=== PATIENT | female | born 1950 | race African-American/Black ===

== ENCOUNTER 2017-07-18 12:17 | Inpatient (IN) | payer OTHER, MEDICAID ==
[~2017-07-18] VITALS: Ht 167.6 cm; Wt 90.7 kg
[2017-07-18 12:17] VITALS: BP_SYST 154
[~2017-07-18 12:17] MED LIST: ALLO100T PO; ASA81 PO; ASPI-1063 PO; CILO100T21 PO; DIPH25CA83 PO; DOCU-144 PO; FOLI0.8T2 PO; IPRA0.2S6 INH; LEVA15HF5 INH; LEVO150T PO; LIP10 PO; METO-290 PO; NEPH PO; NEU400 PO; NEXIUM PO; ONDA4TAB5 PO; OXYC-130 PO; PERC10 PO; SSNOVOLOG SUBCUT; VITD2000 PO; WARF3TAB PO; [UNRECOGNIZED DRUG - OTHER]; pletal PO
[2017-07-18] MEDS ORDERED: NS 500 ML IV SCH (12:25)
[2017-07-18 13:06] LABS: BASOPHILS % (AUTO) 0.3 % (0.0-2.0); EOSINOPHILS # (AUTO) 0.1 K/uL (0.0-0.4); EOSINOPHILS % (AUTO) 0.9 % (0.0-4.0); HEMATOCRIT 34.2 % (36-48); HEMOGLOBIN 11.2 g/dL (12.0-16.0); LYMPHOCYTES # (AUTO) 1.5 K/uL (1.0-5.5); LYMPHOCYTES % (AUTO) 12.7 % (20.5-51.5); MEAN CORPUSCULAR HEMOGLOBIN 30 pg (27-31); MEAN CORPUSCULAR HGB CONC 33 % (32-36); MEAN CORPUSCULAR VOLUME 92 fL (79.0-98.0); MONOCYTES # (AUTO) 0.7 K/uL (0.0-1.0); MONOCYTES % (AUTO) 5.9 % (1.7-9.3); NEUTROPHILS # (AUTO) 9.3 K/uL (1.8-7.7); NEUTROPHILS % (AUTO) 80.2 % (40.0-70.0); PLATELET COUNT (AUTO) 214 K/uL (130-430); RED BLOOD CELL COUNT(AUTO) 3.73 MIL/uL (4.2-6.2); RED CELL DISTRIBUTION WIDTH 13.4 % (9.0-15.0); WHITE BLOOD COUNT (AUTO) 11.6 K/uL (4.8-10.8)
[2017-07-18 13:47] LABS: CREATININE 1.15 mg/dL (0.55-1.30); POTASSIUM 3.9 mmol/L (3.5-5.1)
[2017-07-18 13:48] LABS: BILIRUBIN,URINE NEGATIVE (NEGATIVE); CLARITY/URINE HAZY (CLEAR); COLOR,URINE YELLOW (YELLOW); GLUCOSE,URINE NEGATIVE (NEGATIVE); KETONES,URINE NEGATIVE (NEGATIVE); LEUKOCYTE ESTERASE ,URINE TRACE (NEGATIVE); NITRITE, URINE NEGATIVE (NEGATIVE); PH,URINE 5.5 (5.0-8.0); PROTEIN URINE NEGATIVE (NEGATIVE); UROBILINOGEN,URINE 0.2 (0.2-1.0)
[2017-07-18 13:51] LABS: ALBUMIN 3.3 g/dL (3.4-4.8); TOTAL BILIRUBIN 0.3 mg/dL (0.0-1.0)
[2017-07-18 13:52] LABS: BLOOD, URINE TRACE (NEGATIVE)
[2017-07-18 14:12] LABS: BACTERIA,URINE FEW /HPF (None Seen)
[2017-07-18] MEDS ORDERED: HYDROmorphone 1 MG INJ. 1 MG/ML AMPUL IVP ONE (14:15)
[2017-07-18 15:00] VITALS: BP_SYST 156
[2017-07-18] MEDS ORDERED: HYDROmorphone 1 MG INJ. 1 MG/ML AMPUL IVP PRN (15:15)
[2017-07-18 16:26] VITALS: BP_SYST 156
[2017-07-18] MEDS ORDERED: IPRATROPIUM BROM 0.5 MG/2.5 ML VIAL.NEB (ATROVENT) INH PRN (17:00)
[2017-07-18] MEDS ORDERED: DIPHENHYDRAMINE HCL 25 MG CAPSULE PO PRN (17:00)
[2017-07-18] MEDS ORDERED: OXYCODONE/ACETAMINOPHEN *10*mg/325 mg TABLET PO PRN (17:00)
[2017-07-18] MEDS ORDERED: ONDANSETRON 4 MG ODT TAB PO PRN (17:00)
[2017-07-18] MEDS ORDERED: OXYCODONE/ACETAMINOPHEN 5-325 TABLET PO PRN (17:00)
[2017-07-18] MEDS ORDERED: ALBUTEROL SULFATE 0.083% 2.5 MG/3 ML VIAL.NEB INH ONE (17:32)
[2017-07-18] MEDS ORDERED: IPRATROPIUM BROM 0.5 MG/2.5 ML VIAL.NEB (ATROVENT) INH ONE (17:32)
[2017-07-18] MEDS ORDERED: WARFARIN SODIUM 3 MG TABLET PO SCH (18:00)
[2017-07-18] MEDS ORDERED: DEXTROSE 50% JECT 50 ML DISP.SYRIN IVP PRN (18:00)
[2017-07-18] MEDS: HYDROmorphone 1 MG INJ. 1 MG/ML AMPUL IVP PRN ×2 (18:49→21:53)
[2017-07-18] MEDS: IPRATROPIUM/ALBUTEROL SULFATE 3 ML AMPUL.NEB INH SCH ×2 (19:46→23:22)
[2017-07-18 20:00] VITALS: BP_SYST 118
[2017-07-18] MEDS: PIPERACILLIN/TAZO 2.25G/DEX-IS 50 ML IV SCH (20:05)
[2017-07-18] MEDS ORDERED: GABAPENTIN 400 MG CAPSULE PO SCH (21:00)
[2017-07-18] MEDS: CILOSTAZOL 50 MG TABLET (PLETAL) PO SCH (21:24)
[2017-07-18] MEDS: DOCUSATE SODIUM 100 MG CAPSULE PO SCH (21:24)
[2017-07-18] MEDS: METOCLOPRAMIDE HCL 10 MG TABLET PO SCH (21:36)
[2017-07-19] MEDS: PIPERACILLIN/TAZO 2.25G/DEX-IS 50 ML IV SCH ×5 (00:18→23:19)
[2017-07-19] MEDS: HYDROmorphone 1 MG INJ. 1 MG/ML AMPUL IVP PRN ×10 (00:26→23:20)
[2017-07-19] MEDS: IPRATROPIUM/ALBUTEROL SULFATE 3 ML AMPUL.NEB INH SCH ×5 (03:12→19:47)
[2017-07-19 05:43] VITALS: BP_SYST 145
[2017-07-19] MEDS: LEVOTHYROXINE SODIUM 0.15 MG TABLET PO SCH (06:04)
[2017-07-19 07:34] LABS: BASOPHILS % (AUTO) 0.3 % (0.0-2.0); EOSINOPHILS # (AUTO) 0.1 K/uL (0.0-0.4); EOSINOPHILS % (AUTO) 1.2 % (0.0-4.0); HEMATOCRIT 31.1 % (36-48); HEMOGLOBIN 10.3 g/dL (12.0-16.0); LYMPHOCYTES # (AUTO) 2.4 K/uL (1.0-5.5); LYMPHOCYTES % (AUTO) 19.7 % (20.5-51.5); MEAN CORPUSCULAR HEMOGLOBIN 31 pg (27-31); MEAN CORPUSCULAR HGB CONC 33 % (32-36); MEAN CORPUSCULAR VOLUME 92 fL (79.0-98.0); MONOCYTES # (AUTO) 0.8 K/uL (0.0-1.0); MONOCYTES % (AUTO) 6.8 % (1.7-9.3); NEUTROPHILS # (AUTO) 8.8 K/uL (1.8-7.7); PLATELET COUNT (AUTO) 216 K/uL (130-430); RED BLOOD CELL COUNT(AUTO) 3.39 MIL/uL (4.2-6.2); RED CELL DISTRIBUTION WIDTH 13.1 % (9.0-15.0); WHITE BLOOD COUNT (AUTO) 12.1 K/uL (4.8-10.8)
[2017-07-19 07:46] LABS: ANION GAP 9 (5-15); CHLORIDE 104 mmol/L (98-107); GLUCOSE 130 mg/dL (70-99); POTASSIUM 3.6 mmol/L (3.5-5.1); SODIUM SERUM 140 mmol/L (136-145); UREA NITROGEN, BLOOD 17 mg/dL (8-21)
[2017-07-19 08:00] VITALS: BP_SYST 142
[2017-07-19 08:02] LABS: ALANINE AMINOTRANSFERASE 13 U/L (12-78); ALBUMIN 3.3 g/dL (3.4-4.8); ASPARTATE AMINOTRANSFERASE 15 U/L (10-37); FREE T4 (FREE THYROXINE) 1.3 ng/dl (0.8-1.5); PHOSPHORUS 2.8 mg/dL (2.7-4.5); THYROID STIMULATING HORMONE 0.98 uIu/mL (0.36-3.74); TOTAL BILIRUBIN 0.6 mg/dL (0.0-1.0)
[2017-07-19 08:05] LABS: GFR AFRICAN AMERICAN 58 mL/min (>90)
[2017-07-19 08:15] LABS: PROTHROMBIN TIME 21.7 SECS (9.5-12.5)
[2017-07-19] MEDS ORDERED: ASPIRIN 81 MG TAB.CHEW PO SCH (09:00)
[2017-07-19] MEDS ORDERED: NEPHROVITE, (FOLIC ACID/VITAMIN B COMP W-C 1 TAB) PO SCH (09:00)
[2017-07-19] MEDS: DOCUSATE SODIUM 100 MG CAPSULE PO SCH ×2 (09:43→20:19)
[2017-07-19] MEDS: ASPIRIN 81 MG TABLET(ECOTRIN) PO SCH (09:43)
[2017-07-19] MEDS: NEPHROVITE, (FOLIC ACID/VITAMIN B COMP W-C 1 TAB) PO SCH (09:43)
[2017-07-19] MEDS: ATORVASTATIN 10 MG TABLET PO SCH (09:43)
[2017-07-19] MEDS: METOCLOPRAMIDE HCL 10 MG TABLET PO SCH ×3 (09:44→16:57)
[2017-07-19] MEDS: GABAPENTIN 300 MG CAPSULE PO SCH ×3 (09:44→20:19)
[2017-07-19] MEDS: ALLOPURINOL 100 MG TABLET (ZYLOPRIM) PO SCH (09:44)
[2017-07-19] MEDS: CHOLECALCIFEROL (VITAMIN D3) 2,000 UNIT TABLET PO SCH (09:45)
[2017-07-19] MEDS: CILOSTAZOL 50 MG TABLET (PLETAL) PO SCH ×2 (09:46→20:19)
[2017-07-19] MEDS ORDERED: COMMUNICATION ORDER XX ONE (10:30)
[2017-07-19] MEDS: ONDANSETRON HCL 4 MG/2 ML VIAL IVP PRN (10:35)
[2017-07-19 11:59] VITALS: BP_SYST 137
[2017-07-19] MEDS ORDERED: LACTULOSE 20 GM/30 ML UDC PO ONE (15:00)
[2017-07-19 15:53] VITALS: BP_SYST 143
[2017-07-19] MEDS ORDERED: MINERAL OIL 30 ML UDC PO ONE (17:00)
[2017-07-19] MEDS: WARFARIN SODIUM 2 MG TABLET PO SCH (17:59)
[2017-07-19 19:30] VITALS: BP_SYST 106
[2017-07-20] VITALS (7 sets, daily range): BP systolic 98–145
[2017-07-20] MEDS: IPRATROPIUM/ALBUTEROL SULFATE 3 ML AMPUL.NEB INH SCH ×5 (00:43→23:05)
[2017-07-20] MEDS: ONDANSETRON HCL 4 MG/2 ML VIAL IVP PRN (01:06)
[2017-07-20] MEDS: HYDROmorphone 1 MG INJ. 1 MG/ML AMPUL IVP PRN ×9 (01:52→22:42)
[2017-07-20] MEDS: METOCLOPRAMIDE HCL 10 MG TABLET PO SCH ×3 (05:58→17:02)
[2017-07-20] MEDS: PIPERACILLIN/TAZO 2.25G/DEX-IS 50 ML IV SCH ×3 (05:59→17:43)
[2017-07-20] MEDS: LEVOTHYROXINE SODIUM 0.15 MG TABLET PO SCH (05:59)
[2017-07-20] MEDS: ASPIRIN 81 MG TABLET(ECOTRIN) PO SCH (08:27)
[2017-07-20] MEDS: ATORVASTATIN 10 MG TABLET PO SCH (08:27)
[2017-07-20] MEDS: DOCUSATE SODIUM 100 MG CAPSULE PO SCH ×2 (08:27→21:18)
[2017-07-20] MEDS: CILOSTAZOL 50 MG TABLET (PLETAL) PO SCH ×2 (08:28→21:19)
[2017-07-20] MEDS: ALLOPURINOL 100 MG TABLET (ZYLOPRIM) PO SCH (08:28)
[2017-07-20] MEDS: CHOLECALCIFEROL (VITAMIN D3) 2,000 UNIT TABLET PO SCH (08:28)
[2017-07-20] MEDS: NEPHROVITE, (FOLIC ACID/VITAMIN B COMP W-C 1 TAB) PO SCH (08:28)
[2017-07-20] MEDS: GABAPENTIN 300 MG CAPSULE PO SCH ×3 (08:28→21:18)
[2017-07-20 08:34] LABS: BASOPHILS % (AUTO) 0.3 % (0.0-2.0); EOSINOPHILS # (AUTO) 0.4 K/uL (0.0-0.4); EOSINOPHILS % (AUTO) 2.9 % (0.0-4.0); HEMATOCRIT 32.7 % (36-48); HEMOGLOBIN 10.7 g/dL (12.0-16.0); LYMPHOCYTES # (AUTO) 2.8 K/uL (1.0-5.5); MEAN CORPUSCULAR HEMOGLOBIN 30 pg (27-31); MEAN CORPUSCULAR HGB CONC 33 % (32-36); MEAN CORPUSCULAR VOLUME 92 fL (79.0-98.0); MONOCYTES # (AUTO) 0.9 K/uL (0.0-1.0); MONOCYTES % (AUTO) 6.9 % (1.7-9.3); NEUTROPHILS # (AUTO) 9.3 K/uL (1.8-7.7); NEUTROPHILS % (AUTO) 68.9 % (40.0-70.0); PLATELET COUNT (AUTO) 230 K/uL (130-430); RED BLOOD CELL COUNT(AUTO) 3.56 MIL/uL (4.2-6.2); RED CELL DISTRIBUTION WIDTH 13.6 % (9.0-15.0); WHITE BLOOD COUNT (AUTO) 13.4 K/uL (4.8-10.8)
[2017-07-20 08:37] LABS: CALCIUM 8.7 mg/dL (8.4-11.0); CREATININE 1.18 mg/dL (0.55-1.30); POTASSIUM 3.6 mmol/L (3.5-5.1)
[2017-07-20 08:40] LABS: INR 1.8 (0.8-1.2); PROTHROMBIN TIME 20.5 SECS (9.5-12.5)
[2017-07-20] MEDS: WARFARIN SODIUM 2 MG TABLET PO SCH (17:42)
[2017-07-20] MEDS: INSULIN REGULAR, HUMAN 100 UNITS/ML, 10 ML VIAL (novoLIN R) SUBCUT PRN (21:24)
[2017-07-21] VITALS (7 sets, daily range): BP systolic 109–156
[2017-07-21] MEDS: PIPERACILLIN/TAZO 2.25G/DEX-IS 50 ML IV SCH ×5 (00:19→23:31)
[2017-07-21] MEDS: HYDROmorphone 1 MG INJ. 1 MG/ML AMPUL IVP PRN ×11 (00:46→23:35)
[2017-07-21] MEDS: IPRATROPIUM/ALBUTEROL SULFATE 3 ML AMPUL.NEB INH SCH ×6 (03:00→23:07)
[2017-07-21] MEDS: METOCLOPRAMIDE HCL 10 MG TABLET PO SCH ×3 (06:49→17:21)
[2017-07-21] MEDS: LEVOTHYROXINE SODIUM 0.15 MG TABLET PO SCH (06:49)
[2017-07-21] MEDS: INSULIN REGULAR, HUMAN 100 UNITS/ML, 10 ML VIAL (novoLIN R) SUBCUT PRN (06:53)
[2017-07-21] MEDS: ALLOPURINOL 100 MG TABLET (ZYLOPRIM) PO SCH (08:46)
[2017-07-21] MEDS: CILOSTAZOL 50 MG TABLET (PLETAL) PO SCH ×2 (08:46→20:13)
[2017-07-21] MEDS: GABAPENTIN 300 MG CAPSULE PO SCH ×3 (08:46→20:13)
[2017-07-21] MEDS: NEPHROVITE, (FOLIC ACID/VITAMIN B COMP W-C 1 TAB) PO SCH (08:47)
[2017-07-21] MEDS: ATORVASTATIN 10 MG TABLET PO SCH (08:47)
[2017-07-21] MEDS: ASPIRIN 81 MG TABLET(ECOTRIN) PO SCH (08:47)
[2017-07-21] MEDS: CHOLECALCIFEROL (VITAMIN D3) 2,000 UNIT TABLET PO SCH (08:47)
[2017-07-21] MEDS: DOCUSATE SODIUM 100 MG CAPSULE PO SCH ×2 (08:47→20:13)
[2017-07-21] MEDS: ONDANSETRON HCL 4 MG/2 ML VIAL IVP PRN ×3 (08:55→23:41)
[2017-07-21 10:16] LABS: BASOPHILS % (AUTO) 0.1 % (0.0-2.0); EOSINOPHILS # (AUTO) 0.4 K/uL (0.0-0.4); EOSINOPHILS % (AUTO) 2.8 % (0.0-4.0); HEMATOCRIT 31.9 % (36-48); HEMOGLOBIN 10.2 g/dL (12.0-16.0); LYMPHOCYTES # (AUTO) 2.1 K/uL (1.0-5.5); MEAN CORPUSCULAR HEMOGLOBIN 30 pg (27-31); MEAN CORPUSCULAR HGB CONC 32 % (32-36); MEAN CORPUSCULAR VOLUME 93 fL (79.0-98.0); MONOCYTES % (AUTO) 6.8 % (1.7-9.3); NEUTROPHILS # (AUTO) 11.8 K/uL (1.8-7.7); NEUTROPHILS % (AUTO) 76.3 % (40.0-70.0); PLATELET COUNT (AUTO) 206 K/uL (130-430); RED BLOOD CELL COUNT(AUTO) 3.44 MIL/uL (4.2-6.2); RED CELL DISTRIBUTION WIDTH 13.9 % (9.0-15.0); WHITE BLOOD COUNT (AUTO) 15.3 K/uL (4.8-10.8)
[2017-07-21 10:27] LABS: TOTAL IRON BIND. CAPACITY 135 ug/dL (250-450)
[2017-07-21 10:34] LABS: CALCIUM 8.3 mg/dL (8.4-11.0); CREATININE 1.22 mg/dL (0.55-1.30); POTASSIUM 3.3 mmol/L (3.5-5.1)
[2017-07-21] MEDS: LACTOBACILLUS RHAMNOSUS GG 1 CAP CAPSULE PO SCH ×2 (12:00→20:13)
[2017-07-21] MEDS: WARFARIN SODIUM 2 MG TABLET PO SCH (18:50)
[2017-07-22] VITALS (7 sets, daily range): BP systolic 109–140
[2017-07-22] MEDS: IPRATROPIUM/ALBUTEROL SULFATE 3 ML AMPUL.NEB INH SCH ×7 (03:00→23:19)
[2017-07-22] MEDS: HYDROmorphone 1 MG INJ. 1 MG/ML AMPUL IVP PRN ×10 (03:32→22:50)
[2017-07-22] MEDS: ONDANSETRON HCL 4 MG/2 ML VIAL IVP PRN ×2 (05:50→21:51)
[2017-07-22] MEDS: PIPERACILLIN/TAZO 2.25G/DEX-IS 50 ML IV SCH ×4 (05:50→22:59)
[2017-07-22] MEDS: METOCLOPRAMIDE HCL 10 MG TABLET PO SCH ×3 (06:52→16:45)
[2017-07-22] MEDS: LEVOTHYROXINE SODIUM 0.15 MG TABLET PO SCH (06:52)
[2017-07-22 07:50] LABS: BASOPHILS % (AUTO) 0.3 % (0.0-2.0); EOSINOPHILS # (AUTO) 0.6 K/uL (0.0-0.4); EOSINOPHILS % (AUTO) 4.7 % (0.0-4.0); HEMATOCRIT 30.9 % (36-48); HEMOGLOBIN 10.2 g/dL (12.0-16.0); LYMPHOCYTES # (AUTO) 3.1 K/uL (1.0-5.5); LYMPHOCYTES % (AUTO) 22.8 % (20.5-51.5); MEAN CORPUSCULAR HEMOGLOBIN 30 pg (27-31); MEAN CORPUSCULAR HGB CONC 33 % (32-36); MEAN CORPUSCULAR VOLUME 92 fL (79.0-98.0); MONOCYTES # (AUTO) 0.9 K/uL (0.0-1.0); MONOCYTES % (AUTO) 6.7 % (1.7-9.3); NEUTROPHILS # (AUTO) 8.8 K/uL (1.8-7.7); NEUTROPHILS % (AUTO) 65.5 % (40.0-70.0); PLATELET COUNT (AUTO) 218 K/uL (130-430); RED BLOOD CELL COUNT(AUTO) 3.35 MIL/uL (4.2-6.2); RED CELL DISTRIBUTION WIDTH 13.7 % (9.0-15.0); WHITE BLOOD COUNT (AUTO) 13.4 K/uL (4.8-10.8)
[2017-07-22 08:37] LABS: FOLATE (FOLIC ACID) >20.0 ng/mL (>3.0)
[2017-07-22] MEDS: CILOSTAZOL 50 MG TABLET (PLETAL) PO SCH ×2 (08:43→20:39)
[2017-07-22] MEDS: GABAPENTIN 300 MG CAPSULE PO SCH ×3 (08:44→20:39)
[2017-07-22] MEDS: DOCUSATE SODIUM 100 MG CAPSULE PO SCH ×2 (08:44→20:39)
[2017-07-22] MEDS: ATORVASTATIN 10 MG TABLET PO SCH (08:44)
[2017-07-22] MEDS: ALLOPURINOL 100 MG TABLET (ZYLOPRIM) PO SCH (08:44)
[2017-07-22] MEDS: NEPHROVITE, (FOLIC ACID/VITAMIN B COMP W-C 1 TAB) PO SCH (08:44)
[2017-07-22] MEDS: ASPIRIN 81 MG TABLET(ECOTRIN) PO SCH (08:44)
[2017-07-22] MEDS: CHOLECALCIFEROL (VITAMIN D3) 2,000 UNIT TABLET PO SCH (08:45)
[2017-07-22] MEDS: LACTOBACILLUS RHAMNOSUS GG 1 CAP CAPSULE PO SCH ×2 (08:45→20:39)
[2017-07-22 09:41] LABS: CALCIUM 8.6 mg/dL (8.4-11.0); CREATININE 1.24 mg/dL (0.55-1.30); POTASSIUM 3.6 mmol/L (3.5-5.1)
[2017-07-22] MEDS: PANTOPRAZOLE SODIUM 40 MG TAB PO SCH (11:05)
[2017-07-22] MEDS ORDERED: LACTULOSE 20 GM/30 ML UDC PO ONE (13:15)
[2017-07-22] MEDS ORDERED: MINERAL OIL 30 ML UDC PO ONE (13:15)
[2017-07-22] MEDS ORDERED: SOD FERRIC GLUC COMPLEX/SUC 125 MG in NS 100 ML IV ONE (13:15)
[2017-07-22] MEDS: WARFARIN SODIUM 2.5 MG TABLET PO SCH (18:34)
[2017-07-22] MEDS: ACETYLCYSTEINE 20% 4 ML VIAL (RT) INH SCH (19:39)
[2017-07-23] VITALS (7 sets, daily range): BP systolic 109–154
[2017-07-23] MEDS: IPRATROPIUM/ALBUTEROL SULFATE 3 ML AMPUL.NEB INH SCH ×5 (03:00→20:05)
[2017-07-23] MEDS: HYDROmorphone 1 MG INJ. 1 MG/ML AMPUL IVP PRN ×7 (03:25→23:32)
[2017-07-23] MEDS: PIPERACILLIN/TAZO 2.25G/DEX-IS 50 ML IV SCH ×4 (05:14→23:31)
[2017-07-23] MEDS: METOCLOPRAMIDE HCL 10 MG TABLET PO SCH ×3 (05:15→17:00)
[2017-07-23] MEDS: LEVOTHYROXINE SODIUM 0.15 MG TABLET PO SCH (06:35)
[2017-07-23] MEDS: ACETYLCYSTEINE 20% 4 ML VIAL (RT) INH SCH (07:00)
[2017-07-23 07:33] LABS: BASOPHILS % (AUTO) 0.3 % (0.0-2.0); EOSINOPHILS # (AUTO) 0.6 K/uL (0.0-0.4); EOSINOPHILS % (AUTO) 4.6 % (0.0-4.0); HEMOGLOBIN 9.5 g/dL (12.0-16.0); LYMPHOCYTES # (AUTO) 1.9 K/uL (1.0-5.5); LYMPHOCYTES % (AUTO) 13.8 % (20.5-51.5); MEAN CORPUSCULAR HEMOGLOBIN 29 pg (27-31); MEAN CORPUSCULAR HGB CONC 32 % (32-36); MEAN CORPUSCULAR VOLUME 93 fL (79.0-98.0); MONOCYTES # (AUTO) 0.9 K/uL (0.0-1.0); MONOCYTES % (AUTO) 6.6 % (1.7-9.3); NEUTROPHILS # (AUTO) 10.1 K/uL (1.8-7.7); NEUTROPHILS % (AUTO) 74.7 % (40.0-70.0); PLATELET COUNT (AUTO) 213 K/uL (130-430); RED BLOOD CELL COUNT(AUTO) 3.23 MIL/uL (4.2-6.2); RED CELL DISTRIBUTION WIDTH 13.9 % (9.0-15.0); WHITE BLOOD COUNT (AUTO) 13.5 K/uL (4.8-10.8)
[2017-07-23 07:42] LABS: INR 1.9 (0.8-1.2); PROTHROMBIN TIME 20.9 SECS (9.5-12.5)
[2017-07-23 07:45] LABS: CALCIUM 8.7 mg/dL (8.4-11.0); CREATININE 1.14 mg/dL (0.55-1.30); POTASSIUM 3.9 mmol/L (3.5-5.1)
[2017-07-23] MEDS: ONDANSETRON HCL 4 MG/2 ML VIAL IVP PRN ×2 (07:55→23:31)
[2017-07-23] MEDS: ALLOPURINOL 100 MG TABLET (ZYLOPRIM) PO SCH (08:37)
[2017-07-23] MEDS: NEPHROVITE, (FOLIC ACID/VITAMIN B COMP W-C 1 TAB) PO SCH ×2 (08:37→09:00)
[2017-07-23] MEDS: PANTOPRAZOLE SODIUM 40 MG TAB PO SCH (08:38)
[2017-07-23] MEDS: CILOSTAZOL 50 MG TABLET (PLETAL) PO SCH ×2 (08:38→21:14)
[2017-07-23] MEDS: GABAPENTIN 300 MG CAPSULE PO SCH ×3 (08:38→21:14)
[2017-07-23] MEDS: LACTOBACILLUS RHAMNOSUS GG 1 CAP CAPSULE PO SCH ×2 (08:38→21:14)
[2017-07-23] MEDS: CHOLECALCIFEROL (VITAMIN D3) 2,000 UNIT TABLET PO SCH (08:38)
[2017-07-23] MEDS: ATORVASTATIN 10 MG TABLET PO SCH (08:38)
[2017-07-23] MEDS: ASPIRIN 81 MG TABLET(ECOTRIN) PO SCH (08:39)
[2017-07-23] MEDS: DOCUSATE SODIUM 100 MG CAPSULE PO SCH ×2 (08:39→21:14)
[2017-07-23] MEDS: NYSTATIN 500,000 UNITS/5 ML UDC PO SCH ×3 (11:37→23:31)
[2017-07-23] MEDS: WARFARIN SODIUM 2.5 MG TABLET PO SCH (18:07)
[2017-07-23] MEDS: guaiFENesin ER 600 MG TAB PO SCH (21:14)
[2017-07-24] VITALS (8 sets, daily range): BP systolic 110–144
[2017-07-24] MEDS: HYDROmorphone 1 MG INJ. 1 MG/ML AMPUL IVP PRN ×10 (01:34→22:18)
[2017-07-24] MEDS: IPRATROPIUM/ALBUTEROL SULFATE 3 ML AMPUL.NEB INH SCH ×7 (03:53→23:38)
[2017-07-24] MEDS: PIPERACILLIN/TAZO 2.25G/DEX-IS 50 ML IV SCH ×3 (06:10→17:40)
[2017-07-24] MEDS: NYSTATIN 500,000 UNITS/5 ML UDC PO SCH ×3 (06:10→18:20)
[2017-07-24] MEDS: LEVOTHYROXINE SODIUM 0.15 MG TABLET PO SCH (06:17)
[2017-07-24] MEDS: METOCLOPRAMIDE HCL 10 MG TABLET PO SCH ×3 (06:17→16:51)
[2017-07-24 07:20] LABS: BASOPHILS % (AUTO) 0.3 % (0.0-2.0); EOSINOPHILS # (AUTO) 0.6 K/uL (0.0-0.4); EOSINOPHILS % (AUTO) 4.4 % (0.0-4.0); HEMATOCRIT 28.9 % (36-48); HEMOGLOBIN 9.7 g/dL (12.0-16.0); LYMPHOCYTES # (AUTO) 3.1 K/uL (1.0-5.5); LYMPHOCYTES % (AUTO) 23.1 % (20.5-51.5); MEAN CORPUSCULAR HEMOGLOBIN 31 pg (27-31); MEAN CORPUSCULAR HGB CONC 34 % (32-36); MEAN CORPUSCULAR VOLUME 92 fL (79.0-98.0); MONOCYTES % (AUTO) 7.2 % (1.7-9.3); NEUTROPHILS # (AUTO) 8.5 K/uL (1.8-7.7); PLATELET COUNT (AUTO) 221 K/uL (130-430); RED BLOOD CELL COUNT(AUTO) 3.14 MIL/uL (4.2-6.2); RED CELL DISTRIBUTION WIDTH 13.8 % (9.0-15.0); WHITE BLOOD COUNT (AUTO) 13.2 K/uL (4.8-10.8)
[2017-07-24 07:50] LABS: INR 1.7 (0.8-1.2); PROTHROMBIN TIME 18.4 SECS (9.5-12.5)
[2017-07-24 07:57] LABS: CALCIUM 8.7 mg/dL (8.4-11.0); CREATININE 1.04 mg/dL (0.55-1.30)
[2017-07-24] MEDS: LACTOBACILLUS RHAMNOSUS GG 1 CAP CAPSULE PO SCH ×2 (09:01→20:58)
[2017-07-24] MEDS: ATORVASTATIN 10 MG TABLET PO SCH (09:01)
[2017-07-24] MEDS: PANTOPRAZOLE SODIUM 40 MG TAB PO SCH (09:01)
[2017-07-24] MEDS: GABAPENTIN 300 MG CAPSULE PO SCH ×3 (09:01→20:58)
[2017-07-24] MEDS: DOCUSATE SODIUM 100 MG CAPSULE PO SCH ×2 (09:01→20:57)
[2017-07-24] MEDS: NEPHROVITE, (FOLIC ACID/VITAMIN B COMP W-C 1 TAB) PO SCH (09:02)
[2017-07-24] MEDS: CILOSTAZOL 50 MG TABLET (PLETAL) PO SCH ×2 (09:02→20:59)
[2017-07-24] MEDS: guaiFENesin ER 600 MG TAB PO SCH ×2 (09:02→20:57)
[2017-07-24] MEDS: ALLOPURINOL 100 MG TABLET (ZYLOPRIM) PO SCH (09:02)
[2017-07-24] MEDS: CHOLECALCIFEROL (VITAMIN D3) 2,000 UNIT TABLET PO SCH (09:02)
[2017-07-24] MEDS: ASPIRIN 81 MG TABLET(ECOTRIN) PO SCH (09:02)
[2017-07-24] MEDS ORDERED: FLUCONAZOLE 200 mg/ NS 100 ML IV ONE (10:30)
[2017-07-24] MEDS: WARFARIN SODIUM 2.5 MG TABLET PO SCH (18:23)
[2017-07-24] MEDS: ONDANSETRON HCL 4 MG/2 ML VIAL IVP PRN (22:19)
[2017-07-25] VITALS (7 sets, daily range): BP systolic 142–159
[2017-07-25] MEDS: HYDROmorphone 1 MG INJ. 1 MG/ML AMPUL IVP PRN ×9 (00:24→21:02)
[2017-07-25] MEDS: PIPERACILLIN/TAZO 2.25G/DEX-IS 50 ML IV SCH ×4 (00:26→12:40)
[2017-07-25] MEDS: NYSTATIN 500,000 UNITS/5 ML UDC PO SCH ×4 (00:26→17:35)
[2017-07-25] MEDS: IPRATROPIUM/ALBUTEROL SULFATE 3 ML AMPUL.NEB INH SCH ×6 (04:20→22:15)
[2017-07-25] MEDS: LEVOTHYROXINE SODIUM 0.15 MG TABLET PO SCH (05:56)
[2017-07-25] MEDS: METOCLOPRAMIDE HCL 10 MG TABLET PO SCH ×3 (05:56→16:51)
[2017-07-25 08:42] LABS: INR 1.5 (0.8-1.2); PROTHROMBIN TIME 16.2 SECS (9.5-12.5)
[2017-07-25] MEDS: DOCUSATE SODIUM 100 MG CAPSULE PO SCH ×2 (09:07→20:52)
[2017-07-25] MEDS: ATORVASTATIN 10 MG TABLET PO SCH (09:08)
[2017-07-25] MEDS: CILOSTAZOL 50 MG TABLET (PLETAL) PO SCH ×2 (09:08→20:52)
[2017-07-25] MEDS: GABAPENTIN 300 MG CAPSULE PO SCH ×3 (09:08→20:52)
[2017-07-25] MEDS: ALLOPURINOL 100 MG TABLET (ZYLOPRIM) PO SCH (09:08)
[2017-07-25] MEDS: CHOLECALCIFEROL (VITAMIN D3) 2,000 UNIT TABLET PO SCH (09:09)
[2017-07-25] MEDS: ASPIRIN 81 MG TABLET(ECOTRIN) PO SCH (09:09)
[2017-07-25] MEDS: LACTOBACILLUS RHAMNOSUS GG 1 CAP CAPSULE PO SCH ×2 (09:09→20:52)
[2017-07-25] MEDS: NEPHROVITE, (FOLIC ACID/VITAMIN B COMP W-C 1 TAB) PO SCH (09:09)
[2017-07-25] MEDS: guaiFENesin ER 600 MG TAB PO SCH ×2 (09:09→20:52)
[2017-07-25] MEDS: PANTOPRAZOLE SODIUM 40 MG TAB PO SCH (09:09)
[2017-07-25] MEDS ORDERED: MINERAL OIL 30 ML UDC PO ONE (14:30)
[2017-07-25] MEDS ORDERED: LACTULOSE 20 GM/30 ML UDC PO ONE (14:30)
[2017-07-25 15:29] LABS: INR 1.5 (0.8-1.2); PROTHROMBIN TIME 16.5 SECS (9.5-12.5)
[2017-07-25] MEDS: WARFARIN SODIUM 2.5 MG TABLET PO SCH (17:35)
[2017-07-25] MEDS: ONDANSETRON HCL 4 MG/2 ML VIAL IVP PRN (18:27)
[2017-07-25] MEDS: AMIKACIN SULFATE 450 MG in D5W 100 ML IV SCH (20:51)
[2017-07-26] MEDS: NYSTATIN 500,000 UNITS/5 ML UDC PO SCH ×5 (00:27→23:10)
[2017-07-26] MEDS: HYDROmorphone 1 MG INJ. 1 MG/ML AMPUL IVP PRN ×10 (00:34→23:10)
[2017-07-26] MEDS: IPRATROPIUM/ALBUTEROL SULFATE 3 ML AMPUL.NEB INH SCH ×6 (03:47→23:03)
[2017-07-26 04:21] VITALS: BP_SYST 157
[2017-07-26 05:46] VITALS: BP_SYST 122
[2017-07-26] MEDS: LEVOTHYROXINE SODIUM 0.15 MG TABLET PO SCH (05:58)
[2017-07-26 07:12] LABS: BASOPHILS # (AUTO) 0.1 K/uL (0.0-0.2); BASOPHILS % (AUTO) 0.5 % (0.0-2.0); EOSINOPHILS # (AUTO) 0.3 K/uL (0.0-0.4); EOSINOPHILS % (AUTO) 2.4 % (0.0-4.0); HEMATOCRIT 31.1 % (36-48); HEMOGLOBIN 10.3 g/dL (12.0-16.0); LYMPHOCYTES # (AUTO) 2.8 K/uL (1.0-5.5); LYMPHOCYTES % (AUTO) 19.7 % (20.5-51.5); MEAN CORPUSCULAR HEMOGLOBIN 31 pg (27-31); MEAN CORPUSCULAR HGB CONC 33 % (32-36); MEAN CORPUSCULAR VOLUME 93 fL (79.0-98.0); MONOCYTES % (AUTO) 7.2 % (1.7-9.3); NEUTROPHILS # (AUTO) 9.8 K/uL (1.8-7.7); NEUTROPHILS % (AUTO) 70.2 % (40.0-70.0); PLATELET COUNT (AUTO) 226 K/uL (130-430); RED BLOOD CELL COUNT(AUTO) 3.34 MIL/uL (4.2-6.2)
[2017-07-26 07:29] LABS: INR 1.5 (0.8-1.2); PROTHROMBIN TIME 16.6 SECS (9.5-12.5)
[2017-07-26 07:48] LABS: CREATININE 1.16 mg/dL (0.55-1.30); POTASSIUM 3.9 mmol/L (3.5-5.1)
[2017-07-26] MEDS: AMIKACIN SULFATE 450 MG in D5W 100 ML IV SCH ×2 (08:42→20:36)
[2017-07-26] MEDS: METOCLOPRAMIDE HCL 10 MG TABLET PO SCH ×3 (08:43→17:53)
[2017-07-26] MEDS: LACTOBACILLUS RHAMNOSUS GG 1 CAP CAPSULE PO SCH ×2 (08:45→20:33)
[2017-07-26] MEDS: DOCUSATE SODIUM 100 MG CAPSULE PO SCH ×2 (08:45→20:33)
[2017-07-26] MEDS: ATORVASTATIN 10 MG TABLET PO SCH (08:45)
[2017-07-26] MEDS: guaiFENesin ER 600 MG TAB PO SCH ×2 (08:45→20:33)
[2017-07-26] MEDS: ASPIRIN 81 MG TABLET(ECOTRIN) PO SCH (08:45)
[2017-07-26] MEDS: GABAPENTIN 300 MG CAPSULE PO SCH ×3 (08:46→20:33)
[2017-07-26] MEDS: PANTOPRAZOLE SODIUM 40 MG TAB PO SCH (08:46)
[2017-07-26] MEDS: NEPHROVITE, (FOLIC ACID/VITAMIN B COMP W-C 1 TAB) PO SCH (08:46)
[2017-07-26] MEDS: CHOLECALCIFEROL (VITAMIN D3) 2,000 UNIT TABLET PO SCH (08:46)
[2017-07-26] MEDS: CILOSTAZOL 50 MG TABLET (PLETAL) PO SCH ×2 (08:46→20:33)
[2017-07-26] MEDS: ALLOPURINOL 100 MG TABLET (ZYLOPRIM) PO SCH (08:47)
[2017-07-26 12:25] VITALS: BP_SYST 151
[2017-07-26 16:37] VITALS: BP_SYST 140
[2017-07-26] MEDS: WARFARIN SODIUM 2.5 MG TABLET PO SCH (17:53)
[2017-07-26] MEDS: ONDANSETRON HCL 4 MG/2 ML VIAL IVP PRN (17:56)
[2017-07-26] MEDS ORDERED: WARFARIN SODIUM 2 MG TABLET PO ONE (18:00)
[2017-07-27 00:33] VITALS: BP_SYST 127
[2017-07-27] MEDS: HYDROmorphone 1 MG INJ. 1 MG/ML AMPUL IVP PRN ×7 (03:25→23:24)
[2017-07-27 04:00] VITALS: BP_SYST 117
[2017-07-27] MEDS: NYSTATIN 500,000 UNITS/5 ML UDC PO SCH ×3 (06:08→17:34)
[2017-07-27] MEDS: LEVOTHYROXINE SODIUM 0.15 MG TABLET PO SCH (06:08)
[2017-07-27] MEDS: METOCLOPRAMIDE HCL 10 MG TABLET PO SCH ×3 (06:09→17:34)
[2017-07-27 06:34] LABS: BASOPHILS # (AUTO) 0.1 K/uL (0.0-0.2); BASOPHILS % (AUTO) 0.5 % (0.0-2.0); EOSINOPHILS # (AUTO) 0.5 K/uL (0.0-0.4); EOSINOPHILS % (AUTO) 3.4 % (0.0-4.0); HEMATOCRIT 31.4 % (36-48); LYMPHOCYTES % (AUTO) 22.7 % (20.5-51.5); MEAN CORPUSCULAR HEMOGLOBIN 29 pg (27-31); MEAN CORPUSCULAR HGB CONC 32 % (32-36); MEAN CORPUSCULAR VOLUME 92 fL (79.0-98.0); MONOCYTES # (AUTO) 0.9 K/uL (0.0-1.0); MONOCYTES % (AUTO) 6.8 % (1.7-9.3); NEUTROPHILS # (AUTO) 8.8 K/uL (1.8-7.7); NEUTROPHILS % (AUTO) 66.6 % (40.0-70.0); PLATELET COUNT (AUTO) 256 K/uL (130-430); RED BLOOD CELL COUNT(AUTO) 3.41 MIL/uL (4.2-6.2); RED CELL DISTRIBUTION WIDTH 14.2 % (9.0-15.0); WHITE BLOOD COUNT (AUTO) 13.3 K/uL (4.8-10.8)
[2017-07-27 06:58] LABS: INR 1.5 (0.8-1.2); PROTHROMBIN TIME 16.6 SECS (9.5-12.5)
[2017-07-27] MEDS: AMIKACIN SULFATE 450 MG in D5W 100 ML IV SCH ×2 (08:31→20:02)
[2017-07-27] MEDS: ALLOPURINOL 100 MG TABLET (ZYLOPRIM) PO SCH (08:37)
[2017-07-27] MEDS: GABAPENTIN 300 MG CAPSULE PO SCH ×3 (08:37→20:34)
[2017-07-27] MEDS: DOCUSATE SODIUM 100 MG CAPSULE PO SCH ×2 (08:37→20:34)
[2017-07-27] MEDS: ASPIRIN 81 MG TABLET(ECOTRIN) PO SCH (08:38)
[2017-07-27] MEDS: LACTOBACILLUS RHAMNOSUS GG 1 CAP CAPSULE PO SCH ×2 (08:38→20:34)
[2017-07-27] MEDS: NEPHROVITE, (FOLIC ACID/VITAMIN B COMP W-C 1 TAB) PO SCH (08:38)
[2017-07-27] MEDS: CHOLECALCIFEROL (VITAMIN D3) 2,000 UNIT TABLET PO SCH (08:38)
[2017-07-27] MEDS: ATORVASTATIN 10 MG TABLET PO SCH (08:38)
[2017-07-27] MEDS: PANTOPRAZOLE SODIUM 40 MG TAB PO SCH (08:39)
[2017-07-27] MEDS: CILOSTAZOL 50 MG TABLET (PLETAL) PO SCH ×2 (08:39→20:34)
[2017-07-27] MEDS: guaiFENesin ER 600 MG TAB PO SCH ×2 (08:39→20:34)
[2017-07-27] MEDS: IPRATROPIUM/ALBUTEROL SULFATE 3 ML AMPUL.NEB INH SCH ×5 (11:27→23:00)
[2017-07-27] MEDS: MINERAL OIL 30 ML UDC PO SCH ×2 (12:00→20:35)
[2017-07-27] MEDS: LACTULOSE 20 GM/30 ML UDC PO SCH ×2 (12:00→20:35)
[2017-07-27 12:13] VITALS: BP_SYST 141
[2017-07-27] MEDS: ONDANSETRON HCL 4 MG/2 ML VIAL IVP PRN (14:50)
[2017-07-27 16:12] VITALS: BP_SYST 122
[2017-07-27] MEDS ORDERED: WARFARIN SODIUM 3 MG TABLET PO SCH (18:00)
[2017-07-28] MEDS: NYSTATIN 500,000 UNITS/5 ML UDC PO SCH ×3 (00:14→11:01)
[2017-07-28] MEDS: HYDROmorphone 1 MG INJ. 1 MG/ML AMPUL IVP PRN ×4 (00:15→12:26)
[2017-07-28 00:21] VITALS: BP_SYST 124
[2017-07-28] MEDS: IPRATROPIUM/ALBUTEROL SULFATE 3 ML AMPUL.NEB INH SCH ×3 (03:00→11:24)
[2017-07-28] MEDS: ONDANSETRON HCL 4 MG/2 ML VIAL IVP PRN ×2 (04:01→11:01)
[2017-07-28 05:39] VITALS: BP_SYST 127
[2017-07-28] MEDS: LEVOTHYROXINE SODIUM 0.15 MG TABLET PO SCH (06:02)
[2017-07-28] MEDS: METOCLOPRAMIDE HCL 10 MG TABLET PO SCH ×2 (06:02→11:02)
[2017-07-28 07:14] LABS: INR 1.6 (0.8-1.2); PROTHROMBIN TIME 17.3 SECS (9.5-12.5)
[2017-07-28 07:16] LABS: BASOPHILS % (AUTO) 0.1 % (0.0-2.0); EOSINOPHILS # (AUTO) 0.5 K/uL (0.0-0.4); EOSINOPHILS % (AUTO) 3.5 % (0.0-4.0); HEMATOCRIT 30.7 % (36-48); HEMOGLOBIN 10.1 g/dL (12.0-16.0); LYMPHOCYTES # (AUTO) 3.1 K/uL (1.0-5.5); LYMPHOCYTES % (AUTO) 22.1 % (20.5-51.5); MEAN CORPUSCULAR HEMOGLOBIN 30 pg (27-31); MEAN CORPUSCULAR HGB CONC 33 % (32-36); MEAN CORPUSCULAR VOLUME 92 fL (79.0-98.0); MONOCYTES % (AUTO) 7.3 % (1.7-9.3); NEUTROPHILS # (AUTO) 9.6 K/uL (1.8-7.7); PLATELET COUNT (AUTO) 258 K/uL (130-430); RED BLOOD CELL COUNT(AUTO) 3.33 MIL/uL (4.2-6.2); RED CELL DISTRIBUTION WIDTH 13.9 % (9.0-15.0); WHITE BLOOD COUNT (AUTO) 14.2 K/uL (4.8-10.8)
[2017-07-28 07:31] LABS: ALBUMIN 2.9 g/dL (3.4-4.8); CALCIUM 9.3 mg/dL (8.4-11.0); CREATININE 1.15 mg/dL (0.55-1.30); POTASSIUM 4.4 mmol/L (3.5-5.1); TOTAL BILIRUBIN 0.3 mg/dL (0.0-1.0)
[2017-07-28 08:00] VITALS: BP_SYST 145
[2017-07-28] MEDS: CILOSTAZOL 50 MG TABLET (PLETAL) PO SCH (08:17)
[2017-07-28] MEDS: GABAPENTIN 300 MG CAPSULE PO SCH (08:17)
[2017-07-28] MEDS: ATORVASTATIN 10 MG TABLET PO SCH (08:18)
[2017-07-28] MEDS: LACTOBACILLUS RHAMNOSUS GG 1 CAP CAPSULE PO SCH (08:18)
[2017-07-28] MEDS: NEPHROVITE, (FOLIC ACID/VITAMIN B COMP W-C 1 TAB) PO SCH (08:18)
[2017-07-28] MEDS: LACTULOSE 20 GM/30 ML UDC PO SCH (08:18)
[2017-07-28] MEDS: PANTOPRAZOLE SODIUM 40 MG TAB PO SCH (08:18)
[2017-07-28] MEDS: DOCUSATE SODIUM 100 MG CAPSULE PO SCH (08:18)
[2017-07-28] MEDS: ASPIRIN 81 MG TABLET(ECOTRIN) PO SCH (08:18)
[2017-07-28] MEDS: ALLOPURINOL 100 MG TABLET (ZYLOPRIM) PO SCH (08:18)
[2017-07-28] MEDS: CHOLECALCIFEROL (VITAMIN D3) 2,000 UNIT TABLET PO SCH (08:18)
[2017-07-28] MEDS: guaiFENesin ER 600 MG TAB PO SCH (08:18)
[2017-07-28] MEDS: AMIKACIN SULFATE 450 MG in D5W 100 ML IV SCH (08:19)
[2017-07-28] MEDS: MINERAL OIL 30 ML UDC PO SCH (08:19)
[2017-07-28] MEDS ORDERED: PIPERACILLIN/TAZO 4.5GM/DEX-IS 100 ML IV ONE (11:15)
[2017-07-28] MEDS ORDERED: PIPE4.5F2 IV (11:55)
[2017-07-28] MEDS ORDERED: MINE473O2 PO (11:57)
[2017-07-28] MEDS ORDERED: LACT10SO66 PO (11:57)
[2017-07-28 12:01] VITALS: BP_SYST 163
[2017-07-28 12:06] VITALS: BP_SYST 148
[2017-07-28 12:46] VITALS: BP_SYST 148
== END 2017-07-28 13:40 | disposition home health service (06) | DRG 870 ==
LOC: SED 12:17 → STU 13:58
PROVIDERS: ADMIT Internal Medicine; ATTEND Internal Medicine
PROC: 5A1955Z Respiratory Ventilation, Greater than 96 Consecutive Hours (ICD-10-PCS; principal; 2017-07-18)
DX: A41.9 Sepsis, unspecified organism (principal); J96.20 Acute and chronic respiratory failure, unspecified whether with hypoxia or hypercapnia; J15.6 Pneumonia due to other Gram-negative bacteria; Z99.11 Dependence on respirator [ventilator] status; J44.0 Chronic obstructive pulmonary disease with (acute) lower respiratory infection; D68.59 Other primary thrombophilia; E11.22 Type 2 diabetes mellitus with diabetic chronic kidney disease; J44.1 Chronic obstructive pulmonary disease with (acute) exacerbation; Z93.0 Tracheostomy status; J20.9 Acute bronchitis, unspecified; N18.9 Chronic kidney disease, unspecified; E03.9 Hypothyroidism, unspecified; M19.90 Unspecified osteoarthritis, unspecified site; Z16.24 Resistance to multiple antibiotics; E11.51 Type 2 diabetes mellitus with diabetic peripheral angiopathy without gangrene; E78.5 Hyperlipidemia, unspecified; F32.9 Major depressive disorder, single episode, unspecified; F41.9 Anxiety disorder, unspecified; G89.4 Chronic pain syndrome; I12.9 Hypertensive chronic kidney disease with stage 1 through stage 4 chronic kidney disease, or unspecified chronic kidney disease; I25.10 Atherosclerotic heart disease of native coronary artery without angina pectoris; K21.9 Gastro-esophageal reflux disease without esophagitis; J98.6 Disorders of diaphragm; M10.9 Gout, unspecified; K59.00 Constipation, unspecified; D64.9 Anemia, unspecified; B96.5 Pseudomonas (aeruginosa) (mallei) (pseudomallei) as the cause of diseases classified elsewhere; Z79.899 Other long term (current) drug therapy; Z86.711 Personal history of pulmonary embolism; Z95.0 Presence of cardiac pacemaker; Z88.6 Allergy status to analgesic agent; Z88.1 Allergy status to other antibiotic agents; Z88.3 Allergy status to other anti-infective agents; Z88.8 Allergy status to other drugs, medicaments and biological substances; Z91.018 Allergy to other foods; Z86.718 Personal history of other venous thrombosis and embolism; Z87.442 Personal history of urinary calculi; Z87.891 Personal history of nicotine dependence; Z79.82 Long term (current) use of aspirin; Z74.01 Bed confinement status; Z88.5 Allergy status to narcotic agent; Z91.012 Allergy to eggs; Z91.040 Latex allergy status; Z88.2 Allergy status to sulfonamides; Z91.041 Radiographic dye allergy status; Z86.73 Personal history of transient ischemic attack (TIA), and cerebral infarction without residual deficits; Z98.891 History of uterine scar from previous surgery
CPT/HCPCS: 36415; 71010; 71250-TC; 80048; 80053; 80061; 80150; 81000-TC; 82607; 82746; 82962; 83036; 83540-TC; 83550-TC; 83605; 83735-TC; 83880; 84100-TC; 84439; 84443-TC; 84484; 85025; 85610-TC; 87040-TC; 87070-TC; 87186-TC; 87205-TC; 93005; 94002; 94003; 94640; 94760; 96374; 97110-GP; 97530-GP; 99285; J0278; J1170; J1450; J1815; J2405; J2543; J2916; J7040; J7050; J7060; J8597

== ENCOUNTER 2018-05-27 20:58 | Inpatient (IN) | payer OTHER, MEDICAID ==
[~2018-05-27] VITALS: Ht 167.6 cm; Wt 92.1 kg
[~2018-05-27 20:58] MED LIST changes: -ASA81 PO; -ASPI-1063 PO; +ASPI-1153 PO; +LACT10SO66 PO; +MINO30 PO; +PIPE4.5F2 IV; -WARF3TAB PO
[2018-05-27 21:00] VITALS: BP_SYST 147
[2018-05-27] MEDS ORDERED: NACL 0.9% 1,000 ML IV ONE (21:13)
[2018-05-27] MEDS ORDERED: ONDANSETRON HCL 4 MG/2 ML VIAL IVP ONE (21:15)
[2018-05-27] MEDS ORDERED: NS 1000 ML IV.SOLN IV ONE (21:15)
[2018-05-27 22:08] LABS: BASOPHILS # (AUTO) 0.1 K/uL (0.0-0.2); BASOPHILS % (AUTO) 0.5 % (0.0-2.0); EOSINOPHILS # (AUTO) 0.2 K/uL (0.0-0.4); EOSINOPHILS % (AUTO) 1.1 % (0.0-4.0); HEMATOCRIT 27.1 % (36-48); HEMOGLOBIN 8.9 g/dL (12.0-16.0); LYMPHOCYTES # (AUTO) 1.3 K/uL (1.0-5.5); LYMPHOCYTES % (AUTO) 8.8 % (20.5-51.5); MEAN CORPUSCULAR HEMOGLOBIN 29 pg (27-31); MEAN CORPUSCULAR HGB CONC 33 % (32-36); MEAN CORPUSCULAR VOLUME 87 fL (79.0-98.0); MONOCYTES # (AUTO) 1.3 K/uL (0.0-1.0); MONOCYTES % (AUTO) 8.7 % (1.7-9.3); NEUTROPHILS # (AUTO) 11.5 K/uL (1.8-7.7); NEUTROPHILS % (AUTO) 80.9 % (40.0-70.0); PLATELET COUNT (AUTO) 388 K/uL (130-430); RED BLOOD CELL COUNT(AUTO) 3.12 MIL/uL (4.2-6.2); RED CELL DISTRIBUTION WIDTH 15.8 % (9.0-15.0); WHITE BLOOD COUNT (AUTO) 14.4 K/uL (4.8-10.8)
[2018-05-27 22:32] LABS: CALCIUM 8.6 mg/dL (8.4-11.0); CREATININE 1.67 mg/dL (0.55-1.30); POTASSIUM 4.2 mmol/L (3.5-5.1); TOTAL BILIRUBIN 0.3 mg/dL (0.0-1.0)
[2018-05-27] MEDS ORDERED: ALBUTEROL SULFATE 0.083% 2.5 MG/3 ML VIAL.NEB INH ONE (22:41)
[2018-05-27] MEDS ORDERED: MAGNESIUM SULFATE 1 GM in NS 50 ML IV ONE (22:45)
[2018-05-27] MEDS ORDERED: ALBUTEROL SULFATE 0.083% 2.5 MG/3 ML VIAL.NEB IH ONE (22:45)
[2018-05-27] MEDS ORDERED: IPRATROPIUM BROM 0.5 MG/2.5 ML VIAL.NEB (ATROVENT) IH ONE (22:45)
[2018-05-27] MEDS ORDERED: methylPREDNISolone SOD SUCC/PF 62.5 MG/ML VIAL IVP ONE (22:45)
[2018-05-27] MEDS ORDERED: DIPHENHYDRAMINE INJ 50 MG/ML VIAL IVP ONE (22:45)
[2018-05-27 22:55] LABS: INR 1.3 (0.8-1.2); PROTHROMBIN TIME 13.7 SECS (9.5-12.5)
[2018-05-27] MEDS ORDERED: MAGNESIUM SULFATE 1 GM/2 ML VIAL ONE (23:13)
[2018-05-28 00:14] LABS: BILIRUBIN,URINE NEGATIVE (NEGATIVE); BLOOD, URINE 2+ (NEGATIVE); CLARITY/URINE CLOUDY (CLEAR); COLOR,URINE YELLOW (YELLOW); GLUCOSE,URINE NEGATIVE (NEGATIVE); KETONES,URINE NEGATIVE (NEGATIVE); LEUKOCYTE ESTERASE ,URINE 3+ (NEGATIVE); NITRITE, URINE NEGATIVE (NEGATIVE); PH,URINE 5.5 (5.0-8.0); PROTEIN URINE 1+ (NEGATIVE); UROBILINOGEN,URINE 0.2 (0.2-1.0)
[2018-05-28 00:49] LABS: BACTERIA,URINE MANY /HPF (None Seen); MUCUS,URINE 1+ /LPF (None Seen); RBC,URINE 20-50 /HPF (0-3); WBC,URINE 80-100 /HPF (0-3)
[2018-05-28] MEDS ORDERED: ACETAMINOPHEN 650 MG/20.3 ML UDC PO PRN (01:00)
[2018-05-28] MEDS ORDERED: IPRATROPIUM/ALBUTEROL SULFATE 3 ML AMPUL.NEB INH ONE (01:00)
[2018-05-28 01:29] VITALS: BP_SYST 139
[2018-05-28 01:43] VITALS: BP_SYST 160
[2018-05-28] MEDS ORDERED: MORPHINE 4 MG/ML INJ. SYRINGE IVP PRN (03:00)
[2018-05-28] MEDS: IPRATROPIUM/ALBUTEROL SULFATE 3 ML AMPUL.NEB INH SCH ×3 (03:00→11:25)
[2018-05-28] MEDS ORDERED: OXYCODONE/ACETAMINOPHEN 5-325 TABLET PO PRN ×2 (05:45→18:00)
[2018-05-28] MEDS ORDERED: OXYCODONE/ACETAMINOPHEN *10*mg/325 mg TABLET PO PRN ×2 (05:45→18:00)
[2018-05-28] MEDS ORDERED: DEXTROSE 50%-WATER 50 ML DISP.SYRIN IVP PRN ×2 (08:15)
[2018-05-28] MEDS ORDERED: GLUCOSE 15 GM GEL (in 37.5 GM TUBE) PO PRN ×2 (08:15)
[2018-05-28 08:40] VITALS: BP_SYST 134
[2018-05-28] MEDS: HYDROmorphone 1 MG INJ. 1 MG/ML AMPUL IM PRN ×3 (10:55→20:38)
[2018-05-28] MEDS: INSULIN REGULAR, HUMAN 100 UNITS/ML, 10 ML VIAL (novoLIN R) SUBCUT PRN ×3 (12:19→21:53)
[2018-05-28 12:40] VITALS: BP_SYST 133
[2018-05-28] MEDS: ONDANSETRON HCL 4 MG/2 ML VIAL IVP PRN ×2 (13:25→20:55)
[2018-05-28] MEDS: PIPERACILLIN/TAZO 2.25G/DEX-IS 50 ML IV SCH ×2 (13:34→17:51)
[2018-05-28 17:13] VITALS: BP_SYST 138
[2018-05-28] MEDS ORDERED: DIPHENHYDRAMINE HCL 25 MG CAPSULE PO PRN (18:00)
[2018-05-28] MEDS ORDERED: IPRATROPIUM BROM 0.5 MG/2.5 ML VIAL.NEB (ATROVENT) INH PRN (18:00)
[2018-05-28] MEDS ORDERED: LEVALBUTEROL Tartrate 15 GM HFA. 45 mCg/Actuation INH PRN (18:15)
[2018-05-28] MEDS ORDERED: WARFARIN SODIUM 3 MG TABLET PO ONE (18:30)
[2018-05-28 20:30] VITALS: BP_SYST 145
[2018-05-28] MEDS: methylPREDNISolone SOD SUCC 40 MG/ML VIAL IVP SCH (20:37)
[2018-05-28] MEDS: CILOSTAZOL 50 MG TABLET (PLETAL) PO SCH (20:38)
[2018-05-28] MEDS: LACTULOSE 20 GM/30 ML UDC PO SCH (20:38)
[2018-05-28] MEDS: DOCUSATE SODIUM 100 MG CAPSULE PO SCH (20:38)
[2018-05-28] MEDS: METOCLOPRAMIDE HCL 10 MG TABLET PO SCH (20:38)
[2018-05-28] MEDS: MINERAL OIL 30 ML UDC PO SCH (20:38)
[2018-05-28] MEDS: IPRATROPIUM/ALBUTEROL SULFATE 3 ML AMPUL.NEB INH PRN (20:48)
[2018-05-28] MEDS ORDERED: GABAPENTIN 400 MG CAPSULE PO SCH (21:00)
[2018-05-29] VITALS: BP_SYST 144
[2018-05-29] MEDS: ONDANSETRON HCL 4 MG/2 ML VIAL IVP PRN ×2 (00:26→04:22)
[2018-05-29] MEDS: HYDROmorphone 1 MG INJ. 1 MG/ML AMPUL IM PRN ×4 (00:27→15:55)
[2018-05-29] MEDS: PIPERACILLIN/TAZO 2.25G/DEX-IS 50 ML IV SCH ×4 (00:30→17:21)
[2018-05-29] MEDS: LEVOTHYROXINE SODIUM 0.15 MG TABLET PO SCH (06:24)
[2018-05-29] MEDS: PANTOPRAZOLE SODIUM 40 MG TAB PO SCH (06:24)
[2018-05-29] MEDS: INSULIN REGULAR, HUMAN 100 UNITS/ML, 10 ML VIAL (novoLIN R) SUBCUT PRN ×3 (06:33→17:24)
[2018-05-29 08:00] VITALS: BP_SYST 131
[2018-05-29] MEDS: IPRATROPIUM/ALBUTEROL SULFATE 3 ML AMPUL.NEB INH PRN ×4 (08:06→17:40)
[2018-05-29] MEDS: CILOSTAZOL 50 MG TABLET (PLETAL) PO SCH ×2 (09:12→21:29)
[2018-05-29] MEDS: ASPIRIN 81 MG TABLET(ECOTRIN) PO SCH (09:12)
[2018-05-29] MEDS: CHOLECALCIFEROL (VITAMIN D3) 2,000 UNIT TABLET PO SCH (09:12)
[2018-05-29] MEDS: NEPHROVITE, (FOLIC ACID/VITAMIN B COMP W-C 1 TAB) PO SCH (09:12)
[2018-05-29] MEDS: LACTULOSE 20 GM/30 ML UDC PO SCH ×2 (09:12→21:30)
[2018-05-29] MEDS: ALLOPURINOL 100 MG TABLET (ZYLOPRIM) PO SCH (09:12)
[2018-05-29] MEDS: METOCLOPRAMIDE HCL 10 MG TABLET PO SCH ×3 (09:12→21:29)
[2018-05-29] MEDS: ATORVASTATIN 10 MG TABLET PO SCH (09:12)
[2018-05-29] MEDS: MINERAL OIL 30 ML UDC PO SCH ×2 (09:12→21:31)
[2018-05-29] MEDS: DOCUSATE SODIUM 100 MG CAPSULE PO SCH ×2 (09:13→21:29)
[2018-05-29] MEDS: methylPREDNISolone SOD SUCC 40 MG/ML VIAL IVP SCH ×2 (09:14→21:30)
[2018-05-29] MEDS ORDERED: VANCOMYCIN HCL 1,750 MG in NS 500 ML IV ONE (10:00)
[2018-05-29] MEDS ORDERED: GABAPENTIN 300 MG CAPSULE PO ONE (10:15)
[2018-05-29 10:28] LABS: BASOPHILS % (AUTO) 0.1 % (0.0-2.0); HEMOGLOBIN 8.4 g/dL (12.0-16.0); LYMPHOCYTES # (AUTO) 1.4 K/uL (1.0-5.5); MEAN CORPUSCULAR HEMOGLOBIN 29 pg (27-31); MEAN CORPUSCULAR HGB CONC 34 % (32-36); MEAN CORPUSCULAR VOLUME 87 fL (79.0-98.0); MONOCYTES # (AUTO) 1.5 K/uL (0.0-1.0); MONOCYTES % (AUTO) 7.6 % (1.7-9.3); NEUTROPHILS # (AUTO) 17.4 K/uL (1.8-7.7); NEUTROPHILS % (AUTO) 85.3 % (40.0-70.0); PLATELET COUNT (AUTO) 438 K/uL (130-430); RED BLOOD CELL COUNT(AUTO) 2.88 MIL/uL (4.2-6.2)
[2018-05-29 10:35] LABS: WHITE BLOOD COUNT (AUTO) 20.3 K/uL (4.8-10.8)
[2018-05-29 10:39] LABS: CALCIUM 9.1 mg/dL (8.4-11.0); CREATININE 1.5 mg/dL (0.55-1.30); POTASSIUM 4.1 mmol/L (3.5-5.1)
[2018-05-29 10:42] LABS: INR 1.6 (0.8-1.2); PROTHROMBIN TIME 16.1 SECS (9.5-12.5)
[2018-05-29 12:00] VITALS: BP_SYST 159
[2018-05-29] MEDS ORDERED: FUROSEMIDE 40 MG/4 ML VIAL IVP ONE (14:15)
[2018-05-29] MEDS: GABAPENTIN 300 MG CAPSULE PO SCH ×2 (14:40→21:29)
[2018-05-29 16:00] VITALS: BP_SYST 166
[2018-05-29] MEDS: DIPHENHYDRAMINE INJ 50 MG/ML VIAL IVP SCH (16:11)
[2018-05-29] MEDS ORDERED: WARFARIN SODIUM 3 MG TABLET PO SCH (18:00)
[2018-05-29] MEDS: HYDROmorphone 1 MG INJ. 1 MG/ML AMPUL IVP PRN (22:34)
[2018-05-30 00:05] VITALS: BP_SYST 129
[2018-05-30] MEDS: DIPHENHYDRAMINE INJ 50 MG/ML VIAL IVP SCH ×3 (00:05→18:21)
[2018-05-30] MEDS: PIPERACILLIN/TAZO 2.25G/DEX-IS 50 ML IV SCH ×5 (00:05→23:21)
[2018-05-30] MEDS: HYDROmorphone 1 MG INJ. 1 MG/ML AMPUL IVP PRN ×5 (01:20→23:35)
[2018-05-30] MEDS: LEVOTHYROXINE SODIUM 0.15 MG TABLET PO SCH (06:06)
[2018-05-30] MEDS: PANTOPRAZOLE SODIUM 40 MG TAB PO SCH (06:06)
[2018-05-30] MEDS: INSULIN REGULAR, HUMAN 100 UNITS/ML, 10 ML VIAL (novoLIN R) SUBCUT PRN ×2 (06:08→18:40)
[2018-05-30 07:55] LABS: HEMATOCRIT 23.7 % (36-48); HEMOGLOBIN 7.7 g/dL (12.0-16.0); LYMPHOCYTES # (AUTO) 1.1 K/uL (1.0-5.5); MONOCYTES # (AUTO) 0.8 K/uL (0.0-1.0); RED CELL DISTRIBUTION WIDTH 15.9 % (9.0-15.0)
[2018-05-30 08:00] VITALS: BP_SYST 132
[2018-05-30 08:03] LABS: PROTHROMBIN TIME 20.5 SECS (9.5-12.5)
[2018-05-30] MEDS: IPRATROPIUM/ALBUTEROL SULFATE 3 ML AMPUL.NEB INH PRN ×3 (08:05→20:19)
[2018-05-30 08:10] LABS: CALCIUM 8.8 mg/dL (8.4-11.0); CREATININE 1.73 mg/dL (0.55-1.30); POTASSIUM 4.5 mmol/L (3.5-5.1)
[2018-05-30 08:38] LABS: BASOPHILS % (AUTO) 0.2 % (0.0-2.0); EOSINOPHILS # (AUTO) 0.1 K/uL (0.0-0.4); EOSINOPHILS % (AUTO) 0.5 % (0.0-4.0); LYMPHOCYTES % (AUTO) 6.5 % (20.5-51.5); MEAN CORPUSCULAR HEMOGLOBIN 28 pg (27-31); MEAN CORPUSCULAR HGB CONC 33 % (32-36); MEAN CORPUSCULAR VOLUME 87 fL (79.0-98.0); MONOCYTES % (AUTO) 4.8 % (1.7-9.3); NEUTROPHILS # (AUTO) 14.9 K/uL (1.8-7.7); PLATELET COUNT (AUTO) 418 K/uL (130-430); RED BLOOD CELL COUNT(AUTO) 2.73 MIL/uL (4.2-6.2); WHITE BLOOD COUNT (AUTO) 16.9 K/uL (4.8-10.8)
[2018-05-30] MEDS: ATORVASTATIN 10 MG TABLET PO SCH (08:40)
[2018-05-30] MEDS: ALLOPURINOL 100 MG TABLET (ZYLOPRIM) PO SCH (08:40)
[2018-05-30] MEDS: CILOSTAZOL 50 MG TABLET (PLETAL) PO SCH ×2 (08:41→23:21)
[2018-05-30] MEDS: LACTULOSE 20 GM/30 ML UDC PO SCH ×2 (08:42→23:21)
[2018-05-30] MEDS: MINERAL OIL 30 ML UDC PO SCH ×2 (08:42→21:00)
[2018-05-30] MEDS: DOCUSATE SODIUM 100 MG CAPSULE PO SCH ×2 (08:42→23:22)
[2018-05-30] MEDS: NEPHROVITE, (FOLIC ACID/VITAMIN B COMP W-C 1 TAB) PO SCH (08:42)
[2018-05-30] MEDS: METOCLOPRAMIDE HCL 10 MG TABLET PO SCH ×3 (08:42→23:22)
[2018-05-30] MEDS: ASPIRIN 81 MG TABLET(ECOTRIN) PO SCH (08:42)
[2018-05-30] MEDS: GABAPENTIN 300 MG CAPSULE PO SCH (08:42)
[2018-05-30] MEDS: CHOLECALCIFEROL (VITAMIN D3) 2,000 UNIT TABLET PO SCH (08:42)
[2018-05-30] MEDS: methylPREDNISolone SOD SUCC 40 MG/ML VIAL IVP SCH ×2 (08:43→23:22)
[2018-05-30] MEDS: VANCOMYCIN HCL 1.25 GM/NS 250 ML IV SCH ×2 (10:24→10:25)
[2018-05-30 12:00] VITALS: BP_SYST 130
[2018-05-30] MEDS ORDERED: NEPHROVITE, (FOLIC ACID/VITAMIN B COMP W-C 1 TAB) PO ONE (14:30)
[2018-05-30 15:24] LABS: TOTAL IRON BIND. CAPACITY 122 ug/dL (250-450)
[2018-05-30 16:00] VITALS: BP_SYST 105
[2018-05-30 16:41] VITALS: BP_SYST 132
[2018-05-30] MEDS: GABAPENTIN 400 MG CAPSULE PO SCH ×2 (17:57→21:00)
[2018-05-30] MEDS: WARFARIN SODIUM 2.5 MG TABLET PO SCH (17:59)
[2018-05-30 20:06] VITALS: BP_SYST 147
[2018-05-31 00:02] VITALS: BP_SYST 133
[2018-05-31] MEDS: DIPHENHYDRAMINE INJ 50 MG/ML VIAL IVP SCH ×3 (01:27→16:48)
[2018-05-31] MEDS: HYDROmorphone 1 MG INJ. 1 MG/ML AMPUL IVP PRN ×5 (05:02→21:02)
[2018-05-31] MEDS: PIPERACILLIN/TAZO 2.25G/DEX-IS 50 ML IV SCH ×3 (05:02→17:45)
[2018-05-31] MEDS: PANTOPRAZOLE SODIUM 40 MG TAB PO SCH (06:49)
[2018-05-31] MEDS: LEVOTHYROXINE SODIUM 0.15 MG TABLET PO SCH (06:49)
[2018-05-31] MEDS: INSULIN REGULAR, HUMAN 100 UNITS/ML, 10 ML VIAL (novoLIN R) SUBCUT PRN ×4 (07:03→20:51)
[2018-05-31 07:31] LABS: BASOPHILS % (AUTO) 0.3 % (0.0-2.0); HEMATOCRIT 27.4 % (36-48); HEMOGLOBIN 8.9 g/dL (12.0-16.0); LYMPHOCYTES # (AUTO) 1.5 K/uL (1.0-5.5); LYMPHOCYTES % (AUTO) 12.6 % (20.5-51.5); MEAN CORPUSCULAR HEMOGLOBIN 29 pg (27-31); MEAN CORPUSCULAR HGB CONC 33 % (32-36); MEAN CORPUSCULAR VOLUME 89 fL (79.0-98.0); MONOCYTES # (AUTO) 0.6 K/uL (0.0-1.0); MONOCYTES % (AUTO) 5.1 % (1.7-9.3); NEUTROPHILS # (AUTO) 9.9 K/uL (1.8-7.7); PLATELET COUNT (AUTO) 399 K/uL (130-430); RED BLOOD CELL COUNT(AUTO) 3.07 MIL/uL (4.2-6.2)
[2018-05-31 07:41] LABS: CALCIUM 8.7 mg/dL (8.4-11.0); CREATININE 1.49 mg/dL (0.55-1.30); POTASSIUM 4.5 mmol/L (3.5-5.1)
[2018-05-31 08:00] VITALS: BP_SYST 133; BP_SYST 142
[2018-05-31] MEDS: IPRATROPIUM/ALBUTEROL SULFATE 3 ML AMPUL.NEB INH PRN ×3 (08:07→20:41)
[2018-05-31 08:21] LABS: INR 2.1 (0.8-1.2); PROTHROMBIN TIME 21.4 SECS (9.5-12.5)
[2018-05-31] MEDS: NEPHROVITE, (FOLIC ACID/VITAMIN B COMP W-C 1 TAB) PO SCH ×2 (09:00→09:19)
[2018-05-31] MEDS: ALLOPURINOL 100 MG TABLET (ZYLOPRIM) PO SCH (09:17)
[2018-05-31] MEDS: ASPIRIN 81 MG TABLET(ECOTRIN) PO SCH (09:17)
[2018-05-31] MEDS: ATORVASTATIN 10 MG TABLET PO SCH (09:17)
[2018-05-31] MEDS: methylPREDNISolone SOD SUCC 40 MG/ML VIAL IVP SCH ×2 (09:17→20:30)
[2018-05-31] MEDS: GABAPENTIN 400 MG CAPSULE PO SCH ×3 (09:17→20:31)
[2018-05-31] MEDS: CHOLECALCIFEROL (VITAMIN D3) 2,000 UNIT TABLET PO SCH (09:17)
[2018-05-31] MEDS: MINERAL OIL 30 ML UDC PO SCH ×3 (09:17→20:43)
[2018-05-31] MEDS: METOCLOPRAMIDE HCL 10 MG TABLET PO SCH ×3 (09:18→20:31)
[2018-05-31] MEDS: LACTULOSE 20 GM/30 ML UDC PO SCH ×2 (09:18→20:30)
[2018-05-31] MEDS: DOCUSATE SODIUM 100 MG CAPSULE PO SCH ×2 (09:18→20:30)
[2018-05-31] MEDS: CILOSTAZOL 50 MG TABLET (PLETAL) PO SCH ×2 (09:18→20:31)
[2018-05-31 12:00] VITALS: BP_SYST 121
[2018-05-31 16:10] VITALS: BP_SYST 146
[2018-05-31] MEDS: WARFARIN SODIUM 2.5 MG TABLET PO SCH (17:07)
[2018-05-31 20:27] VITALS: BP_SYST 134
[2018-06-01] VITALS: BP_SYST 143
[2018-06-01] MEDS: PIPERACILLIN/TAZO 2.25G/DEX-IS 50 ML IV SCH ×4 (00:04→17:36)
[2018-06-01] MEDS: DIPHENHYDRAMINE INJ 50 MG/ML VIAL IVP SCH ×3 (01:35→17:34)
[2018-06-01] MEDS: HYDROmorphone 1 MG INJ. 1 MG/ML AMPUL IVP PRN ×5 (04:38→21:26)
[2018-06-01] MEDS: LEVOTHYROXINE SODIUM 0.15 MG TABLET PO SCH (06:07)
[2018-06-01] MEDS: PANTOPRAZOLE SODIUM 40 MG TAB PO SCH (06:07)
[2018-06-01] MEDS: INSULIN REGULAR, HUMAN 100 UNITS/ML, 10 ML VIAL (novoLIN R) SUBCUT PRN ×4 (06:09→21:34)
[2018-06-01 06:58] LABS: BASOPHILS % (AUTO) 0.4 % (0.0-2.0); EOSINOPHILS % (AUTO) 0.1 % (0.0-4.0); HEMATOCRIT 27.4 % (36-48); HEMOGLOBIN 9.1 g/dL (12.0-16.0); LYMPHOCYTES # (AUTO) 2.3 K/uL (1.0-5.5); LYMPHOCYTES % (AUTO) 18.5 % (20.5-51.5); MEAN CORPUSCULAR HEMOGLOBIN 29 pg (27-31); MEAN CORPUSCULAR HGB CONC 33 % (32-36); MEAN CORPUSCULAR VOLUME 87 fL (79.0-98.0); MONOCYTES # (AUTO) 0.8 K/uL (0.0-1.0); MONOCYTES % (AUTO) 6.8 % (1.7-9.3); NEUTROPHILS # (AUTO) 9.1 K/uL (1.8-7.7); NEUTROPHILS % (AUTO) 74.2 % (40.0-70.0); PLATELET COUNT (AUTO) 405 K/uL (130-430); RED BLOOD CELL COUNT(AUTO) 3.14 MIL/uL (4.2-6.2); RED CELL DISTRIBUTION WIDTH 15.1 % (9.0-15.0); WHITE BLOOD COUNT (AUTO) 12.2 K/uL (4.8-10.8)
[2018-06-01 07:24] LABS: CALCIUM 9.2 mg/dL (8.4-11.0); CREATININE 1.37 mg/dL (0.55-1.30); POTASSIUM 4.4 mmol/L (3.5-5.1)
[2018-06-01 07:28] LABS: INR 2.1 (0.8-1.2); PROTHROMBIN TIME 21.6 SECS (9.5-12.5)
[2018-06-01 08:30] VITALS: BP_SYST 136
[2018-06-01] MEDS: NEPHROVITE, (FOLIC ACID/VITAMIN B COMP W-C 1 TAB) PO SCH ×2 (09:00→09:10)
[2018-06-01] MEDS: DOCUSATE SODIUM 100 MG CAPSULE PO SCH ×2 (09:00→21:26)
[2018-06-01] MEDS: ATORVASTATIN 10 MG TABLET PO SCH (09:08)
[2018-06-01] MEDS: methylPREDNISolone SOD SUCC 40 MG/ML VIAL IVP SCH (09:08)
[2018-06-01] MEDS: CHOLECALCIFEROL (VITAMIN D3) 2,000 UNIT TABLET PO SCH (09:09)
[2018-06-01] MEDS: GABAPENTIN 400 MG CAPSULE PO SCH ×3 (09:09→21:27)
[2018-06-01] MEDS: CILOSTAZOL 50 MG TABLET (PLETAL) PO SCH ×2 (09:09→21:26)
[2018-06-01] MEDS: ASPIRIN 81 MG TABLET(ECOTRIN) PO SCH (09:09)
[2018-06-01] MEDS: METOCLOPRAMIDE HCL 10 MG TABLET PO SCH ×3 (09:10→21:26)
[2018-06-01] MEDS: ALLOPURINOL 100 MG TABLET (ZYLOPRIM) PO SCH (09:10)
[2018-06-01] MEDS: LACTULOSE 20 GM/30 ML UDC PO SCH ×2 (09:11→21:26)
[2018-06-01] MEDS: MINERAL OIL 30 ML UDC PO SCH ×2 (09:12→21:00)
[2018-06-01] MEDS: ONDANSETRON HCL 4 MG/2 ML VIAL IVP PRN (11:00)
[2018-06-01 12:20] VITALS: BP_SYST 142
[2018-06-01] MEDS: AMIKACIN SULFATE 450 MG in D5W 100 ML IV SCH (13:27)
[2018-06-01] MEDS ORDERED: ONDANSETRON HCL 4 MG/2 ML VIAL IVP PRN (14:30)
[2018-06-01] MEDS ORDERED: LACTOBACILLUS RHAMNOSUS GG 1 CAP CAPSULE PO ONE (14:45)
[2018-06-01 16:20] VITALS: BP_SYST 132
[2018-06-01] MEDS: WARFARIN SODIUM 2.5 MG TABLET PO SCH (17:32)
[2018-06-01 20:20] VITALS: BP_SYST 133
[2018-06-01] MEDS: LACTOBACILLUS RHAMNOSUS GG 1 CAP CAPSULE PO SCH (21:26)
[2018-06-02] MEDS: PIPERACILLIN/TAZO 2.25G/DEX-IS 50 ML IV SCH ×5 (00:03→23:15)
[2018-06-02] MEDS: DIPHENHYDRAMINE INJ 50 MG/ML VIAL IVP SCH ×3 (00:04→16:02)
[2018-06-02 00:55] VITALS: BP_SYST 128
[2018-06-02] MEDS: AMIKACIN SULFATE 450 MG in D5W 100 ML IV SCH ×2 (01:47→13:02)
[2018-06-02] MEDS: HYDROmorphone 1 MG INJ. 1 MG/ML AMPUL IVP PRN ×6 (01:47→23:14)
[2018-06-02] MEDS: ONDANSETRON HCL 4 MG/2 ML VIAL IVP PRN (04:30)
[2018-06-02] MEDS: PANTOPRAZOLE SODIUM 40 MG TAB PO SCH (06:31)
[2018-06-02] MEDS: LEVOTHYROXINE SODIUM 0.15 MG TABLET PO SCH (06:31)
[2018-06-02] MEDS: INSULIN REGULAR, HUMAN 100 UNITS/ML, 10 ML VIAL (novoLIN R) SUBCUT PRN ×4 (06:38→21:33)
[2018-06-02 06:56] LABS: BASOPHILS # (AUTO) 0.1 K/uL (0.0-0.2); BASOPHILS % (AUTO) 0.5 % (0.0-2.0); EOSINOPHILS # (AUTO) 0.2 K/uL (0.0-0.4); EOSINOPHILS % (AUTO) 1.4 % (0.0-4.0); HEMATOCRIT 28.7 % (36-48); HEMOGLOBIN 9.5 g/dL (12.0-16.0); LYMPHOCYTES % (AUTO) 27.4 % (20.5-51.5); MEAN CORPUSCULAR HEMOGLOBIN 29 pg (27-31); MEAN CORPUSCULAR HGB CONC 33 % (32-36); MEAN CORPUSCULAR VOLUME 88 fL (79.0-98.0); MONOCYTES # (AUTO) 1.2 K/uL (0.0-1.0); MONOCYTES % (AUTO) 8.3 % (1.7-9.3); NEUTROPHILS % (AUTO) 62.4 % (40.0-70.0); PLATELET COUNT (AUTO) 396 K/uL (130-430); RED BLOOD CELL COUNT(AUTO) 3.26 MIL/uL (4.2-6.2); RED CELL DISTRIBUTION WIDTH 15.7 % (9.0-15.0); WHITE BLOOD COUNT (AUTO) 14.4 K/uL (4.8-10.8)
[2018-06-02 07:08] LABS: INR 2.2 (0.8-1.2); PROTHROMBIN TIME 22.5 SECS (9.5-12.5)
[2018-06-02 07:12] LABS: CREATININE 1.4 mg/dL (0.55-1.30); POTASSIUM 3.9 mmol/L (3.5-5.1)
[2018-06-02 07:45] VITALS: BP_SYST 122
[2018-06-02 08:15] VITALS: BP_SYST 122
[2018-06-02] MEDS: ALLOPURINOL 100 MG TABLET (ZYLOPRIM) PO SCH (08:25)
[2018-06-02] MEDS: LACTOBACILLUS RHAMNOSUS GG 1 CAP CAPSULE PO SCH ×2 (08:25→21:27)
[2018-06-02] MEDS: ATORVASTATIN 10 MG TABLET PO SCH (08:26)
[2018-06-02] MEDS: ASPIRIN 81 MG TABLET(ECOTRIN) PO SCH (08:26)
[2018-06-02] MEDS: NEPHROVITE, (FOLIC ACID/VITAMIN B COMP W-C 1 TAB) PO SCH (08:26)
[2018-06-02] MEDS: METOCLOPRAMIDE HCL 10 MG TABLET PO SCH ×3 (08:26→21:28)
[2018-06-02] MEDS: CHOLECALCIFEROL (VITAMIN D3) 2,000 UNIT TABLET PO SCH (08:26)
[2018-06-02] MEDS: PREDNISONE 20 MG TABLET PO SCH (08:27)
[2018-06-02] MEDS: GABAPENTIN 400 MG CAPSULE PO SCH ×3 (08:27→21:27)
[2018-06-02] MEDS: CILOSTAZOL 50 MG TABLET (PLETAL) PO SCH ×2 (08:27→21:27)
[2018-06-02] MEDS: DOCUSATE SODIUM 100 MG CAPSULE PO SCH ×2 (09:00→21:00)
[2018-06-02] MEDS: LACTULOSE 20 GM/30 ML UDC PO SCH ×2 (09:00→21:00)
[2018-06-02] MEDS: MINERAL OIL 30 ML UDC PO SCH ×2 (09:00→21:00)
[2018-06-02 11:22] VITALS: BP_SYST 130
[2018-06-02 15:07] VITALS: BP_SYST 112
[2018-06-02] MEDS: WARFARIN SODIUM 2.5 MG TABLET PO SCH (17:55)
[2018-06-02] MEDS: IPRATROPIUM/ALBUTEROL SULFATE 3 ML AMPUL.NEB INH PRN (19:49)
[2018-06-02 20:00] VITALS: BP_SYST 127
[2018-06-02] MEDS: DIPHENHYDRAMINE INJ 50 MG/ML VIAL IVP PRN (23:14)
[2018-06-03] VITALS: BP_SYST 121
[2018-06-03] MEDS: DIPHENHYDRAMINE INJ 50 MG/ML VIAL IVP SCH ×2 (01:00→07:51)
[2018-06-03] MEDS: AMIKACIN SULFATE 450 MG in D5W 100 ML IV SCH ×2 (01:11→13:30)
[2018-06-03] MEDS: DIPHENHYDRAMINE INJ 50 MG/ML VIAL IVP PRN (03:27)
[2018-06-03] MEDS: HYDROmorphone 1 MG INJ. 1 MG/ML AMPUL IVP PRN ×3 (03:28→11:58)
[2018-06-03] MEDS: ONDANSETRON HCL 4 MG/2 ML VIAL IVP PRN (06:00)
[2018-06-03] MEDS: LEVOTHYROXINE SODIUM 0.15 MG TABLET PO SCH (06:04)
[2018-06-03] MEDS: PANTOPRAZOLE SODIUM 40 MG TAB PO SCH (06:05)
[2018-06-03] MEDS: INSULIN REGULAR, HUMAN 100 UNITS/ML, 10 ML VIAL (novoLIN R) SUBCUT PRN ×2 (06:07→11:53)
[2018-06-03] MEDS: PIPERACILLIN/TAZO 2.25G/DEX-IS 50 ML IV SCH ×2 (06:10→11:50)
[2018-06-03 06:52] LABS: BASOPHILS # (AUTO) 0.1 K/uL (0.0-0.2); BASOPHILS % (AUTO) 0.6 % (0.0-2.0); EOSINOPHILS # (AUTO) 0.1 K/uL (0.0-0.4); EOSINOPHILS % (AUTO) 0.7 % (0.0-4.0); HEMATOCRIT 29.4 % (36-48); HEMOGLOBIN 9.6 g/dL (12.0-16.0); LYMPHOCYTES # (AUTO) 3.1 K/uL (1.0-5.5); LYMPHOCYTES % (AUTO) 18.8 % (20.5-51.5); MEAN CORPUSCULAR HEMOGLOBIN 29 pg (27-31); MEAN CORPUSCULAR HGB CONC 33 % (32-36); MEAN CORPUSCULAR VOLUME 89 fL (79.0-98.0); MONOCYTES # (AUTO) 1.2 K/uL (0.0-1.0); MONOCYTES % (AUTO) 7.2 % (1.7-9.3); NEUTROPHILS # (AUTO) 12.2 K/uL (1.8-7.7); NEUTROPHILS % (AUTO) 72.7 % (40.0-70.0); PLATELET COUNT (AUTO) 369 K/uL (130-430); RED BLOOD CELL COUNT(AUTO) 3.31 MIL/uL (4.2-6.2); RED CELL DISTRIBUTION WIDTH 15.4 % (9.0-15.0); WHITE BLOOD COUNT (AUTO) 16.7 K/uL (4.8-10.8)
[2018-06-03 06:58] LABS: CALCIUM 8.6 mg/dL (8.4-11.0); CREATININE 1.26 mg/dL (0.55-1.30)
[2018-06-03 07:14] LABS: PROTHROMBIN TIME 20.3 SECS (9.5-12.5)
[2018-06-03 08:00] VITALS: BP_SYST 128
[2018-06-03] MEDS: LACTULOSE 20 GM/30 ML UDC PO SCH (09:00)
[2018-06-03] MEDS: MINERAL OIL 30 ML UDC PO SCH (09:00)
[2018-06-03] MEDS: GABAPENTIN 400 MG CAPSULE PO SCH (09:34)
[2018-06-03] MEDS: CHOLECALCIFEROL (VITAMIN D3) 2,000 UNIT TABLET PO SCH (09:34)
[2018-06-03] MEDS: ALLOPURINOL 100 MG TABLET (ZYLOPRIM) PO SCH (09:34)
[2018-06-03] MEDS: PREDNISONE 20 MG TABLET PO SCH (09:34)
[2018-06-03] MEDS: DOCUSATE SODIUM 100 MG CAPSULE PO SCH (09:34)
[2018-06-03] MEDS: CILOSTAZOL 50 MG TABLET (PLETAL) PO SCH (09:35)
[2018-06-03] MEDS: ATORVASTATIN 10 MG TABLET PO SCH (09:35)
[2018-06-03] MEDS: METOCLOPRAMIDE HCL 10 MG TABLET PO SCH (09:36)
[2018-06-03] MEDS: ASPIRIN 81 MG TABLET(ECOTRIN) PO SCH (09:36)
[2018-06-03] MEDS: LACTOBACILLUS RHAMNOSUS GG 1 CAP CAPSULE PO SCH (09:36)
[2018-06-03] MEDS: NEPHROVITE, (FOLIC ACID/VITAMIN B COMP W-C 1 TAB) PO SCH (09:36)
[2018-06-03] MEDS: IPRATROPIUM/ALBUTEROL SULFATE 3 ML AMPUL.NEB INH PRN ×2 (09:43→12:20)
[2018-06-03 09:54] VITALS: BP_SYST 128
[2018-06-03 13:18] VITALS: BP_SYST 128
[2018-06-03 14:20] VITALS: BP_SYST 132
== END 2018-06-03 14:25 | DRG 870 ==
LOC: SED 20:58 → STU 21:20
PROVIDERS: ADMIT Internal Medicine; ATTEND Internal Medicine
PROC: 5A1955Z Respiratory Ventilation, Greater than 96 Consecutive Hours (ICD-10-PCS; principal; 2018-05-28)
PROC: 30233N1 Transfusion of Nonautologous Red Blood Cells into Peripheral Vein, Percutaneous Approach (ICD-10-PCS; 2018-05-30)
DX: A41.2 Sepsis due to unspecified staphylococcus (principal); J96.20 Acute and chronic respiratory failure, unspecified whether with hypoxia or hypercapnia; J95.851 Ventilator associated pneumonia; N39.0 Urinary tract infection, site not specified; G82.20 Paraplegia, unspecified; J44.1 Chronic obstructive pulmonary disease with (acute) exacerbation; D68.59 Other primary thrombophilia; Z99.11 Dependence on respirator [ventilator] status; E66.01 Morbid (severe) obesity due to excess calories; M79.7 Fibromyalgia; N18.9 Chronic kidney disease, unspecified; Z16.24 Resistance to multiple antibiotics; K59.00 Constipation, unspecified; J84.10 Pulmonary fibrosis, unspecified; J98.6 Disorders of diaphragm; I25.10 Atherosclerotic heart disease of native coronary artery without angina pectoris; F32.9 Major depressive disorder, single episode, unspecified; G40.909 Epilepsy, unspecified, not intractable, without status epilepticus; E11.22 Type 2 diabetes mellitus with diabetic chronic kidney disease; N31.9 Neuromuscular dysfunction of bladder, unspecified; N20.0 Calculus of kidney; B96.5 Pseudomonas (aeruginosa) (mallei) (pseudomallei) as the cause of diseases classified elsewhere; B96.20 Unspecified Escherichia coli [E. coli] as the cause of diseases classified elsewhere; B96.89 Other specified bacterial agents as the cause of diseases classified elsewhere; G89.29 Other chronic pain; R07.89 Other chest pain; F41.9 Anxiety disorder, unspecified; I51.7 Cardiomegaly; D64.9 Anemia, unspecified; E11.51 Type 2 diabetes mellitus with diabetic peripheral angiopathy without gangrene; Y84.8 Other medical procedures as the cause of abnormal reaction of the patient, or of later complication, without mention of misadventure at the time of the procedure; Y92.89 Other specified places as the place of occurrence of the external cause; Z86.718 Personal history of other venous thrombosis and embolism; Z93.0 Tracheostomy status; Z87.440 Personal history of urinary (tract) infections; Z87.891 Personal history of nicotine dependence; Z87.442 Personal history of urinary calculi; Z86.73 Personal history of transient ischemic attack (TIA), and cerebral infarction without residual deficits; Z86.19 Personal history of other infectious and parasitic diseases; Z95.0 Presence of cardiac pacemaker; I25.2 Old myocardial infarction; Z88.1 Allergy status to other antibiotic agents; Z88.8 Allergy status to other drugs, medicaments and biological substances; Z88.6 Allergy status to analgesic agent; Z88.5 Allergy status to narcotic agent; Z91.018 Allergy to other foods; Z88.2 Allergy status to sulfonamides; Z91.048 Other nonmedicinal substance allergy status; Z79.899 Other long term (current) drug therapy; Z79.82 Long term (current) use of aspirin; Z87.01 Personal history of pneumonia (recurrent); Z86.711 Personal history of pulmonary embolism; Z68.32 Body mass index [BMI] 32.0-32.9, adult
CPT/HCPCS: 36415; 36600; 71045; 80048; 80053; 80150; 81000-TC; 82150-TC; 82550-TC; 82607; 82803-TC; 82962; 83540-TC; 83550-TC; 83605; 83690-TC; 84484; 85025; 85610-TC; 85730-TC; 86886; 86900; 86901; 86920; 87040-TC; 87070-TC; 87081; 87086; 87186-TC; 87205-TC; 93005; 94002; 94003; 94640; 94760; 96361; 96365; 96375; 97110-GP; 97530-GP; 99285; J0278; J1030; J1170; J1200; J1815; J1940; J1956; J2405; J2543; J2930; J3370; J3475; J7030; J7040; J7050; J7060; J7512; J7613; J7620; J8597; P9021; Q0163

== ENCOUNTER 2018-07-09 15:31 | Inpatient (IN) | payer OTHER, MEDICAID ==
[~2018-07-09] VITALS: Ht 167.6 cm; Wt 89.8 kg
[~2018-07-09 15:31] MED LIST changes: +LIDOCAINE 1% 10 MG/ML, 20 ML MDV INJ ONE; +MIDAZOLAM HCL 5 MG/5 ML VIAL IVP ONE; +NS 1000 ML IV.SOLN IV ONE; +PROPOFOL 200MG/ 20ML VIAL (DIPRIVAN) IV ONE
[2018-07-09 16:00] VITALS: BP_SYST 173
[2018-07-09] MEDS ORDERED: ALBUTEROL SULFATE 0.083% 2.5 MG/3 ML VIAL.NEB INH ONE ×2 (16:00→18:20)
[2018-07-09] MEDS ORDERED: PREDNISONE 20 MG TABLET PO ONE (16:30)
[2018-07-09 16:38] LABS: BASOPHILS # (AUTO) 0.1 K/uL (0.0-0.2); BASOPHILS % (AUTO) 0.5 % (0.0-2.0); EOSINOPHILS % (AUTO) 0.1 % (0.0-4.0); HEMATOCRIT 37.3 % (36-48); HEMOGLOBIN 12.4 g/dL (12.0-16.0); LYMPHOCYTES # (AUTO) 1.8 K/uL (1.0-5.5); LYMPHOCYTES % (AUTO) 11.9 % (20.5-51.5); MEAN CORPUSCULAR HEMOGLOBIN 30 pg (27-31); MEAN CORPUSCULAR HGB CONC 33 % (32-36); MEAN CORPUSCULAR VOLUME 90 fL (79.0-98.0); MONOCYTES # (AUTO) 0.3 K/uL (0.0-1.0); MONOCYTES % (AUTO) 1.8 % (1.7-9.3); NEUTROPHILS # (AUTO) 13.1 K/uL (1.8-7.7); NEUTROPHILS % (AUTO) 85.7 % (40.0-70.0); PLATELET COUNT (AUTO) 274 K/uL (130-430); RED BLOOD CELL COUNT(AUTO) 4.13 MIL/uL (4.2-6.2); RED CELL DISTRIBUTION WIDTH 16.9 % (9.0-15.0); WHITE BLOOD COUNT (AUTO) 15.3 K/uL (4.8-10.8)
[2018-07-09 16:50] LABS: CALCIUM 9.3 mg/dL (8.4-11.0); CREATININE 1.14 mg/dL (0.55-1.30); POTASSIUM 5.4 mmol/L (3.5-5.1)
[2018-07-09 16:55] LABS: ALBUMIN 3.6 g/dL (3.4-4.8); TOTAL BILIRUBIN 0.2 mg/dL (0.0-1.0)
[2018-07-09 16:59] LABS: BILIRUBIN,URINE NEGATIVE (NEGATIVE); CLARITY/URINE CLEAR (CLEAR); COLOR,URINE YELLOW (YELLOW); GLUCOSE,URINE NEGATIVE (NEGATIVE); KETONES,URINE NEGATIVE (NEGATIVE); LEUKOCYTE ESTERASE ,URINE 2+ (NEGATIVE); NITRITE, URINE NEGATIVE (NEGATIVE); PH,URINE 6.5 (5.0-8.0); PROTEIN URINE NEGATIVE (NEGATIVE); UROBILINOGEN,URINE 0.2 (0.2-1.0)
[2018-07-09 17:01] LABS: BLOOD, URINE TRACE (NEGATIVE)
[2018-07-09 17:13] LABS: BACTERIA,URINE FEW /HPF (None Seen); RBC,URINE 0-3 /HPF (0-3); WBC,URINE 80-100 /HPF (0-3)
[2018-07-09] MEDS ORDERED: hydrALAZINE HCL 20 MG/ML VIAL IVP ONE (17:15)
[2018-07-09] MEDS ORDERED: SODIUM POLYSTYRENE SULFONATE 15 GM/60 ML UDBTL PO ONE ×2 (17:15→20:00)
[2018-07-09] MEDS ORDERED: NACL 0.9% 1,000 ML IV ONE (17:15)
[2018-07-09] MEDS ORDERED: INSULIN REGULAR, HUMAN 10 UNITS/0.1 ML INJ IVP ONE (17:15)
[2018-07-09] MEDS ORDERED: DEXTROSE 50% JECT 50 ML DISP.SYRIN IVP ONE (17:15)
[2018-07-09] MEDS ORDERED: MAGN400T10 PO (17:24)
[2018-07-09] MEDS ORDERED: ONDANSETRON HCL 4 MG/2 ML VIAL IVP ONE (17:45)
[2018-07-09] MEDS ORDERED: DIPHENHYDRAMINE INJ 50 MG/ML VIAL ONE (17:52)
[2018-07-09] MEDS ORDERED: methylPREDNISolone SOD SUCC/PF 62.5 MG/ML VIAL IVP ONE (18:00)
[2018-07-09] MEDS ORDERED: DIPHENHYDRAMINE INJ 50 MG/ML VIAL IVP ONE (18:00)
[2018-07-09 19:10] VITALS: BP_SYST 147
[2018-07-09 19:27] VITALS: BP_SYST 153
[2018-07-09] MEDS ORDERED: OXYCODONE/ACETAMINOPHEN 5-325 TABLET PO PRN (20:00)
[2018-07-09] MEDS ORDERED: LEVALBUTEROL Tartrate 15 GM HFA. 45 mCg/Actuation INH PRN (20:00)
[2018-07-09] MEDS: LevALBUTEROL HCL 1.25 MG/0.5 ML *CONC.* VIAL.NEB (XOPENEX CONC.) INH SCH (20:00)
[2018-07-09] MEDS ORDERED: ONDANSETRON 4 MG ODT TAB PO PRN (20:00)
[2018-07-09] MEDS ORDERED: OXYCODONE/ACETAMINOPHEN *10*mg/325 mg TABLET PO PRN (20:00)
[2018-07-09] MEDS ORDERED: DIPHENHYDRAMINE HCL 25 MG CAPSULE PO SCH ×2 (20:00→20:23)
[2018-07-09] MEDS ORDERED: ONDANSETRON HCL 4 MG/2 ML VIAL IVP PRN (20:15)
[2018-07-09] MEDS ORDERED: HYDROmorphone 1 MG INJ. 1 MG/ML AMPUL IM PRN (20:15)
[2018-07-09 20:35] LABS: INR 2.2 (0.8-1.2); PROTHROMBIN TIME 22.4 SECS (9.5-12.5)
[2018-07-09] MEDS ORDERED: DIPHENHYDRAMINE INJ 50 MG/ML VIAL IVP PRN (20:45)
[2018-07-09] MEDS ORDERED: cloNIDine HCL 0.1 MG TABLET PO PRN (20:45)
[2018-07-09] MEDS: MINERAL OIL 30 ML UDC PO SCH (21:00)
[2018-07-09] MEDS ORDERED: LACTULOSE 20 GM/30 ML UDC PO SCH (21:00)
[2018-07-09] MEDS: DOCUSATE SODIUM 100 MG CAPSULE PO SCH (21:00)
[2018-07-09] MEDS: GABAPENTIN 300 MG CAPSULE PO SCH (22:27)
[2018-07-09] MEDS: CILOSTAZOL 50 MG TABLET (PLETAL) PO SCH (22:27)
[2018-07-09] MEDS: METOCLOPRAMIDE HCL 10 MG TABLET PO SCH (22:28)
[2018-07-09] MEDS ORDERED: D5W 1,000 ML IV PRN (22:59)
[2018-07-09] MEDS ORDERED: GLUCOSE 15 GM GEL (in 37.5 GM TUBE) PO PRN ×2 (23:00)
[2018-07-09] MEDS ORDERED: DEXTROSE 50% JECT 50 ML DISP.SYRIN IVP PRN ×2 (23:00)
[2018-07-09] MEDS: INSULIN REGULAR, HUMAN 100 UNITS/ML, 10 ML VIAL (novoLIN R) SUBCUT PRN (23:31)
[2018-07-09] MEDS: HYDROmorphone 1 MG INJ. 1 MG/ML AMPUL IVP PRN (23:32)
[2018-07-09] MEDS: PIPERACILLIN/TAZO 2.25G/DEX-IS 50 ML IV SCH (23:34)
[2018-07-09 23:55] VITALS: BP_SYST 152
[2018-07-10] MEDS ORDERED: PIPERACILLIN/TAZO 3.375/DEX-IS 50 ML IV SCH
[2018-07-10] MEDS: LevALBUTEROL HCL 1.25 MG/0.5 ML *CONC.* VIAL.NEB (XOPENEX CONC.) INH SCH ×4 (00:53→19:56)
[2018-07-10] MEDS: HYDROmorphone 1 MG INJ. 1 MG/ML AMPUL IVP PRN ×5 (03:56→20:29)
[2018-07-10] MEDS: PIPERACILLIN/TAZO 2.25G/DEX-IS 50 ML IV SCH ×4 (05:43→23:11)
[2018-07-10] MEDS: INSULIN REGULAR, HUMAN 100 UNITS/ML, 10 ML VIAL (novoLIN R) SUBCUT PRN ×2 (05:53→11:59)
[2018-07-10] MEDS: LEVOTHYROXINE SODIUM 0.15 MG TABLET PO SCH (05:54)
[2018-07-10 07:53] LABS: BASOPHILS % (AUTO) 0.2 % (0.0-2.0); HEMOGLOBIN 11.4 g/dL (12.0-16.0); LYMPHOCYTES # (AUTO) 1.8 K/uL (1.0-5.5); MEAN CORPUSCULAR HEMOGLOBIN 30 pg (27-31); MEAN CORPUSCULAR HGB CONC 34 % (32-36); MEAN CORPUSCULAR VOLUME 90 fL (79.0-98.0); MONOCYTES # (AUTO) 0.3 K/uL (0.0-1.0); MONOCYTES % (AUTO) 2.4 % (1.7-9.3); NEUTROPHILS # (AUTO) 11.5 K/uL (1.8-7.7); NEUTROPHILS % (AUTO) 84.4 % (40.0-70.0); PLATELET COUNT (AUTO) 293 K/uL (130-430); RED BLOOD CELL COUNT(AUTO) 3.76 MIL/uL (4.2-6.2); RED CELL DISTRIBUTION WIDTH 17.5 % (9.0-15.0); WHITE BLOOD COUNT (AUTO) 13.6 K/uL (4.8-10.8)
[2018-07-10 08:00] VITALS: BP_SYST 140
[2018-07-10 08:09] LABS: INR 1.9 (0.8-1.2); PROTHROMBIN TIME 19.6 SECS (9.5-12.5)
[2018-07-10 08:18] LABS: CALCIUM 8.8 mg/dL (8.4-11.0); CREATININE 1.29 mg/dL (0.55-1.30); POTASSIUM 3.7 mmol/L (3.5-5.1)
[2018-07-10] MEDS ORDERED: NEPHROVITE, (FOLIC ACID/VITAMIN B COMP W-C 1 TAB) PO SCH (09:00)
[2018-07-10] MEDS: DOCUSATE SODIUM 100 MG CAPSULE PO SCH ×2 (09:00→20:49)
[2018-07-10] MEDS: NEPHROVITE, (FOLIC ACID/VITAMIN B COMP W-C 1 TAB) PO SCH (09:05)
[2018-07-10] MEDS: GABAPENTIN 300 MG CAPSULE PO SCH ×3 (09:05→20:29)
[2018-07-10] MEDS: CILOSTAZOL 50 MG TABLET (PLETAL) PO SCH ×2 (09:06→20:29)
[2018-07-10] MEDS: CHOLECALCIFEROL (VITAMIN D3) 2,000 UNIT TABLET PO SCH (09:06)
[2018-07-10] MEDS: METOCLOPRAMIDE HCL 10 MG TABLET PO SCH ×3 (09:06→20:29)
[2018-07-10] MEDS: ASPIRIN 81 MG TABLET(ECOTRIN) PO SCH (09:06)
[2018-07-10] MEDS: ALLOPURINOL 100 MG TABLET (ZYLOPRIM) PO SCH (09:06)
[2018-07-10] MEDS: ATORVASTATIN 10 MG TABLET PO SCH (09:07)
[2018-07-10] MEDS: MAGNESIUM OXIDE 400 MG TABLET PO SCH (09:07)
[2018-07-10] MEDS: ONDANSETRON HCL 4 MG/2 ML VIAL IVP PRN (12:22)
[2018-07-10 12:23] VITALS: BP_SYST 142
[2018-07-10 16:14] VITALS: BP_SYST 103
[2018-07-10] MEDS ORDERED: DEXTROSE 50% JECT 50 ML DISP.SYRIN IVP PRN (16:32)
[2018-07-10] MEDS ORDERED: WARFARIN SODIUM 2 MG TABLET PO SCH (18:00)
[2018-07-10 20:00] VITALS: BP_SYST 135
[2018-07-10] MEDS: INSULIN ASPART 100 UNITS/ML, 10 ML VIAL (NovoLOG) SUBCUT PRN (20:46)
[2018-07-10] MEDS: MINERAL OIL 30 ML UDC PO SCH (20:49)
[2018-07-10 23:44] VITALS: BP_SYST 106
[2018-07-11] MEDS: HYDROmorphone 1 MG INJ. 1 MG/ML AMPUL IVP PRN ×6 (00:29→22:32)
[2018-07-11] MEDS: LevALBUTEROL HCL 1.25 MG/0.5 ML *CONC.* VIAL.NEB (XOPENEX CONC.) INH SCH ×3 (01:06→07:26)
[2018-07-11] MEDS: ONDANSETRON HCL 4 MG/2 ML VIAL IVP PRN ×4 (03:18→18:25)
[2018-07-11] MEDS: LEVOTHYROXINE SODIUM 0.15 MG TABLET PO SCH (06:01)
[2018-07-11] MEDS: PIPERACILLIN/TAZO 2.25G/DEX-IS 50 ML IV SCH ×2 (06:01→11:31)
[2018-07-11] MEDS: INSULIN ASPART 100 UNITS/ML, 10 ML VIAL (NovoLOG) SUBCUT PRN ×4 (06:06→21:38)
[2018-07-11 06:52] LABS: BASOPHILS % (AUTO) 0.2 % (0.0-2.0); EOSINOPHILS % (AUTO) 0.1 % (0.0-4.0); HEMATOCRIT 32.1 % (36-48); HEMOGLOBIN 10.6 g/dL (12.0-16.0); LYMPHOCYTES # (AUTO) 3.3 K/uL (1.0-5.5); LYMPHOCYTES % (AUTO) 21.4 % (20.5-51.5); MEAN CORPUSCULAR HEMOGLOBIN 30 pg (27-31); MEAN CORPUSCULAR HGB CONC 33 % (32-36); MEAN CORPUSCULAR VOLUME 91 fL (79.0-98.0); MONOCYTES # (AUTO) 1.1 K/uL (0.0-1.0); MONOCYTES % (AUTO) 7.2 % (1.7-9.3); NEUTROPHILS % (AUTO) 71.1 % (40.0-70.0); PLATELET COUNT (AUTO) 264 K/uL (130-430); RED BLOOD CELL COUNT(AUTO) 3.52 MIL/uL (4.2-6.2); RED CELL DISTRIBUTION WIDTH 17.5 % (9.0-15.0); WHITE BLOOD COUNT (AUTO) 15.4 K/uL (4.8-10.8)
[2018-07-11 07:26] LABS: CALCIUM 8.8 mg/dL (8.4-11.0); CREATININE 1.43 mg/dL (0.55-1.30); POTASSIUM 3.3 mmol/L (3.5-5.1); THYROID STIMULATING HORMONE 0.59 uIu/mL (0.34-4.82)
[2018-07-11 08:16] VITALS: BP_SYST 100
[2018-07-11] MEDS: DOCUSATE SODIUM 100 MG CAPSULE PO SCH (09:00)
[2018-07-11] MEDS: IPRATROPIUM BROM 0.5 MG/2.5 ML VIAL.NEB (ATROVENT) INH PRN ×2 (09:10→15:47)
[2018-07-11] MEDS: CILOSTAZOL 50 MG TABLET (PLETAL) PO SCH ×2 (09:47→21:34)
[2018-07-11] MEDS: MAGNESIUM OXIDE 400 MG TABLET PO SCH (09:48)
[2018-07-11] MEDS: GABAPENTIN 300 MG CAPSULE PO SCH ×3 (09:48→21:34)
[2018-07-11] MEDS: ATORVASTATIN 10 MG TABLET PO SCH (09:48)
[2018-07-11] MEDS: ALLOPURINOL 100 MG TABLET (ZYLOPRIM) PO SCH (09:48)
[2018-07-11] MEDS: NEPHROVITE, (FOLIC ACID/VITAMIN B COMP W-C 1 TAB) PO SCH (09:48)
[2018-07-11] MEDS: ASPIRIN 81 MG TABLET(ECOTRIN) PO SCH (09:48)
[2018-07-11] MEDS: METOCLOPRAMIDE HCL 10 MG TABLET PO SCH ×3 (09:48→21:35)
[2018-07-11] MEDS: CHOLECALCIFEROL (VITAMIN D3) 2,000 UNIT TABLET PO SCH (09:48)
[2018-07-11 12:15] VITALS: BP_SYST 134
[2018-07-11] MEDS ORDERED: POTASSIUM CHLORIDE 20 MEQ TAB.PRT.SR PO ONE (12:15)
[2018-07-11] MEDS: ALBUTEROL SULFATE 0.083% 2.5 MG/3 ML VIAL.NEB INH SCH ×2 (13:27→20:21)
[2018-07-11] MEDS: IPRATROPIUM BROM 0.5 MG/2.5 ML VIAL.NEB (ATROVENT) INH SCH ×2 (13:27→20:21)
[2018-07-11] MEDS ORDERED: DOCUSATE SODIUM 250 MG CAPSULE PO ONE (13:30)
[2018-07-11 16:00] VITALS: BP_SYST 148
[2018-07-11 17:17] VITALS: BP_SYST 139
[2018-07-11] MEDS ORDERED: fentaNYL CITRATE/PF 100 MCG/2 ML AMP IVP PRN ×2 (17:30)
[2018-07-11] MEDS ORDERED: KETOROLAC TROMETHAMINE 30 MG VIAL IVP PRN (17:30)
[2018-07-11 19:50] VITALS: BP_SYST 115
[2018-07-11] MEDS: MINERAL OIL 30 ML UDC PO SCH ×2 (21:00→21:34)
[2018-07-11] MEDS: DOCUSATE SODIUM 250 MG CAPSULE PO SCH ×2 (21:00→21:34)
[2018-07-11] MEDS: COLISTIMETHATE SODIUM 75 MG in NS 50 ML IV SCH (21:34)
[2018-07-12] VITALS (7 sets, daily range): BP systolic 102–142
[2018-07-12] MEDS: ONDANSETRON HCL 4 MG/2 ML VIAL IVP PRN ×3 (00:39→19:44)
[2018-07-12] MEDS: DIPHENHYDRAMINE INJ 50 MG/ML VIAL IVP PRN ×4 (00:39→23:47)
[2018-07-12] MEDS: ALBUTEROL SULFATE 0.083% 2.5 MG/3 ML VIAL.NEB INH SCH ×4 (01:50→19:49)
[2018-07-12] MEDS: IPRATROPIUM BROM 0.5 MG/2.5 ML VIAL.NEB (ATROVENT) INH SCH ×4 (01:50→19:49)
[2018-07-12] MEDS: HYDROmorphone 1 MG INJ. 1 MG/ML AMPUL IVP PRN ×5 (03:21→23:47)
[2018-07-12] MEDS: IPRATROPIUM BROM 0.5 MG/2.5 ML VIAL.NEB (ATROVENT) INH PRN (04:56)
[2018-07-12] MEDS: LEVOTHYROXINE SODIUM 0.15 MG TABLET PO SCH (06:11)
[2018-07-12] MEDS: INSULIN ASPART 100 UNITS/ML, 10 ML VIAL (NovoLOG) SUBCUT PRN ×2 (06:45→22:08)
[2018-07-12 07:02] LABS: BASOPHILS # (AUTO) 0.1 K/uL (0.0-0.2); BASOPHILS % (AUTO) 1.1 % (0.0-2.0); EOSINOPHILS % (AUTO) 0.3 % (0.0-4.0); HEMATOCRIT 30.4 % (36-48); HEMOGLOBIN 10.2 g/dL (12.0-16.0); LYMPHOCYTES # (AUTO) 2.9 K/uL (1.0-5.5); LYMPHOCYTES % (AUTO) 22.7 % (20.5-51.5); MEAN CORPUSCULAR HEMOGLOBIN 30 pg (27-31); MEAN CORPUSCULAR HGB CONC 34 % (32-36); MONOCYTES # (AUTO) 1.1 K/uL (0.0-1.0); MONOCYTES % (AUTO) 8.8 % (1.7-9.3); NEUTROPHILS # (AUTO) 8.8 K/uL (1.8-7.7); NEUTROPHILS % (AUTO) 67.1 % (40.0-70.0); PLATELET COUNT (AUTO) 225 K/uL (130-430); RED BLOOD CELL COUNT(AUTO) 3.45 MIL/uL (4.2-6.2); RED CELL DISTRIBUTION WIDTH 16.9 % (9.0-15.0); WHITE BLOOD COUNT (AUTO) 12.9 K/uL (4.8-10.8)
[2018-07-12 07:08] LABS: INR 1.8 (0.8-1.2)
[2018-07-12 07:14] LABS: CREATININE 1.3 mg/dL (0.55-1.30); POTASSIUM 4.5 mmol/L (3.5-5.1)
[2018-07-12 07:19] LABS: MEAN CORPUSCULAR VOLUME 88 fL (79.0-98.0)
[2018-07-12] MEDS: COLISTIMETHATE SODIUM 75 MG in NS 50 ML IV SCH ×2 (09:23→22:04)
[2018-07-12] MEDS: MAGNESIUM OXIDE 400 MG TABLET PO SCH (09:28)
[2018-07-12] MEDS: CHOLECALCIFEROL (VITAMIN D3) 2,000 UNIT TABLET PO SCH (09:28)
[2018-07-12] MEDS: DOCUSATE SODIUM 250 MG CAPSULE PO SCH ×2 (09:28→21:00)
[2018-07-12] MEDS: GABAPENTIN 300 MG CAPSULE PO SCH ×3 (09:28→22:04)
[2018-07-12] MEDS: METOCLOPRAMIDE HCL 10 MG TABLET PO SCH ×3 (09:28→22:04)
[2018-07-12] MEDS: ALLOPURINOL 100 MG TABLET (ZYLOPRIM) PO SCH (09:28)
[2018-07-12] MEDS: ATORVASTATIN 10 MG TABLET PO SCH (09:28)
[2018-07-12] MEDS: NEPHROVITE, (FOLIC ACID/VITAMIN B COMP W-C 1 TAB) PO SCH (09:29)
[2018-07-12] MEDS: ASPIRIN 81 MG TABLET(ECOTRIN) PO SCH (09:29)
[2018-07-12] MEDS: CILOSTAZOL 50 MG TABLET (PLETAL) PO SCH ×2 (09:29→22:04)
[2018-07-12] MEDS: MINERAL OIL 30 ML UDC PO SCH (21:00)
[2018-07-13] MEDS: IPRATROPIUM BROM 0.5 MG/2.5 ML VIAL.NEB (ATROVENT) INH SCH ×4 (01:00→19:07)
[2018-07-13] MEDS: ALBUTEROL SULFATE 0.083% 2.5 MG/3 ML VIAL.NEB INH SCH ×4 (01:00→19:07)
[2018-07-13] MEDS: LEVOTHYROXINE SODIUM 0.15 MG TABLET PO SCH (07:07)
[2018-07-13 08:00] VITALS: BP_SYST 109
[2018-07-13] MEDS: CILOSTAZOL 50 MG TABLET (PLETAL) PO SCH ×2 (09:25→20:24)
[2018-07-13] MEDS: METOCLOPRAMIDE HCL 10 MG TABLET PO SCH ×3 (09:25→20:24)
[2018-07-13] MEDS: ATORVASTATIN 10 MG TABLET PO SCH (09:25)
[2018-07-13] MEDS: NEPHROVITE, (FOLIC ACID/VITAMIN B COMP W-C 1 TAB) PO SCH (09:25)
[2018-07-13] MEDS: ASPIRIN 81 MG TABLET(ECOTRIN) PO SCH (09:25)
[2018-07-13] MEDS: DOCUSATE SODIUM 250 MG CAPSULE PO SCH (09:25)
[2018-07-13] MEDS: COLISTIMETHATE SODIUM 75 MG in NS 50 ML IV SCH ×2 (09:25→20:23)
[2018-07-13] MEDS: GABAPENTIN 300 MG CAPSULE PO SCH ×3 (09:25→20:24)
[2018-07-13] MEDS: CHOLECALCIFEROL (VITAMIN D3) 2,000 UNIT TABLET PO SCH (09:25)
[2018-07-13] MEDS: MAGNESIUM OXIDE 400 MG TABLET PO SCH (09:25)
[2018-07-13] MEDS: ALLOPURINOL 100 MG TABLET (ZYLOPRIM) PO SCH (09:25)
[2018-07-13] MEDS: DIPHENHYDRAMINE INJ 50 MG/ML VIAL IVP PRN ×4 (09:45→20:24)
[2018-07-13] MEDS: HYDROmorphone 1 MG INJ. 1 MG/ML AMPUL IVP PRN ×4 (09:45→20:26)
[2018-07-13] MEDS: ONDANSETRON HCL 4 MG/2 ML VIAL IVP PRN ×3 (09:46→16:09)
[2018-07-13 12:19] VITALS: BP_SYST 114
[2018-07-13] MEDS ORDERED: ONDANSETRON HCL 4 MG/2 ML VIAL IVP PRN (15:15)
[2018-07-13] MEDS ORDERED: fentaNYL CITRATE/PF 100 MCG/2 ML AMP IVP PRN ×2 (15:15)
[2018-07-13 20:00] VITALS: BP_SYST 122
[2018-07-13 20:10] LABS: INR 1.5 (0.8-1.2); PROTHROMBIN TIME 15.8 SECS (9.5-12.5)
[2018-07-13] MEDS: INSULIN ASPART 100 UNITS/ML, 10 ML VIAL (NovoLOG) SUBCUT PRN (20:48)
[2018-07-14 00:12] VITALS: BP_SYST 101
[2018-07-14] MEDS: HYDROmorphone 1 MG INJ. 1 MG/ML AMPUL IVP PRN ×6 (00:36→21:09)
[2018-07-14] MEDS: DIPHENHYDRAMINE INJ 50 MG/ML VIAL IVP PRN ×5 (00:36→21:06)
[2018-07-14] MEDS: LEVOTHYROXINE SODIUM 0.15 MG TABLET PO SCH (06:41)
[2018-07-14] MEDS: INSULIN ASPART 100 UNITS/ML, 10 ML VIAL (NovoLOG) SUBCUT PRN ×4 (06:44→21:03)
[2018-07-14 07:16] LABS: EOSINOPHILS # (AUTO) 0.2 K/uL (0.0-0.4); MONOCYTES # (AUTO) 1.2 K/uL (0.0-1.0); NEUTROPHILS # (AUTO) 5.7 K/uL (1.8-7.7); PLATELET COUNT (AUTO) 201 K/uL (130-430)
[2018-07-14 07:21] LABS: INR 1.4 (0.8-1.2); PROTHROMBIN TIME 14.3 SECS (9.5-12.5)
[2018-07-14 07:22] LABS: CALCIUM 8.3 mg/dL (8.4-11.0); CREATININE 1.19 mg/dL (0.55-1.30); POTASSIUM 4.5 mmol/L (3.5-5.1)
[2018-07-14] MEDS: IPRATROPIUM BROM 0.5 MG/2.5 ML VIAL.NEB (ATROVENT) INH SCH ×3 (07:30→19:35)
[2018-07-14] MEDS: ALBUTEROL SULFATE 0.083% 2.5 MG/3 ML VIAL.NEB INH SCH ×3 (07:30→19:35)
[2018-07-14 07:32] LABS: BASOPHILS % (AUTO) 0.4 % (0.0-2.0); EOSINOPHILS % (AUTO) 1.6 % (0.0-4.0); HEMATOCRIT 28.4 % (36-48); LYMPHOCYTES # (AUTO) 2.7 K/uL (1.0-5.5); LYMPHOCYTES % (AUTO) 28.1 % (20.5-51.5); MEAN CORPUSCULAR HEMOGLOBIN 29 pg (27-31); MEAN CORPUSCULAR HGB CONC 32 % (32-36); MEAN CORPUSCULAR VOLUME 91 fL (79.0-98.0); MONOCYTES % (AUTO) 11.8 % (1.7-9.3); NEUTROPHILS % (AUTO) 58.1 % (40.0-70.0); RED BLOOD CELL COUNT(AUTO) 3.12 MIL/uL (4.2-6.2); RED CELL DISTRIBUTION WIDTH 16.5 % (9.0-15.0); WHITE BLOOD COUNT (AUTO) 9.8 K/uL (4.8-10.8)
[2018-07-14 08:44] VITALS: BP_SYST 116
[2018-07-14] MEDS: COLISTIMETHATE SODIUM 75 MG in NS 50 ML IV SCH ×2 (08:54→20:57)
[2018-07-14] MEDS: GABAPENTIN 300 MG CAPSULE PO SCH ×3 (09:01→20:57)
[2018-07-14] MEDS: ASPIRIN 81 MG TABLET(ECOTRIN) PO SCH (09:01)
[2018-07-14] MEDS: CHOLECALCIFEROL (VITAMIN D3) 2,000 UNIT TABLET PO SCH (09:01)
[2018-07-14] MEDS: ALLOPURINOL 100 MG TABLET (ZYLOPRIM) PO SCH (09:01)
[2018-07-14] MEDS: NEPHROVITE, (FOLIC ACID/VITAMIN B COMP W-C 1 TAB) PO SCH (09:01)
[2018-07-14] MEDS: CILOSTAZOL 50 MG TABLET (PLETAL) PO SCH ×2 (09:02→20:58)
[2018-07-14] MEDS: ATORVASTATIN 10 MG TABLET PO SCH (09:02)
[2018-07-14] MEDS: METOCLOPRAMIDE HCL 10 MG TABLET PO SCH ×3 (09:02→20:58)
[2018-07-14 12:00] VITALS: BP_SYST 129
[2018-07-14 15:05] VITALS: BP_SYST 126
[2018-07-14 17:21] LABS: TOTAL IRON BIND. CAPACITY 142 ug/dL (250-450)
[2018-07-14] MEDS: WARFARIN SODIUM 2 MG TABLET PO SCH (17:30)
[2018-07-14 19:50] VITALS: BP_SYST 131
[2018-07-15] MEDS: ALBUTEROL SULFATE 0.083% 2.5 MG/3 ML VIAL.NEB INH SCH ×6 (01:00→23:57)
[2018-07-15] MEDS: IPRATROPIUM BROM 0.5 MG/2.5 ML VIAL.NEB (ATROVENT) INH SCH ×6 (01:00→23:57)
[2018-07-15 01:08] VITALS: BP_SYST 112
[2018-07-15] MEDS: DIPHENHYDRAMINE INJ 50 MG/ML VIAL IVP PRN ×2 (02:26→06:21)
[2018-07-15] MEDS: HYDROmorphone 1 MG INJ. 1 MG/ML AMPUL IVP PRN ×4 (02:31→21:33)
[2018-07-15] MEDS: LEVOTHYROXINE SODIUM 0.15 MG TABLET PO SCH (06:18)
[2018-07-15] MEDS: INSULIN ASPART 100 UNITS/ML, 10 ML VIAL (NovoLOG) SUBCUT PRN ×3 (06:26→20:48)
[2018-07-15 06:57] LABS: CALCIUM 8.9 mg/dL (8.4-11.0); CREATININE 1.21 mg/dL (0.55-1.30); POTASSIUM 4.2 mmol/L (3.5-5.1)
[2018-07-15 07:18] LABS: BASOPHILS % (AUTO) 0.3 % (0.0-2.0); EOSINOPHILS # (AUTO) 0.2 K/uL (0.0-0.4); EOSINOPHILS % (AUTO) 2.2 % (0.0-4.0); HEMATOCRIT 28.9 % (36-48); HEMOGLOBIN 9.6 g/dL (12.0-16.0); LYMPHOCYTES % (AUTO) 28.2 % (20.5-51.5); MEAN CORPUSCULAR HEMOGLOBIN 30 pg (27-31); MEAN CORPUSCULAR HGB CONC 33 % (32-36); MEAN CORPUSCULAR VOLUME 91 fL (79.0-98.0); MONOCYTES # (AUTO) 1.2 K/uL (0.0-1.0); MONOCYTES % (AUTO) 11.1 % (1.7-9.3); NEUTROPHILS # (AUTO) 6.4 K/uL (1.8-7.7); NEUTROPHILS % (AUTO) 58.2 % (40.0-70.0); PLATELET COUNT (AUTO) 239 K/uL (130-430); RED BLOOD CELL COUNT(AUTO) 3.18 MIL/uL (4.2-6.2); RED CELL DISTRIBUTION WIDTH 16.5 % (9.0-15.0); WHITE BLOOD COUNT (AUTO) 10.8 K/uL (4.8-10.8)
[2018-07-15 08:00] VITALS: BP_SYST 124
[2018-07-15] MEDS: ATORVASTATIN 10 MG TABLET PO SCH (09:20)
[2018-07-15] MEDS: CHOLECALCIFEROL (VITAMIN D3) 2,000 UNIT TABLET PO SCH (09:21)
[2018-07-15] MEDS: METOCLOPRAMIDE HCL 10 MG TABLET PO SCH ×3 (09:21→20:43)
[2018-07-15] MEDS: CILOSTAZOL 50 MG TABLET (PLETAL) PO SCH ×2 (09:21→20:43)
[2018-07-15] MEDS: ALLOPURINOL 100 MG TABLET (ZYLOPRIM) PO SCH (09:21)
[2018-07-15] MEDS: NEPHROVITE, (FOLIC ACID/VITAMIN B COMP W-C 1 TAB) PO SCH (09:21)
[2018-07-15] MEDS: ASPIRIN 81 MG TABLET(ECOTRIN) PO SCH (09:21)
[2018-07-15] MEDS: GABAPENTIN 300 MG CAPSULE PO SCH ×3 (09:21→20:43)
[2018-07-15] MEDS: COLISTIMETHATE SODIUM 75 MG in NS 50 ML IV SCH ×2 (09:24→20:43)
[2018-07-15 12:00] VITALS: BP_SYST 135
[2018-07-15 16:48] VITALS: BP_SYST 134
[2018-07-15] MEDS: WARFARIN SODIUM 2 MG TABLET PO SCH (17:10)
[2018-07-15 20:00] VITALS: BP_SYST 103
[2018-07-15] MEDS: ONDANSETRON HCL 4 MG/2 ML VIAL IVP PRN (21:34)
[2018-07-15 22:49] VITALS: BP_SYST 134
[2018-07-16] MEDS: DIPHENHYDRAMINE INJ 50 MG/ML VIAL IVP PRN ×4 (00:06→23:56)
[2018-07-16] MEDS: ALBUTEROL SULFATE 0.083% 2.5 MG/3 ML VIAL.NEB INH SCH ×6 (03:00→23:22)
[2018-07-16] MEDS: IPRATROPIUM BROM 0.5 MG/2.5 ML VIAL.NEB (ATROVENT) INH SCH ×6 (03:00→23:22)
[2018-07-16] MEDS: HYDROmorphone 1 MG INJ. 1 MG/ML AMPUL IVP PRN ×4 (04:38→19:52)
[2018-07-16] MEDS: ONDANSETRON HCL 4 MG/2 ML VIAL IVP PRN (04:38)
[2018-07-16] MEDS: LEVOTHYROXINE SODIUM 0.15 MG TABLET PO SCH (06:04)
[2018-07-16] MEDS: INSULIN ASPART 100 UNITS/ML, 10 ML VIAL (NovoLOG) SUBCUT PRN ×4 (06:07→20:35)
[2018-07-16 07:04] LABS: CREATININE 1.1 mg/dL (0.55-1.30); POTASSIUM 4.9 mmol/L (3.5-5.1)
[2018-07-16 07:08] LABS: INR 1.2 (0.8-1.2); PROTHROMBIN TIME 12.2 SECS (9.5-12.5)
[2018-07-16 07:45] LABS: BASOPHILS % (AUTO) 0.4 % (0.0-2.0); EOSINOPHILS # (AUTO) 0.2 K/uL (0.0-0.4); EOSINOPHILS % (AUTO) 1.7 % (0.0-4.0); HEMATOCRIT 29.1 % (36-48); HEMOGLOBIN 9.7 g/dL (12.0-16.0); MEAN CORPUSCULAR HEMOGLOBIN 30 pg (27-31); MEAN CORPUSCULAR HGB CONC 33 % (32-36); MEAN CORPUSCULAR VOLUME 91 fL (79.0-98.0); MONOCYTES % (AUTO) 10.8 % (1.7-9.3); NEUTROPHILS # (AUTO) 5.4 K/uL (1.8-7.7); NEUTROPHILS % (AUTO) 56.1 % (40.0-70.0); PLATELET COUNT (AUTO) 220 K/uL (130-430); RED BLOOD CELL COUNT(AUTO) 3.22 MIL/uL (4.2-6.2); RED CELL DISTRIBUTION WIDTH 16.3 % (9.0-15.0); WHITE BLOOD COUNT (AUTO) 9.6 K/uL (4.8-10.8)
[2018-07-16 08:00] VITALS: BP_SYST 145
[2018-07-16] MEDS: COLISTIMETHATE SODIUM 75 MG in NS 50 ML IV SCH ×2 (08:54→20:37)
[2018-07-16] MEDS: CHOLECALCIFEROL (VITAMIN D3) 2,000 UNIT TABLET PO SCH (08:55)
[2018-07-16] MEDS: CILOSTAZOL 50 MG TABLET (PLETAL) PO SCH ×2 (08:55→20:38)
[2018-07-16] MEDS: ALLOPURINOL 100 MG TABLET (ZYLOPRIM) PO SCH (08:55)
[2018-07-16] MEDS: ATORVASTATIN 10 MG TABLET PO SCH (08:55)
[2018-07-16] MEDS: METOCLOPRAMIDE HCL 10 MG TABLET PO SCH ×3 (08:55→20:38)
[2018-07-16] MEDS: NEPHROVITE, (FOLIC ACID/VITAMIN B COMP W-C 1 TAB) PO SCH (08:55)
[2018-07-16] MEDS: GABAPENTIN 300 MG CAPSULE PO SCH ×3 (08:55→20:38)
[2018-07-16] MEDS: ASPIRIN 81 MG TABLET(ECOTRIN) PO SCH (08:55)
[2018-07-16 12:40] VITALS: BP_SYST 124
[2018-07-16 16:35] VITALS: BP_SYST 122
[2018-07-16] MEDS: WARFARIN SODIUM 2 MG TABLET PO SCH (17:24)
[2018-07-16] MEDS: ENOXAPARIN SODIUM 30 MG/0.3 ML SYRINGE SUBCUT SCH (20:37)
[2018-07-16] MEDS: DOCUSATE SODIUM 250 MG CAPSULE PO SCH (20:38)
[2018-07-17 00:45] VITALS: BP_SYST 126
[2018-07-17] MEDS: ALBUTEROL SULFATE 0.083% 2.5 MG/3 ML VIAL.NEB INH SCH ×5 (03:25→19:32)
[2018-07-17] MEDS: IPRATROPIUM BROM 0.5 MG/2.5 ML VIAL.NEB (ATROVENT) INH SCH ×5 (03:25→19:32)
[2018-07-17] MEDS: HYDROmorphone 1 MG INJ. 1 MG/ML AMPUL IVP PRN ×5 (06:04→22:09)
[2018-07-17] MEDS: LEVOTHYROXINE SODIUM 0.15 MG TABLET PO SCH (06:04)
[2018-07-17] MEDS: DIPHENHYDRAMINE INJ 50 MG/ML VIAL IVP PRN ×4 (06:04→22:10)
[2018-07-17] MEDS: INSULIN ASPART 100 UNITS/ML, 10 ML VIAL (NovoLOG) SUBCUT PRN ×4 (06:11→22:15)
[2018-07-17 07:04] LABS: BASOPHILS % (AUTO) 0.3 % (0.0-2.0); EOSINOPHILS # (AUTO) 0.2 K/uL (0.0-0.4); EOSINOPHILS % (AUTO) 1.6 % (0.0-4.0); HEMATOCRIT 29.4 % (36-48); HEMOGLOBIN 9.6 g/dL (12.0-16.0); LYMPHOCYTES # (AUTO) 3.1 K/uL (1.0-5.5); LYMPHOCYTES % (AUTO) 29.5 % (20.5-51.5); MEAN CORPUSCULAR HEMOGLOBIN 29 pg (27-31); MEAN CORPUSCULAR HGB CONC 33 % (32-36); MONOCYTES # (AUTO) 1.2 K/uL (0.0-1.0); MONOCYTES % (AUTO) 11.5 % (1.7-9.3); NEUTROPHILS # (AUTO) 5.9 K/uL (1.8-7.7); NEUTROPHILS % (AUTO) 57.1 % (40.0-70.0); PLATELET COUNT (AUTO) 215 K/uL (130-430); RED CELL DISTRIBUTION WIDTH 16.4 % (9.0-15.0); WHITE BLOOD COUNT (AUTO) 10.4 K/uL (4.8-10.8)
[2018-07-17 07:15] LABS: MEAN CORPUSCULAR VOLUME 89 fL (79.0-98.0)
[2018-07-17 07:21] LABS: CALCIUM 9.2 mg/dL (8.4-11.0); CREATININE 1.52 mg/dL (0.55-1.30); POTASSIUM 4.1 mmol/L (3.5-5.1)
[2018-07-17 08:00] VITALS: BP_SYST 95
[2018-07-17 09:21] LABS: INR 1.2 (0.8-1.2)
[2018-07-17] MEDS: COLISTIMETHATE SODIUM 75 MG in NS 50 ML IV SCH ×2 (10:08→22:10)
[2018-07-17] MEDS: ATORVASTATIN 10 MG TABLET PO SCH (10:09)
[2018-07-17] MEDS: NEPHROVITE, (FOLIC ACID/VITAMIN B COMP W-C 1 TAB) PO SCH (10:09)
[2018-07-17] MEDS: CHOLECALCIFEROL (VITAMIN D3) 2,000 UNIT TABLET PO SCH (10:09)
[2018-07-17] MEDS: GABAPENTIN 300 MG CAPSULE PO SCH ×3 (10:09→22:10)
[2018-07-17] MEDS: CILOSTAZOL 50 MG TABLET (PLETAL) PO SCH ×2 (10:09→22:11)
[2018-07-17] MEDS: DOCUSATE SODIUM 250 MG CAPSULE PO SCH ×2 (10:09→22:11)
[2018-07-17] MEDS: ALLOPURINOL 100 MG TABLET (ZYLOPRIM) PO SCH (10:09)
[2018-07-17] MEDS: ASPIRIN 81 MG TABLET(ECOTRIN) PO SCH (10:09)
[2018-07-17] MEDS: METOCLOPRAMIDE HCL 10 MG TABLET PO SCH ×3 (10:10→22:11)
[2018-07-17 12:42] VITALS: BP_SYST 115
[2018-07-17] MEDS: ONDANSETRON HCL 4 MG/2 ML VIAL IVP PRN (14:28)
[2018-07-17 16:43] VITALS: BP_SYST 105
[2018-07-17] MEDS: WARFARIN SODIUM 3 MG TABLET PO SCH (18:26)
[2018-07-17] MEDS: ENOXAPARIN SODIUM 30 MG/0.3 ML SYRINGE SUBCUT SCH (22:15)
[2018-07-17] MEDS ORDERED: MINERAL OIL 133 ML ENEMA RC SCH (22:30)
[2018-07-17] MEDS ORDERED: MINERAL OIL 30 ML UDC PO SCH (22:30)
[2018-07-17] MEDS ORDERED: LACTULOSE 20 GM/30 ML UDC PO SCH (22:30)
[2018-07-18] VITALS (8 sets, daily range): BP systolic 98–138
[2018-07-18] MEDS: ALBUTEROL SULFATE 0.083% 2.5 MG/3 ML VIAL.NEB INH SCH ×5 (00:15→19:00)
[2018-07-18] MEDS: IPRATROPIUM BROM 0.5 MG/2.5 ML VIAL.NEB (ATROVENT) INH SCH ×4 (00:15→19:00)
[2018-07-18] MEDS: DIPHENHYDRAMINE INJ 50 MG/ML VIAL IVP PRN ×3 (05:19→22:52)
[2018-07-18] MEDS: HYDROmorphone 1 MG INJ. 1 MG/ML AMPUL IVP PRN ×3 (05:19→22:53)
[2018-07-18] MEDS: LEVOTHYROXINE SODIUM 0.15 MG TABLET PO SCH (06:33)
[2018-07-18] MEDS: INSULIN ASPART 100 UNITS/ML, 10 ML VIAL (NovoLOG) SUBCUT PRN ×2 (06:36→11:44)
[2018-07-18 06:46] LABS: INR 1.2 (0.8-1.2); PROTHROMBIN TIME 12.1 SECS (9.5-12.5)
[2018-07-18 06:55] LABS: CALCIUM 9.4 mg/dL (8.4-11.0); CREATININE 1.48 mg/dL (0.55-1.30); POTASSIUM 4.2 mmol/L (3.5-5.1)
[2018-07-18 07:44] LABS: BASOPHILS % (AUTO) 0.3 % (0.0-2.0); EOSINOPHILS # (AUTO) 0.2 K/uL (0.0-0.4); EOSINOPHILS % (AUTO) 1.8 % (0.0-4.0); HEMATOCRIT 30.3 % (36-48); LYMPHOCYTES # (AUTO) 2.1 K/uL (1.0-5.5); MEAN CORPUSCULAR HEMOGLOBIN 29 pg (27-31); MEAN CORPUSCULAR HGB CONC 33 % (32-36); MEAN CORPUSCULAR VOLUME 89 fL (79.0-98.0); MONOCYTES # (AUTO) 1.1 K/uL (0.0-1.0); MONOCYTES % (AUTO) 11.8 % (1.7-9.3); NEUTROPHILS # (AUTO) 5.9 K/uL (1.8-7.7); NEUTROPHILS % (AUTO) 63.1 % (40.0-70.0); PLATELET COUNT (AUTO) 238 K/uL (130-430); RED CELL DISTRIBUTION WIDTH 15.9 % (9.0-15.0); WHITE BLOOD COUNT (AUTO) 9.3 K/uL (4.8-10.8)
[2018-07-18] MEDS: MINERAL OIL 30 ML UDC PO SCH (09:39)
[2018-07-18] MEDS: CHOLECALCIFEROL (VITAMIN D3) 2,000 UNIT TABLET PO SCH (09:40)
[2018-07-18] MEDS: ASPIRIN 81 MG TABLET(ECOTRIN) PO SCH (09:40)
[2018-07-18] MEDS: DOCUSATE SODIUM 250 MG CAPSULE PO SCH ×2 (09:40→21:00)
[2018-07-18] MEDS: METOCLOPRAMIDE HCL 10 MG TABLET PO SCH ×3 (09:40→21:00)
[2018-07-18] MEDS: NEPHROVITE, (FOLIC ACID/VITAMIN B COMP W-C 1 TAB) PO SCH (09:40)
[2018-07-18] MEDS: ATORVASTATIN 10 MG TABLET PO SCH (09:40)
[2018-07-18] MEDS: ALLOPURINOL 100 MG TABLET (ZYLOPRIM) PO SCH (09:40)
[2018-07-18] MEDS: CILOSTAZOL 50 MG TABLET (PLETAL) PO SCH ×2 (09:41→21:00)
[2018-07-18] MEDS: GABAPENTIN 300 MG CAPSULE PO SCH ×3 (09:41→21:00)
[2018-07-18] MEDS: COLISTIMETHATE SODIUM 75 MG in NS 50 ML IV SCH ×2 (09:47→21:00)
[2018-07-18] MEDS: ONDANSETRON HCL 4 MG/2 ML VIAL IVP PRN (13:04)
[2018-07-18] MEDS: WARFARIN SODIUM 3 MG TABLET PO SCH (18:00)
[2018-07-18] MEDS: ENOXAPARIN SODIUM 30 MG/0.3 ML SYRINGE SUBCUT SCH (21:00)
[2018-07-18] MEDS ORDERED: HYDROmorphone 1 MG INJ. 1 MG/ML AMPUL ONE (22:50)
[2018-07-18] MEDS ORDERED: DIPHENHYDRAMINE INJ 50 MG/ML VIAL ONE (22:56)
[2018-07-19] VITALS: BP_SYST 112
[2018-07-19] MEDS: IPRATROPIUM BROM 0.5 MG/2.5 ML VIAL.NEB (ATROVENT) INH SCH ×3 (00:28→10:13)
[2018-07-19] MEDS: ALBUTEROL SULFATE 0.083% 2.5 MG/3 ML VIAL.NEB INH SCH ×3 (00:28→10:13)
[2018-07-19] MEDS ORDERED: HYDROmorphone 1 MG INJ. 1 MG/ML AMPUL ONE (03:25)
[2018-07-19] MEDS: DIPHENHYDRAMINE INJ 50 MG/ML VIAL IVP PRN (03:26)
[2018-07-19] MEDS ORDERED: DIPHENHYDRAMINE INJ 50 MG/ML VIAL ONE (03:26)
[2018-07-19] MEDS: HYDROmorphone 1 MG INJ. 1 MG/ML AMPUL IVP PRN (03:27)
[2018-07-19] MEDS: LEVOTHYROXINE SODIUM 0.15 MG TABLET PO SCH (07:00)
[2018-07-19 07:49] VITALS: BP_SYST 113
[2018-07-19] MEDS: COLISTIMETHATE SODIUM 75 MG in NS 50 ML IV SCH (09:11)
[2018-07-19] MEDS: METOCLOPRAMIDE HCL 10 MG TABLET PO SCH (09:11)
[2018-07-19] MEDS: ALLOPURINOL 100 MG TABLET (ZYLOPRIM) PO SCH (09:12)
[2018-07-19] MEDS: DOCUSATE SODIUM 250 MG CAPSULE PO SCH (09:12)
[2018-07-19] MEDS: ASPIRIN 81 MG TABLET(ECOTRIN) PO SCH (09:12)
[2018-07-19] MEDS: CILOSTAZOL 50 MG TABLET (PLETAL) PO SCH (09:12)
[2018-07-19] MEDS: CHOLECALCIFEROL (VITAMIN D3) 2,000 UNIT TABLET PO SCH (09:12)
[2018-07-19] MEDS: NEPHROVITE, (FOLIC ACID/VITAMIN B COMP W-C 1 TAB) PO SCH (09:13)
[2018-07-19] MEDS: MINERAL OIL 30 ML UDC PO SCH (09:13)
[2018-07-19] MEDS: GABAPENTIN 300 MG CAPSULE PO SCH (09:13)
[2018-07-19] MEDS: ATORVASTATIN 10 MG TABLET PO SCH (09:13)
== END 2018-07-19 11:32 | disposition home health service (06) | DRG 870 ==
LOC: SED 15:31 → STU 17:21 → UNDODISIN 07-18 16:55
PROVIDERS: ADMIT Internal Medicine; ATTEND Internal Medicine
PROC: 5A1955Z Respiratory Ventilation, Greater than 96 Consecutive Hours (ICD-10-PCS; principal; 2018-07-09)
PROC: 05HY33Z Insertion of Infusion Device into Upper Vein, Percutaneous Approach (ICD-10-PCS; 2018-07-10)
PROC: 05JYXZZ Inspection of Upper Vein, External Approach (ICD-10-PCS; 2018-07-13)
PROC: 05PYX3Z Removal of Infusion Device from Upper Vein, External Approach (ICD-10-PCS; 2018-07-13)
PROC: 05HY33Z Insertion of Infusion Device into Upper Vein, Percutaneous Approach (ICD-10-PCS; 2018-07-16)
DX: A41.9 Sepsis, unspecified organism (principal); N18.6 End stage renal disease; J96.20 Acute and chronic respiratory failure, unspecified whether with hypoxia or hypercapnia; J15.1 Pneumonia due to Pseudomonas; N17.0 Acute kidney failure with tubular necrosis; T82.514A Breakdown (mechanical) of infusion catheter, initial encounter; T85.638A Leakage of other specified internal prosthetic devices, implants and grafts, initial encounter; N39.0 Urinary tract infection, site not specified; I13.11 Hypertensive heart and chronic kidney disease without heart failure, with stage 5 chronic kidney disease, or end stage renal disease; Z99.11 Dependence on respirator [ventilator] status; D68.59 Other primary thrombophilia; G82.20 Paraplegia, unspecified; J44.0 Chronic obstructive pulmonary disease with (acute) lower respiratory infection; I82.A11 Acute embolism and thrombosis of right axillary vein; E11.22 Type 2 diabetes mellitus with diabetic chronic kidney disease; E03.9 Hypothyroidism, unspecified; E11.21 Type 2 diabetes mellitus with diabetic nephropathy; E11.51 Type 2 diabetes mellitus with diabetic peripheral angiopathy without gangrene; Z16.30 Resistance to unspecified antimicrobial drugs; E87.5 Hyperkalemia; R74.0 Nonspecific elevation of levels of transaminase and lactic acid dehydrogenase [LDH]; E86.0 Dehydration; N31.9 Neuromuscular dysfunction of bladder, unspecified; E87.6 Hypokalemia; R33.9 Retention of urine, unspecified; Y95 Nosocomial condition; G89.29 Other chronic pain; F32.9 Major depressive disorder, single episode, unspecified; N20.0 Calculus of kidney; J84.10 Pulmonary fibrosis, unspecified; K59.00 Constipation, unspecified; F41.9 Anxiety disorder, unspecified; I25.10 Atherosclerotic heart disease of native coronary artery without angina pectoris; K21.9 Gastro-esophageal reflux disease without esophagitis; G40.909 Epilepsy, unspecified, not intractable, without status epilepticus; M79.7 Fibromyalgia; J98.6 Disorders of diaphragm; E66.01 Morbid (severe) obesity due to excess calories; T78.40XA Allergy, unspecified, initial encounter; X58.XXXA Exposure to other specified factors, initial encounter; D63.8 Anemia in other chronic diseases classified elsewhere; Y84.8 Other medical procedures as the cause of abnormal reaction of the patient, or of later complication, without mention of misadventure at the time of the procedure; Y92.89 Other specified places as the place of occurrence of the external cause; Z68.32 Body mass index [BMI] 32.0-32.9, adult; Z87.01 Personal history of pneumonia (recurrent); Z99.2 Dependence on renal dialysis; Z87.442 Personal history of urinary calculi; Z86.718 Personal history of other venous thrombosis and embolism; Z87.440 Personal history of urinary (tract) infections; Z93.0 Tracheostomy status; Z86.711 Personal history of pulmonary embolism; Z86.19 Personal history of other infectious and parasitic diseases; Z90.710 Acquired absence of both cervix and uterus; Z79.890 Hormone replacement therapy; Z95.0 Presence of cardiac pacemaker; Z88.6 Allergy status to analgesic agent; Z88.1 Allergy status to other antibiotic agents; Z91.011 Allergy to milk products; Z88.5 Allergy status to narcotic agent; Z91.018 Allergy to other foods; Z88.2 Allergy status to sulfonamides; Z88.8 Allergy status to other drugs, medicaments and biological substances; Z91.048 Other nonmedicinal substance allergy status; Z79.899 Other long term (current) drug therapy; Z79.82 Long term (current) use of aspirin; I25.2 Old myocardial infarction
CPT/HCPCS: 36415; 71045; 76000; 76770; 80048; 80053; 81000-TC; 82962; 83036; 83540-TC; 83550-TC; 83605; 83880; 84443-TC; 84484; 85025; 85379; 85610-TC; 85730-TC; 86886; 86900; 86901; 87040-TC; 87070-TC; 87081; 87086; 87186-TC; 87205-TC; 93005; 93971; 94002; 94003; 94640; 94760; 96365; 96375; 99285; C1751; C1769; J0360; J0770; J1170; J1200; J1650; J1815; J1956; J2001; J2250; J2405; J2543; J2704; J2930; J7030; J7512; J7612; J7613; J8597

== ENCOUNTER 2018-07-23 12:56 | Inpatient (IN) | payer OTHER, MEDICAID ==
[~2018-07-23] VITALS: Ht 167.6 cm; Wt 90.7 kg
[~2018-07-23 12:56] MED LIST changes: -LIDOCAINE 1% 10 MG/ML, 20 ML MDV INJ ONE; +MAGN400T10 PO; -MIDAZOLAM HCL 5 MG/5 ML VIAL IVP ONE; -NS 1000 ML IV.SOLN IV ONE; -PROPOFOL 200MG/ 20ML VIAL (DIPRIVAN) IV ONE
--- NOTE | 2018-07-23 13:00 | NUR ---
Admit Note: Patient came in wheelchair, direct admit. Patient denies pain and discomfort. Patient on Trach and Vent. Rivero catheter patent and intact. Patient has a PICC line. Per patient "It's leaking". Breathing is even and unlabored with no distress noted. Patient oriented to room and call light. Safety precautions in place; bed in lowest position, wheels locked, side rails x3, bed alarm activated and call light within reach. No distress noted at this time. Will continue to monitor.
[2018-07-23 13:15] VITALS: BP_SYST 142
--- NOTE | 2018-07-23 13:15 | NUR ---
Vent set up: Patient hooked up to hospital Vent by Nessa CASTELAN. Patient tolerating well. No distress noted.
[2018-07-23 13:27] VITALS: BP_SYST 142
--- NOTE | 2018-07-23 13:33 | NUR ---
Paging Dr. Hanna: Paging Dr. Hanna for admit orders. Awaiting callback.
--- NOTE | 2018-07-23 13:36 | NUR ---
Spoke to Dr. Hanna: Spoke to Dr. Hanna, admit orders received. Orders to be entered by RN.
[2018-07-23] MEDS ORDERED: LEVALBUTEROL Tartrate 15 GM HFA. 45 mCg/Actuation INH PRN (14:15)
[2018-07-23] MEDS ORDERED: DIPHENHYDRAMINE HCL 25 MG CAPSULE PO PRN (14:15)
[2018-07-23] MEDS ORDERED: ONDANSETRON 4 MG ODT TAB PO PRN (14:15)
[2018-07-23 14:16] VITALS: BP_SYST 142
--- NOTE | 2018-07-23 14:26 | NUR ---
CONSULTATION CALLED REASON FOR CONSULTATION:RESPIRATORY FAILURE WAS CONSULT CALLED?Y PERSON WHO WAS NOTIFIED:CYNTHIA CONSULTING PHYSICIAN:KIRAN SMITH STRAIGHT LINE PRESS SETTER SPECIALTY:PULMONARY STRAIGHT LINE PRESS SETTER PHONE NUMBER:[phone] ORDERING PHYSICIAN:FREDY CRAWFORD
--- NOTE | 2018-07-23 14:29 | NUR ---
CONSULTATION CALLED REASON FOR CONSULTATION:PNEUMONIA WAS CONSULT CALLED?Y PERSON WHO WAS NOTIFIED:LONNIE CONSULTING PHYSICIAN:TRAVIS JOSE SUBSTATION OPERATOR HELPER GENERATION SPECIALTY:INFECTIOUS DISEASE SUBSTATION OPERATOR HELPER GENERATION PHONE NUMBER:[phone] ORDERING PHYSICIAN[facility]
[2018-07-23 14:43] LABS: BILIRUBIN,URINE NEGATIVE (NEGATIVE); BLOOD, URINE 2+ (NEGATIVE); CLARITY/URINE HAZY (CLEAR); COLOR,URINE YELLOW (YELLOW); GLUCOSE,URINE NEGATIVE (NEGATIVE); KETONES,URINE NEGATIVE (NEGATIVE); LEUKOCYTE ESTERASE ,URINE 3+ (NEGATIVE); NITRITE, URINE NEGATIVE (NEGATIVE); PROTEIN URINE 1+ (NEGATIVE); UROBILINOGEN,URINE 0.2 (0.2-1.0)
[2018-07-23 15:08] LABS: BASOPHILS # (AUTO) 0.1 K/uL (0.0-0.2); BASOPHILS % (AUTO) 0.8 % (0.0-2.0); EOSINOPHILS # (AUTO) 0.5 K/uL (0.0-0.4); EOSINOPHILS % (AUTO) 4.7 % (0.0-4.0); HEMATOCRIT 33.8 % (36-48); HEMOGLOBIN 11.1 g/dL (12.0-16.0); LYMPHOCYTES # (AUTO) 2.6 K/uL (1.0-5.5); LYMPHOCYTES % (AUTO) 23.7 % (20.5-51.5); MEAN CORPUSCULAR HEMOGLOBIN 30 pg (27-31); MEAN CORPUSCULAR HGB CONC 33 % (32-36); MEAN CORPUSCULAR VOLUME 91 fL (79.0-98.0); MONOCYTES # (AUTO) 0.6 K/uL (0.0-1.0); MONOCYTES % (AUTO) 5.8 % (1.7-9.3); NEUTROPHILS # (AUTO) 7.1 K/uL (1.8-7.7); PLATELET COUNT (AUTO) 230 K/uL (130-430); RED BLOOD CELL COUNT(AUTO) 3.73 MIL/uL (4.2-6.2); RED CELL DISTRIBUTION WIDTH 15.5 % (9.0-15.0); WHITE BLOOD COUNT (AUTO) 10.9 K/uL (4.8-10.8)
[2018-07-23 15:15] LABS: CALCIUM 8.9 mg/dL (8.4-11.0); CREATININE 1.48 mg/dL (0.55-1.30); POTASSIUM 3.8 mmol/L (3.5-5.1)
[2018-07-23 15:16] LABS: INR 1.3 (0.8-1.2); PROTHROMBIN TIME 13.7 SECS (9.5-12.5)
[2018-07-23 15:20] LABS: ALBUMIN 2.9 g/dL (3.4-4.8); TOTAL BILIRUBIN 0.3 mg/dL (0.0-1.0)
[2018-07-23 15:24] LABS: BACTERIA,URINE FEW /HPF (None Seen); WBC,URINE 50-80 /HPF (0-3)
[2018-07-23 15:25] LABS: YEAST,URINE Few /HPF (None Seen)
[2018-07-23] MEDS: METOCLOPRAMIDE HCL 10 MG TABLET PO SCH ×2 (15:50→20:33)
[2018-07-23] MEDS: GABAPENTIN 300 MG CAPSULE PO SCH ×2 (15:50→20:33)
[2018-07-23] MEDS: IPRATROPIUM BROM 0.5 MG/2.5 ML VIAL.NEB (ATROVENT) INH PRN (15:52)
[2018-07-23 16:25] VITALS: BP_SYST 157
[2018-07-23] MEDS ORDERED: DEXTROSE 50% JECT 50 ML DISP.SYRIN IVP PRN (17:00)
--- NOTE | 2018-07-23 18:06 | NUR ---
Paging Dr. King: Paging Dr. King for IV antibiotics orders. Awaiting callback.
--- NOTE | 2018-07-23 18:22 | NUR ---
Paging Dr. Hanna: Paging Dr. Hanna to inform him that Midline couldn't be inserted. Awaiting callback.
--- NOTE | 2018-07-23 18:27 | NUR ---
Spoke to Dr. Hanna: Spoke to Dr. Hanna, orders received, orders to be entered by RN.
[2018-07-23] MEDS: WARFARIN SODIUM 2.5 MG TABLET PO SCH (18:34)
--- NOTE | 2018-07-23 19:30 | NUR ---
Paging Dr. Mercado x2: Paging Dr. Pond x2 to receive IV antibiotics orders. Awaiting callback. Endorse to Maria Guadalupe CHENG RN.
--- NOTE | 2018-07-23 19:30 | NUR ---
CHANGE OF SHIFT; nurse Keren and Silvano still trying to insert IV, finally got gauge [address] upper inner arm and IV lock. Dr. King ordered po antibiotic and will follow up tomorrow per day shift nurse Delphine. on contact isolation for MDRO sputum and ESBL of urine, pizarro cath to OSD and noted some bld. tinged in the urine. pt. with trach /Angelicaley #6 via vent. bed alarm on, fall precautions, call light within reach.pt. alert and oriented.
--- NOTE | 2018-07-23 19:32 | NUR ---
Closing Note: Patient laying in bed resting. Patient denies pain and discomfort. Patient on Trach and Vent, intact and vent settings checked at bedside. Rivero catheter patent and intact with visible urine output. Breathing is even and unlabored with no distress noted. Safety precautions in place; bed in lowest position, wheels locked, side rails x3, bed alarm activated and call light within reach. All needs met. Plan of care endorse to [facility] nurse Lerma. Marlin RN's trying to start IV line for the patient.
--- NOTE | 2018-07-23 19:42 | NUR ---
Spoke to Dr. Pond: Spoke to Dr. Pond, orders received. Orders to be entered by RN.
[2018-07-23] MEDS ORDERED: LEVOFLOXACIN 250 MG TABLET PO ONE (19:45)
--- NOTE | 2018-07-23 20:30 | NUR ---
NOTES: pt. called and wants something to eat, had 2 juices and jello, able to swallow pills ok and liquid. HOB elevated, on high overton's position. vent settings @ 30% FIO2 TV 600 AC rate of 12. O2 sat 100%. no complaints of shortness of breath. side rails up. pt. able to talk with trach. rt. foot with heel protector and for foot drop. noted to be paraplegic but can feel when touch. some skin erythema on rt. leg noted. pt. wearing some kind of diaper/pull up from home. 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
[2018-07-23] MEDS: LACTULOSE 20 GM/30 ML UDC PO SCH (20:32)
[2018-07-23] MEDS: CILOSTAZOL 50 MG TABLET (PLETAL) PO SCH (20:32)
[2018-07-23] MEDS: MINERAL OIL 30 ML UDC PO SCH (20:32)
[2018-07-23] MEDS: DOCUSATE SODIUM 100 MG CAPSULE PO SCH (20:33)
[2018-07-23] MEDS: OXYCODONE/ACETAMINOPHEN *10*mg/325 mg TABLET PO PRN (20:55)
--- NOTE | 2018-07-23 21:00 | NUR ---
NOTES: medicated for c/o both arm pain with Percocet., kept warm with blanket. pt. needs attended.
--- NOTE | 2018-07-23 22:13 | NUR ---
NOTES: pt. calm and resting at this time.
[2018-07-23 23:10] VITALS: BP_SYST 141
--- NOTE | 2018-07-24 00:32 | NUR ---
NOTES: pt. sleeping when checked, in no acute distress, same settings on the vent. call light within reach.
--- NOTE | 2018-07-24 02:06 | NUR ---
NOTES: checked pt., sleeping soundly, lights on. cardiac pattern unchanged.
--- NOTE | 2018-07-24 04:57 | NUR ---
NOTES: pt. awakened, looking for her cell phone, asked to charge in the nurses station. pt. needs attended. IV site intact. no complaints noted.
[2018-07-24] MEDS: LEVOTHYROXINE SODIUM 0.15 MG TABLET PO SCH (06:25)
--- NOTE | 2018-07-24 06:45 | NUR ---
CLOSING NOTES; PT. PULL UP IN BED AND REPOSITIONED. NO BM. CHECKED BS 147, NO SLIDING SCALE COVERAGE AND DUE PO MED TAKEN. FOR FURTHER CARE AND OBSERVATION. OBSERVED CONTACT ISOLATION. FALL PRECAUTIONS. CALL LIGHT WITHIN REACH. TRACH TO VENT WITH SAME SETTINGS.
--- NOTE | 2018-07-24 07:35 | NUR ---
endorsed pt. to incoming shift with nurse Chan.
--- NOTE | 2018-07-24 07:45 | NUR ---
OPENING NOTE: MORNING REPORT WAS TAKEN FROM PLOW MECHANIC NURSE. PATIENT IS ALERT AND ORIENTED X4. PATIENT FINISHING UP EATING BREAKFAST IN BED. PATIENT NOT COMPLAINING OF SHORTNESS OF BREATH. PATIENT ON TRACH. SETTINGS ARE AC 12, FIO2 30, TV 600 PEEP 0. IV PATENT AND SALINE LOCKED. PATIENT NOT COMPLAINING OF NAUSEA OR VOMITING. PATIENT NOT COMPLAINING OF PAIN. PATIENT NOT COMPLAINING OF CONSTIPATION. PATIENT HAS SAMUEL HANGING TO GRAVITY. PATIENT HAS RIGHT FOOT ON HEEL FLOATER. PATIENT ABLE TO FEEL SENSATION AND MOVE TOES. PAY REFILL <3 AND PEDAL PULSES PRESENT. BED ALARM IS ON AND SIDE RAILS ARE UP. CALL LIGHT IS IN REACH AND BED IN LOWEST POSITION. WILL CONTINUE TO MONITOR.
[2018-07-24 08:00] VITALS: BP_SYST 137
[2018-07-24] MEDS: LACTULOSE 20 GM/30 ML UDC PO SCH ×2 (09:00→20:35)
--- NOTE | 2018-07-24 09:25 | NUR ---
Nutrition Update Fabricio Scale 13 noted. Pt admitted for PICC line replacement. Diet: [facility] BMI: 32.3 kg/m2 RD to follow per nutrition care standards.
[2018-07-24] MEDS: ATORVASTATIN 10 MG TABLET PO SCH (10:27)
[2018-07-24] MEDS: ALLOPURINOL 100 MG TABLET (ZYLOPRIM) PO SCH (10:27)
[2018-07-24] MEDS: NEPHROVITE, (FOLIC ACID/VITAMIN B COMP W-C 1 TAB) PO SCH (10:27)
[2018-07-24] MEDS: METOCLOPRAMIDE HCL 10 MG TABLET PO SCH ×3 (10:27→20:36)
[2018-07-24] MEDS: MAGNESIUM OXIDE 400 MG TABLET PO SCH (10:27)
[2018-07-24] MEDS: ASPIRIN 81 MG TABLET(ECOTRIN) PO SCH (10:27)
[2018-07-24] MEDS: DOCUSATE SODIUM 100 MG CAPSULE PO SCH ×2 (10:27→20:36)
[2018-07-24] MEDS: PANTOPRAZOLE SODIUM 40 MG TAB PO SCH (10:27)
[2018-07-24] MEDS: CHOLECALCIFEROL (VITAMIN D3) 2,000 UNIT TABLET PO SCH (10:27)
[2018-07-24] MEDS: GABAPENTIN 300 MG CAPSULE PO SCH ×3 (10:28→20:36)
[2018-07-24] MEDS: CILOSTAZOL 50 MG TABLET (PLETAL) PO SCH ×2 (10:28→20:36)
--- NOTE | 2018-07-24 10:36 | NUR ---
NOTE: GAVE PATIENT MORNING MEDICATIONS. PATIENT SWALLOWED WITH OUT DIFFICULTY. PATIENT REFUSED LACTULOSE BECAUSE SHE TOOK IT LAST NIGHT AND DIDNT WANT IT AGAIN. WILL CONTINUE TO MONITOR.
--- NOTE | 2018-07-24 10:39 | NUR ---
DISCHARGE PLANNING Rec'd order for transfer to higher level of care for central line placement. Spoke with radiology at [facility] and requested a time for the md to md call. CM called and spoke with Dr. Hanna to give department specialist's contact info. Dr. Hanna wants to wait pending Dr. Gilliam's input on whether the central line is necessary. CM called and relayed this info to Dr. Gilliam. Dr. Gilliam states that the patient is tolerating the oral ABX and doesn't see it necessary to do the central line. CM informed Dr. Scott.
[2018-07-24] MEDS: INSULIN REGULAR, HUMAN 100 UNITS/ML, 10 ML VIAL (novoLIN R) SUBCUT PRN ×2 (11:49→21:26)
--- NOTE | 2018-07-24 11:53 | NUR ---
NOTE: TOOK PATIENT'S BLOOD SUGAR AND WAS 197. PATIENT GIVEN INSULIN TO COVER. PATIENT WAS GIVEN HER CELL PHONE BACK FROM NURSING STATION. PATIENT HAS NO FURTHER REQUEST AT MOMENT. WILL CONTINUE TO MONITOR.
[2018-07-24 12:21] VITALS: BP_SYST 143
--- NOTE | 2018-07-24 14:33 | NUR ---
NOTE: PATIENT WAS ASLEEP IN BED. WAS GOING TO GIVE PATIENT SCHEDULED MEDICATIONS BUT PATIENT REFUSED TO TAKE THEM. PATIENT HAS NO FURTHER REQUEST AT MOMENT. WILL CONTINUE TO MONITOR.
--- NOTE | 2018-07-24 15:33 | NUR ---
NOTE: WENT TO CHECK ON PATIENT. PATIENT WAS WORRIED ABOUT GOING HOME ON PO ANTIBIOTICS. PATIENT THINKS SHE WILL GET SEPTIC. WANTS IV ANTIBIOTICS. DR. LUNA WAS PAGED BY MANAGER MERCHANDISE. WILL LET DRPoppy KNOW PATIENT HAS IV. WILL CONTINUE TO MONITOR.
[2018-07-24] MEDS ORDERED: FLUCONAZOLE 100 MG TABLET (DIFLUCAN) PO ONE (16:00)
[2018-07-24 17:03] VITALS: BP_SYST 135
--- NOTE | 2018-07-24 17:05 | NUR ---
NOTE: TOOK PATIENT'S BLOOD SUGAR AND WAS 141. NO INSULIN WAS NEEDED TO COVER. UPDATED PATIENT AND DAUGHTER ON PLAN OF CARE. PATIENT GETTING FRUSTRATED SHE ISNT ON IV ANTIBIOTICS. TOLD PATIENT SAID SHE HAS NO ACTIVE INFECTION. WILL CONTINUE TO MONITOR.
--- NOTE | 2018-07-24 17:36 | NUR ---
DISCHARGE PLANNING CM spoke with patient, patient is concerned about going home with PO abx, daughter is also concerned about this, also concerned that there is no fluid running through peripheral IV to make sure the line is going to last at home - Relayed concerns to DANDRE Red and Dr. King. Dr. King states he will reassess patient on 07/25/18 and d/c is pending this assessment. Relayed this information to patient and Daughter Danyell ph: [phone]. Danyell asks that CM set up transportation through access for a 7pm picking belt operator on 07/25/18. CM asked daughter if the transportation appt is able to be cancelled without penalty if pt is not d/c tomorrow. Daughter states yes. CM informed daughter that there is no clinical case manager here tomorrow and that she coul call and ask RN to cancel transportation should d/c not be ordered for tomorrow. Addendum: 07/24/18 at 1754 by Precious Thakur RN Access transportation CM called access ph: [phone] ([place]) and spoke with Alessandra to set up transportation from Hospital to patients home for 07/25/18 at 7pm. Patients access id # is: [id number]. Field Marketing Manager will be here anytime between 1900 and 1920. Field Marketing Manager will only wait 5 minutes, so RN will need to have patient ready. There will be an automated phone call that goes to the [facility] when the flatbed driver arrives. Again the flatbed driver will only wait 5 mins before leaving, so patient must be in chair and ready when the flatbed driver gets here. Confirmation number for picking belt operator is: [phone]. CM informed daughter.
[2018-07-24] MEDS: WARFARIN SODIUM 2.5 MG TABLET PO SCH (18:31)
--- NOTE | 2018-07-24 18:32 | NUR ---
CLOSING NOTE: PATIENT LAYING IN BED ON PHONE. GAVE PATIENT SCHEDULED MEDICATION. PATIENT SWALLOWED WITH OUT DIFFICULTIES. PATIENT ON VENT. SETTINGS HAVE NOT CHANGED THROUGH OUT SHIFT. PATIENT'S IV IS SALINE LOCKED. PATIENT HAS HEEL FLOATER ON. SAMUEL IS HANGING TO GRAVITY. BED ALARM IS ON AND CALL LIGHT IS IN REACH. WILL CONTINUE TO MONITOR AND GIVE REPORT TO NIGHT NURSE.
--- NOTE | 2018-07-24 19:45 | NUR ---
ROUNDS PATIENT RESTING COMFORTABLY IN BED, NOT IN DISTRESS, VITALS STABLE. DENIES ANY PAIN AND DISCOMFORT AT THIS TIME. ASSESSMENT DONE AND DOCUMENTED. SEE FLOWSHEET. SAFETY AND FALL PRECAUTION MEASURES IN PLACED. BED IN LOW AND LOCKED POSITION. BED ALARM ON. CALL LIGHT PLACED WITHIN REACH.
[2018-07-24] MEDS: MINERAL OIL 30 ML UDC PO SCH (20:35)
--- NOTE | 2018-07-24 21:13 | NUR ---
MEDICATION DUE MEDICATIONS GIVEN SCHEDULED, TOLERATED WELL. WILL CONTINUE TO MONITOR.
--- NOTE | 2018-07-25 00:10 | NUR ---
PATIENT RESTING: Patient resting quietly. No acute distress noted. Vital signs within normal range.
[2018-07-25 01:54] VITALS: BP_SYST 122
--- NOTE | 2018-07-25 02:17 | NUR ---
ROUNDS PATIENT ASLEEP, NOT IN DISTRESS, NO SOB NOTED. WILL CONTINUE TO MONITOR.
--- NOTE | 2018-07-25 04:11 | NUR ---
PATIENT RESTING: Patient resting quietly. No acute distress noted. Vital signs within normal range.
[2018-07-25] MEDS: IPRATROPIUM BROM 0.5 MG/2.5 ML VIAL.NEB (ATROVENT) INH PRN ×2 (04:56→08:57)
[2018-07-25] MEDS: LEVOTHYROXINE SODIUM 0.15 MG TABLET PO SCH (06:23)
--- NOTE | 2018-07-25 07:34 | NUR ---
opening note pt awake alert. right upper arm 24 g saline lock noted. . requesting pain medication at this time. denies any shortness of breath. call light visibly within reach, with bed in the lowest position. safety maintained.
--- NOTE | 2018-07-25 07:34 | NUR ---
CLOSING NOTES PATIENT AWAKE, VITALS STABLE, ACCU CHECK DONE WITH BLOOD SUGAR OF 133. NO INSULIN COVERAGE. ALL NEEDS ATTENDED TO. CALL LIGHT PLACED WITHIN REACH.
[2018-07-25 08:00] VITALS: BP_SYST 121
[2018-07-25 08:19] LABS: INR 1.5 (0.8-1.2)
[2018-07-25] MEDS: PANTOPRAZOLE SODIUM 40 MG TAB PO SCH (08:28)
[2018-07-25] MEDS: METOCLOPRAMIDE HCL 10 MG TABLET PO SCH ×2 (08:28→14:23)
[2018-07-25] MEDS: NEPHROVITE, (FOLIC ACID/VITAMIN B COMP W-C 1 TAB) PO SCH (08:29)
[2018-07-25] MEDS: CILOSTAZOL 50 MG TABLET (PLETAL) PO SCH (08:29)
[2018-07-25] MEDS: CHOLECALCIFEROL (VITAMIN D3) 2,000 UNIT TABLET PO SCH (08:29)
[2018-07-25] MEDS: ASPIRIN 81 MG TABLET(ECOTRIN) PO SCH (08:29)
[2018-07-25] MEDS: OXYCODONE/ACETAMINOPHEN *10*mg/325 mg TABLET PO PRN (08:29)
[2018-07-25] MEDS: ALLOPURINOL 100 MG TABLET (ZYLOPRIM) PO SCH (08:30)
[2018-07-25] MEDS: ATORVASTATIN 10 MG TABLET PO SCH (08:30)
[2018-07-25] MEDS: DOCUSATE SODIUM 100 MG CAPSULE PO SCH (08:30)
[2018-07-25] MEDS: GABAPENTIN 300 MG CAPSULE PO SCH ×2 (08:30→14:23)
[2018-07-25] MEDS: MAGNESIUM OXIDE 400 MG TABLET PO SCH (08:30)
[2018-07-25] MEDS: LACTULOSE 20 GM/30 ML UDC PO SCH (08:31)
--- NOTE | 2018-07-25 08:36 | NUR ---
am meds morning meds given.pt c/o back pain 06/12 given percocet as ordered. pt tolerated well. no distress noted. safety maintained
[2018-07-25] MEDS ORDERED: cefTRIAXone 1 GM in D5W 50 ML IV SCH (09:00)
[2018-07-25] MEDS ORDERED: FLUCONAZOLE 100 MG TABLET (DIFLUCAN) PO SCH (09:00)
[2018-07-25 10:05] LABS: BASOPHILS % (AUTO) 0.4 % (0.0-2.0); EOSINOPHILS # (AUTO) 0.4 K/uL (0.0-0.4); EOSINOPHILS % (AUTO) 4.1 % (0.0-4.0); HEMATOCRIT 31.8 % (36-48); LYMPHOCYTES # (AUTO) 2.6 K/uL (1.0-5.5); LYMPHOCYTES % (AUTO) 25.7 % (20.5-51.5); MEAN CORPUSCULAR HEMOGLOBIN 29 pg (27-31); MEAN CORPUSCULAR HGB CONC 31 % (32-36); MEAN CORPUSCULAR VOLUME 91 fL (79.0-98.0); MONOCYTES # (AUTO) 0.5 K/uL (0.0-1.0); MONOCYTES % (AUTO) 5.4 % (1.7-9.3); NEUTROPHILS # (AUTO) 6.6 K/uL (1.8-7.7); NEUTROPHILS % (AUTO) 64.4 % (40.0-70.0); PLATELET COUNT (AUTO) 285 K/uL (130-430); RED CELL DISTRIBUTION WIDTH 16.1 % (9.0-15.0); WHITE BLOOD COUNT (AUTO) 10.1 K/uL (4.8-10.8)
--- NOTE | 2018-07-25 11:04 | NUR ---
med pass ivpb brown lazar. pt tolerated well. no distress noted.
[2018-07-25 11:40] VITALS: BP_SYST 134
[2018-07-25 12:00] VITALS: BP_SYST 140
[2018-07-25 12:35] VITALS: BP_SYST 140
--- NOTE | 2018-07-25 14:29 | NUR ---
med pass po reglan and gabapentin given. safety maintained. no distress noted.
[2018-07-25] MEDS: IPRATROPIUM/ALBUTEROL SULFATE 3 ML AMPUL.NEB INH SCH ×2 (15:22→18:21)
--- NOTE | 2018-07-25 16:00 | NUR ---
PATIENT RESTING: Patient resting quietly. No acute distress noted. Vital signs within normal range.
[2018-07-25 16:02] VITALS: BP_SYST 134
[2018-07-25] MEDS: WARFARIN SODIUM 2.5 MG TABLET PO SCH (17:10)
[2018-07-25] MEDS ORDERED: LEVO250T2 PO (17:18)
[2018-07-25] MEDS ORDERED: L.RH1CAP PO (17:19)
--- NOTE | 2018-07-25 18:56 | NUR ---
D/C Patient Patient given medication reconciliation form and D/C instructions. Exit Care provided. Patient verbalized understanding. MD discussed with patient the results and treatment provided. Patient in stable condition, ID band removed. IV catheter removed, intact and dressing applied, no active bleeding. Rx of lactobacillus and levaquin given. Patient educated on pain management. All belongings sent with patient.
--- NOTE | 2018-07-28 10:19 | NUR ---
Discharge Planning FRICKERTRON CHECKER noted discharge order for continued home health. FRICKERTRON CHECKER phoned Crys at [facility] home health, p [phone] f [phone]. They resumed services yesterday, 07/27/18. FRICKERTRON CHECKER faxed order, H&P and med list to [facility].
== END 2018-07-25 18:45 | disposition home health service (06) | DRG 314 ==
LOC: SMU 12:56 → STU 14:25
PROVIDERS: ADMIT Internal Medicine; ATTEND Internal Medicine
PROC: 5A1945Z Respiratory Ventilation, 24-96 Consecutive Hours (ICD-10-PCS; principal; 2018-07-23)
DX: T82.514A Breakdown (mechanical) of infusion catheter, initial encounter (principal); J18.9 Pneumonia, unspecified organism; N17.0 Acute kidney failure with tubular necrosis; G82.20 Paraplegia, unspecified; J96.10 Chronic respiratory failure, unspecified whether with hypoxia or hypercapnia; Z99.11 Dependence on respirator [ventilator] status; B37.49 Other urogenital candidiasis; J44.0 Chronic obstructive pulmonary disease with (acute) lower respiratory infection; T82.534A Leakage of infusion catheter, initial encounter; E11.51 Type 2 diabetes mellitus with diabetic peripheral angiopathy without gangrene; E11.22 Type 2 diabetes mellitus with diabetic chronic kidney disease; N18.9 Chronic kidney disease, unspecified; D63.8 Anemia in other chronic diseases classified elsewhere; E87.6 Hypokalemia; K59.00 Constipation, unspecified; E66.01 Morbid (severe) obesity due to excess calories; N31.9 Neuromuscular dysfunction of bladder, unspecified; Z16.24 Resistance to multiple antibiotics; F32.9 Major depressive disorder, single episode, unspecified; F41.9 Anxiety disorder, unspecified; Y83.8 Other surgical procedures as the cause of abnormal reaction of the patient, or of later complication, without mention of misadventure at the time of the procedure; Y92.89 Other specified places as the place of occurrence of the external cause; Z86.718 Personal history of other venous thrombosis and embolism; Z86.711 Personal history of pulmonary embolism; Z68.32 Body mass index [BMI] 32.0-32.9, adult; Z93.0 Tracheostomy status; Z86.19 Personal history of other infectious and parasitic diseases; Z87.442 Personal history of urinary calculi; Z95.0 Presence of cardiac pacemaker; Z79.82 Long term (current) use of aspirin; Z79.4 Long term (current) use of insulin; Z79.899 Other long term (current) drug therapy; Z88.1 Allergy status to other antibiotic agents; Z88.5 Allergy status to narcotic agent; Z88.2 Allergy status to sulfonamides; Z88.8 Allergy status to other drugs, medicaments and biological substances
CPT/HCPCS: 36415; 80053; 81000-TC; 82962; 85025; 85610-TC; 87081; 94002; 94003; 94640; 94760; C1751; J0696; J1815; J7060; J7620; J8597

== ENCOUNTER 2018-09-28 13:35 | Inpatient (IN) | payer OTHER, MEDICAID ==
[~2018-09-28] VITALS: Ht 167.6 cm; Wt 88.0 kg
[~2018-09-28 13:35] MED LIST changes: +L.RH1CAP PO; +LEVO250T2 PO
[2018-09-28 13:47] VITALS: BP_SYST 147
[2018-09-28] MEDS ORDERED: MORPHINE 4 MG/ML INJ. SYRINGE IVP ONE (14:45)
[2018-09-28 14:59] LABS: HEMOGLOBIN 9.8 g/dL (12.0-16.0)
[2018-09-28] MEDS ORDERED: VANCOMYCIN HCL 750 MG in NS 250 ML IV ONE (15:00)
[2018-09-28 15:10] LABS: BASOPHILS % (AUTO) 0.1 % (0.0-2.0); EOSINOPHILS # (AUTO) 0.2 K/uL (0.0-0.4); EOSINOPHILS % (AUTO) 1.8 % (0.0-4.0); HEMATOCRIT 30.7 % (36-48); LYMPHOCYTES # (AUTO) 2.3 K/uL (1.0-5.5); LYMPHOCYTES % (AUTO) 17.4 % (20.5-51.5); MEAN CORPUSCULAR HEMOGLOBIN 29 pg (27-31); MEAN CORPUSCULAR HGB CONC 32 % (32-36); MEAN CORPUSCULAR VOLUME 90 fL (79.0-98.0); MONOCYTES # (AUTO) 1.1 K/uL (0.0-1.0); MONOCYTES % (AUTO) 8.2 % (1.7-9.3); NEUTROPHILS # (AUTO) 9.4 K/uL (1.8-7.7); NEUTROPHILS % (AUTO) 72.5 % (40.0-70.0); PLATELET COUNT (AUTO) 297 K/uL (130-430); RED BLOOD CELL COUNT(AUTO) 3.43 MIL/uL (4.2-6.2); RED CELL DISTRIBUTION WIDTH 14.5 % (9.0-15.0)
[2018-09-28 15:11] LABS: CALCIUM 9.2 mg/dL (8.4-11.0); CREATININE 1.27 mg/dL (0.55-1.30); POTASSIUM 3.7 mmol/L (3.5-5.1)
[2018-09-28 15:19] LABS: INR 1.3 (0.8-1.2); PROTHROMBIN TIME 12.6 SECS (9.5-12.5)
[2018-09-28 15:26] LABS: TOTAL BILIRUBIN 0.3 mg/dL (0.0-1.0)
[2018-09-28] MEDS ORDERED: VANCOMYCIN HCL 1000 MG/VIAL IV ONE (15:34)
[2018-09-28] MEDS ORDERED: DIPHENHYDRAMINE INJ 50 MG/ML VIAL ONE (15:35)
[2018-09-28] MEDS ORDERED: IPRATROPIUM/ALBUTEROL SULFATE 3 ML AMPUL.NEB (DUONEB) INH ONE (15:45)
[2018-09-28 17:46] VITALS: BP_SYST 163
[2018-09-28] MEDS ORDERED: OXYCODONE/ACETAMINOPHEN *10*mg/325 mg TABLET PO PRN (18:00)
[2018-09-28] MEDS ORDERED: DIPHENHYDRAMINE HCL 25 MG CAPSULE PO SCH (18:00)
[2018-09-28] MEDS ORDERED: LEVALBUTEROL Tartrate 15 GM HFA. 45 mCg/Actuation INH PRN (18:00)
[2018-09-28] MEDS ORDERED: ONDANSETRON 4 MG ODT TAB PO PRN (18:00)
[2018-09-28] MEDS ORDERED: OXYCODONE/ACETAMINOPHEN 5-325 TABLET PO PRN ×2 (18:00→18:30)
[2018-09-28] MEDS ORDERED: DEXTROSE 50% JECT 50 ML DISP.SYRIN IVP PRN (18:15)
[2018-09-28] MEDS ORDERED: ONDANSETRON HCL 4 MG/2 ML VIAL IVP PRN (18:15)
[2018-09-28] MEDS ORDERED: oxyCODONE HCL 10 MG TAB.ER.12H PO ONE (18:29)
[2018-09-28] MEDS ORDERED: LevALBUTEROL HCL 1.25 MG/0.5 ML *CONC.* VIAL.NEB (XOPENEX CONC.) INH PRN (18:30)
[2018-09-28] MEDS ORDERED: TEMAZEPAM 15 MG CAPSULE PO PRN (18:45)
[2018-09-28] MEDS ORDERED: HYDROmorphone 1 MG INJ. 1 MG/ML AMPUL IM PRN (18:45)
[2018-09-28] MEDS: IPRATROPIUM BROM 0.5 MG/2.5 ML VIAL.NEB (ATROVENT) INH PRN (19:42)
[2018-09-28 20:00] VITALS: BP_SYST 113
[2018-09-28] MEDS: LACTOBACILLUS RHAMNOSUS GG 1 CAP CAPSULE PO SCH (20:34)
[2018-09-28] MEDS: GABAPENTIN 300 MG CAPSULE PO SCH (20:34)
[2018-09-28] MEDS: CILOSTAZOL 50 MG TABLET (PLETAL) PO SCH (20:34)
[2018-09-28] MEDS: LACTULOSE 20 GM/30 ML UDC PO SCH (20:36)
[2018-09-28] MEDS: DOCUSATE SODIUM 100 MG CAPSULE PO SCH (20:36)
[2018-09-28] MEDS ORDERED: GABAPENTIN 400 MG CAPSULE PO SCH (21:00)
[2018-09-28] MEDS: IPRATROPIUM/ALBUTEROL SULFATE 3 ML AMPUL.NEB (DUONEB) INH PRN (22:48)
[2018-09-28] MEDS: HYDROmorphone 1 MG INJ. 1 MG/ML AMPUL IVP PRN (23:05)
[2018-09-29] VITALS: BP_SYST 122
[2018-09-29] MEDS: HYDROmorphone 1 MG INJ. 1 MG/ML AMPUL IVP PRN ×6 (03:08→21:57)
[2018-09-29] MEDS: METOCLOPRAMIDE HCL 10 MG TABLET PO SCH ×3 (06:16→16:52)
[2018-09-29] MEDS: LEVOTHYROXINE SODIUM 0.15 MG TABLET PO SCH (06:16)
[2018-09-29 07:19] LABS: ANION GAP 9 (5-15); CALCIUM 8.7 mg/dL (8.4-11.0); CHLORIDE 104 mmol/L (98-107); CREATININE 1.23 mg/dL (0.55-1.30); GLUCOSE 113 mg/dL (70-99); POTASSIUM 3.6 mmol/L (3.5-5.1); SODIUM SERUM 137 mmol/L (136-145); UREA NITROGEN, BLOOD 15 mg/dL (8-21)
[2018-09-29 07:27] LABS: BASOPHILS % (AUTO) 0.2 % (0.0-2.0); EOSINOPHILS # (AUTO) 0.3 K/uL (0.0-0.4); EOSINOPHILS % (AUTO) 2.1 % (0.0-4.0); HEMOGLOBIN 8.8 g/dL (12.0-16.0); LYMPHOCYTES # (AUTO) 2.1 K/uL (1.0-5.5); LYMPHOCYTES % (AUTO) 14.8 % (20.5-51.5); MEAN CORPUSCULAR HEMOGLOBIN 28 pg (27-31); MEAN CORPUSCULAR HGB CONC 31 % (32-36); MEAN CORPUSCULAR VOLUME 90 fL (79.0-98.0); MONOCYTES # (AUTO) 1.4 K/uL (0.0-1.0); MONOCYTES % (AUTO) 9.5 % (1.7-9.3); NEUTROPHILS # (AUTO) 10.5 K/uL (1.8-7.7); NEUTROPHILS % (AUTO) 73.4 % (40.0-70.0); PLATELET COUNT (AUTO) 271 K/uL (130-430); RED BLOOD CELL COUNT(AUTO) 3.11 MIL/uL (4.2-6.2); RED CELL DISTRIBUTION WIDTH 14.8 % (9.0-15.0); WHITE BLOOD COUNT (AUTO) 14.3 K/uL (4.8-10.8)
[2018-09-29 07:31] LABS: ALANINE AMINOTRANSFERASE 13 U/L (12-78); ALBUMIN 2.6 g/dL (3.4-4.8); ASPARTATE AMINOTRANSFERASE 13 U/L (10-37); TOTAL BILIRUBIN 0.3 mg/dL (0.0-1.0)
[2018-09-29 07:39] LABS: GFR AFRICAN AMERICAN 56 mL/min (>90)
[2018-09-29 08:00] VITALS: BP_SYST 128
[2018-09-29] MEDS: ONDANSETRON HCL 4 MG/2 ML VIAL IVP PRN (08:55)
[2018-09-29] MEDS ORDERED: NEPHROVITE, (FOLIC ACID/VITAMIN B COMP W-C 1 TAB) PO SCH (09:00)
[2018-09-29] MEDS: ASPIRIN 81 MG TABLET(ECOTRIN) PO SCH (09:00)
[2018-09-29] MEDS ORDERED: LEVOFLOXACIN 250 MG TABLET PO SCH (10:00)
[2018-09-29] MEDS: MINERAL OIL 30 ML UDC PO SCH (10:17)
[2018-09-29] MEDS: ATORVASTATIN 10 MG TABLET PO SCH (10:17)
[2018-09-29] MEDS: NEPHROVITE, (FOLIC ACID/VITAMIN B COMP W-C 1 TAB) PO SCH (10:18)
[2018-09-29] MEDS: GABAPENTIN 300 MG CAPSULE PO SCH ×3 (10:18→20:36)
[2018-09-29] MEDS: DOCUSATE SODIUM 100 MG CAPSULE PO SCH ×2 (10:20→20:36)
[2018-09-29] MEDS: CHOLECALCIFEROL (VITAMIN D3) 2,000 UNIT TABLET PO SCH (10:20)
[2018-09-29] MEDS: CILOSTAZOL 50 MG TABLET (PLETAL) PO SCH ×2 (10:20→20:36)
[2018-09-29] MEDS: ALLOPURINOL 100 MG TABLET (ZYLOPRIM) PO SCH (10:20)
[2018-09-29] MEDS: LACTOBACILLUS RHAMNOSUS GG 1 CAP CAPSULE PO SCH ×2 (10:21→20:36)
[2018-09-29] MEDS: LACTULOSE 20 GM/30 ML UDC PO SCH ×2 (10:21→20:36)
[2018-09-29] MEDS: MAGNESIUM OXIDE 400 MG TABLET PO SCH (10:21)
[2018-09-29 11:32] VITALS: BP_SYST 140
[2018-09-29 12:40] VITALS: BP_SYST 140
[2018-09-29] MEDS: IPRATROPIUM BROM 0.5 MG/2.5 ML VIAL.NEB (ATROVENT) INH PRN (13:57)
[2018-09-29] MEDS: IPRATROPIUM/ALBUTEROL SULFATE 3 ML AMPUL.NEB (DUONEB) INH PRN ×2 (13:58→19:25)
[2018-09-29 16:35] VITALS: BP_SYST 141
[2018-09-29] MEDS ORDERED: DEXAMETHASONE SOD PHOSPHATE 4 MG/ML VIAL IVP ONE (18:00)
[2018-09-29] MEDS: PIPERACILLIN/TAZO 2.25G/DEX-IS 50 ML IV SCH ×2 (18:22→23:04)
[2018-09-29 19:11] LABS: BILIRUBIN,URINE NEGATIVE (NEGATIVE); BLOOD, URINE 3+ (NEGATIVE); CLARITY/URINE CLOUDY (CLEAR); COLOR,URINE YELLOW (YELLOW); GLUCOSE,URINE NEGATIVE (NEGATIVE); KETONES,URINE NEGATIVE (NEGATIVE); LEUKOCYTE ESTERASE ,URINE 3+ (NEGATIVE); NITRITE, URINE NEGATIVE (NEGATIVE); PROTEIN URINE 1+ (NEGATIVE); UROBILINOGEN,URINE 0.2 (0.2-1.0)
[2018-09-29 19:15] LABS: BACTERIA,URINE MODERATE /HPF (None Seen); RBC,URINE 20-50 /HPF (0-3); WBC,URINE >100 /HPF (0-3)
[2018-09-29 20:00] VITALS: BP_SYST 138
[2018-09-29] MEDS: INSULIN REGULAR, HUMAN 100 UNITS/ML, 10 ML VIAL (novoLIN R) SUBCUT PRN (20:34)
[2018-09-29] MEDS: ENOXAPARIN SODIUM 40 MG/0.4 ML SYRINGE SUBCUT SCH (20:34)
[2018-09-30 01:06] VITALS: BP_SYST 138
[2018-09-30] MEDS: HYDROmorphone 1 MG INJ. 1 MG/ML AMPUL IVP PRN ×6 (02:24→22:03)
[2018-09-30] MEDS: IPRATROPIUM/ALBUTEROL SULFATE 3 ML AMPUL.NEB (DUONEB) INH PRN ×4 (04:03→20:01)
[2018-09-30] MEDS: PIPERACILLIN/TAZO 2.25G/DEX-IS 50 ML IV SCH ×3 (05:02→17:24)
[2018-09-30] MEDS: METOCLOPRAMIDE HCL 10 MG TABLET PO SCH ×3 (06:00→17:22)
[2018-09-30] MEDS: LEVOTHYROXINE SODIUM 0.15 MG TABLET PO SCH (06:00)
[2018-09-30] MEDS: INSULIN REGULAR, HUMAN 100 UNITS/ML, 10 ML VIAL (novoLIN R) SUBCUT PRN ×4 (06:07→20:40)
[2018-09-30 07:12] LABS: BASOPHILS % (AUTO) 0.1 % (0.0-2.0); EOSINOPHILS % (AUTO) 0.3 % (0.0-4.0); HEMATOCRIT 27.4 % (36-48); HEMOGLOBIN 8.8 g/dL (12.0-16.0); LYMPHOCYTES # (AUTO) 1.6 K/uL (1.0-5.5); LYMPHOCYTES % (AUTO) 11.5 % (20.5-51.5); MEAN CORPUSCULAR HEMOGLOBIN 29 pg (27-31); MEAN CORPUSCULAR HGB CONC 32 % (32-36); MEAN CORPUSCULAR VOLUME 89 fL (79.0-98.0); MONOCYTES # (AUTO) 0.6 K/uL (0.0-1.0); MONOCYTES % (AUTO) 4.2 % (1.7-9.3); NEUTROPHILS # (AUTO) 11.3 K/uL (1.8-7.7); NEUTROPHILS % (AUTO) 83.9 % (40.0-70.0); PLATELET COUNT (AUTO) 266 K/uL (130-430); RED BLOOD CELL COUNT(AUTO) 3.07 MIL/uL (4.2-6.2); RED CELL DISTRIBUTION WIDTH 14.5 % (9.0-15.0); WHITE BLOOD COUNT (AUTO) 13.5 K/uL (4.8-10.8)
[2018-09-30 08:00] LABS: CREATININE 1.19 mg/dL (0.55-1.30); POTASSIUM 4.1 mmol/L (3.5-5.1)
[2018-09-30] MEDS: MINERAL OIL 30 ML UDC PO SCH (09:00)
[2018-09-30] MEDS: ASPIRIN 81 MG TABLET(ECOTRIN) PO SCH (09:00)
[2018-09-30] MEDS: DOCUSATE SODIUM 100 MG CAPSULE PO SCH ×2 (09:00→20:28)
[2018-09-30] MEDS: LACTULOSE 20 GM/30 ML UDC PO SCH ×2 (09:00→20:28)
[2018-09-30] MEDS: ALLOPURINOL 100 MG TABLET (ZYLOPRIM) PO SCH (09:09)
[2018-09-30] MEDS: DEXAMETHASONE SOD PHOSPHATE 4 MG/ML VIAL IVP SCH ×2 (09:09→20:25)
[2018-09-30] MEDS: LACTOBACILLUS RHAMNOSUS GG 1 CAP CAPSULE PO SCH ×2 (09:10→20:25)
[2018-09-30] MEDS: GABAPENTIN 300 MG CAPSULE PO SCH ×3 (09:10→20:28)
[2018-09-30] MEDS: CILOSTAZOL 50 MG TABLET (PLETAL) PO SCH ×2 (09:10→20:25)
[2018-09-30] MEDS: NEPHROVITE, (FOLIC ACID/VITAMIN B COMP W-C 1 TAB) PO SCH (09:10)
[2018-09-30] MEDS: MAGNESIUM OXIDE 400 MG TABLET PO SCH (09:10)
[2018-09-30] MEDS: ATORVASTATIN 10 MG TABLET PO SCH (09:10)
[2018-09-30] MEDS: CHOLECALCIFEROL (VITAMIN D3) 2,000 UNIT TABLET PO SCH (09:10)
[2018-09-30 09:18] VITALS: BP_SYST 125
[2018-09-30 12:00] VITALS: BP_SYST 148
[2018-09-30 16:00] VITALS: BP_SYST 142
[2018-09-30 19:55] VITALS: BP_SYST 142
[2018-09-30 20:00] VITALS: BP_SYST 147
[2018-09-30] MEDS: ENOXAPARIN SODIUM 40 MG/0.4 ML SYRINGE SUBCUT SCH (20:26)
[2018-10-01] VITALS (8 sets, daily range): BP systolic 141–151
[2018-10-01] MEDS: PIPERACILLIN/TAZO 2.25G/DEX-IS 50 ML IV SCH ×5 (00:21→23:56)
[2018-10-01] MEDS: HYDROmorphone 1 MG INJ. 1 MG/ML AMPUL IVP PRN ×6 (02:01→23:57)
[2018-10-01] MEDS: LEVOTHYROXINE SODIUM 0.15 MG TABLET PO SCH (06:04)
[2018-10-01] MEDS: INSULIN REGULAR, HUMAN 100 UNITS/ML, 10 ML VIAL (novoLIN R) SUBCUT PRN ×3 (06:29→21:00)
[2018-10-01] MEDS: LACTULOSE 20 GM/30 ML UDC PO SCH ×2 (08:18→21:00)
[2018-10-01] MEDS: MINERAL OIL 30 ML UDC PO SCH (08:18)
[2018-10-01] MEDS: DOCUSATE SODIUM 100 MG CAPSULE PO SCH ×2 (08:18→20:52)
[2018-10-01] MEDS: ASPIRIN 81 MG TABLET(ECOTRIN) PO SCH (09:00)
[2018-10-01] MEDS: METOCLOPRAMIDE HCL 10 MG TABLET PO SCH ×3 (09:27→17:00)
[2018-10-01] MEDS: LACTOBACILLUS RHAMNOSUS GG 1 CAP CAPSULE PO SCH ×2 (09:29→20:52)
[2018-10-01] MEDS: ATORVASTATIN 10 MG TABLET PO SCH (09:31)
[2018-10-01] MEDS: CILOSTAZOL 50 MG TABLET (PLETAL) PO SCH ×2 (09:32→20:52)
[2018-10-01] MEDS: MAGNESIUM OXIDE 400 MG TABLET PO SCH (09:33)
[2018-10-01] MEDS: GABAPENTIN 300 MG CAPSULE PO SCH ×3 (09:33→20:52)
[2018-10-01] MEDS: NEPHROVITE, (FOLIC ACID/VITAMIN B COMP W-C 1 TAB) PO SCH (09:34)
[2018-10-01] MEDS: ALLOPURINOL 100 MG TABLET (ZYLOPRIM) PO SCH (09:34)
[2018-10-01] MEDS: CHOLECALCIFEROL (VITAMIN D3) 2,000 UNIT TABLET PO SCH (09:34)
[2018-10-01] MEDS: IPRATROPIUM/ALBUTEROL SULFATE 3 ML AMPUL.NEB (DUONEB) INH PRN ×2 (09:56→13:34)
[2018-10-01] MEDS: DEXAMETHASONE SOD PHOSPHATE 4 MG/ML VIAL IVP SCH ×2 (10:23→20:53)
[2018-10-01] MEDS: ONDANSETRON HCL 4 MG/2 ML VIAL IVP PRN ×2 (10:30→16:13)
[2018-10-01 13:16] LABS: CALCIUM 9.6 mg/dL (8.4-11.0); CREATININE 1.25 mg/dL (0.55-1.30); POTASSIUM 3.6 mmol/L (3.5-5.1)
[2018-10-01 13:19] LABS: BASOPHILS % (AUTO) 0.2 % (0.0-2.0); HEMATOCRIT 29.5 % (36-48); HEMOGLOBIN 9.5 g/dL (12.0-16.0); LYMPHOCYTES # (AUTO) 1.6 K/uL (1.0-5.5); LYMPHOCYTES % (AUTO) 9.1 % (20.5-51.5); MEAN CORPUSCULAR HEMOGLOBIN 29 pg (27-31); MEAN CORPUSCULAR HGB CONC 32 % (32-36); MEAN CORPUSCULAR VOLUME 91 fL (79.0-98.0); MONOCYTES % (AUTO) 5.5 % (1.7-9.3); NEUTROPHILS # (AUTO) 15.3 K/uL (1.8-7.7); NEUTROPHILS % (AUTO) 85.2 % (40.0-70.0); PLATELET COUNT (AUTO) 305 K/uL (130-430); RED BLOOD CELL COUNT(AUTO) 3.26 MIL/uL (4.2-6.2); RED CELL DISTRIBUTION WIDTH 14.5 % (9.0-15.0); WHITE BLOOD COUNT (AUTO) 17.9 K/uL (4.8-10.8)
[2018-10-01 13:29] LABS: TOTAL IRON BIND. CAPACITY 154 ug/dL (250-450)
[2018-10-01] MEDS: ENOXAPARIN SODIUM 40 MG/0.4 ML SYRINGE SUBCUT SCH (20:55)
[2018-10-02 00:33] VITALS: BP_SYST 134
[2018-10-02] MEDS: HYDROmorphone 1 MG INJ. 1 MG/ML AMPUL IVP PRN ×5 (04:02→20:44)
[2018-10-02] MEDS: ONDANSETRON HCL 4 MG/2 ML VIAL IVP PRN (04:18)
[2018-10-02] MEDS: IPRATROPIUM/ALBUTEROL SULFATE 3 ML AMPUL.NEB (DUONEB) INH PRN ×2 (05:16→11:11)
[2018-10-02] MEDS: PIPERACILLIN/TAZO 2.25G/DEX-IS 50 ML IV SCH (06:09)
[2018-10-02] MEDS: LEVOTHYROXINE SODIUM 0.15 MG TABLET PO SCH (06:09)
[2018-10-02] MEDS: INSULIN REGULAR, HUMAN 100 UNITS/ML, 10 ML VIAL (novoLIN R) SUBCUT PRN ×2 (06:28→12:40)
[2018-10-02] MEDS: METOCLOPRAMIDE HCL 10 MG TABLET PO SCH ×3 (07:00→16:27)
[2018-10-02] MEDS: MINERAL OIL 30 ML UDC PO SCH (08:14)
[2018-10-02] MEDS: LACTULOSE 20 GM/30 ML UDC PO SCH ×2 (08:14→21:00)
[2018-10-02] MEDS: ATORVASTATIN 10 MG TABLET PO SCH (08:28)
[2018-10-02] MEDS: NEPHROVITE, (FOLIC ACID/VITAMIN B COMP W-C 1 TAB) PO SCH (08:28)
[2018-10-02] MEDS: MAGNESIUM OXIDE 400 MG TABLET PO SCH (08:28)
[2018-10-02] MEDS: LACTOBACILLUS RHAMNOSUS GG 1 CAP CAPSULE PO SCH ×2 (08:28→20:42)
[2018-10-02] MEDS: ALLOPURINOL 100 MG TABLET (ZYLOPRIM) PO SCH (08:29)
[2018-10-02] MEDS: DOCUSATE SODIUM 100 MG CAPSULE PO SCH ×2 (08:29→20:42)
[2018-10-02] MEDS: CHOLECALCIFEROL (VITAMIN D3) 2,000 UNIT TABLET PO SCH (08:29)
[2018-10-02] MEDS: GABAPENTIN 300 MG CAPSULE PO SCH ×3 (08:29→20:42)
[2018-10-02] MEDS: CILOSTAZOL 50 MG TABLET (PLETAL) PO SCH ×2 (08:29→20:42)
[2018-10-02] MEDS: ASPIRIN 81 MG TABLET(ECOTRIN) PO SCH (08:30)
[2018-10-02] MEDS: DEXAMETHASONE SOD PHOSPHATE 4 MG/ML VIAL IVP SCH ×2 (08:30→20:43)
[2018-10-02 08:57] LABS: CALCIUM 9.4 mg/dL (8.4-11.0); CREATININE 1.3 mg/dL (0.55-1.30); POTASSIUM 4.4 mmol/L (3.5-5.1)
[2018-10-02 09:36] LABS: BASOPHILS % (AUTO) 0.1 % (0.0-2.0); EOSINOPHILS % (AUTO) 0.1 % (0.0-4.0); LYMPHOCYTES # (AUTO) 2.3 K/uL (1.0-5.5); LYMPHOCYTES % (AUTO) 13.8 % (20.5-51.5); MEAN CORPUSCULAR HEMOGLOBIN 29 pg (27-31); MEAN CORPUSCULAR HGB CONC 32 % (32-36); MEAN CORPUSCULAR VOLUME 91 fL (79.0-98.0); MONOCYTES % (AUTO) 5.9 % (1.7-9.3); NEUTROPHILS # (AUTO) 13.6 K/uL (1.8-7.7); NEUTROPHILS % (AUTO) 80.1 % (40.0-70.0); PLATELET COUNT (AUTO) 283 K/uL (130-430); RED BLOOD CELL COUNT(AUTO) 3.43 MIL/uL (4.2-6.2); RED CELL DISTRIBUTION WIDTH 15.1 % (9.0-15.0); WHITE BLOOD COUNT (AUTO) 16.9 K/uL (4.8-10.8)
[2018-10-02] MEDS: AMIKACIN SULFATE 1,100 MG in NS 250 ML IV SCH (12:27)
[2018-10-02 12:46] VITALS: BP_SYST 134
[2018-10-02] MEDS: INSULIN ASPART 100 UNITS/ML, 10 ML VIAL (NovoLOG) SUBCUT PRN ×2 (16:36→20:52)
[2018-10-02 16:54] VITALS: BP_SYST 131
[2018-10-02 20:00] VITALS: BP_SYST 135
[2018-10-02] MEDS: ENOXAPARIN SODIUM 40 MG/0.4 ML SYRINGE SUBCUT SCH (20:53)
[2018-10-03] MEDS: METOCLOPRAMIDE HCL 10 MG TABLET PO SCH ×3 (00:45→17:08)
[2018-10-03] MEDS: HYDROmorphone 1 MG INJ. 1 MG/ML AMPUL IVP PRN ×6 (00:46→21:14)
[2018-10-03 02:29] VITALS: BP_SYST 126
[2018-10-03] MEDS: LEVOTHYROXINE SODIUM 0.15 MG TABLET PO SCH (06:23)
[2018-10-03 07:05] LABS: BASOPHILS % (AUTO) 0.2 % (0.0-2.0); EOSINOPHILS % (AUTO) 0.1 % (0.0-4.0); HEMATOCRIT 30.5 % (36-48); LYMPHOCYTES # (AUTO) 3.4 K/uL (1.0-5.5); LYMPHOCYTES % (AUTO) 17.4 % (20.5-51.5); MEAN CORPUSCULAR HEMOGLOBIN 29 pg (27-31); MEAN CORPUSCULAR HGB CONC 33 % (32-36); MEAN CORPUSCULAR VOLUME 90 fL (79.0-98.0); NEUTROPHILS # (AUTO) 15.4 K/uL (1.8-7.7); PLATELET COUNT (AUTO) 335 K/uL (130-430); RED BLOOD CELL COUNT(AUTO) 3.41 MIL/uL (4.2-6.2); RED CELL DISTRIBUTION WIDTH 15.1 % (9.0-15.0); WHITE BLOOD COUNT (AUTO) 19.8 K/uL (4.8-10.8)
[2018-10-03 07:24] LABS: CALCIUM 9.5 mg/dL (8.4-11.0); CREATININE 1.37 mg/dL (0.55-1.30); POTASSIUM 4.6 mmol/L (3.5-5.1)
[2018-10-03 07:55] VITALS: BP_SYST 155
[2018-10-03] MEDS: CHOLECALCIFEROL (VITAMIN D3) 2,000 UNIT TABLET PO SCH (08:38)
[2018-10-03] MEDS: MAGNESIUM OXIDE 400 MG TABLET PO SCH (08:38)
[2018-10-03] MEDS: DOCUSATE SODIUM 100 MG CAPSULE PO SCH ×2 (08:38→21:00)
[2018-10-03] MEDS: ALLOPURINOL 100 MG TABLET (ZYLOPRIM) PO SCH (08:39)
[2018-10-03] MEDS: CILOSTAZOL 50 MG TABLET (PLETAL) PO SCH ×2 (08:39→21:15)
[2018-10-03] MEDS: ATORVASTATIN 10 MG TABLET PO SCH (08:40)
[2018-10-03] MEDS: MINERAL OIL 30 ML UDC PO SCH (08:41)
[2018-10-03] MEDS: DEXAMETHASONE SOD PHOSPHATE 4 MG/ML VIAL IVP SCH (08:41)
[2018-10-03] MEDS: LACTULOSE 20 GM/30 ML UDC PO SCH ×2 (08:41→20:55)
[2018-10-03] MEDS: NEPHROVITE, (FOLIC ACID/VITAMIN B COMP W-C 1 TAB) PO SCH (08:42)
[2018-10-03] MEDS: LACTOBACILLUS RHAMNOSUS GG 1 CAP CAPSULE PO SCH ×2 (08:42→20:50)
[2018-10-03] MEDS: GABAPENTIN 300 MG CAPSULE PO SCH ×3 (08:42→20:50)
[2018-10-03] MEDS: ASPIRIN 81 MG TABLET(ECOTRIN) PO SCH (08:43)
[2018-10-03 10:50] LABS: NEUTROPHILS % (AUTO) 77.3 % (40.0-70.0)
[2018-10-03 11:06] LABS: HEPATITIS B CORE AB, TOTAL Negative (Negative); HEPATITIS B SURFACE AG Negative (Negative); HEPATITIS C VIRUS AB 0.2 s/co ratio (0.0-0.9)
[2018-10-03] MEDS: AMIKACIN SULFATE 1,100 MG in NS 250 ML IV SCH (11:36)
[2018-10-03] MEDS: INSULIN ASPART 100 UNITS/ML, 10 ML VIAL (NovoLOG) SUBCUT PRN ×2 (11:39→21:27)
[2018-10-03] MEDS: IPRATROPIUM/ALBUTEROL SULFATE 3 ML AMPUL.NEB (DUONEB) INH PRN ×2 (11:51→21:15)
[2018-10-03 12:02] VITALS: BP_SYST 115
[2018-10-03 16:02] VITALS: BP_SYST 113
[2018-10-03] MEDS ORDERED: MINERAL OIL 30 ML UDC PO ONE (17:00)
[2018-10-03] MEDS ORDERED: ASPIRIN 81 MG TABLET(ECOTRIN) PO ONE (17:30)
[2018-10-03 19:05] VITALS: BP_SYST 112
[2018-10-03] MEDS: CLARITHROMYCIN 500 MG TABLET PO SCH (20:50)
[2018-10-03] MEDS: ENOXAPARIN SODIUM 40 MG/0.4 ML SYRINGE SUBCUT SCH (20:58)
[2018-10-04] MEDS: HYDROmorphone 1 MG INJ. 1 MG/ML AMPUL IVP PRN ×6 (01:07→23:11)
[2018-10-04] MEDS: METOCLOPRAMIDE HCL 10 MG TABLET PO SCH ×4 (01:08→23:06)
[2018-10-04 03:33] VITALS: BP_SYST 115
[2018-10-04] MEDS: IPRATROPIUM/ALBUTEROL SULFATE 3 ML AMPUL.NEB (DUONEB) INH PRN ×3 (05:34→22:28)
[2018-10-04] MEDS: LEVOTHYROXINE SODIUM 0.15 MG TABLET PO SCH (06:15)
[2018-10-04 07:00] VITALS: BP_SYST 115
[2018-10-04 07:25] LABS: CALCIUM 9.2 mg/dL (8.4-11.0); CREATININE 1.32 mg/dL (0.55-1.30)
[2018-10-04 08:03] LABS: BASOPHILS % (AUTO) 0.1 % (0.0-2.0); EOSINOPHILS # (AUTO) 0.2 K/uL (0.0-0.4); HEMATOCRIT 30.3 % (36-48); HEMOGLOBIN 9.7 g/dL (12.0-16.0); LYMPHOCYTES # (AUTO) 4.3 K/uL (1.0-5.5); LYMPHOCYTES % (AUTO) 27.4 % (20.5-51.5); MEAN CORPUSCULAR HEMOGLOBIN 29 pg (27-31); MEAN CORPUSCULAR HGB CONC 32 % (32-36); MEAN CORPUSCULAR VOLUME 90 fL (79.0-98.0); MONOCYTES # (AUTO) 1.8 K/uL (0.0-1.0); MONOCYTES % (AUTO) 11.1 % (1.7-9.3); NEUTROPHILS # (AUTO) 9.5 K/uL (1.8-7.7); NEUTROPHILS % (AUTO) 60.4 % (40.0-70.0); PLATELET COUNT (AUTO) 284 K/uL (130-430); RED BLOOD CELL COUNT(AUTO) 3.35 MIL/uL (4.2-6.2); RED CELL DISTRIBUTION WIDTH 15.6 % (9.0-15.0); WHITE BLOOD COUNT (AUTO) 15.8 K/uL (4.8-10.8)
[2018-10-04 08:11] VITALS: BP_SYST 115
[2018-10-04] MEDS: LACTULOSE 20 GM/30 ML UDC PO SCH ×2 (09:00→20:44)
[2018-10-04] MEDS: MINERAL OIL 30 ML UDC PO SCH (09:00)
[2018-10-04] MEDS: NEPHROVITE, (FOLIC ACID/VITAMIN B COMP W-C 1 TAB) PO SCH (09:25)
[2018-10-04] MEDS: ALLOPURINOL 100 MG TABLET (ZYLOPRIM) PO SCH (09:25)
[2018-10-04] MEDS: CLARITHROMYCIN 500 MG TABLET PO SCH ×2 (09:25→20:28)
[2018-10-04] MEDS: GABAPENTIN 300 MG CAPSULE PO SCH ×3 (09:26→20:28)
[2018-10-04] MEDS: MAGNESIUM OXIDE 400 MG TABLET PO SCH (09:26)
[2018-10-04] MEDS: ATORVASTATIN 10 MG TABLET PO SCH (09:26)
[2018-10-04] MEDS: CHOLECALCIFEROL (VITAMIN D3) 2,000 UNIT TABLET PO SCH (09:26)
[2018-10-04] MEDS: CILOSTAZOL 50 MG TABLET (PLETAL) PO SCH ×2 (09:26→20:28)
[2018-10-04] MEDS: DOCUSATE SODIUM 100 MG CAPSULE PO SCH ×2 (09:26→20:40)
[2018-10-04] MEDS: ASPIRIN 81 MG TABLET(ECOTRIN) PO SCH (09:26)
[2018-10-04] MEDS: LACTOBACILLUS RHAMNOSUS GG 1 CAP CAPSULE PO SCH ×2 (09:26→20:28)
[2018-10-04 10:29] VITALS: BP_SYST 105
[2018-10-04] MEDS: AMIKACIN SULFATE 1,100 MG in NS 250 ML IV SCH (11:30)
[2018-10-04] MEDS: INSULIN ASPART 100 UNITS/ML, 10 ML VIAL (NovoLOG) SUBCUT PRN ×3 (11:42→20:46)
[2018-10-04 17:02] VITALS: BP_SYST 100
[2018-10-04] MEDS: ONDANSETRON HCL 4 MG/2 ML VIAL IVP PRN (18:09)
[2018-10-04 20:00] VITALS: BP_SYST 108
[2018-10-04] MEDS: ENOXAPARIN SODIUM 40 MG/0.4 ML SYRINGE SUBCUT SCH (20:31)
[2018-10-05 00:06] VITALS: BP_SYST 102
[2018-10-05] MEDS: HYDROmorphone 1 MG INJ. 1 MG/ML AMPUL IVP PRN ×6 (03:16→23:07)
[2018-10-05] MEDS: IPRATROPIUM/ALBUTEROL SULFATE 3 ML AMPUL.NEB (DUONEB) INH PRN ×2 (05:56→09:32)
[2018-10-05] MEDS: LEVOTHYROXINE SODIUM 0.15 MG TABLET PO SCH (06:03)
[2018-10-05] MEDS: BENZOCAINE/MENTHOL 1 EACH LOZENGE MM PRN (06:03)
[2018-10-05 07:08] LABS: BASOPHILS # (AUTO) 0.1 K/uL (0.0-0.2); BASOPHILS % (AUTO) 0.5 % (0.0-2.0); EOSINOPHILS # (AUTO) 0.4 K/uL (0.0-0.4); EOSINOPHILS % (AUTO) 2.2 % (0.0-4.0); HEMATOCRIT 31.3 % (36-48); LYMPHOCYTES # (AUTO) 3.5 K/uL (1.0-5.5); LYMPHOCYTES % (AUTO) 21.2 % (20.5-51.5); MEAN CORPUSCULAR HEMOGLOBIN 29 pg (27-31); MEAN CORPUSCULAR HGB CONC 32 % (32-36); MEAN CORPUSCULAR VOLUME 89 fL (79.0-98.0); MONOCYTES # (AUTO) 1.6 K/uL (0.0-1.0); MONOCYTES % (AUTO) 9.5 % (1.7-9.3); NEUTROPHILS # (AUTO) 11.1 K/uL (1.8-7.7); PLATELET COUNT (AUTO) 251 K/uL (130-430); RED BLOOD CELL COUNT(AUTO) 3.51 MIL/uL (4.2-6.2); RED CELL DISTRIBUTION WIDTH 15.6 % (9.0-15.0); WHITE BLOOD COUNT (AUTO) 16.7 K/uL (4.8-10.8)
[2018-10-05 07:40] LABS: CREATININE 1.47 mg/dL (0.55-1.30); POTASSIUM 4.3 mmol/L (3.5-5.1)
[2018-10-05 08:41] VITALS: BP_SYST 102
[2018-10-05] MEDS: ATORVASTATIN 10 MG TABLET PO SCH (08:42)
[2018-10-05] MEDS: LACTOBACILLUS RHAMNOSUS GG 1 CAP CAPSULE PO SCH ×2 (08:42→20:17)
[2018-10-05] MEDS: CILOSTAZOL 50 MG TABLET (PLETAL) PO SCH ×2 (08:43→20:17)
[2018-10-05] MEDS: METOCLOPRAMIDE HCL 10 MG TABLET PO SCH ×2 (08:43→17:05)
[2018-10-05] MEDS: ALLOPURINOL 100 MG TABLET (ZYLOPRIM) PO SCH (08:43)
[2018-10-05] MEDS: ASPIRIN 81 MG TABLET(ECOTRIN) PO SCH (08:43)
[2018-10-05] MEDS: MAGNESIUM OXIDE 400 MG TABLET PO SCH (08:43)
[2018-10-05] MEDS: CHOLECALCIFEROL (VITAMIN D3) 2,000 UNIT TABLET PO SCH (08:43)
[2018-10-05] MEDS: NEPHROVITE, (FOLIC ACID/VITAMIN B COMP W-C 1 TAB) PO SCH (08:43)
[2018-10-05] MEDS: CLARITHROMYCIN 500 MG TABLET PO SCH ×2 (08:43→20:17)
[2018-10-05] MEDS: GABAPENTIN 300 MG CAPSULE PO SCH ×3 (08:43→20:17)
[2018-10-05] MEDS: MINERAL OIL 30 ML UDC PO SCH (08:44)
[2018-10-05] MEDS: LACTULOSE 20 GM/30 ML UDC PO SCH ×2 (08:44→20:22)
[2018-10-05] MEDS: DOCUSATE SODIUM 100 MG CAPSULE PO SCH ×2 (08:44→20:22)
[2018-10-05] MEDS: AMIKACIN SULFATE 1,100 MG in NS 250 ML IV SCH (11:05)
[2018-10-05] MEDS: ONDANSETRON HCL 4 MG/2 ML VIAL IVP PRN ×2 (11:05→20:14)
[2018-10-05 11:37] LABS: NEUTROPHILS % (AUTO) 66.6 % (40.0-70.0)
[2018-10-05 12:50] VITALS: BP_SYST 102
[2018-10-05] MEDS: IPRATROPIUM/ALBUTEROL SULFATE 3 ML AMPUL.NEB (DUONEB) INH SCH ×3 (15:51→23:01)
[2018-10-05 16:02] VITALS: BP_SYST 121
[2018-10-05] MEDS: INSULIN ASPART 100 UNITS/ML, 10 ML VIAL (NovoLOG) SUBCUT PRN ×2 (17:07→20:27)
[2018-10-05] MEDS: IPRATROPIUM BROM 0.5 MG/2.5 ML VIAL.NEB (ATROVENT) INH PRN (20:08)
[2018-10-05 20:15] VITALS: BP_SYST 118
[2018-10-05] MEDS: guaiFENesin ER 600 MG TAB PO SCH (20:17)
[2018-10-05] MEDS: ENOXAPARIN SODIUM 40 MG/0.4 ML SYRINGE SUBCUT SCH (20:23)
[2018-10-05] MEDS: PREDNISONE 10 MG TABLET PO SCH (21:41)
[2018-10-05] MEDS ORDERED: PREDNISONE 10 MG TABLET ONE (21:46)
[2018-10-06 00:40] VITALS: BP_SYST 124
[2018-10-06] MEDS: IPRATROPIUM/ALBUTEROL SULFATE 3 ML AMPUL.NEB (DUONEB) INH SCH ×7 (03:00→23:13)
[2018-10-06] MEDS: HYDROmorphone 1 MG INJ. 1 MG/ML AMPUL IVP PRN ×6 (04:13→21:25)
[2018-10-06] MEDS: LEVOTHYROXINE SODIUM 0.15 MG TABLET PO SCH (06:12)
[2018-10-06] MEDS: INSULIN ASPART 100 UNITS/ML, 10 ML VIAL (NovoLOG) SUBCUT PRN ×3 (06:14→22:06)
[2018-10-06 07:28] LABS: EOSINOPHILS % (AUTO) 0.2 % (0.0-4.0); HEMATOCRIT 27.9 % (36-48); HEMOGLOBIN 8.7 g/dL (12.0-16.0); LYMPHOCYTES # (AUTO) 1.8 K/uL (1.0-5.5); LYMPHOCYTES % (AUTO) 8.9 % (20.5-51.5); MEAN CORPUSCULAR HEMOGLOBIN 28 pg (27-31); MEAN CORPUSCULAR HGB CONC 31 % (32-36); MEAN CORPUSCULAR VOLUME 90 fL (79.0-98.0); MONOCYTES # (AUTO) 1.5 K/uL (0.0-1.0); MONOCYTES % (AUTO) 7.2 % (1.7-9.3); NEUTROPHILS # (AUTO) 17.4 K/uL (1.8-7.7); NEUTROPHILS % (AUTO) 83.7 % (40.0-70.0); PLATELET COUNT (AUTO) 285 K/uL (130-430); RED BLOOD CELL COUNT(AUTO) 3.11 MIL/uL (4.2-6.2); RED CELL DISTRIBUTION WIDTH 15.7 % (9.0-15.0); WHITE BLOOD COUNT (AUTO) 20.7 K/uL (4.8-10.8)
[2018-10-06 07:56] LABS: CALCIUM 8.6 mg/dL (8.4-11.0); CREATININE 1.31 mg/dL (0.55-1.30); POTASSIUM 4.8 mmol/L (3.5-5.1)
[2018-10-06] MEDS ORDERED: METOCLOPRAMIDE HCL 10 MG TABLET PO SCH (08:00)
[2018-10-06 08:05] VITALS: BP_SYST 125
[2018-10-06] MEDS: CILOSTAZOL 50 MG TABLET (PLETAL) PO SCH ×2 (08:10→21:27)
[2018-10-06] MEDS: CHOLECALCIFEROL (VITAMIN D3) 2,000 UNIT TABLET PO SCH (08:10)
[2018-10-06] MEDS: CLARITHROMYCIN 500 MG TABLET PO SCH (08:10)
[2018-10-06] MEDS: LACTOBACILLUS RHAMNOSUS GG 1 CAP CAPSULE PO SCH ×2 (08:10→21:27)
[2018-10-06] MEDS: ALLOPURINOL 100 MG TABLET (ZYLOPRIM) PO SCH (08:10)
[2018-10-06] MEDS: PREDNISONE 10 MG TABLET PO SCH (08:10)
[2018-10-06] MEDS: METOCLOPRAMIDE HCL 10 MG TABLET PO SCH ×3 (08:10→17:05)
[2018-10-06] MEDS: LACTULOSE 20 GM/30 ML UDC PO SCH ×2 (08:11→21:00)
[2018-10-06] MEDS: GABAPENTIN 300 MG CAPSULE PO SCH ×2 (08:11→15:27)
[2018-10-06] MEDS: MAGNESIUM OXIDE 400 MG TABLET PO SCH (08:11)
[2018-10-06] MEDS: ASPIRIN 81 MG TABLET(ECOTRIN) PO SCH (08:11)
[2018-10-06] MEDS: guaiFENesin ER 600 MG TAB PO SCH ×2 (08:11→21:27)
[2018-10-06] MEDS: MINERAL OIL 30 ML UDC PO SCH (08:11)
[2018-10-06] MEDS: ATORVASTATIN 10 MG TABLET PO SCH (08:11)
[2018-10-06] MEDS: NEPHROVITE, (FOLIC ACID/VITAMIN B COMP W-C 1 TAB) PO SCH (08:11)
[2018-10-06] MEDS: DOCUSATE SODIUM 100 MG CAPSULE PO SCH ×2 (08:12→21:00)
[2018-10-06 12:51] VITALS: BP_SYST 128
[2018-10-06] MEDS: ONDANSETRON HCL 4 MG/2 ML VIAL IVP PRN (12:52)
[2018-10-06] MEDS ORDERED: FLUCONAZOLE 200 mg/ NS 100 ML IV ONE (16:30)
[2018-10-06 16:45] VITALS: BP_SYST 132
[2018-10-06 19:52] LABS: INR 1.5 (0.8-1.2); PROTHROMBIN TIME 14.3 SECS (9.5-12.5)
[2018-10-06 20:00] VITALS: BP_SYST 123
[2018-10-06] MEDS: GABAPENTIN 100 MG CAPSULE PO SCH (21:27)
[2018-10-06] MEDS: ENOXAPARIN SODIUM 40 MG/0.4 ML SYRINGE SUBCUT SCH (22:00)
[2018-10-07] VITALS (7 sets, daily range): BP systolic 129–146
[2018-10-07] MEDS: HYDROmorphone 1 MG INJ. 1 MG/ML AMPUL IVP PRN ×8 (00:10→23:10)
[2018-10-07] MEDS: ONDANSETRON HCL 4 MG/2 ML VIAL IVP PRN ×2 (00:10→09:53)
[2018-10-07] MEDS: IPRATROPIUM/ALBUTEROL SULFATE 3 ML AMPUL.NEB (DUONEB) INH SCH ×6 (04:02→23:56)
[2018-10-07] MEDS: LEVOTHYROXINE SODIUM 0.15 MG TABLET PO SCH (06:08)
[2018-10-07] MEDS: INSULIN ASPART 100 UNITS/ML, 10 ML VIAL (NovoLOG) SUBCUT PRN ×3 (06:19→21:42)
[2018-10-07 07:50] LABS: EOSINOPHILS # (AUTO) 0.2 K/uL (0.0-0.4); EOSINOPHILS % (AUTO) 1.2 % (0.0-4.0); HEMOGLOBIN 7.9 g/dL (12.0-16.0); LYMPHOCYTES # (AUTO) 3.1 K/uL (1.0-5.5); LYMPHOCYTES % (AUTO) 17.6 % (20.5-51.5); MEAN CORPUSCULAR HEMOGLOBIN 29 pg (27-31); MEAN CORPUSCULAR HGB CONC 32 % (32-36); MEAN CORPUSCULAR VOLUME 91 fL (79.0-98.0); MONOCYTES # (AUTO) 1.7 K/uL (0.0-1.0); MONOCYTES % (AUTO) 9.9 % (1.7-9.3); NEUTROPHILS # (AUTO) 12.5 K/uL (1.8-7.7); NEUTROPHILS % (AUTO) 71.3 % (40.0-70.0); PLATELET COUNT (AUTO) 242 K/uL (130-430); RED BLOOD CELL COUNT(AUTO) 2.76 MIL/uL (4.2-6.2); RED CELL DISTRIBUTION WIDTH 15.9 % (9.0-15.0)
[2018-10-07 07:58] LABS: WHITE BLOOD COUNT (AUTO) 17.5 K/uL (4.8-10.8)
[2018-10-07 08:01] LABS: CALCIUM 8.5 mg/dL (8.4-11.0); CREATININE 1.23 mg/dL (0.55-1.30); POTASSIUM 4.3 mmol/L (3.5-5.1)
[2018-10-07] MEDS: LACTULOSE 20 GM/30 ML UDC PO SCH ×2 (09:00→21:00)
[2018-10-07] MEDS: DOCUSATE SODIUM 100 MG CAPSULE PO SCH ×2 (09:00→21:52)
[2018-10-07] MEDS ORDERED: EPOETIN ALFA 4,000 UNITS/ML VIAL SUBCUT ONE (10:00)
[2018-10-07] MEDS: METOCLOPRAMIDE HCL 10 MG TABLET PO SCH ×4 (10:27→18:06)
[2018-10-07] MEDS: LACTOBACILLUS RHAMNOSUS GG 1 CAP CAPSULE PO SCH ×2 (10:27→21:52)
[2018-10-07] MEDS: ATORVASTATIN 10 MG TABLET PO SCH (10:27)
[2018-10-07] MEDS: guaiFENesin ER 600 MG TAB PO SCH ×2 (10:27→21:52)
[2018-10-07] MEDS: MAGNESIUM OXIDE 400 MG TABLET PO SCH (10:27)
[2018-10-07] MEDS: CILOSTAZOL 50 MG TABLET (PLETAL) PO SCH ×2 (10:28→21:52)
[2018-10-07] MEDS: ALLOPURINOL 100 MG TABLET (ZYLOPRIM) PO SCH (10:29)
[2018-10-07] MEDS: ASPIRIN 81 MG TABLET(ECOTRIN) PO SCH (10:29)
[2018-10-07] MEDS: GABAPENTIN 100 MG CAPSULE PO SCH ×3 (10:29→21:52)
[2018-10-07] MEDS: NEPHROVITE, (FOLIC ACID/VITAMIN B COMP W-C 1 TAB) PO SCH (10:29)
[2018-10-07] MEDS: PREDNISONE 10 MG TABLET PO SCH (10:29)
[2018-10-07] MEDS: CHOLECALCIFEROL (VITAMIN D3) 2,000 UNIT TABLET PO SCH (10:29)
[2018-10-07] MEDS: MINERAL OIL 30 ML UDC PO SCH (10:37)
[2018-10-07] MEDS: AMIKACIN SULFATE 1,000 MG in D5W 100 ML IV SCH (12:01)
[2018-10-07] MEDS: IPRATROPIUM BROM 0.5 MG/2.5 ML VIAL.NEB (ATROVENT) INH PRN (17:52)
[2018-10-07] MEDS: ENOXAPARIN SODIUM 40 MG/0.4 ML SYRINGE SUBCUT SCH (21:53)
[2018-10-07] MEDS: DIPHENHYDRAMINE HCL 25 MG CAPSULE PO PRN (21:53)
[2018-10-08] VITALS: BP_SYST 144
[2018-10-08] MEDS: HYDROmorphone 1 MG INJ. 1 MG/ML AMPUL IVP PRN ×6 (03:37→21:36)
[2018-10-08] MEDS: IPRATROPIUM/ALBUTEROL SULFATE 3 ML AMPUL.NEB (DUONEB) INH SCH ×6 (03:58→23:52)
[2018-10-08] MEDS: INSULIN ASPART 100 UNITS/ML, 10 ML VIAL (NovoLOG) SUBCUT PRN ×4 (05:51→21:43)
[2018-10-08 07:50] VITALS: BP_SYST 141
[2018-10-08 08:01] VITALS: BP_SYST 140
[2018-10-08] MEDS: METOCLOPRAMIDE HCL 10 MG TABLET PO SCH ×3 (08:10→17:28)
[2018-10-08] MEDS: CILOSTAZOL 50 MG TABLET (PLETAL) PO SCH ×2 (08:11→21:35)
[2018-10-08] MEDS: PREDNISONE 10 MG TABLET PO SCH (08:11)
[2018-10-08] MEDS: MAGNESIUM OXIDE 400 MG TABLET PO SCH (08:12)
[2018-10-08] MEDS: ATORVASTATIN 10 MG TABLET PO SCH (08:12)
[2018-10-08] MEDS: CHOLECALCIFEROL (VITAMIN D3) 2,000 UNIT TABLET PO SCH (08:12)
[2018-10-08] MEDS: GABAPENTIN 100 MG CAPSULE PO SCH ×3 (08:12→21:35)
[2018-10-08] MEDS: ASPIRIN 81 MG TABLET(ECOTRIN) PO SCH (08:12)
[2018-10-08] MEDS: guaiFENesin ER 600 MG TAB PO SCH ×2 (08:12→21:35)
[2018-10-08] MEDS: LACTOBACILLUS RHAMNOSUS GG 1 CAP CAPSULE PO SCH ×2 (08:12→21:35)
[2018-10-08] MEDS: NEPHROVITE, (FOLIC ACID/VITAMIN B COMP W-C 1 TAB) PO SCH (08:12)
[2018-10-08] MEDS: ALLOPURINOL 100 MG TABLET (ZYLOPRIM) PO SCH (08:12)
[2018-10-08] MEDS: LACTULOSE 20 GM/30 ML UDC PO SCH ×2 (08:22→21:00)
[2018-10-08] MEDS: MINERAL OIL 30 ML UDC PO SCH (09:00)
[2018-10-08] MEDS: DOCUSATE SODIUM 100 MG CAPSULE PO SCH ×2 (09:00→21:00)
[2018-10-08] MEDS: ONDANSETRON HCL 4 MG/2 ML VIAL IVP PRN (11:05)
[2018-10-08 12:17] VITALS: BP_SYST 132
[2018-10-08 17:41] VITALS: BP_SYST 121
[2018-10-08 20:00] VITALS: BP_SYST 143
[2018-10-08] MEDS: ENOXAPARIN SODIUM 40 MG/0.4 ML SYRINGE SUBCUT SCH (21:37)
[2018-10-09 00:26] VITALS: BP_SYST 113
[2018-10-09] MEDS: ONDANSETRON HCL 4 MG/2 ML VIAL IVP PRN ×2 (00:41→14:17)
[2018-10-09] MEDS: HYDROmorphone 1 MG INJ. 1 MG/ML AMPUL IVP PRN ×8 (00:43→23:38)
[2018-10-09] MEDS: IPRATROPIUM/ALBUTEROL SULFATE 3 ML AMPUL.NEB (DUONEB) INH SCH ×6 (04:16→23:24)
[2018-10-09] MEDS: LEVOTHYROXINE SODIUM 0.15 MG TABLET PO SCH (06:28)
[2018-10-09] MEDS: INSULIN ASPART 100 UNITS/ML, 10 ML VIAL (NovoLOG) SUBCUT PRN ×3 (06:38→20:27)
[2018-10-09] MEDS ORDERED: INSULIN NPH 100 UNITS/ML 10 ML VIAL SUBCUT SCH (07:00)
[2018-10-09 08:00] VITALS: BP_SYST 113
[2018-10-09] MEDS: NEPHROVITE, (FOLIC ACID/VITAMIN B COMP W-C 1 TAB) PO SCH (08:14)
[2018-10-09] MEDS: METOCLOPRAMIDE HCL 10 MG TABLET PO SCH ×3 (08:15→17:29)
[2018-10-09] MEDS: MAGNESIUM OXIDE 400 MG TABLET PO SCH (08:15)
[2018-10-09] MEDS: CHOLECALCIFEROL (VITAMIN D3) 2,000 UNIT TABLET PO SCH (08:15)
[2018-10-09] MEDS: guaiFENesin ER 600 MG TAB PO SCH ×2 (08:15→20:17)
[2018-10-09] MEDS: PREDNISONE 5 MG TABLET PO SCH (08:15)
[2018-10-09] MEDS: ALLOPURINOL 100 MG TABLET (ZYLOPRIM) PO SCH (08:15)
[2018-10-09] MEDS: ASPIRIN 81 MG TABLET(ECOTRIN) PO SCH (08:15)
[2018-10-09] MEDS: ATORVASTATIN 10 MG TABLET PO SCH (08:15)
[2018-10-09] MEDS: GABAPENTIN 100 MG CAPSULE PO SCH ×3 (08:15→20:17)
[2018-10-09] MEDS: LACTOBACILLUS RHAMNOSUS GG 1 CAP CAPSULE PO SCH ×2 (08:15→20:17)
[2018-10-09] MEDS: CILOSTAZOL 50 MG TABLET (PLETAL) PO SCH ×2 (08:15→20:17)
[2018-10-09] MEDS: LACTULOSE 20 GM/30 ML UDC PO SCH ×2 (08:20→20:17)
[2018-10-09] MEDS: DOCUSATE SODIUM 100 MG CAPSULE PO SCH ×2 (08:20→20:44)
[2018-10-09] MEDS: MINERAL OIL 30 ML UDC PO SCH (08:21)
[2018-10-09 09:31] LABS: HEMATOCRIT 27.7 % (36-48); HEMOGLOBIN 8.5 g/dL (12.0-16.0); MEAN CORPUSCULAR HEMOGLOBIN 28 pg (27-31); MEAN CORPUSCULAR HGB CONC 31 % (32-36); MEAN CORPUSCULAR VOLUME 90 fL (79.0-98.0); PLATELET COUNT (AUTO) 300 K/uL (130-430); RED BLOOD CELL COUNT(AUTO) 3.08 MIL/uL (4.2-6.2); RED CELL DISTRIBUTION WIDTH 16.2 % (9.0-15.0); WHITE BLOOD COUNT (AUTO) 14.6 K/uL (4.8-10.8)
[2018-10-09 09:33] LABS: CALCIUM 8.9 mg/dL (8.4-11.0); CREATININE 1.37 mg/dL (0.55-1.30); POTASSIUM 3.9 mmol/L (3.5-5.1)
[2018-10-09 09:56] LABS: BASOPHILS % (AUTO) 0.3 % (0.0-2.0); EOSINOPHILS # (AUTO) 0.3 K/uL (0.0-0.4); LYMPHOCYTES # (AUTO) 3.6 K/uL (1.0-5.5); MONOCYTES # (AUTO) 1.7 K/uL (0.0-1.0); MONOCYTES % (AUTO) 11.8 % (1.7-9.3); NEUTROPHILS % (AUTO) 60.9 % (40.0-70.0)
[2018-10-09] MEDS ORDERED: EPOETIN ALFA 4,000 UNITS/ML VIAL SUBCUT ONE (10:00)
[2018-10-09] MEDS: AMIKACIN SULFATE 1,000 MG in D5W 100 ML IV SCH (11:49)
[2018-10-09] MEDS: DIPHENHYDRAMINE HCL 25 MG CAPSULE PO PRN (14:29)
[2018-10-09 16:37] VITALS: BP_SYST 124
[2018-10-09 20:00] VITALS: BP_SYST 129
[2018-10-09] MEDS: ENOXAPARIN SODIUM 40 MG/0.4 ML SYRINGE SUBCUT SCH (20:27)
[2018-10-09 23:05] VITALS: BP_SYST 138
[2018-10-10] MEDS: HYDROmorphone 1 MG INJ. 1 MG/ML AMPUL IVP PRN ×7 (02:42→22:38)
[2018-10-10] MEDS: IPRATROPIUM/ALBUTEROL SULFATE 3 ML AMPUL.NEB (DUONEB) INH SCH ×4 (03:34→23:36)
[2018-10-10 03:48] VITALS: BP_SYST 138
[2018-10-10] MEDS: LEVOTHYROXINE SODIUM 0.15 MG TABLET PO SCH (06:28)
[2018-10-10] MEDS: INSULIN NPH 100 UNITS/ML 10 ML VIAL SUBCUT SCH (06:33)
[2018-10-10 07:51] VITALS: BP_SYST 113
[2018-10-10] MEDS: CHOLECALCIFEROL (VITAMIN D3) 2,000 UNIT TABLET PO SCH (08:18)
[2018-10-10] MEDS: ATORVASTATIN 10 MG TABLET PO SCH (08:18)
[2018-10-10] MEDS: MAGNESIUM OXIDE 400 MG TABLET PO SCH (08:18)
[2018-10-10] MEDS: NEPHROVITE, (FOLIC ACID/VITAMIN B COMP W-C 1 TAB) PO SCH (08:18)
[2018-10-10] MEDS: PREDNISONE 5 MG TABLET PO SCH (08:18)
[2018-10-10] MEDS: GABAPENTIN 100 MG CAPSULE PO SCH ×3 (08:18→22:11)
[2018-10-10] MEDS: ALLOPURINOL 100 MG TABLET (ZYLOPRIM) PO SCH (08:18)
[2018-10-10] MEDS: CILOSTAZOL 50 MG TABLET (PLETAL) PO SCH ×2 (08:18→22:11)
[2018-10-10] MEDS: guaiFENesin ER 600 MG TAB PO SCH ×2 (08:19→22:11)
[2018-10-10] MEDS: LACTULOSE 20 GM/30 ML UDC PO SCH ×2 (08:19→21:00)
[2018-10-10] MEDS: MINERAL OIL 30 ML UDC PO SCH (08:19)
[2018-10-10] MEDS: LACTOBACILLUS RHAMNOSUS GG 1 CAP CAPSULE PO SCH ×2 (08:19→22:11)
[2018-10-10] MEDS: DOCUSATE SODIUM 100 MG CAPSULE PO SCH ×2 (08:19→21:00)
[2018-10-10] MEDS: METOCLOPRAMIDE HCL 10 MG TABLET PO SCH ×3 (08:19→17:11)
[2018-10-10] MEDS: ASPIRIN 81 MG TABLET(ECOTRIN) PO SCH (08:19)
[2018-10-10] MEDS ORDERED: EPOETIN ALFA 4,000 UNITS/ML VIAL SUBCUT ONE (11:30)
[2018-10-10 12:30] VITALS: BP_SYST 120
[2018-10-10] MEDS: ONDANSETRON HCL 4 MG/2 ML VIAL IVP PRN ×2 (14:32→22:34)
[2018-10-10 16:13] VITALS: BP_SYST 116
[2018-10-10] MEDS: INSULIN ASPART 100 UNITS/ML, 10 ML VIAL (NovoLOG) SUBCUT PRN ×2 (17:12→22:43)
[2018-10-10 20:00] VITALS: BP_SYST 111
[2018-10-10] MEDS: ENOXAPARIN SODIUM 40 MG/0.4 ML SYRINGE SUBCUT SCH (22:42)
[2018-10-10] MEDS ORDERED: HYDROmorphone 1 MG INJ. 1 MG/ML AMPUL IVP SCH (23:30)
[2018-10-11 00:17] VITALS: BP_SYST 127
[2018-10-11] MEDS: IPRATROPIUM/ALBUTEROL SULFATE 3 ML AMPUL.NEB (DUONEB) INH SCH ×5 (03:57→23:06)
[2018-10-11] MEDS: HYDROmorphone 1 MG INJ. 1 MG/ML AMPUL IVP PRN ×7 (04:14→23:39)
[2018-10-11 07:23] LABS: BASOPHILS # (AUTO) 0.1 K/uL (0.0-0.2); BASOPHILS % (AUTO) 0.4 % (0.0-2.0); EOSINOPHILS # (AUTO) 0.5 K/uL (0.0-0.4); EOSINOPHILS % (AUTO) 2.9 % (0.0-4.0); HEMATOCRIT 26.1 % (36-48); HEMOGLOBIN 8.5 g/dL (12.0-16.0); LYMPHOCYTES # (AUTO) 3.3 K/uL (1.0-5.5); LYMPHOCYTES % (AUTO) 21.3 % (20.5-51.5); MEAN CORPUSCULAR HEMOGLOBIN 29 pg (27-31); MEAN CORPUSCULAR HGB CONC 33 % (32-36); MEAN CORPUSCULAR VOLUME 89 fL (79.0-98.0); MONOCYTES # (AUTO) 1.5 K/uL (0.0-1.0); MONOCYTES % (AUTO) 9.4 % (1.7-9.3); NEUTROPHILS # (AUTO) 10.3 K/uL (1.8-7.7); PLATELET COUNT (AUTO) 272 K/uL (130-430); RED BLOOD CELL COUNT(AUTO) 2.94 MIL/uL (4.2-6.2); RED CELL DISTRIBUTION WIDTH 16.1 % (9.0-15.0); WHITE BLOOD COUNT (AUTO) 15.7 K/uL (4.8-10.8)
[2018-10-11 07:46] LABS: CALCIUM 8.9 mg/dL (8.4-11.0); CREATININE 1.32 mg/dL (0.55-1.30); POTASSIUM 4.1 mmol/L (3.5-5.1)
[2018-10-11] MEDS: LEVOTHYROXINE SODIUM 0.15 MG TABLET PO SCH (07:48)
[2018-10-11 08:00] VITALS: BP_SYST 115
[2018-10-11] MEDS: INSULIN NPH 100 UNITS/ML 10 ML VIAL SUBCUT SCH (08:02)
[2018-10-11] MEDS: guaiFENesin ER 600 MG TAB PO SCH ×2 (08:33→20:40)
[2018-10-11] MEDS: MAGNESIUM OXIDE 400 MG TABLET PO SCH (08:33)
[2018-10-11] MEDS: CHOLECALCIFEROL (VITAMIN D3) 2,000 UNIT TABLET PO SCH (08:33)
[2018-10-11] MEDS: ASPIRIN 81 MG TABLET(ECOTRIN) PO SCH (08:33)
[2018-10-11] MEDS: PREDNISONE 5 MG TABLET PO SCH (08:33)
[2018-10-11] MEDS: ATORVASTATIN 10 MG TABLET PO SCH (08:33)
[2018-10-11] MEDS: LACTOBACILLUS RHAMNOSUS GG 1 CAP CAPSULE PO SCH ×2 (08:33→20:39)
[2018-10-11] MEDS: ALLOPURINOL 100 MG TABLET (ZYLOPRIM) PO SCH (08:34)
[2018-10-11] MEDS: CILOSTAZOL 50 MG TABLET (PLETAL) PO SCH ×2 (08:34→20:39)
[2018-10-11] MEDS: METOCLOPRAMIDE HCL 10 MG TABLET PO SCH ×3 (08:34→16:30)
[2018-10-11] MEDS: GABAPENTIN 100 MG CAPSULE PO SCH ×3 (08:34→20:39)
[2018-10-11] MEDS: NEPHROVITE, (FOLIC ACID/VITAMIN B COMP W-C 1 TAB) PO SCH (08:34)
[2018-10-11] MEDS: DOCUSATE SODIUM 100 MG CAPSULE PO SCH ×2 (08:35→20:40)
[2018-10-11] MEDS: MINERAL OIL 30 ML UDC PO SCH (08:36)
[2018-10-11] MEDS: LACTULOSE 20 GM/30 ML UDC PO SCH ×2 (08:36→20:40)
[2018-10-11] MEDS: AMIKACIN SULFATE 1,000 MG in D5W 100 ML IV SCH (10:56)
[2018-10-11] MEDS ORDERED: EPOETIN ALFA 4,000 UNITS/ML VIAL SUBCUT ONE (12:00)
[2018-10-11 12:07] VITALS: BP_SYST 119
[2018-10-11] MEDS: ONDANSETRON HCL 4 MG/2 ML VIAL IVP PRN ×2 (12:40→23:43)
[2018-10-11 14:04] LABS: BILIRUBIN,URINE NEGATIVE (NEGATIVE); CLARITY/URINE CLEAR (CLEAR); COLOR,URINE YELLOW (YELLOW); GLUCOSE,URINE NEGATIVE (NEGATIVE); KETONES,URINE NEGATIVE (NEGATIVE); LEUKOCYTE ESTERASE ,URINE 3+ (NEGATIVE); NITRITE, URINE NEGATIVE (NEGATIVE); PROTEIN URINE NEGATIVE (NEGATIVE); UROBILINOGEN,URINE 0.2 (0.2-1.0)
[2018-10-11 14:47] LABS: BLOOD, URINE TRACE (NEGATIVE)
[2018-10-11 14:51] LABS: BACTERIA,URINE FEW /HPF (None Seen)
[2018-10-11] MEDS: INSULIN ASPART 100 UNITS/ML, 10 ML VIAL (NovoLOG) SUBCUT PRN ×2 (16:31→20:49)
[2018-10-11 17:09] VITALS: BP_SYST 117
[2018-10-11 19:45] VITALS: BP_SYST 143
[2018-10-11] MEDS: ENOXAPARIN SODIUM 40 MG/0.4 ML SYRINGE SUBCUT SCH (20:48)
[2018-10-12 00:52] VITALS: BP_SYST 120
[2018-10-12] MEDS: HYDROmorphone 1 MG INJ. 1 MG/ML AMPUL IVP PRN ×7 (02:36→21:46)
[2018-10-12] MEDS: IPRATROPIUM/ALBUTEROL SULFATE 3 ML AMPUL.NEB (DUONEB) INH SCH ×6 (03:25→23:20)
[2018-10-12] MEDS: BENZOCAINE/MENTHOL 1 EACH LOZENGE MM PRN (03:44)
[2018-10-12] MEDS: LEVOTHYROXINE SODIUM 0.15 MG TABLET PO SCH (06:21)
[2018-10-12] MEDS: INSULIN NPH 100 UNITS/ML 10 ML VIAL SUBCUT SCH (06:27)
[2018-10-12 07:21] LABS: BASOPHILS # (AUTO) 0.1 K/uL (0.0-0.2); BASOPHILS % (AUTO) 0.3 % (0.0-2.0); EOSINOPHILS # (AUTO) 0.5 K/uL (0.0-0.4); HEMATOCRIT 24.7 % (36-48); HEMOGLOBIN 8.1 g/dL (12.0-16.0); LYMPHOCYTES # (AUTO) 3.2 K/uL (1.0-5.5); MEAN CORPUSCULAR HEMOGLOBIN 29 pg (27-31); MEAN CORPUSCULAR HGB CONC 33 % (32-36); MEAN CORPUSCULAR VOLUME 89 fL (79.0-98.0); MONOCYTES # (AUTO) 1.5 K/uL (0.0-1.0); MONOCYTES % (AUTO) 8.7 % (1.7-9.3); NEUTROPHILS # (AUTO) 11.7 K/uL (1.8-7.7); PLATELET COUNT (AUTO) 301 K/uL (130-430); RED BLOOD CELL COUNT(AUTO) 2.79 MIL/uL (4.2-6.2); RED CELL DISTRIBUTION WIDTH 16.2 % (9.0-15.0)
[2018-10-12 07:38] LABS: CALCIUM 8.7 mg/dL (8.4-11.0); CREATININE 1.32 mg/dL (0.55-1.30); POTASSIUM 3.8 mmol/L (3.5-5.1)
[2018-10-12] MEDS: METOCLOPRAMIDE HCL 10 MG TABLET PO SCH ×3 (08:46→17:31)
[2018-10-12] MEDS: ASPIRIN 81 MG TABLET(ECOTRIN) PO SCH (08:46)
[2018-10-12] MEDS: GABAPENTIN 100 MG CAPSULE PO SCH ×3 (08:46→21:37)
[2018-10-12] MEDS: NEPHROVITE, (FOLIC ACID/VITAMIN B COMP W-C 1 TAB) PO SCH (08:47)
[2018-10-12] MEDS: CHOLECALCIFEROL (VITAMIN D3) 2,000 UNIT TABLET PO SCH (08:47)
[2018-10-12] MEDS: PREDNISONE 5 MG TABLET PO SCH (08:47)
[2018-10-12] MEDS: LACTOBACILLUS RHAMNOSUS GG 1 CAP CAPSULE PO SCH ×2 (08:47→21:37)
[2018-10-12] MEDS: ATORVASTATIN 10 MG TABLET PO SCH (08:47)
[2018-10-12] MEDS: MAGNESIUM OXIDE 400 MG TABLET PO SCH (08:48)
[2018-10-12] MEDS: guaiFENesin ER 600 MG TAB PO SCH ×2 (08:48→21:38)
[2018-10-12] MEDS: ALLOPURINOL 100 MG TABLET (ZYLOPRIM) PO SCH (08:48)
[2018-10-12] MEDS: CILOSTAZOL 50 MG TABLET (PLETAL) PO SCH ×2 (08:48→21:38)
[2018-10-12] MEDS: ONDANSETRON HCL 4 MG/2 ML VIAL IVP PRN (08:59)
[2018-10-12] MEDS: DOCUSATE SODIUM 100 MG CAPSULE PO SCH ×2 (09:00→21:00)
[2018-10-12] MEDS: LACTULOSE 20 GM/30 ML UDC PO SCH ×2 (09:00→21:00)
[2018-10-12] MEDS: MINERAL OIL 30 ML UDC PO SCH ×2 (09:00→11:51)
[2018-10-12 09:05] VITALS: BP_SYST 114
[2018-10-12 11:13] VITALS: BP_SYST 114
[2018-10-12 16:51] VITALS: BP_SYST 110
[2018-10-12] MEDS ORDERED: MINERAL OIL 133 ML ENEMA RC ONE (17:30)
[2018-10-12] MEDS ORDERED: LACTULOSE 20 GM/30 ML UDC PO ONE (17:30)
[2018-10-12] MEDS ORDERED: BISACODYL 5 MG TABLET.DR (DULCOLAX) PO ONE (17:30)
[2018-10-12] MEDS: INSULIN ASPART 100 UNITS/ML, 10 ML VIAL (NovoLOG) SUBCUT PRN ×2 (17:31→21:43)
[2018-10-12 19:45] VITALS: BP_SYST 120
[2018-10-12] MEDS: ENOXAPARIN SODIUM 40 MG/0.4 ML SYRINGE SUBCUT SCH (21:43)
[2018-10-13 00:37] VITALS: BP_SYST 114
[2018-10-13] MEDS: HYDROmorphone 1 MG INJ. 1 MG/ML AMPUL IVP PRN ×8 (00:45→23:12)
[2018-10-13] MEDS: IPRATROPIUM/ALBUTEROL SULFATE 3 ML AMPUL.NEB (DUONEB) INH SCH ×6 (03:00→23:35)
[2018-10-13] MEDS: INSULIN ASPART 100 UNITS/ML, 10 ML VIAL (NovoLOG) SUBCUT PRN ×2 (06:50→17:23)
[2018-10-13] MEDS: INSULIN NPH 100 UNITS/ML 10 ML VIAL SUBCUT SCH (06:51)
[2018-10-13] MEDS: LEVOTHYROXINE SODIUM 0.15 MG TABLET PO SCH (06:52)
[2018-10-13 07:34] LABS: BASOPHILS % (AUTO) 0.1 % (0.0-2.0); EOSINOPHILS # (AUTO) 0.5 K/uL (0.0-0.4); EOSINOPHILS % (AUTO) 3.1 % (0.0-4.0); HEMATOCRIT 25.7 % (36-48); HEMOGLOBIN 8.2 g/dL (12.0-16.0); LYMPHOCYTES # (AUTO) 3.3 K/uL (1.0-5.5); LYMPHOCYTES % (AUTO) 20.4 % (20.5-51.5); MEAN CORPUSCULAR HEMOGLOBIN 29 pg (27-31); MEAN CORPUSCULAR HGB CONC 32 % (32-36); MEAN CORPUSCULAR VOLUME 90 fL (79.0-98.0); MONOCYTES # (AUTO) 1.4 K/uL (0.0-1.0); MONOCYTES % (AUTO) 8.5 % (1.7-9.3); NEUTROPHILS % (AUTO) 67.9 % (40.0-70.0); PLATELET COUNT (AUTO) 329 K/uL (130-430); RED BLOOD CELL COUNT(AUTO) 2.85 MIL/uL (4.2-6.2); RED CELL DISTRIBUTION WIDTH 15.9 % (9.0-15.0); WHITE BLOOD COUNT (AUTO) 16.2 K/uL (4.8-10.8)
[2018-10-13 07:54] LABS: CALCIUM 8.6 mg/dL (8.4-11.0); CREATININE 1.21 mg/dL (0.55-1.30); POTASSIUM 3.7 mmol/L (3.5-5.1)
[2018-10-13 08:54] VITALS: BP_SYST 111
[2018-10-13] MEDS: ASPIRIN 81 MG TABLET(ECOTRIN) PO SCH (08:57)
[2018-10-13] MEDS: MAGNESIUM OXIDE 400 MG TABLET PO SCH (08:57)
[2018-10-13] MEDS: GABAPENTIN 100 MG CAPSULE PO SCH ×3 (08:57→21:16)
[2018-10-13] MEDS: NEPHROVITE, (FOLIC ACID/VITAMIN B COMP W-C 1 TAB) PO SCH (08:57)
[2018-10-13] MEDS: LACTOBACILLUS RHAMNOSUS GG 1 CAP CAPSULE PO SCH ×2 (08:57→21:16)
[2018-10-13] MEDS: DOCUSATE SODIUM 100 MG CAPSULE PO SCH ×2 (08:57→21:16)
[2018-10-13] MEDS: guaiFENesin ER 600 MG TAB PO SCH ×2 (08:57→21:16)
[2018-10-13] MEDS: CHOLECALCIFEROL (VITAMIN D3) 2,000 UNIT TABLET PO SCH (08:58)
[2018-10-13] MEDS: METOCLOPRAMIDE HCL 10 MG TABLET PO SCH ×3 (08:58→17:24)
[2018-10-13] MEDS: CILOSTAZOL 50 MG TABLET (PLETAL) PO SCH ×2 (08:58→21:16)
[2018-10-13] MEDS: ALLOPURINOL 100 MG TABLET (ZYLOPRIM) PO SCH (08:58)
[2018-10-13] MEDS: ATORVASTATIN 10 MG TABLET PO SCH (08:58)
[2018-10-13] MEDS: MINERAL OIL 30 ML UDC PO SCH (09:00)
[2018-10-13] MEDS: LACTULOSE 20 GM/30 ML UDC PO SCH ×2 (09:00→21:15)
[2018-10-13] MEDS: ONDANSETRON HCL 4 MG/2 ML VIAL IVP PRN (09:44)
[2018-10-13] MEDS ORDERED: EPOETIN ALFA 4,000 UNITS/ML VIAL SUBCUT ONE (10:30)
[2018-10-13] MEDS ORDERED: AMIKACIN SULFATE 1,000 MG in D5W 100 ML IV SCH (12:00)
[2018-10-13 12:51] VITALS: BP_SYST 102
[2018-10-13 16:50] VITALS: BP_SYST 123
[2018-10-13] MEDS: WARFARIN SODIUM 2 MG TABLET PO SCH (18:12)
[2018-10-13 19:01] LABS: INR 1.2 (0.8-1.2); PROTHROMBIN TIME 12.7 SECS (9.5-12.5)
[2018-10-13 19:47] VITALS: BP_SYST 112
[2018-10-13] MEDS: ENOXAPARIN SODIUM 40 MG/0.4 ML SYRINGE SUBCUT SCH (21:22)
[2018-10-14] MEDS: HYDROmorphone 1 MG INJ. 1 MG/ML AMPUL IVP PRN ×7 (02:16→20:57)
[2018-10-14] MEDS: IPRATROPIUM/ALBUTEROL SULFATE 3 ML AMPUL.NEB (DUONEB) INH SCH ×6 (03:00→23:00)
[2018-10-14] MEDS: LEVOTHYROXINE SODIUM 0.15 MG TABLET PO SCH (06:26)
[2018-10-14] MEDS: INSULIN NPH 100 UNITS/ML 10 ML VIAL SUBCUT SCH (06:30)
[2018-10-14 06:32] LABS: INR 1.2 (0.8-1.2); PROTHROMBIN TIME 12.5 SECS (9.5-12.5)
[2018-10-14 06:41] LABS: BASOPHILS % (AUTO) 0.3 % (0.0-2.0); EOSINOPHILS # (AUTO) 0.5 K/uL (0.0-0.4); EOSINOPHILS % (AUTO) 3.6 % (0.0-4.0); HEMATOCRIT 25.7 % (36-48); HEMOGLOBIN 8.2 g/dL (12.0-16.0); LYMPHOCYTES # (AUTO) 2.9 K/uL (1.0-5.5); LYMPHOCYTES % (AUTO) 20.3 % (20.5-51.5); MEAN CORPUSCULAR HEMOGLOBIN 29 pg (27-31); MEAN CORPUSCULAR HGB CONC 32 % (32-36); MEAN CORPUSCULAR VOLUME 91 fL (79.0-98.0); MONOCYTES # (AUTO) 1.2 K/uL (0.0-1.0); NEUTROPHILS # (AUTO) 9.8 K/uL (1.8-7.7); NEUTROPHILS % (AUTO) 67.8 % (40.0-70.0); PLATELET COUNT (AUTO) 338 K/uL (130-430); RED BLOOD CELL COUNT(AUTO) 2.84 MIL/uL (4.2-6.2); WHITE BLOOD COUNT (AUTO) 14.4 K/uL (4.8-10.8)
[2018-10-14 07:53] LABS: CALCIUM 8.7 mg/dL (8.4-11.0); CREATININE 1.33 mg/dL (0.55-1.30)
[2018-10-14 08:20] VITALS: BP_SYST 127
[2018-10-14] MEDS: ATORVASTATIN 10 MG TABLET PO SCH (08:27)
[2018-10-14] MEDS: ALLOPURINOL 100 MG TABLET (ZYLOPRIM) PO SCH (08:27)
[2018-10-14] MEDS: guaiFENesin ER 600 MG TAB PO SCH ×2 (08:28→20:58)
[2018-10-14] MEDS: DOCUSATE SODIUM 100 MG CAPSULE PO SCH ×2 (08:28→21:00)
[2018-10-14] MEDS: NEPHROVITE, (FOLIC ACID/VITAMIN B COMP W-C 1 TAB) PO SCH (08:28)
[2018-10-14] MEDS: LACTOBACILLUS RHAMNOSUS GG 1 CAP CAPSULE PO SCH ×2 (08:28→20:58)
[2018-10-14] MEDS: GABAPENTIN 100 MG CAPSULE PO SCH ×3 (08:28→20:58)
[2018-10-14] MEDS: ASPIRIN 81 MG TABLET(ECOTRIN) PO SCH (08:28)
[2018-10-14] MEDS: CHOLECALCIFEROL (VITAMIN D3) 2,000 UNIT TABLET PO SCH (08:28)
[2018-10-14] MEDS: METOCLOPRAMIDE HCL 10 MG TABLET PO SCH ×3 (08:29→17:32)
[2018-10-14] MEDS: MAGNESIUM OXIDE 400 MG TABLET PO SCH (08:29)
[2018-10-14] MEDS: LACTULOSE 20 GM/30 ML UDC PO SCH ×2 (08:33→21:00)
[2018-10-14] MEDS: CILOSTAZOL 50 MG TABLET (PLETAL) PO SCH ×2 (08:34→20:58)
[2018-10-14] MEDS: MINERAL OIL 30 ML UDC PO SCH (08:34)
[2018-10-14] MEDS: IPRATROPIUM BROM 0.5 MG/2.5 ML VIAL.NEB (ATROVENT) INH PRN (09:11)
[2018-10-14] MEDS ORDERED: NA PHOS,M-B/NA PHOS,DI-BA 118 ML (FLEET ENEMA) RC ONE (10:30)
[2018-10-14] MEDS: INSULIN ASPART 100 UNITS/ML, 10 ML VIAL (NovoLOG) SUBCUT PRN ×3 (11:32→21:05)
[2018-10-14] MEDS ORDERED: SOD FERRIC GLUC COMPLEX/SUC 125 MG in NS 100 ML IV SCH (12:00)
[2018-10-14] MEDS ORDERED: EPOETIN ALFA 4,000 UNITS/ML VIAL SUBCUT ONE (12:00)
[2018-10-14 12:22] VITALS: BP_SYST 139
[2018-10-14] MEDS: ONDANSETRON HCL 4 MG/2 ML VIAL IVP PRN (14:57)
[2018-10-14 16:22] VITALS: BP_SYST 121
[2018-10-14] MEDS: WARFARIN SODIUM 2 MG TABLET PO SCH (17:38)
[2018-10-14 20:00] VITALS: BP_SYST 116
[2018-10-15] MEDS: HYDROmorphone 1 MG INJ. 1 MG/ML AMPUL IVP PRN ×4 (00:14→11:24)
[2018-10-15] MEDS: IPRATROPIUM/ALBUTEROL SULFATE 3 ML AMPUL.NEB (DUONEB) INH SCH ×2 (02:46→08:39)
[2018-10-15 04:34] VITALS: BP_SYST 128
[2018-10-15] MEDS: LEVOTHYROXINE SODIUM 0.15 MG TABLET PO SCH (06:19)
[2018-10-15] MEDS: INSULIN NPH 100 UNITS/ML 10 ML VIAL SUBCUT SCH (06:23)
[2018-10-15 07:30] LABS: INR 1.3 (0.8-1.2)
[2018-10-15] MEDS ORDERED: WARFARIN SODIUM 3 MG TABLET PO SCH (07:42)
[2018-10-15 07:56] VITALS: BP_SYST 107
[2018-10-15] MEDS: LACTULOSE 20 GM/30 ML UDC PO SCH (09:00)
[2018-10-15] MEDS: MINERAL OIL 30 ML UDC PO SCH (09:00)
[2018-10-15] MEDS: CHOLECALCIFEROL (VITAMIN D3) 2,000 UNIT TABLET PO SCH (09:23)
[2018-10-15] MEDS: CILOSTAZOL 50 MG TABLET (PLETAL) PO SCH (09:23)
[2018-10-15] MEDS: DOCUSATE SODIUM 100 MG CAPSULE PO SCH (09:24)
[2018-10-15] MEDS: NEPHROVITE, (FOLIC ACID/VITAMIN B COMP W-C 1 TAB) PO SCH (09:24)
[2018-10-15] MEDS: ALLOPURINOL 100 MG TABLET (ZYLOPRIM) PO SCH (09:24)
[2018-10-15] MEDS: ATORVASTATIN 10 MG TABLET PO SCH (09:24)
[2018-10-15] MEDS: MAGNESIUM OXIDE 400 MG TABLET PO SCH (09:24)
[2018-10-15] MEDS: guaiFENesin ER 600 MG TAB PO SCH (09:24)
[2018-10-15] MEDS: GABAPENTIN 100 MG CAPSULE PO SCH (09:24)
[2018-10-15] MEDS: LACTOBACILLUS RHAMNOSUS GG 1 CAP CAPSULE PO SCH (09:24)
[2018-10-15] MEDS: ASPIRIN 81 MG TABLET(ECOTRIN) PO SCH (09:24)
[2018-10-15] MEDS: METOCLOPRAMIDE HCL 10 MG TABLET PO SCH ×2 (09:25→12:00)
[2018-10-15 10:58] VITALS: BP_SYST 147
[2018-10-15 12:00] VITALS: BP_SYST 102
== END 2018-10-15 12:30 | disposition home health service (06) | DRG 870 ==
LOC: SED 13:35 → STU 16:01
PROVIDERS: ADMIT Internal Medicine; ATTEND Internal Medicine
PROC: 5A1955Z Respiratory Ventilation, Greater than 96 Consecutive Hours (ICD-10-PCS; principal; 2018-09-28)
PROC: 5A1955Z Respiratory Ventilation, Greater than 96 Consecutive Hours (ICD-10-PCS; 2018-10-03)
DX: A41.9 Sepsis, unspecified organism (principal); J18.9 Pneumonia, unspecified organism; N17.0 Acute kidney failure with tubular necrosis; G82.20 Paraplegia, unspecified; J44.0 Chronic obstructive pulmonary disease with (acute) lower respiratory infection; J44.1 Chronic obstructive pulmonary disease with (acute) exacerbation; N39.0 Urinary tract infection, site not specified; J96.10 Chronic respiratory failure, unspecified whether with hypoxia or hypercapnia; Z99.11 Dependence on respirator [ventilator] status; D68.59 Other primary thrombophilia; E44.0 Moderate protein-calorie malnutrition; E11.22 Type 2 diabetes mellitus with diabetic chronic kidney disease; N20.9 Urinary calculus, unspecified; E11.51 Type 2 diabetes mellitus with diabetic peripheral angiopathy without gangrene; E11.65 Type 2 diabetes mellitus with hyperglycemia; E66.01 Morbid (severe) obesity due to excess calories; E78.5 Hyperlipidemia, unspecified; E03.9 Hypothyroidism, unspecified; G89.4 Chronic pain syndrome; I12.9 Hypertensive chronic kidney disease with stage 1 through stage 4 chronic kidney disease, or unspecified chronic kidney disease; I27.20 Pulmonary hypertension, unspecified; J84.10 Pulmonary fibrosis, unspecified; J98.6 Disorders of diaphragm; K59.09 Other constipation; N18.9 Chronic kidney disease, unspecified; Z16.24 Resistance to multiple antibiotics; F31.9 Bipolar disorder, unspecified; E11.21 Type 2 diabetes mellitus with diabetic nephropathy; R07.89 Other chest pain; R53.82 Chronic fatigue, unspecified; T38.0X5A Adverse effect of glucocorticoids and synthetic analogues, initial encounter; D72.829 Elevated white blood cell count, unspecified; E11.40 Type 2 diabetes mellitus with diabetic neuropathy, unspecified; D63.8 Anemia in other chronic diseases classified elsewhere; N20.0 Calculus of kidney; N31.9 Neuromuscular dysfunction of bladder, unspecified; Z79.01 Long term (current) use of anticoagulants; Z79.4 Long term (current) use of insulin; Z86.19 Personal history of other infectious and parasitic diseases; Z86.711 Personal history of pulmonary embolism; Z86.718 Personal history of other venous thrombosis and embolism; Z87.440 Personal history of urinary (tract) infections; Z87.442 Personal history of urinary calculi; Z93.0 Tracheostomy status; Z95.0 Presence of cardiac pacemaker; Z88.2 Allergy status to sulfonamides; Z88.8 Allergy status to other drugs, medicaments and biological substances; Z88.1 Allergy status to other antibiotic agents; Z91.041 Radiographic dye allergy status; Z88.5 Allergy status to narcotic agent; Z91.018 Allergy to other foods; Z79.899 Other long term (current) drug therapy; Z79.82 Long term (current) use of aspirin; Z86.73 Personal history of transient ischemic attack (TIA), and cerebral infarction without residual deficits; I25.2 Old myocardial infarction; Z68.31 Body mass index [BMI] 31.0-31.9, adult; Z74.01 Bed confinement status; Y92.89 Other specified places as the place of occurrence of the external cause
CPT/HCPCS: 36415; 36600; 71045; 80048; 80053; 80150; 81000-TC; 82803-TC; 82962; 83540-TC; 83550-TC; 83605; 83880; 84484; 85007; 85025; 85027; 85610-TC; 85730-TC; 86704; 86706; 86803; 87040-TC; 87070-TC; 87081; 87086; 87186-TC; 87205-TC; 87340; 87536; 93005; 93306; 93971; 94002; 94003; 94640; 94760; 96365; 96366; 96367; 96375; 99285; C1751; G0378; J0278; J0885; J1100; J1170; J1200; J1450; J1650; J1815; J1956; J2270; J2405; J2543; J2916; J3370; J7050; J7060; J7512; J7612; J7620; J8597; Q0163

== ENCOUNTER 2019-02-01 19:20 | Inpatient (IN) | payer OTHER, MEDICAID ==
[~2019-02-01] VITALS: Ht 167.6 cm; Wt 92.6 kg
[~2019-02-01 19:20] MED LIST changes: -LEVO250T2 PO; -NEXIUM PO; -PIPE4.5F2 IV; -[UNRECOGNIZED DRUG - OTHER]; -pletal PO
[2019-02-01 19:23] VITALS: BP_SYST 156
[2019-02-01] MEDS ORDERED: IPRA3AMP9 INH (19:43)
[2019-02-01] MEDS ORDERED: FERR325T22 PO (19:43)
[2019-02-01] MEDS ORDERED: NACL 0.9% 1,000 ML IV ONE (20:48)
[2019-02-01] MEDS ORDERED: ONDANSETRON HCL 4 MG/2 ML VIAL IVP ONE (21:00)
[2019-02-01] MEDS ORDERED: fentaNYL CITRATE/PF 100 MCG/2 ML AMP IVP ONE (21:00)
[2019-02-01] MEDS ORDERED: DIPHENHYDRAMINE INJ 50 MG/ML VIAL IVP ONE (21:00)
[2019-02-01 21:52] LABS: RED BLOOD CELL COUNT(AUTO) 3.63 MIL/uL (4.2-6.2); WHITE BLOOD COUNT (AUTO) 20.4 K/uL (4.8-10.8)
[2019-02-01 21:53] LABS: HEMATOCRIT 31.2 % (36-48); MEAN CORPUSCULAR HEMOGLOBIN 28 pg (27-31); MEAN CORPUSCULAR HGB CONC 32 % (32-36); MEAN CORPUSCULAR VOLUME 86 fL (79.0-98.0); NEUTROPHILS % (AUTO) 81.5 % (40.0-70.0); PLATELET COUNT (AUTO) 310 K/uL (130-430); RED CELL DISTRIBUTION WIDTH 17.6 % (9.0-15.0)
[2019-02-01 22:06] LABS: CALCIUM 9.5 mg/dL (8.4-11.0); CREATININE 1.18 mg/dL (0.55-1.30); POTASSIUM 4.2 mmol/L (3.5-5.1)
[2019-02-01 22:09] LABS: BASOPHILS % (AUTO) 0.6 % (0.0-2.0); EOSINOPHILS % (AUTO) 0.2 % (0.0-4.0); LYMPHOCYTES % (AUTO) 13.2 % (20.5-51.5); MONOCYTES % (AUTO) 4.5 % (1.7-9.3)
[2019-02-01 22:10] LABS: ALBUMIN 3.5 g/dL (3.4-4.8); BASOPHILS # (AUTO) 0.1 K/uL (0.0-0.2); LYMPHOCYTES # (AUTO) 2.7 K/uL (1.0-5.5); MONOCYTES # (AUTO) 0.9 K/uL (0.0-1.0); NEUTROPHILS # (AUTO) 16.6 K/uL (1.8-7.7); TOTAL BILIRUBIN 0.5 mg/dL (0.0-1.0)
[2019-02-02] MEDS ORDERED: ONDANSETRON HCL 4 MG/2 ML VIAL IVP ONE (00:15)
[2019-02-02] MEDS ORDERED: fentaNYL CITRATE/PF 100 MCG/2 ML AMP IVP ONE (00:15)
[2019-02-02 00:36] LABS: BILIRUBIN,URINE NEGATIVE (NEGATIVE); BLOOD, URINE 1+ (NEGATIVE); CLARITY/URINE SL HAZY (CLEAR); COLOR,URINE YELLOW (YELLOW); GLUCOSE,URINE NEGATIVE (NEGATIVE); KETONES,URINE NEGATIVE (NEGATIVE); LEUKOCYTE ESTERASE ,URINE 3+ (NEGATIVE); NITRITE, URINE POSITIVE (NEGATIVE); PH,URINE 6.5 (5.0-8.0); PROTEIN URINE TRACE (NEGATIVE); UROBILINOGEN,URINE 0.2 (0.2-1.0)
[2019-02-02 01:14] LABS: BACTERIA,URINE MODERATE /HPF (None Seen); WBC,URINE 20-50 /HPF (0-3)
[2019-02-02 02:30] VITALS: BP_SYST 160
[2019-02-02 02:39] VITALS: BP_SYST 160
[2019-02-02 02:44] VITALS: BP_SYST 148
[2019-02-02] MEDS: IPRATROPIUM/ALBUTEROL SULFATE 3 ML AMPUL.NEB (DUONEB) INH SCH ×6 (03:00→23:24)
[2019-02-02 07:49] VITALS: BP_SYST 130
[2019-02-02] MEDS: ONDANSETRON HCL 4 MG/2 ML VIAL IVP PRN ×2 (08:40→12:54)
[2019-02-02] MEDS: HYDROmorphone 1 MG INJ. 1 MG/ML AMPUL IVP PRN ×4 (08:43→23:27)
[2019-02-02 11:52] VITALS: BP_SYST 136
[2019-02-02] MEDS: PIPERACILLIN/TAZO 2.25G/DEX-IS 50 ML IV SCH ×3 (13:04→23:25)
[2019-02-02] MEDS ORDERED: ONDANSETRON 4 MG ODT TAB PO PRN (15:15)
[2019-02-02] MEDS ORDERED: MINERAL OIL 30 ML UDC PO PRN (15:15)
[2019-02-02 16:07] VITALS: BP_SYST 140
[2019-02-02 16:54] LABS: CALCIUM 8.9 mg/dL (8.4-11.0); CREATININE 1.26 mg/dL (0.55-1.30); POTASSIUM 3.6 mmol/L (3.5-5.1)
[2019-02-02 17:19] LABS: HEMATOCRIT 29.5 % (36-48); HEMOGLOBIN 9.6 g/dL (12.0-16.0); RED BLOOD CELL COUNT(AUTO) 3.43 MIL/uL (4.2-6.2); WHITE BLOOD COUNT (AUTO) 15.4 K/uL (4.8-10.8)
[2019-02-02 17:20] LABS: BASOPHILS % (AUTO) 0.7 % (0.0-2.0); EOSINOPHILS % (AUTO) 1.5 % (0.0-4.0); LYMPHOCYTES % (AUTO) 24.2 % (20.5-51.5); MEAN CORPUSCULAR HEMOGLOBIN 28 pg (27-31); MEAN CORPUSCULAR HGB CONC 32 % (32-36); MEAN CORPUSCULAR VOLUME 86 fL (79.0-98.0); MONOCYTES % (AUTO) 9.2 % (1.7-9.3); NEUTROPHILS % (AUTO) 64.4 % (40.0-70.0); PLATELET COUNT (AUTO) 261 K/uL (130-430); RED CELL DISTRIBUTION WIDTH 17.7 % (9.0-15.0)
[2019-02-02 17:21] LABS: BASOPHILS # (AUTO) 0.1 K/uL (0.0-0.2); EOSINOPHILS # (AUTO) 0.2 K/uL (0.0-0.4); LYMPHOCYTES # (AUTO) 3.7 K/uL (1.0-5.5); MONOCYTES # (AUTO) 1.4 K/uL (0.0-1.0); NEUTROPHILS # (AUTO) 9.9 K/uL (1.8-7.7)
[2019-02-02] MEDS: METOCLOPRAMIDE HCL 10 MG/2 ML VIAL IVP SCH ×2 (17:52→23:25)
[2019-02-02] MEDS ORDERED: IPRATROPIUM/ALBUTEROL SULFATE 3 ML AMPUL.NEB (DUONEB) INH SCH (19:00)
[2019-02-02] MEDS: LACTOBACILLUS RHAMNOSUS GG 1 CAP CAPSULE PO SCH (21:21)
[2019-02-02] MEDS: GABAPENTIN 300 MG CAPSULE PO SCH (21:21)
[2019-02-02] MEDS: LACTULOSE 20 GM/30 ML UDC PO SCH (21:21)
[2019-02-02] MEDS: FERROUS GLUCONATE 300 MG TABLET PO SCH (21:21)
[2019-02-02] MEDS: ATORVASTATIN 10 MG TABLET PO SCH (21:23)
[2019-02-02] MEDS: OXYCODONE/ACETAMINOPHEN *10*mg/325 mg TABLET PO SCH (21:23)
[2019-02-02] MEDS: CILOSTAZOL 50 MG TABLET (PLETAL) PO SCH (21:23)
[2019-02-03 00:39] VITALS: BP_SYST 137
[2019-02-03] MEDS: IPRATROPIUM/ALBUTEROL SULFATE 3 ML AMPUL.NEB (DUONEB) INH SCH ×6 (04:04→23:51)
[2019-02-03] MEDS: HYDROmorphone 1 MG INJ. 1 MG/ML AMPUL IVP PRN ×5 (05:47→21:00)
[2019-02-03] MEDS: METOCLOPRAMIDE HCL 10 MG/2 ML VIAL IVP SCH ×3 (05:47→18:06)
[2019-02-03] MEDS: PIPERACILLIN/TAZO 2.25G/DEX-IS 50 ML IV SCH ×3 (05:50→18:10)
[2019-02-03] MEDS: LEVOTHYROXINE SODIUM 0.15 MG TABLET PO SCH (06:47)
[2019-02-03] MEDS ORDERED: METOCLOPRAMIDE HCL 10 MG TABLET PO SCH (07:00)
[2019-02-03 07:50] LABS: CALCIUM 9.1 mg/dL (8.4-11.0); CREATININE 1.42 mg/dL (0.55-1.30); POTASSIUM 3.6 mmol/L (3.5-5.1)
[2019-02-03 07:57] LABS: INR 1.5 (0.8-1.2)
[2019-02-03] MEDS: LACTULOSE 20 GM/30 ML UDC PO SCH ×2 (08:02→20:59)
[2019-02-03 08:03] LABS: ALBUMIN 3.1 g/dL (3.4-4.8); TOTAL BILIRUBIN 0.5 mg/dL (0.0-1.0)
[2019-02-03] MEDS: OXYCODONE/ACETAMINOPHEN *10*mg/325 mg TABLET PO SCH ×2 (08:04→15:49)
[2019-02-03 08:05] LABS: PROTHROMBIN TIME 15.5 SECS (9.5-12.5)
[2019-02-03 08:12] VITALS: BP_SYST 135
[2019-02-03 08:13] LABS: HEMATOCRIT 29.2 % (36-48); HEMOGLOBIN 9.4 g/dL (12.0-16.0); LYMPHOCYTES % (AUTO) 24.2 % (20.5-51.5); MEAN CORPUSCULAR HEMOGLOBIN 28 pg (27-31); MEAN CORPUSCULAR HGB CONC 32 % (32-36); MEAN CORPUSCULAR VOLUME 86 fL (79.0-98.0); MONOCYTES % (AUTO) 8.6 % (1.7-9.3); PLATELET COUNT (AUTO) 286 K/uL (130-430); RED BLOOD CELL COUNT(AUTO) 3.39 MIL/uL (4.2-6.2); RED CELL DISTRIBUTION WIDTH 17.5 % (9.0-15.0); WHITE BLOOD COUNT (AUTO) 15.7 K/uL (4.8-10.8)
[2019-02-03 08:14] LABS: BASOPHILS # (AUTO) 0.1 K/uL (0.0-0.2); BASOPHILS % (AUTO) 0.5 % (0.0-2.0); EOSINOPHILS # (AUTO) 0.4 K/uL (0.0-0.4); EOSINOPHILS % (AUTO) 2.7 % (0.0-4.0); LYMPHOCYTES # (AUTO) 3.8 K/uL (1.0-5.5); MONOCYTES # (AUTO) 1.3 K/uL (0.0-1.0); NEUTROPHILS # (AUTO) 10.1 K/uL (1.8-7.7)
[2019-02-03] MEDS ORDERED: BISACODYL 10 MG/SUPPOSITORY RC ONE ×2 (09:15→11:45)
[2019-02-03] MEDS ORDERED: MAGNESIUM CITRATE 300 ML ORAL SOLUTION PO ONE (09:15)
[2019-02-03] MEDS: CHOLECALCIFEROL (VITAMIN D3) 2,000 UNIT TABLET PO SCH (09:47)
[2019-02-03] MEDS: NEPHROVITE, (FOLIC ACID/VITAMIN B COMP W-C 1 TAB) PO SCH (09:47)
[2019-02-03] MEDS: FERROUS GLUCONATE 300 MG TABLET PO SCH ×2 (09:47→21:00)
[2019-02-03] MEDS: LACTOBACILLUS RHAMNOSUS GG 1 CAP CAPSULE PO SCH ×2 (09:49→20:59)
[2019-02-03] MEDS: GABAPENTIN 300 MG CAPSULE PO SCH ×3 (09:49→21:00)
[2019-02-03] MEDS: MAGNESIUM OXIDE 400 MG TABLET PO SCH (09:49)
[2019-02-03] MEDS: ASPIRIN 81 MG TABLET(ECOTRIN) PO SCH (09:49)
[2019-02-03] MEDS: CILOSTAZOL 50 MG TABLET (PLETAL) PO SCH ×2 (09:49→21:00)
[2019-02-03] MEDS: ALLOPURINOL 100 MG TABLET (ZYLOPRIM) PO SCH (09:50)
[2019-02-03 11:30] VITALS: BP_SYST 161
[2019-02-03] MEDS: ONDANSETRON HCL 4 MG/2 ML VIAL IVP PRN (15:54)
[2019-02-03 16:02] VITALS: BP_SYST 137
[2019-02-03] MEDS ORDERED: WARFARIN SODIUM 2.5 MG TABLET PO SCH (18:00)
[2019-02-03] MEDS: WARFARIN SODIUM 3 MG TABLET PO SCH (18:14)
[2019-02-03 19:05] VITALS: BP_SYST 129
[2019-02-03] MEDS: ATORVASTATIN 10 MG TABLET PO SCH (21:00)
[2019-02-04] MEDS: PIPERACILLIN/TAZO 2.25G/DEX-IS 50 ML IV SCH ×4 (00:20→17:12)
[2019-02-04] MEDS: METOCLOPRAMIDE HCL 10 MG/2 ML VIAL IVP SCH ×4 (00:20→17:12)
[2019-02-04] MEDS: OXYCODONE/ACETAMINOPHEN *10*mg/325 mg TABLET PO SCH ×5 (00:20→21:58)
[2019-02-04 01:14] VITALS: BP_SYST 143
[2019-02-04] MEDS: HYDROmorphone 1 MG INJ. 1 MG/ML AMPUL IVP PRN ×4 (04:07→19:54)
[2019-02-04] MEDS: IPRATROPIUM/ALBUTEROL SULFATE 3 ML AMPUL.NEB (DUONEB) INH SCH ×6 (04:18→23:43)
[2019-02-04] MEDS: LEVOTHYROXINE SODIUM 0.15 MG TABLET PO SCH (06:46)
[2019-02-04 08:00] VITALS: BP_SYST 122
[2019-02-04 08:24] LABS: CALCIUM 8.9 mg/dL (8.4-11.0); CREATININE 1.33 mg/dL (0.55-1.30); POTASSIUM 3.1 mmol/L (3.5-5.1); TOTAL BILIRUBIN 0.7 mg/dL (0.0-1.0)
[2019-02-04] MEDS: CHOLECALCIFEROL (VITAMIN D3) 2,000 UNIT TABLET PO SCH (08:26)
[2019-02-04] MEDS: GABAPENTIN 300 MG CAPSULE PO SCH ×3 (08:26→21:58)
[2019-02-04] MEDS: NEPHROVITE, (FOLIC ACID/VITAMIN B COMP W-C 1 TAB) PO SCH (08:26)
[2019-02-04] MEDS: LACTOBACILLUS RHAMNOSUS GG 1 CAP CAPSULE PO SCH ×2 (08:27→21:56)
[2019-02-04] MEDS: ALLOPURINOL 100 MG TABLET (ZYLOPRIM) PO SCH (08:27)
[2019-02-04] MEDS: MAGNESIUM OXIDE 400 MG TABLET PO SCH (08:27)
[2019-02-04] MEDS: CILOSTAZOL 50 MG TABLET (PLETAL) PO SCH ×2 (08:27→21:58)
[2019-02-04] MEDS: LACTULOSE 20 GM/30 ML UDC PO SCH ×2 (08:27→21:00)
[2019-02-04] MEDS: ASPIRIN 81 MG TABLET(ECOTRIN) PO SCH (08:27)
[2019-02-04] MEDS: ONDANSETRON HCL 4 MG/2 ML VIAL IVP PRN ×3 (08:34→19:55)
[2019-02-04] MEDS: FERROUS GLUCONATE 300 MG TABLET PO SCH ×2 (08:34→21:56)
[2019-02-04 08:38] LABS: INR 1.7 (0.8-1.2)
[2019-02-04 08:46] LABS: RED BLOOD CELL COUNT(AUTO) 3.42 MIL/uL (4.2-6.2); WHITE BLOOD COUNT (AUTO) 13.4 K/uL (4.8-10.8)
[2019-02-04 08:46] LABS: PROTHROMBIN TIME 16.7 SECS (9.5-12.5)
[2019-02-04 08:47] LABS: BASOPHILS % (AUTO) 0.4 % (0.0-2.0); EOSINOPHILS # (AUTO) 0.6 K/uL (0.0-0.4); EOSINOPHILS % (AUTO) 4.4 % (0.0-4.0); HEMATOCRIT 29.9 % (36-48); HEMOGLOBIN 9.4 g/dL (12.0-16.0); LYMPHOCYTES # (AUTO) 2.9 K/uL (1.0-5.5); LYMPHOCYTES % (AUTO) 21.9 % (20.5-51.5); MEAN CORPUSCULAR HEMOGLOBIN 27 pg (27-31); MEAN CORPUSCULAR HGB CONC 31 % (32-36); MEAN CORPUSCULAR VOLUME 87 fL (79.0-98.0); MONOCYTES # (AUTO) 1.1 K/uL (0.0-1.0); MONOCYTES % (AUTO) 8.5 % (1.7-9.3); NEUTROPHILS # (AUTO) 8.7 K/uL (1.8-7.7); NEUTROPHILS % (AUTO) 64.8 % (40.0-70.0); PLATELET COUNT (AUTO) 242 K/uL (130-430); RED CELL DISTRIBUTION WIDTH 17.7 % (9.0-15.0)
[2019-02-04 08:48] LABS: BASOPHILS # (AUTO) 0.1 K/uL (0.0-0.2)
[2019-02-04 12:07] VITALS: BP_SYST 130
[2019-02-04] MEDS ORDERED: POTASSIUM CHLORIDE 20 MEQ/PKT PACKET PO ONE (12:45)
[2019-02-04 16:02] VITALS: BP_SYST 114
[2019-02-04] MEDS: WARFARIN SODIUM 3 MG TABLET PO SCH (17:13)
[2019-02-04] MEDS: DIPHENHYDRAMINE HCL 25 MG CAPSULE PO PRN (19:55)
[2019-02-04 20:00] VITALS: BP_SYST 114
[2019-02-04] MEDS ORDERED: DEXTROSE 50% JECT 50 ML DISP.SYRIN IVP PRN (20:15)
[2019-02-04] MEDS: ATORVASTATIN 10 MG TABLET PO SCH (21:58)
[2019-02-04] MEDS: INSULIN REGULAR, HUMAN 100 UNITS/ML, 10 ML VIAL (novoLIN R) SUBCUT PRN (22:17)
[2019-02-05] MEDS: ONDANSETRON HCL 4 MG/2 ML VIAL IVP PRN ×4 (00:06→20:23)
[2019-02-05] MEDS: PIPERACILLIN/TAZO 2.25G/DEX-IS 50 ML IV SCH ×4 (00:06→17:37)
[2019-02-05] MEDS: METOCLOPRAMIDE HCL 10 MG/2 ML VIAL IVP SCH ×4 (00:06→17:37)
[2019-02-05] MEDS: DIPHENHYDRAMINE HCL 25 MG CAPSULE PO PRN ×2 (00:07→20:22)
[2019-02-05] MEDS: HYDROmorphone 1 MG INJ. 1 MG/ML AMPUL IVP PRN ×4 (00:07→20:24)
[2019-02-05 00:46] VITALS: BP_SYST 110
[2019-02-05] MEDS: IPRATROPIUM/ALBUTEROL SULFATE 3 ML AMPUL.NEB (DUONEB) INH SCH ×6 (03:00→23:51)
[2019-02-05] MEDS: LEVOTHYROXINE SODIUM 0.15 MG TABLET PO SCH (06:40)
[2019-02-05 08:00] VITALS: BP_SYST 103
[2019-02-05] MEDS: NEPHROVITE, (FOLIC ACID/VITAMIN B COMP W-C 1 TAB) PO SCH ×2 (09:00→09:01)
[2019-02-05] MEDS: ASPIRIN 81 MG TABLET(ECOTRIN) PO SCH (09:01)
[2019-02-05] MEDS: MAGNESIUM OXIDE 400 MG TABLET PO SCH (09:01)
[2019-02-05] MEDS: LACTOBACILLUS RHAMNOSUS GG 1 CAP CAPSULE PO SCH ×2 (09:01→22:07)
[2019-02-05] MEDS: GABAPENTIN 300 MG CAPSULE PO SCH ×3 (09:01→22:07)
[2019-02-05] MEDS: FERROUS GLUCONATE 300 MG TABLET PO SCH ×2 (09:01→22:08)
[2019-02-05] MEDS: LACTULOSE 20 GM/30 ML UDC PO SCH ×2 (09:01→21:00)
[2019-02-05] MEDS: CILOSTAZOL 50 MG TABLET (PLETAL) PO SCH ×2 (09:02→22:07)
[2019-02-05] MEDS: CHOLECALCIFEROL (VITAMIN D3) 2,000 UNIT TABLET PO SCH (09:02)
[2019-02-05] MEDS: ALLOPURINOL 100 MG TABLET (ZYLOPRIM) PO SCH (09:02)
[2019-02-05] MEDS: OXYCODONE/ACETAMINOPHEN *10*mg/325 mg TABLET PO SCH ×3 (09:03→22:09)
[2019-02-05] MEDS ORDERED: POTASSIUM CHLORIDE 20 MEQ/PKT PACKET PO ONE (09:15)
[2019-02-05 10:02] VITALS: BP_SYST 110
[2019-02-05] MEDS ORDERED: POTASSIUM CHLORIDE 20 MEQ TAB.PRT.SR PO ONE (10:15)
[2019-02-05 11:05] LABS: HEMATOCRIT 29.6 % (36-48); HEMOGLOBIN 9.4 g/dL (12.0-16.0); MEAN CORPUSCULAR HEMOGLOBIN 28 pg (27-31); MEAN CORPUSCULAR HGB CONC 32 % (32-36); MEAN CORPUSCULAR VOLUME 86 fL (79.0-98.0); RED BLOOD CELL COUNT(AUTO) 3.43 MIL/uL (4.2-6.2); RED CELL DISTRIBUTION WIDTH 17.7 % (9.0-15.0); WHITE BLOOD COUNT (AUTO) 14.2 K/uL (4.8-10.8)
[2019-02-05 11:06] LABS: BASOPHILS # (AUTO) 0.1 K/uL (0.0-0.2); BASOPHILS % (AUTO) 0.5 % (0.0-2.0); EOSINOPHILS # (AUTO) 0.8 K/uL (0.0-0.4); EOSINOPHILS % (AUTO) 5.6 % (0.0-4.0); LYMPHOCYTES # (AUTO) 3.3 K/uL (1.0-5.5); LYMPHOCYTES % (AUTO) 23.3 % (20.5-51.5); MONOCYTES # (AUTO) 1.1 K/uL (0.0-1.0); MONOCYTES % (AUTO) 7.8 % (1.7-9.3); NEUTROPHILS # (AUTO) 8.9 K/uL (1.8-7.7); NEUTROPHILS % (AUTO) 62.8 % (40.0-70.0); PLATELET COUNT (AUTO) 286 K/uL (130-430)
[2019-02-05 11:19] LABS: CALCIUM 8.8 mg/dL (8.4-11.0); CREATININE 1.46 mg/dL (0.55-1.30); POTASSIUM 3.4 mmol/L (3.5-5.1)
[2019-02-05 11:26] LABS: TOTAL IRON BIND. CAPACITY 148 ug/dL (250-450)
[2019-02-05 11:32] LABS: INR 1.6 (0.8-1.2); PROTHROMBIN TIME 15.8 SECS (9.5-12.5)
[2019-02-05] MEDS: INSULIN REGULAR, HUMAN 100 UNITS/ML, 10 ML VIAL (novoLIN R) SUBCUT PRN (11:54)
[2019-02-05 12:57] VITALS: BP_SYST 131
[2019-02-05] MEDS: WARFARIN SODIUM 2.5 MG TABLET PO SCH (17:39)
[2019-02-05 17:41] VITALS: BP_SYST 131
[2019-02-05 20:00] VITALS: BP_SYST 122
[2019-02-05] MEDS: ATORVASTATIN 10 MG TABLET PO SCH (22:07)
[2019-02-05] MEDS: COLISTIMETHATE SODIUM 150 MG VIAL INH SCH (22:52)
[2019-02-06] MEDS: PIPERACILLIN/TAZO 2.25G/DEX-IS 50 ML IV SCH ×4 (00:49→17:09)
[2019-02-06] MEDS: METOCLOPRAMIDE HCL 10 MG/2 ML VIAL IVP SCH ×4 (00:49→17:09)
[2019-02-06 02:09] VITALS: BP_SYST 117
[2019-02-06] MEDS: ONDANSETRON HCL 4 MG/2 ML VIAL IVP PRN ×3 (03:07→12:05)
[2019-02-06] MEDS: HYDROmorphone 1 MG INJ. 1 MG/ML AMPUL IVP PRN ×5 (03:07→21:58)
[2019-02-06] MEDS: IPRATROPIUM/ALBUTEROL SULFATE 3 ML AMPUL.NEB (DUONEB) INH SCH ×6 (04:04→22:27)
[2019-02-06] MEDS: LEVOTHYROXINE SODIUM 0.15 MG TABLET PO SCH (07:03)
[2019-02-06] MEDS: DIPHENHYDRAMINE HCL 25 MG CAPSULE PO PRN (08:07)
[2019-02-06] MEDS: LACTOBACILLUS RHAMNOSUS GG 1 CAP CAPSULE PO SCH ×2 (09:00→21:53)
[2019-02-06] MEDS: ASPIRIN 81 MG TABLET(ECOTRIN) PO SCH (09:00)
[2019-02-06] MEDS: CHOLECALCIFEROL (VITAMIN D3) 2,000 UNIT TABLET PO SCH (09:00)
[2019-02-06] MEDS: ALLOPURINOL 100 MG TABLET (ZYLOPRIM) PO SCH (09:00)
[2019-02-06] MEDS: GABAPENTIN 300 MG CAPSULE PO SCH ×3 (09:00→21:53)
[2019-02-06] MEDS: NEPHROVITE, (FOLIC ACID/VITAMIN B COMP W-C 1 TAB) PO SCH ×2 (09:00)
[2019-02-06] MEDS: FERROUS GLUCONATE 300 MG TABLET PO SCH ×2 (09:00→21:00)
[2019-02-06] MEDS: CILOSTAZOL 50 MG TABLET (PLETAL) PO SCH ×2 (09:00→21:55)
[2019-02-06] MEDS: COLISTIMETHATE SODIUM 150 MG VIAL INH SCH ×2 (09:00→21:00)
[2019-02-06] MEDS: MAGNESIUM OXIDE 400 MG TABLET PO SCH (09:00)
[2019-02-06] MEDS: OXYCODONE/ACETAMINOPHEN *10*mg/325 mg TABLET PO SCH ×3 (09:00→21:55)
[2019-02-06] MEDS: LACTULOSE 20 GM/30 ML UDC PO SCH ×2 (09:00→21:55)
[2019-02-06 10:46] LABS: INR 1.8 (0.8-1.2)
[2019-02-06 12:17] VITALS: BP_SYST 112
[2019-02-06 16:48] VITALS: BP_SYST 126
[2019-02-06] MEDS: WARFARIN SODIUM 2.5 MG TABLET PO SCH (17:07)
[2019-02-06] MEDS: INSULIN REGULAR, HUMAN 100 UNITS/ML, 10 ML VIAL (novoLIN R) SUBCUT PRN (17:16)
[2019-02-06 21:00] VITALS: BP_SYST 100
[2019-02-06] MEDS: ATORVASTATIN 10 MG TABLET PO SCH (21:55)
[2019-02-07] MEDS: METOCLOPRAMIDE HCL 10 MG/2 ML VIAL IVP SCH ×4 (00:48→17:57)
[2019-02-07] MEDS: PIPERACILLIN/TAZO 2.25G/DEX-IS 50 ML IV SCH ×4 (00:49→17:56)
[2019-02-07 01:04] VITALS: BP_SYST 90
[2019-02-07] MEDS: ONDANSETRON HCL 4 MG/2 ML VIAL IVP PRN ×2 (03:46→21:12)
[2019-02-07] MEDS: HYDROmorphone 1 MG INJ. 1 MG/ML AMPUL IVP PRN ×4 (03:52→21:26)
[2019-02-07] MEDS: IPRATROPIUM/ALBUTEROL SULFATE 3 ML AMPUL.NEB (DUONEB) INH SCH ×6 (04:02→23:22)
[2019-02-07] MEDS: LEVOTHYROXINE SODIUM 0.15 MG TABLET PO SCH (06:37)
[2019-02-07 07:11] LABS: CALCIUM 8.8 mg/dL (8.4-11.0); CREATININE 1.85 mg/dL (0.55-1.30); POTASSIUM 3.7 mmol/L (3.5-5.1)
[2019-02-07 07:13] LABS: PROTHROMBIN TIME 20.1 SECS (9.5-12.5)
[2019-02-07] MEDS: COLISTIMETHATE SODIUM 150 MG VIAL INH SCH ×2 (07:18→20:22)
[2019-02-07 07:56] LABS: HEMATOCRIT 29.5 % (36-48); HEMOGLOBIN 9.3 g/dL (12.0-16.0); MEAN CORPUSCULAR HEMOGLOBIN 28 pg (27-31); MEAN CORPUSCULAR HGB CONC 32 % (32-36); MEAN CORPUSCULAR VOLUME 89 fL (79.0-98.0); RED BLOOD CELL COUNT(AUTO) 3.32 MIL/uL (4.2-6.2); RED CELL DISTRIBUTION WIDTH 17.5 % (9.0-15.0); WHITE BLOOD COUNT (AUTO) 19.9 K/uL (4.8-10.8)
[2019-02-07 07:57] LABS: BASOPHILS # (AUTO) 0.1 K/uL (0.0-0.2); BASOPHILS % (AUTO) 0.3 % (0.0-2.0); EOSINOPHILS # (AUTO) 0.5 K/uL (0.0-0.4); EOSINOPHILS % (AUTO) 2.3 % (0.0-4.0); LYMPHOCYTES # (AUTO) 3.5 K/uL (1.0-5.5); LYMPHOCYTES % (AUTO) 17.3 % (20.5-51.5); MONOCYTES # (AUTO) 1.5 K/uL (0.0-1.0); MONOCYTES % (AUTO) 7.7 % (1.7-9.3); NEUTROPHILS # (AUTO) 14.4 K/uL (1.8-7.7); PLATELET COUNT (AUTO) 251 K/uL (130-430)
[2019-02-07 08:00] VITALS: BP_SYST 102
[2019-02-07] MEDS: NEPHROVITE, (FOLIC ACID/VITAMIN B COMP W-C 1 TAB) PO SCH ×2 (08:19→08:22)
[2019-02-07] MEDS: ASPIRIN 81 MG TABLET(ECOTRIN) PO SCH (08:19)
[2019-02-07] MEDS: ALLOPURINOL 100 MG TABLET (ZYLOPRIM) PO SCH (08:19)
[2019-02-07] MEDS: CILOSTAZOL 50 MG TABLET (PLETAL) PO SCH ×2 (08:20→21:13)
[2019-02-07] MEDS: GABAPENTIN 300 MG CAPSULE PO SCH ×3 (08:20→21:13)
[2019-02-07] MEDS: CHOLECALCIFEROL (VITAMIN D3) 2,000 UNIT TABLET PO SCH (08:20)
[2019-02-07] MEDS: MAGNESIUM OXIDE 400 MG TABLET PO SCH (08:21)
[2019-02-07] MEDS: LACTOBACILLUS RHAMNOSUS GG 1 CAP CAPSULE PO SCH ×2 (08:21→21:12)
[2019-02-07] MEDS: FERROUS GLUCONATE 300 MG TABLET PO SCH ×2 (08:21→21:12)
[2019-02-07] MEDS: OXYCODONE/ACETAMINOPHEN *10*mg/325 mg TABLET PO SCH ×4 (08:24→21:16)
[2019-02-07] MEDS: LACTULOSE 20 GM/30 ML UDC PO SCH (08:35)
[2019-02-07 10:37] LABS: NEUTROPHILS % (AUTO) 72.4 % (40.0-70.0)
[2019-02-07 11:35] VITALS: BP_SYST 122
[2019-02-07] MEDS: INSULIN REGULAR, HUMAN 100 UNITS/ML, 10 ML VIAL (novoLIN R) SUBCUT PRN ×3 (12:44→21:45)
[2019-02-07 15:15] VITALS: BP_SYST 105
[2019-02-07] MEDS: 0.45% NACL 1,000 ML IV SCH (16:09)
[2019-02-07] MEDS: WARFARIN SODIUM 2 MG TABLET PO SCH (18:01)
[2019-02-07 21:00] VITALS: BP_SYST 108
[2019-02-07] MEDS: DIPHENHYDRAMINE HCL 25 MG CAPSULE PO PRN (21:12)
[2019-02-07] MEDS: ATORVASTATIN 10 MG TABLET PO SCH (21:14)
[2019-02-08] MEDS: PIPERACILLIN/TAZO 2.25G/DEX-IS 50 ML IV SCH ×4 (00:39→23:26)
[2019-02-08] MEDS: METOCLOPRAMIDE HCL 10 MG/2 ML VIAL IVP SCH ×5 (00:39→23:25)
[2019-02-08 00:44] VITALS: BP_SYST 90
[2019-02-08] MEDS: 0.45% NACL 1,000 ML IV SCH ×3 (03:04→20:58)
[2019-02-08] MEDS: HYDROmorphone 1 MG INJ. 1 MG/ML AMPUL IVP PRN ×5 (03:05→23:27)
[2019-02-08] MEDS: ONDANSETRON HCL 4 MG/2 ML VIAL IVP PRN ×2 (03:06→09:00)
[2019-02-08] MEDS: IPRATROPIUM/ALBUTEROL SULFATE 3 ML AMPUL.NEB (DUONEB) INH SCH ×6 (04:02→23:01)
[2019-02-08] MEDS: LEVOTHYROXINE SODIUM 0.15 MG TABLET PO SCH (06:18)
[2019-02-08 07:24] LABS: CALCIUM 8.5 mg/dL (8.4-11.0); POTASSIUM 3.8 mmol/L (3.5-5.1)
[2019-02-08 07:25] LABS: CREATININE 1.42 mg/dL (0.55-1.30)
[2019-02-08 08:13] LABS: INR 2.1 (0.8-1.2); PROTHROMBIN TIME 20.6 SECS (9.5-12.5)
[2019-02-08 08:30] VITALS: BP_SYST 117
[2019-02-08] MEDS: LACTOBACILLUS RHAMNOSUS GG 1 CAP CAPSULE PO SCH ×2 (08:31→20:51)
[2019-02-08] MEDS: GABAPENTIN 300 MG CAPSULE PO SCH ×3 (08:32→20:51)
[2019-02-08] MEDS: MAGNESIUM OXIDE 400 MG TABLET PO SCH (08:32)
[2019-02-08] MEDS: CHOLECALCIFEROL (VITAMIN D3) 2,000 UNIT TABLET PO SCH (08:32)
[2019-02-08] MEDS: CILOSTAZOL 50 MG TABLET (PLETAL) PO SCH ×2 (08:32→20:52)
[2019-02-08] MEDS: FERROUS GLUCONATE 300 MG TABLET PO SCH ×2 (08:32→20:57)
[2019-02-08] MEDS: ASPIRIN 81 MG TABLET(ECOTRIN) PO SCH (08:32)
[2019-02-08] MEDS: NEPHROVITE, (FOLIC ACID/VITAMIN B COMP W-C 1 TAB) PO SCH (08:32)
[2019-02-08] MEDS: ALLOPURINOL 100 MG TABLET (ZYLOPRIM) PO SCH (08:32)
[2019-02-08] MEDS: OXYCODONE/ACETAMINOPHEN *10*mg/325 mg TABLET PO SCH ×3 (08:32→20:54)
[2019-02-08] MEDS: COLISTIMETHATE SODIUM 150 MG VIAL INH SCH ×2 (09:00→20:05)
[2019-02-08 09:09] LABS: WHITE BLOOD COUNT (AUTO) 15.1 K/uL (4.8-10.8)
[2019-02-08 09:10] LABS: HEMOGLOBIN 8.2 g/dL (12.0-16.0); RED BLOOD CELL COUNT(AUTO) 2.94 MIL/uL (4.2-6.2)
[2019-02-08 09:11] LABS: HEMATOCRIT 25.7 % (36-48); MEAN CORPUSCULAR HEMOGLOBIN 28 pg (27-31); MEAN CORPUSCULAR HGB CONC 32 % (32-36); MEAN CORPUSCULAR VOLUME 88 fL (79.0-98.0); NEUTROPHILS % (AUTO) 70.7 % (40.0-70.0); PLATELET COUNT (AUTO) 230 K/uL (130-430)
[2019-02-08 09:12] LABS: BASOPHILS % (AUTO) 0.3 % (0.0-2.0); EOSINOPHILS # (AUTO) 0.5 K/uL (0.0-0.4); EOSINOPHILS % (AUTO) 3.4 % (0.0-4.0); LYMPHOCYTES # (AUTO) 2.7 K/uL (1.0-5.5); LYMPHOCYTES % (AUTO) 17.7 % (20.5-51.5); MONOCYTES # (AUTO) 1.2 K/uL (0.0-1.0); MONOCYTES % (AUTO) 7.9 % (1.7-9.3); NEUTROPHILS # (AUTO) 10.7 K/uL (1.8-7.7)
[2019-02-08] MEDS: INSULIN REGULAR, HUMAN 100 UNITS/ML, 10 ML VIAL (novoLIN R) SUBCUT PRN ×3 (11:18→21:21)
[2019-02-08] MEDS ORDERED: PIPERACILLIN/TAZO 2.25G/DEX-IS 50 ML IV ONE (12:00)
[2019-02-08 12:37] VITALS: BP_SYST 104
[2019-02-08 16:52] VITALS: BP_SYST 112
[2019-02-08] MEDS: WARFARIN SODIUM 2 MG TABLET PO SCH (17:36)
[2019-02-08 20:00] VITALS: BP_SYST 114
[2019-02-08] MEDS: DIPHENHYDRAMINE HCL 25 MG CAPSULE PO PRN (20:51)
[2019-02-08] MEDS: ATORVASTATIN 10 MG TABLET PO SCH (20:51)
[2019-02-09] MEDS: IPRATROPIUM/ALBUTEROL SULFATE 3 ML AMPUL.NEB (DUONEB) INH SCH ×5 (03:00→23:04)
[2019-02-09 03:19] VITALS: BP_SYST 118
[2019-02-09] MEDS: HYDROmorphone 1 MG INJ. 1 MG/ML AMPUL IVP PRN ×4 (06:04→23:57)
[2019-02-09] MEDS: METOCLOPRAMIDE HCL 10 MG/2 ML VIAL IVP SCH ×4 (06:06→23:56)
[2019-02-09] MEDS: LEVOTHYROXINE SODIUM 0.15 MG TABLET PO SCH (06:07)
[2019-02-09] MEDS: PIPERACILLIN/TAZO 2.25G/DEX-IS 50 ML IV SCH ×4 (06:07→23:56)
[2019-02-09 06:51] LABS: BASOPHILS % (AUTO) 0.4 % (0.0-2.0); CALCIUM 8.6 mg/dL (8.4-11.0); CREATININE 1.22 mg/dL (0.55-1.30); EOSINOPHILS # (AUTO) 0.6 K/uL (0.0-0.4); EOSINOPHILS % (AUTO) 4.9 % (0.0-4.0); LYMPHOCYTES # (AUTO) 2.7 K/uL (1.0-5.5); LYMPHOCYTES % (AUTO) 21.8 % (20.5-51.5); MEAN CORPUSCULAR HEMOGLOBIN 28 pg (27-31); MEAN CORPUSCULAR HGB CONC 32 % (32-36); MEAN CORPUSCULAR VOLUME 88 fL (79.0-98.0); MONOCYTES # (AUTO) 1.2 K/uL (0.0-1.0); MONOCYTES % (AUTO) 9.4 % (1.7-9.3); NEUTROPHILS % (AUTO) 63.5 % (40.0-70.0); PLATELET COUNT (AUTO) 247 K/uL (130-430); RED BLOOD CELL COUNT(AUTO) 2.85 MIL/uL (4.2-6.2); RED CELL DISTRIBUTION WIDTH 17.4 % (9.0-15.0); WHITE BLOOD COUNT (AUTO) 12.5 K/uL (4.8-10.8)
[2019-02-09 07:01] LABS: INR 2.1 (0.8-1.2); PROTHROMBIN TIME 20.4 SECS (9.5-12.5)
[2019-02-09 07:59] VITALS: BP_SYST 149
[2019-02-09] MEDS: COLISTIMETHATE SODIUM 150 MG VIAL INH SCH (09:00)
[2019-02-09] MEDS ORDERED: 0.45% NACL 1,000 ML IV SCH (09:30)
[2019-02-09] MEDS: LACTOBACILLUS RHAMNOSUS GG 1 CAP CAPSULE PO SCH ×2 (09:30→21:15)
[2019-02-09] MEDS: OXYCODONE/ACETAMINOPHEN *10*mg/325 mg TABLET PO SCH ×3 (09:33→21:16)
[2019-02-09] MEDS: GABAPENTIN 300 MG CAPSULE PO SCH ×3 (09:34→21:15)
[2019-02-09] MEDS: FERROUS GLUCONATE 300 MG TABLET PO SCH ×2 (09:34→21:18)
[2019-02-09] MEDS: NEPHROVITE, (FOLIC ACID/VITAMIN B COMP W-C 1 TAB) PO SCH (09:35)
[2019-02-09] MEDS: CHOLECALCIFEROL (VITAMIN D3) 2,000 UNIT TABLET PO SCH (09:35)
[2019-02-09] MEDS: MAGNESIUM OXIDE 400 MG TABLET PO SCH (09:37)
[2019-02-09] MEDS: ASPIRIN 81 MG TABLET(ECOTRIN) PO SCH (09:37)
[2019-02-09] MEDS: CILOSTAZOL 50 MG TABLET (PLETAL) PO SCH ×2 (09:38→21:16)
[2019-02-09] MEDS: ALLOPURINOL 100 MG TABLET (ZYLOPRIM) PO SCH (09:38)
[2019-02-09 11:25] VITALS: BP_SYST 125
[2019-02-09] MEDS: SOD FERRIC GLUC COMPLEX/SUC 125 MG in NS 100 ML IV SCH (14:02)
[2019-02-09 16:09] VITALS: BP_SYST 130
[2019-02-09] MEDS: INSULIN REGULAR, HUMAN 100 UNITS/ML, 10 ML VIAL (novoLIN R) SUBCUT PRN (17:07)
[2019-02-09 19:42] VITALS: BP_SYST 131
[2019-02-09] MEDS: DIPHENHYDRAMINE HCL 25 MG CAPSULE PO PRN (21:15)
[2019-02-09] MEDS: ATORVASTATIN 10 MG TABLET PO SCH (21:18)
[2019-02-10 00:44] VITALS: BP_SYST 129
[2019-02-10] MEDS: IPRATROPIUM/ALBUTEROL SULFATE 3 ML AMPUL.NEB (DUONEB) INH SCH ×6 (03:00→23:44)
[2019-02-10] MEDS: ONDANSETRON HCL 4 MG/2 ML VIAL IVP PRN ×2 (04:23→18:22)
[2019-02-10] MEDS: HYDROmorphone 1 MG INJ. 1 MG/ML AMPUL IVP PRN ×6 (04:23→23:23)
[2019-02-10] MEDS: METOCLOPRAMIDE HCL 10 MG/2 ML VIAL IVP SCH ×4 (06:44→23:22)
[2019-02-10] MEDS: PIPERACILLIN/TAZO 2.25G/DEX-IS 50 ML IV SCH ×4 (06:44→23:23)
[2019-02-10] MEDS: LEVOTHYROXINE SODIUM 0.15 MG TABLET PO SCH (06:44)
[2019-02-10 07:11] LABS: BASOPHILS % (AUTO) 0.4 % (0.0-2.0); EOSINOPHILS # (AUTO) 0.6 K/uL (0.0-0.4); EOSINOPHILS % (AUTO) 5.7 % (0.0-4.0); HEMATOCRIT 24.8 % (36-48); LYMPHOCYTES # (AUTO) 2.4 K/uL (1.0-5.5); LYMPHOCYTES % (AUTO) 24.1 % (20.5-51.5); MEAN CORPUSCULAR HEMOGLOBIN 28 pg (27-31); MEAN CORPUSCULAR HGB CONC 32 % (32-36); MEAN CORPUSCULAR VOLUME 87 fL (79.0-98.0); MONOCYTES # (AUTO) 0.9 K/uL (0.0-1.0); MONOCYTES % (AUTO) 8.9 % (1.7-9.3); NEUTROPHILS # (AUTO) 6.1 K/uL (1.8-7.7); NEUTROPHILS % (AUTO) 60.9 % (40.0-70.0); PLATELET COUNT (AUTO) 271 K/uL (130-430); RED BLOOD CELL COUNT(AUTO) 2.84 MIL/uL (4.2-6.2); RED CELL DISTRIBUTION WIDTH 17.1 % (9.0-15.0)
[2019-02-10 07:17] LABS: CALCIUM 8.7 mg/dL (8.4-11.0); CREATININE 1.17 mg/dL (0.55-1.30); POTASSIUM 4.1 mmol/L (3.5-5.1)
[2019-02-10 07:26] LABS: INR 1.9 (0.8-1.2); PROTHROMBIN TIME 19.3 SECS (9.5-12.5)
[2019-02-10 08:00] VITALS: BP_SYST 126
[2019-02-10] MEDS: CILOSTAZOL 50 MG TABLET (PLETAL) PO SCH ×2 (08:03→20:13)
[2019-02-10] MEDS: GABAPENTIN 300 MG CAPSULE PO SCH ×3 (08:03→20:13)
[2019-02-10] MEDS: CHOLECALCIFEROL (VITAMIN D3) 2,000 UNIT TABLET PO SCH (08:03)
[2019-02-10] MEDS: NEPHROVITE, (FOLIC ACID/VITAMIN B COMP W-C 1 TAB) PO SCH (08:03)
[2019-02-10] MEDS: ALLOPURINOL 100 MG TABLET (ZYLOPRIM) PO SCH (08:03)
[2019-02-10] MEDS: FERROUS GLUCONATE 300 MG TABLET PO SCH ×2 (08:03→20:14)
[2019-02-10] MEDS: MAGNESIUM OXIDE 400 MG TABLET PO SCH (08:03)
[2019-02-10] MEDS: LACTOBACILLUS RHAMNOSUS GG 1 CAP CAPSULE PO SCH ×2 (08:03→20:14)
[2019-02-10] MEDS: ASPIRIN 81 MG TABLET(ECOTRIN) PO SCH (08:03)
[2019-02-10] MEDS: OXYCODONE/ACETAMINOPHEN *10*mg/325 mg TABLET PO SCH ×3 (08:06→20:14)
[2019-02-10 11:25] VITALS: BP_SYST 115
[2019-02-10] MEDS: SOD FERRIC GLUC COMPLEX/SUC 125 MG in NS 100 ML IV SCH (12:41)
[2019-02-10 15:50] VITALS: BP_SYST 111
[2019-02-10] MEDS: INSULIN REGULAR, HUMAN 100 UNITS/ML, 10 ML VIAL (novoLIN R) SUBCUT PRN ×2 (17:11→20:33)
[2019-02-10 20:00] VITALS: BP_SYST 118
[2019-02-10] MEDS: ATORVASTATIN 10 MG TABLET PO SCH (20:14)
[2019-02-10] MEDS: DIPHENHYDRAMINE INJ 50 MG/ML VIAL IVP PRN (22:20)
[2019-02-11 01:02] VITALS: BP_SYST 104
[2019-02-11] MEDS: HYDROmorphone 1 MG INJ. 1 MG/ML AMPUL IVP PRN ×4 (02:07→20:48)
[2019-02-11] MEDS: ONDANSETRON HCL 4 MG/2 ML VIAL IVP PRN ×2 (02:07→15:27)
[2019-02-11] MEDS: METOCLOPRAMIDE HCL 10 MG/2 ML VIAL IVP SCH ×4 (05:30→23:09)
[2019-02-11] MEDS: PIPERACILLIN/TAZO 2.25G/DEX-IS 50 ML IV SCH ×4 (05:30→23:09)
[2019-02-11] MEDS: LEVOTHYROXINE SODIUM 0.15 MG TABLET PO SCH (05:53)
[2019-02-11] MEDS: INSULIN REGULAR, HUMAN 100 UNITS/ML, 10 ML VIAL (novoLIN R) SUBCUT PRN (06:03)
[2019-02-11 06:58] LABS: PROTHROMBIN TIME 19.8 SECS (9.5-12.5)
[2019-02-11 07:03] LABS: CALCIUM 8.7 mg/dL (8.4-11.0); CREATININE 1.15 mg/dL (0.55-1.30); POTASSIUM 3.7 mmol/L (3.5-5.1)
[2019-02-11 07:06] LABS: BASOPHILS # (AUTO) 0.1 K/uL (0.0-0.2); BASOPHILS % (AUTO) 0.6 % (0.0-2.0); EOSINOPHILS # (AUTO) 0.5 K/uL (0.0-0.4); EOSINOPHILS % (AUTO) 4.8 % (0.0-4.0); HEMATOCRIT 23.6 % (36-48); HEMOGLOBIN 7.8 g/dL (12.0-16.0); LYMPHOCYTES # (AUTO) 2.7 K/uL (1.0-5.5); LYMPHOCYTES % (AUTO) 24.2 % (20.5-51.5); MEAN CORPUSCULAR HEMOGLOBIN 29 pg (27-31); MEAN CORPUSCULAR HGB CONC 33 % (32-36); MEAN CORPUSCULAR VOLUME 87 fL (79.0-98.0); MONOCYTES # (AUTO) 1.1 K/uL (0.0-1.0); MONOCYTES % (AUTO) 10.2 % (1.7-9.3); NEUTROPHILS # (AUTO) 6.6 K/uL (1.8-7.7); NEUTROPHILS % (AUTO) 60.2 % (40.0-70.0); PLATELET COUNT (AUTO) 262 K/uL (130-430); RED BLOOD CELL COUNT(AUTO) 2.71 MIL/uL (4.2-6.2); RED CELL DISTRIBUTION WIDTH 16.8 % (9.0-15.0)
[2019-02-11 07:30] VITALS: BP_SYST 119
[2019-02-11] MEDS: IPRATROPIUM/ALBUTEROL SULFATE 3 ML AMPUL.NEB (DUONEB) INH SCH ×5 (07:45→23:51)
[2019-02-11] MEDS: CILOSTAZOL 50 MG TABLET (PLETAL) PO SCH ×2 (09:00→19:05)
[2019-02-11] MEDS: MAGNESIUM OXIDE 400 MG TABLET PO SCH (09:25)
[2019-02-11] MEDS: ASPIRIN 81 MG TABLET(ECOTRIN) PO SCH (09:25)
[2019-02-11] MEDS: CHOLECALCIFEROL (VITAMIN D3) 2,000 UNIT TABLET PO SCH (09:25)
[2019-02-11] MEDS: ALLOPURINOL 100 MG TABLET (ZYLOPRIM) PO SCH (09:25)
[2019-02-11] MEDS: LACTOBACILLUS RHAMNOSUS GG 1 CAP CAPSULE PO SCH ×2 (09:25→20:46)
[2019-02-11] MEDS: NEPHROVITE, (FOLIC ACID/VITAMIN B COMP W-C 1 TAB) PO SCH (09:25)
[2019-02-11] MEDS: OXYCODONE/ACETAMINOPHEN *10*mg/325 mg TABLET PO SCH ×3 (09:53→20:47)
[2019-02-11] MEDS: FERROUS GLUCONATE 300 MG TABLET PO SCH ×2 (09:53→20:47)
[2019-02-11] MEDS: GABAPENTIN 300 MG CAPSULE PO SCH ×3 (09:54→20:46)
[2019-02-11] MEDS: DIPHENHYDRAMINE INJ 50 MG/ML VIAL IVP PRN ×3 (09:57→22:37)
[2019-02-11 11:22] VITALS: BP_SYST 156
[2019-02-11] MEDS ORDERED: PHYTONADIONE 5 MG TABLET PO ONE (11:45)
[2019-02-11 12:01] VITALS: BP_SYST 155
[2019-02-11] MEDS: SOD FERRIC GLUC COMPLEX/SUC 125 MG in NS 100 ML IV SCH (12:40)
[2019-02-11] MEDS ORDERED: HYDROmorphone 1 MG INJ. 1 MG/ML AMPUL ONE (18:15)
[2019-02-11 18:19] VITALS: BP_SYST 138
[2019-02-11 20:00] VITALS: BP_SYST 131
[2019-02-11] MEDS: ATORVASTATIN 10 MG TABLET PO SCH (20:46)
[2019-02-11] MEDS: LACTULOSE 20 GM/30 ML UDC PO SCH (21:49)
[2019-02-12] VITALS (7 sets, daily range): BP systolic 134–168
[2019-02-12] MEDS: IPRATROPIUM/ALBUTEROL SULFATE 3 ML AMPUL.NEB (DUONEB) INH SCH ×6 (03:00→23:49)
[2019-02-12] MEDS: METOCLOPRAMIDE HCL 10 MG/2 ML VIAL IVP SCH ×3 (03:25→17:07)
[2019-02-12] MEDS: DIPHENHYDRAMINE INJ 50 MG/ML VIAL IVP PRN ×5 (03:25→22:42)
[2019-02-12] MEDS: HYDROmorphone 1 MG INJ. 1 MG/ML AMPUL IVP PRN ×5 (03:26→22:39)
[2019-02-12] MEDS: LEVOTHYROXINE SODIUM 0.15 MG TABLET PO SCH ×2 (06:03→06:06)
[2019-02-12] MEDS: PIPERACILLIN/TAZO 2.25G/DEX-IS 50 ML IV SCH ×3 (06:03→17:06)
[2019-02-12] MEDS: ONDANSETRON HCL 4 MG/2 ML VIAL IVP PRN ×3 (08:18→22:39)
[2019-02-12 08:27] LABS: BASOPHILS # (AUTO) 0.1 K/uL (0.0-0.2); BASOPHILS % (AUTO) 0.6 % (0.0-2.0); EOSINOPHILS # (AUTO) 0.6 K/uL (0.0-0.4); EOSINOPHILS % (AUTO) 4.6 % (0.0-4.0); HEMATOCRIT 29.3 % (36-48); HEMOGLOBIN 9.5 g/dL (12.0-16.0); LYMPHOCYTES # (AUTO) 3.2 K/uL (1.0-5.5); LYMPHOCYTES % (AUTO) 22.9 % (20.5-51.5); MEAN CORPUSCULAR HEMOGLOBIN 28 pg (27-31); MEAN CORPUSCULAR HGB CONC 33 % (32-36); MEAN CORPUSCULAR VOLUME 86 fL (79.0-98.0); MONOCYTES # (AUTO) 1.1 K/uL (0.0-1.0); NEUTROPHILS # (AUTO) 8.9 K/uL (1.8-7.7); NEUTROPHILS % (AUTO) 63.9 % (40.0-70.0); PLATELET COUNT (AUTO) 223 K/uL (130-430)
[2019-02-12 08:42] LABS: CALCIUM 8.6 mg/dL (8.4-11.0); CREATININE 1.17 mg/dL (0.55-1.30); POTASSIUM 4.3 mmol/L (3.5-5.1)
[2019-02-12] MEDS: FERROUS GLUCONATE 300 MG TABLET PO SCH ×2 (08:59→20:18)
[2019-02-12] MEDS: LACTOBACILLUS RHAMNOSUS GG 1 CAP CAPSULE PO SCH ×2 (08:59→20:17)
[2019-02-12] MEDS: LACTULOSE 20 GM/30 ML UDC PO SCH ×2 (08:59→20:18)
[2019-02-12] MEDS: ASPIRIN 81 MG TABLET(ECOTRIN) PO SCH (08:59)
[2019-02-12] MEDS: CHOLECALCIFEROL (VITAMIN D3) 2,000 UNIT TABLET PO SCH (09:00)
[2019-02-12] MEDS: MAGNESIUM OXIDE 400 MG TABLET PO SCH (09:00)
[2019-02-12] MEDS: NEPHROVITE, (FOLIC ACID/VITAMIN B COMP W-C 1 TAB) PO SCH (09:00)
[2019-02-12] MEDS: CILOSTAZOL 50 MG TABLET (PLETAL) PO SCH ×2 (09:00→20:18)
[2019-02-12] MEDS: GABAPENTIN 300 MG CAPSULE PO SCH ×3 (09:00→20:17)
[2019-02-12] MEDS: ALLOPURINOL 100 MG TABLET (ZYLOPRIM) PO SCH (09:00)
[2019-02-12 10:35] LABS: INR 1.4 (0.8-1.2); PROTHROMBIN TIME 13.7 SECS (9.5-12.5)
[2019-02-12 10:48] LABS: BILIRUBIN,URINE NEGATIVE (NEGATIVE); BLOOD, URINE 1+ (NEGATIVE); CLARITY/URINE HAZY (CLEAR); COLOR,URINE YELLOW (YELLOW); GLUCOSE,URINE NEGATIVE (NEGATIVE); KETONES,URINE NEGATIVE (NEGATIVE); LEUKOCYTE ESTERASE ,URINE 3+ (NEGATIVE); NITRITE, URINE NEGATIVE (NEGATIVE); PROTEIN URINE NEGATIVE (NEGATIVE); UROBILINOGEN,URINE 0.2 (0.2-1.0)
[2019-02-12 11:01] LABS: BACTERIA,URINE MODERATE /HPF (None Seen); WBC,URINE 50-80 /HPF (0-3)
[2019-02-12] MEDS ORDERED: COLISTIMETHATE SODIUM 75 MG in NS 50 ML IV ONE (11:45)
[2019-02-12] MEDS ORDERED: fentaNYL CITRATE/PF 100 MCG/2 ML AMP IVP PRN ×2 (13:45)
[2019-02-12] MEDS ORDERED: ONDANSETRON HCL 4 MG/2 ML VIAL IVP PRN (13:45)
[2019-02-12] MEDS: MINERAL OIL 30 ML UDC PO SCH (20:18)
[2019-02-12] MEDS: ATORVASTATIN 10 MG TABLET PO SCH (20:18)
[2019-02-12] MEDS: INSULIN REGULAR, HUMAN 100 UNITS/ML, 10 ML VIAL (novoLIN R) SUBCUT PRN (22:04)
[2019-02-13] MEDS: METOCLOPRAMIDE HCL 10 MG/2 ML VIAL IVP SCH ×5 (00:18→23:46)
[2019-02-13] MEDS: PIPERACILLIN/TAZO 2.25G/DEX-IS 50 ML IV SCH ×5 (00:19→23:45)
[2019-02-13 00:45] VITALS: BP_SYST 125
[2019-02-13] MEDS: IPRATROPIUM/ALBUTEROL SULFATE 3 ML AMPUL.NEB (DUONEB) INH SCH ×5 (03:00→23:42)
[2019-02-13] MEDS: HYDROmorphone 1 MG INJ. 1 MG/ML AMPUL IVP PRN ×4 (03:15→17:15)
[2019-02-13] MEDS: ONDANSETRON HCL 4 MG/2 ML VIAL IVP PRN ×4 (03:17→17:14)
[2019-02-13] MEDS: DIPHENHYDRAMINE INJ 50 MG/ML VIAL IVP PRN ×4 (03:17→17:15)
[2019-02-13] MEDS: LEVOTHYROXINE SODIUM 0.15 MG TABLET PO SCH (06:48)
[2019-02-13 07:15] LABS: BASOPHILS % (AUTO) 0.3 % (0.0-2.0); EOSINOPHILS # (AUTO) 0.6 K/uL (0.0-0.4); EOSINOPHILS % (AUTO) 3.6 % (0.0-4.0); HEMATOCRIT 30.8 % (36-48); HEMOGLOBIN 9.8 g/dL (12.0-16.0); LYMPHOCYTES # (AUTO) 3.6 K/uL (1.0-5.5); LYMPHOCYTES % (AUTO) 21.3 % (20.5-51.5); MEAN CORPUSCULAR HEMOGLOBIN 28 pg (27-31); MEAN CORPUSCULAR HGB CONC 32 % (32-36); MEAN CORPUSCULAR VOLUME 87 fL (79.0-98.0); MONOCYTES # (AUTO) 1.4 K/uL (0.0-1.0); MONOCYTES % (AUTO) 8.2 % (1.7-9.3); NEUTROPHILS # (AUTO) 11.3 K/uL (1.8-7.7); NEUTROPHILS % (AUTO) 66.6 % (40.0-70.0); PLATELET COUNT (AUTO) 309 K/uL (130-430); RED BLOOD CELL COUNT(AUTO) 3.56 MIL/uL (4.2-6.2); RED CELL DISTRIBUTION WIDTH 17.8 % (9.0-15.0)
[2019-02-13 07:49] LABS: CALCIUM 9.1 mg/dL (8.4-11.0); CREATININE 1.07 mg/dL (0.55-1.30); PHOSPHORUS 2.8 mg/dL (2.7-4.5)
[2019-02-13 08:16] VITALS: BP_SYST 148
[2019-02-13] MEDS ORDERED: COLISTIMETHATE SODIUM 75 MG in NS 50 ML IV SCH (09:00)
[2019-02-13] MEDS: GABAPENTIN 300 MG CAPSULE PO SCH ×3 (09:06→21:00)
[2019-02-13] MEDS: CILOSTAZOL 50 MG TABLET (PLETAL) PO SCH ×2 (09:06→22:04)
[2019-02-13] MEDS: ALLOPURINOL 100 MG TABLET (ZYLOPRIM) PO SCH (09:07)
[2019-02-13] MEDS: LACTULOSE 20 GM/30 ML UDC PO SCH ×2 (09:07→21:00)
[2019-02-13] MEDS: NEPHROVITE, (FOLIC ACID/VITAMIN B COMP W-C 1 TAB) PO SCH (09:07)
[2019-02-13] MEDS: LACTOBACILLUS RHAMNOSUS GG 1 CAP CAPSULE PO SCH ×2 (09:07→21:00)
[2019-02-13] MEDS: FERROUS GLUCONATE 300 MG TABLET PO SCH ×2 (09:07→21:00)
[2019-02-13] MEDS: ASPIRIN 81 MG TABLET(ECOTRIN) PO SCH (09:07)
[2019-02-13] MEDS: MAGNESIUM OXIDE 400 MG TABLET PO SCH (09:07)
[2019-02-13] MEDS: CHOLECALCIFEROL (VITAMIN D3) 2,000 UNIT TABLET PO SCH (09:07)
[2019-02-13 11:12] VITALS: BP_SYST 110
[2019-02-13 15:59] VITALS: BP_SYST 117
[2019-02-13] MEDS: WARFARIN SODIUM 2.5 MG TABLET PO SCH (18:12)
[2019-02-13 19:55] VITALS: BP_SYST 117
[2019-02-13 20:30] VITALS: BP_SYST 111
[2019-02-13] MEDS: MINERAL OIL 30 ML UDC PO SCH (21:00)
[2019-02-13] MEDS: ACETAMINOPHEN 325 MG TABLET PO PRN (21:50)
[2019-02-13] MEDS: ATORVASTATIN 10 MG TABLET PO SCH (22:04)
[2019-02-13] MEDS: INSULIN REGULAR, HUMAN 100 UNITS/ML, 10 ML VIAL (novoLIN R) SUBCUT PRN (22:09)
[2019-02-14] MEDS: IPRATROPIUM/ALBUTEROL SULFATE 3 ML AMPUL.NEB (DUONEB) INH SCH ×6 (03:48→23:03)
[2019-02-14 04:19] VITALS: BP_SYST 153
[2019-02-14] MEDS: METOCLOPRAMIDE HCL 10 MG/2 ML VIAL IVP SCH ×3 (05:47→17:53)
[2019-02-14] MEDS: PIPERACILLIN/TAZO 2.25G/DEX-IS 50 ML IV SCH ×3 (05:47→17:58)
[2019-02-14] MEDS: LEVOTHYROXINE SODIUM 0.15 MG TABLET PO SCH (06:27)
[2019-02-14 06:38] LABS: CALCIUM 9.5 mg/dL (8.4-11.0); CREATININE 1.22 mg/dL (0.55-1.30); POTASSIUM 3.8 mmol/L (3.5-5.1)
[2019-02-14 06:41] LABS: INR 1.2 (0.8-1.2); PROTHROMBIN TIME 12.7 SECS (9.5-12.5)
[2019-02-14 06:49] LABS: BASOPHILS % (AUTO) 0.2 % (0.0-2.0); EOSINOPHILS # (AUTO) 0.5 K/uL (0.0-0.4); EOSINOPHILS % (AUTO) 3.1 % (0.0-4.0); HEMATOCRIT 33.1 % (36-48); HEMOGLOBIN 10.6 g/dL (12.0-16.0); LYMPHOCYTES # (AUTO) 3.9 K/uL (1.0-5.5); LYMPHOCYTES % (AUTO) 22.8 % (20.5-51.5); MEAN CORPUSCULAR HEMOGLOBIN 28 pg (27-31); MEAN CORPUSCULAR HGB CONC 32 % (32-36); MEAN CORPUSCULAR VOLUME 86 fL (79.0-98.0); MONOCYTES # (AUTO) 1.3 K/uL (0.0-1.0); MONOCYTES % (AUTO) 7.4 % (1.7-9.3); NEUTROPHILS # (AUTO) 11.5 K/uL (1.8-7.7); NEUTROPHILS % (AUTO) 66.5 % (40.0-70.0); PLATELET COUNT (AUTO) 321 K/uL (130-430); RED BLOOD CELL COUNT(AUTO) 3.84 MIL/uL (4.2-6.2); RED CELL DISTRIBUTION WIDTH 17.8 % (9.0-15.0); WHITE BLOOD COUNT (AUTO) 17.2 K/uL (4.8-10.8)
[2019-02-14 08:00] VITALS: BP_SYST 104
[2019-02-14] MEDS: LACTULOSE 20 GM/30 ML UDC PO SCH ×2 (09:00→21:00)
[2019-02-14] MEDS: GABAPENTIN 300 MG CAPSULE PO SCH ×3 (09:00→21:11)
[2019-02-14 11:38] VITALS: BP_SYST 138
[2019-02-14] MEDS: HYDROmorphone 1 MG INJ. 1 MG/ML AMPUL IVP PRN ×3 (11:51→20:16)
[2019-02-14] MEDS: LACTOBACILLUS RHAMNOSUS GG 1 CAP CAPSULE PO SCH ×2 (11:56→21:49)
[2019-02-14] MEDS: ASPIRIN 81 MG TABLET(ECOTRIN) PO SCH (11:56)
[2019-02-14] MEDS: CHOLECALCIFEROL (VITAMIN D3) 2,000 UNIT TABLET PO SCH (11:56)
[2019-02-14] MEDS: ALLOPURINOL 100 MG TABLET (ZYLOPRIM) PO SCH (11:58)
[2019-02-14] MEDS: CILOSTAZOL 50 MG TABLET (PLETAL) PO SCH ×2 (11:59→21:09)
[2019-02-14] MEDS: NEPHROVITE, (FOLIC ACID/VITAMIN B COMP W-C 1 TAB) PO SCH (11:59)
[2019-02-14] MEDS: FERROUS GLUCONATE 300 MG TABLET PO SCH ×2 (11:59→21:11)
[2019-02-14] MEDS: MAGNESIUM OXIDE 400 MG TABLET PO SCH (11:59)
[2019-02-14] MEDS: COLISTIMETHATE SODIUM 75 MG in NS 50 ML IV SCH (12:48)
[2019-02-14] MEDS: INSULIN REGULAR, HUMAN 100 UNITS/ML, 10 ML VIAL (novoLIN R) SUBCUT PRN (16:52)
[2019-02-14 16:57] VITALS: BP_SYST 142
[2019-02-14 17:34] VITALS: BP_SYST 142
[2019-02-14] MEDS: WARFARIN SODIUM 2.5 MG TABLET PO SCH (17:55)
[2019-02-14 20:00] VITALS: BP_SYST 145
[2019-02-14] MEDS: MINERAL OIL 30 ML UDC PO SCH (21:00)
[2019-02-14] MEDS: ACETAMINOPHEN 325 MG TABLET PO PRN (21:10)
[2019-02-14] MEDS: ATORVASTATIN 10 MG TABLET PO SCH (21:10)
[2019-02-14] MEDS: ONDANSETRON HCL 4 MG/2 ML VIAL IVP PRN (21:14)
[2019-02-14] MEDS: DIPHENHYDRAMINE INJ 50 MG/ML VIAL IVP PRN (21:14)
[2019-02-15] MEDS: PIPERACILLIN/TAZO 2.25G/DEX-IS 50 ML IV SCH (00:13)
[2019-02-15] MEDS: METOCLOPRAMIDE HCL 10 MG/2 ML VIAL IVP SCH ×4 (00:14→17:58)
[2019-02-15] MEDS: HYDROmorphone 1 MG INJ. 1 MG/ML AMPUL IVP PRN ×5 (00:16→20:06)
[2019-02-15 00:44] VITALS: BP_SYST 144
[2019-02-15] MEDS: IPRATROPIUM/ALBUTEROL SULFATE 3 ML AMPUL.NEB (DUONEB) INH SCH ×6 (03:00→23:00)
[2019-02-15] MEDS: DIPHENHYDRAMINE INJ 50 MG/ML VIAL IVP PRN ×2 (06:04→21:09)
[2019-02-15] MEDS: LEVOTHYROXINE SODIUM 0.15 MG TABLET PO SCH (06:07)
[2019-02-15 06:54] LABS: BASOPHILS # (AUTO) 0.1 K/uL (0.0-0.2); BASOPHILS % (AUTO) 0.4 % (0.0-2.0); EOSINOPHILS # (AUTO) 0.6 K/uL (0.0-0.4); EOSINOPHILS % (AUTO) 3.8 % (0.0-4.0); HEMATOCRIT 32.8 % (36-48); HEMOGLOBIN 10.7 g/dL (12.0-16.0); LYMPHOCYTES # (AUTO) 3.8 K/uL (1.0-5.5); LYMPHOCYTES % (AUTO) 24.5 % (20.5-51.5); MEAN CORPUSCULAR HEMOGLOBIN 28 pg (27-31); MEAN CORPUSCULAR HGB CONC 33 % (32-36); MEAN CORPUSCULAR VOLUME 87 fL (79.0-98.0); MONOCYTES # (AUTO) 1.1 K/uL (0.0-1.0); MONOCYTES % (AUTO) 7.3 % (1.7-9.3); NEUTROPHILS # (AUTO) 9.9 K/uL (1.8-7.7); PLATELET COUNT (AUTO) 337 K/uL (130-430); RED BLOOD CELL COUNT(AUTO) 3.79 MIL/uL (4.2-6.2); RED CELL DISTRIBUTION WIDTH 17.2 % (9.0-15.0); WHITE BLOOD COUNT (AUTO) 15.5 K/uL (4.8-10.8)
[2019-02-15 07:38] LABS: CALCIUM 9.6 mg/dL (8.4-11.0); CREATININE 1.27 mg/dL (0.55-1.30); POTASSIUM 3.7 mmol/L (3.5-5.1)
[2019-02-15] MEDS ORDERED: IPRATROPIUM/ALBUTEROL SULFATE 3 ML AMPUL.NEB (DUONEB) ONE (08:46)
[2019-02-15] MEDS: GABAPENTIN 300 MG CAPSULE PO SCH ×3 (09:12→20:12)
[2019-02-15] MEDS: CILOSTAZOL 50 MG TABLET (PLETAL) PO SCH ×2 (09:12→20:12)
[2019-02-15] MEDS: NEPHROVITE, (FOLIC ACID/VITAMIN B COMP W-C 1 TAB) PO SCH (09:12)
[2019-02-15] MEDS: ASPIRIN 81 MG TABLET(ECOTRIN) PO SCH (09:12)
[2019-02-15] MEDS: FERROUS GLUCONATE 300 MG TABLET PO SCH ×2 (09:12→20:12)
[2019-02-15] MEDS: ALLOPURINOL 100 MG TABLET (ZYLOPRIM) PO SCH (09:12)
[2019-02-15] MEDS: LACTOBACILLUS RHAMNOSUS GG 1 CAP CAPSULE PO SCH ×2 (09:12→20:12)
[2019-02-15] MEDS: MAGNESIUM OXIDE 400 MG TABLET PO SCH (09:12)
[2019-02-15] MEDS: CHOLECALCIFEROL (VITAMIN D3) 2,000 UNIT TABLET PO SCH (09:12)
[2019-02-15] MEDS: LACTULOSE 20 GM/30 ML UDC PO SCH ×2 (09:13→09:24)
[2019-02-15 09:23] VITALS: BP_SYST 120
[2019-02-15] MEDS ORDERED: IPRATROPIUM/ALBUTEROL SULFATE 3 ML AMPUL.NEB (DUONEB) INH PRN (09:30)
[2019-02-15] MEDS: ONDANSETRON HCL 4 MG/2 ML VIAL IVP PRN ×2 (11:26→20:05)
[2019-02-15] MEDS: INSULIN REGULAR, HUMAN 100 UNITS/ML, 10 ML VIAL (novoLIN R) SUBCUT PRN ×3 (11:42→20:19)
[2019-02-15] MEDS: COLISTIMETHATE SODIUM 75 MG in NS 50 ML IV SCH (11:46)
[2019-02-15 12:07] VITALS: BP_SYST 144
[2019-02-15 16:43] VITALS: BP_SYST 132
[2019-02-15] MEDS: WARFARIN SODIUM 2.5 MG TABLET PO SCH (17:58)
[2019-02-15 20:00] VITALS: BP_SYST 165
[2019-02-15] MEDS: ATORVASTATIN 10 MG TABLET PO SCH (20:12)
[2019-02-15] MEDS: MINERAL OIL 30 ML UDC PO SCH (20:12)
[2019-02-16 00:08] VITALS: BP_SYST 113
[2019-02-16] MEDS: HYDROmorphone 1 MG INJ. 1 MG/ML AMPUL IVP PRN ×6 (00:08→21:14)
[2019-02-16] MEDS: METOCLOPRAMIDE HCL 10 MG/2 ML VIAL IVP SCH ×3 (00:08→12:02)
[2019-02-16] MEDS: ACETAMINOPHEN 325 MG TABLET PO PRN (01:40)
[2019-02-16] MEDS: IPRATROPIUM/ALBUTEROL SULFATE 3 ML AMPUL.NEB (DUONEB) INH SCH ×6 (03:00→23:00)
[2019-02-16] MEDS: ONDANSETRON HCL 4 MG/2 ML VIAL IVP PRN ×5 (04:01→21:11)
[2019-02-16] MEDS: DIPHENHYDRAMINE INJ 50 MG/ML VIAL IVP PRN ×4 (05:43→22:53)
[2019-02-16] MEDS: LEVOTHYROXINE SODIUM 0.15 MG TABLET PO SCH (06:02)
[2019-02-16] MEDS: INSULIN REGULAR, HUMAN 100 UNITS/ML, 10 ML VIAL (novoLIN R) SUBCUT PRN ×3 (06:05→21:45)
[2019-02-16 07:23] LABS: BASOPHILS % (AUTO) 0.3 % (0.0-2.0); EOSINOPHILS # (AUTO) 0.5 K/uL (0.0-0.4); EOSINOPHILS % (AUTO) 3.6 % (0.0-4.0); HEMATOCRIT 28.5 % (36-48); HEMOGLOBIN 9.2 g/dL (12.0-16.0); LYMPHOCYTES # (AUTO) 3.7 K/uL (1.0-5.5); LYMPHOCYTES % (AUTO) 27.2 % (20.5-51.5); MEAN CORPUSCULAR HEMOGLOBIN 28 pg (27-31); MEAN CORPUSCULAR HGB CONC 32 % (32-36); MEAN CORPUSCULAR VOLUME 86 fL (79.0-98.0); MONOCYTES % (AUTO) 7.5 % (1.7-9.3); NEUTROPHILS # (AUTO) 8.3 K/uL (1.8-7.7); NEUTROPHILS % (AUTO) 61.4 % (40.0-70.0); PLATELET COUNT (AUTO) 292 K/uL (130-430); RED CELL DISTRIBUTION WIDTH 17.1 % (9.0-15.0); WHITE BLOOD COUNT (AUTO) 13.6 K/uL (4.8-10.8)
[2019-02-16 07:31] LABS: CREATININE 1.31 mg/dL (0.55-1.30); INR 1.3 (0.8-1.2); POTASSIUM 3.7 mmol/L (3.5-5.1); PROTHROMBIN TIME 13.3 SECS (9.5-12.5)
[2019-02-16 07:59] VITALS: BP_SYST 128
[2019-02-16] MEDS: LACTOBACILLUS RHAMNOSUS GG 1 CAP CAPSULE PO SCH ×2 (09:16→21:19)
[2019-02-16] MEDS: GABAPENTIN 300 MG CAPSULE PO SCH ×3 (09:17→21:19)
[2019-02-16] MEDS: ASPIRIN 81 MG TABLET(ECOTRIN) PO SCH (09:18)
[2019-02-16] MEDS: MAGNESIUM OXIDE 400 MG TABLET PO SCH (09:18)
[2019-02-16] MEDS: CILOSTAZOL 50 MG TABLET (PLETAL) PO SCH ×2 (09:19→21:18)
[2019-02-16] MEDS: NEPHROVITE, (FOLIC ACID/VITAMIN B COMP W-C 1 TAB) PO SCH (09:19)
[2019-02-16] MEDS: FERROUS GLUCONATE 300 MG TABLET PO SCH ×2 (09:19→21:19)
[2019-02-16] MEDS: CHOLECALCIFEROL (VITAMIN D3) 2,000 UNIT TABLET PO SCH (09:20)
[2019-02-16] MEDS: ALLOPURINOL 100 MG TABLET (ZYLOPRIM) PO SCH (09:21)
[2019-02-16] MEDS: LACTULOSE 20 GM/30 ML UDC PO SCH ×2 (09:24→21:19)
[2019-02-16] MEDS: COLISTIMETHATE SODIUM 75 MG in NS 50 ML IV SCH (12:02)
[2019-02-16 12:10] VITALS: BP_SYST 142
[2019-02-16] MEDS ORDERED: SIMETHICONE 80 MG TAB.CHEW PO ONE (13:45)
[2019-02-16 16:00] VITALS: BP_SYST 135
[2019-02-16] MEDS: METOCLOPRAMIDE HCL 10 MG TABLET PO SCH ×2 (17:03→21:19)
[2019-02-16] MEDS: WARFARIN SODIUM 2.5 MG TABLET PO SCH (17:05)
[2019-02-16 19:48] VITALS: BP_SYST 108
[2019-02-16] MEDS: SIMETHICONE 80 MG TAB.CHEW PO SCH (21:18)
[2019-02-16] MEDS: ATORVASTATIN 10 MG TABLET PO SCH (21:20)
[2019-02-16] MEDS: MINERAL OIL 30 ML UDC PO SCH (21:20)
[2019-02-17 00:26] VITALS: BP_SYST 140
[2019-02-17] MEDS: ONDANSETRON HCL 4 MG/2 ML VIAL IVP PRN ×4 (01:19→21:11)
[2019-02-17] MEDS: HYDROmorphone 1 MG INJ. 1 MG/ML AMPUL IVP PRN ×3 (01:21→10:02)
[2019-02-17] MEDS: IPRATROPIUM/ALBUTEROL SULFATE 3 ML AMPUL.NEB (DUONEB) INH SCH ×4 (03:00→23:11)
[2019-02-17] MEDS: DIPHENHYDRAMINE INJ 50 MG/ML VIAL IVP PRN (03:33)
[2019-02-17] MEDS: METOCLOPRAMIDE HCL 10 MG TABLET PO SCH ×4 (06:56→21:09)
[2019-02-17] MEDS: LEVOTHYROXINE SODIUM 0.15 MG TABLET PO SCH (06:56)
[2019-02-17 06:58] LABS: BASOPHILS # (AUTO) 0.1 K/uL (0.0-0.2); BASOPHILS % (AUTO) 0.4 % (0.0-2.0); EOSINOPHILS # (AUTO) 0.6 K/uL (0.0-0.4); EOSINOPHILS % (AUTO) 4.6 % (0.0-4.0); HEMATOCRIT 28.3 % (36-48); LYMPHOCYTES # (AUTO) 3.2 K/uL (1.0-5.5); MEAN CORPUSCULAR HEMOGLOBIN 28 pg (27-31); MEAN CORPUSCULAR HGB CONC 32 % (32-36); MEAN CORPUSCULAR VOLUME 87 fL (79.0-98.0); MONOCYTES # (AUTO) 0.9 K/uL (0.0-1.0); MONOCYTES % (AUTO) 6.9 % (1.7-9.3); NEUTROPHILS # (AUTO) 8.5 K/uL (1.8-7.7); NEUTROPHILS % (AUTO) 64.1 % (40.0-70.0); PLATELET COUNT (AUTO) 269 K/uL (130-430); RED BLOOD CELL COUNT(AUTO) 3.27 MIL/uL (4.2-6.2); RED CELL DISTRIBUTION WIDTH 17.6 % (9.0-15.0); WHITE BLOOD COUNT (AUTO) 13.2 K/uL (4.8-10.8)
[2019-02-17 07:13] LABS: CALCIUM 8.9 mg/dL (8.4-11.0); CREATININE 1.42 mg/dL (0.55-1.30); INR 1.5 (0.8-1.2); POTASSIUM 3.6 mmol/L (3.5-5.1)
[2019-02-17 07:35] LABS: PROTHROMBIN TIME 15.2 SECS (9.5-12.5)
[2019-02-17] MEDS: LACTULOSE 20 GM/30 ML UDC PO SCH ×3 (09:00→21:09)
[2019-02-17 09:30] VITALS: BP_SYST 124
[2019-02-17] MEDS: CILOSTAZOL 50 MG TABLET (PLETAL) PO SCH ×2 (10:00→21:08)
[2019-02-17] MEDS: FERROUS GLUCONATE 300 MG TABLET PO SCH ×2 (10:00→21:09)
[2019-02-17] MEDS: ALLOPURINOL 100 MG TABLET (ZYLOPRIM) PO SCH (10:00)
[2019-02-17] MEDS: ASPIRIN 81 MG TABLET(ECOTRIN) PO SCH (10:00)
[2019-02-17] MEDS: SIMETHICONE 80 MG TAB.CHEW PO SCH ×3 (10:01→21:10)
[2019-02-17] MEDS: GABAPENTIN 300 MG CAPSULE PO SCH ×3 (10:01→21:09)
[2019-02-17] MEDS: NEPHROVITE, (FOLIC ACID/VITAMIN B COMP W-C 1 TAB) PO SCH (10:01)
[2019-02-17] MEDS: CHOLECALCIFEROL (VITAMIN D3) 2,000 UNIT TABLET PO SCH (10:01)
[2019-02-17] MEDS: MAGNESIUM OXIDE 400 MG TABLET PO SCH (10:01)
[2019-02-17] MEDS: LACTOBACILLUS RHAMNOSUS GG 1 CAP CAPSULE PO SCH ×2 (10:05→21:09)
[2019-02-17 11:05] VITALS: BP_SYST 121
[2019-02-17] MEDS: DIPHENHYDRAMINE HCL 25 MG CAPSULE PO PRN ×2 (12:01→21:08)
[2019-02-17] MEDS: COLISTIMETHATE SODIUM 75 MG in NS 50 ML IV SCH (12:02)
[2019-02-17 13:32] VITALS: BP_SYST 121
[2019-02-17 16:16] VITALS: BP_SYST 113
[2019-02-17] MEDS: WARFARIN SODIUM 2.5 MG TABLET PO SCH (18:03)
[2019-02-17 20:00] VITALS: BP_SYST 136
[2019-02-17] MEDS: MINERAL OIL 30 ML UDC PO SCH ×2 (21:00→21:09)
[2019-02-17] MEDS: ATORVASTATIN 10 MG TABLET PO SCH (21:08)
[2019-02-17] MEDS: OXYCODONE/ACETAMINOPHEN 5-325 TABLET PO PRN (21:11)
[2019-02-18 00:24] VITALS: BP_SYST 129
[2019-02-18] MEDS: IPRATROPIUM/ALBUTEROL SULFATE 3 ML AMPUL.NEB (DUONEB) INH SCH ×4 (03:08→15:43)
[2019-02-18] MEDS: ONDANSETRON HCL 4 MG/2 ML VIAL IVP PRN ×2 (06:02→10:12)
[2019-02-18] MEDS: OXYCODONE/ACETAMINOPHEN 5-325 TABLET PO PRN ×2 (06:03→12:38)
[2019-02-18] MEDS: METOCLOPRAMIDE HCL 10 MG TABLET PO SCH ×2 (06:03→11:30)
[2019-02-18] MEDS: LEVOTHYROXINE SODIUM 0.15 MG TABLET PO SCH (06:03)
[2019-02-18] MEDS: DIPHENHYDRAMINE HCL 25 MG CAPSULE PO PRN (06:03)
[2019-02-18 08:21] VITALS: BP_SYST 117
[2019-02-18] MEDS: CILOSTAZOL 50 MG TABLET (PLETAL) PO SCH (08:26)
[2019-02-18] MEDS: ALLOPURINOL 100 MG TABLET (ZYLOPRIM) PO SCH (08:26)
[2019-02-18] MEDS: CHOLECALCIFEROL (VITAMIN D3) 2,000 UNIT TABLET PO SCH (08:26)
[2019-02-18] MEDS: LACTOBACILLUS RHAMNOSUS GG 1 CAP CAPSULE PO SCH (08:26)
[2019-02-18] MEDS: NEPHROVITE, (FOLIC ACID/VITAMIN B COMP W-C 1 TAB) PO SCH (08:26)
[2019-02-18] MEDS: MAGNESIUM OXIDE 400 MG TABLET PO SCH (08:26)
[2019-02-18] MEDS: SIMETHICONE 80 MG TAB.CHEW PO SCH ×2 (08:26→14:32)
[2019-02-18] MEDS: ASPIRIN 81 MG TABLET(ECOTRIN) PO SCH (08:26)
[2019-02-18] MEDS: GABAPENTIN 300 MG CAPSULE PO SCH ×2 (08:26→14:32)
[2019-02-18] MEDS: LACTULOSE 20 GM/30 ML UDC PO SCH (08:28)
[2019-02-18] MEDS: FERROUS GLUCONATE 300 MG TABLET PO SCH (08:28)
[2019-02-18 09:53] VITALS: BP_SYST 117; BP_SYST 126
[2019-02-18] MEDS: COLISTIMETHATE SODIUM 75 MG in NS 50 ML IV SCH (11:28)
[2019-02-18 12:02] VITALS: BP_SYST 126
[2019-02-18 16:11] VITALS: BP_SYST 122
== END 2019-02-18 16:37 | disposition home health service (06) | DRG 870 ==
LOC: SED 19:20 → STU 02-02 00:39
PROVIDERS: ADMIT Internal Medicine; ATTEND Internal Medicine
PROC: 5A1955Z Respiratory Ventilation, Greater than 96 Consecutive Hours (ICD-10-PCS; principal; 2019-02-02)
PROC: 0TP98DZ Removal of Intraluminal Device from Ureter, Via Natural or Artificial Opening Endoscopic (ICD-10-PCS; 2019-02-12)
PROC: 30233N1 Transfusion of Nonautologous Red Blood Cells into Peripheral Vein, Percutaneous Approach (ICD-10-PCS; 2019-02-12)
DX: A41.9 Sepsis, unspecified organism (principal); J18.9 Pneumonia, unspecified organism; N17.0 Acute kidney failure with tubular necrosis; J96.20 Acute and chronic respiratory failure, unspecified whether with hypoxia or hypercapnia; J18.1 Lobar pneumonia, unspecified organism; E44.0 Moderate protein-calorie malnutrition; K56.7 Ileus, unspecified; I69.351 Hemiplegia and hemiparesis following cerebral infarction affecting right dominant side; N39.0 Urinary tract infection, site not specified; J44.0 Chronic obstructive pulmonary disease with (acute) lower respiratory infection; J44.1 Chronic obstructive pulmonary disease with (acute) exacerbation; D68.59 Other primary thrombophilia; I50.9 Heart failure, unspecified; K31.89 Other diseases of stomach and duodenum; E11.51 Type 2 diabetes mellitus with diabetic peripheral angiopathy without gangrene; E11.22 Type 2 diabetes mellitus with diabetic chronic kidney disease; N18.9 Chronic kidney disease, unspecified; D63.8 Anemia in other chronic diseases classified elsewhere; Y95 Nosocomial condition; E11.43 Type 2 diabetes mellitus with diabetic autonomic (poly)neuropathy; F41.8 Other specified anxiety disorders; F32.9 Major depressive disorder, single episode, unspecified; E66.9 Obesity, unspecified; R53.82 Chronic fatigue, unspecified; B96.20 Unspecified Escherichia coli [E. coli] as the cause of diseases classified elsewhere; K31.84 Gastroparesis; J84.10 Pulmonary fibrosis, unspecified; J98.6 Disorders of diaphragm; M16.11 Unilateral primary osteoarthritis, right hip; J45.909 Unspecified asthma, uncomplicated; Z88.2 Allergy status to sulfonamides; Z88.8 Allergy status to other drugs, medicaments and biological substances; Z88.6 Allergy status to analgesic agent; Z88.1 Allergy status to other antibiotic agents; Z91.041 Radiographic dye allergy status; Z91.018 Allergy to other foods; Z91.011 Allergy to milk products; Z79.82 Long term (current) use of aspirin; Z79.899 Other long term (current) drug therapy; Z95.0 Presence of cardiac pacemaker; Z87.442 Personal history of urinary calculi; Z86.718 Personal history of other venous thrombosis and embolism; Z86.711 Personal history of pulmonary embolism; Z83.3 Family history of diabetes mellitus; Z82.49 Family history of ischemic heart disease and other diseases of the circulatory system; Z68.33 Body mass index [BMI] 33.0-33.9, adult; Z93.0 Tracheostomy status
CPT/HCPCS: 36415; 70450-TC; 71045; 73502; 74018; 80048; 80053; 81000-TC; 82272; 82810-TC; 82962; 83540-TC; 83550-TC; 83605; 83690-TC; 83735-TC; 84100-TC; 85025; 85610-TC; 85730-TC; 86886; 86900; 86901; 86920; 87040-TC; 87045-TC; 87046; 87070-TC; 87081; 87086; 87186-TC; 87205-TC; 89055; 93005; 93306; 93970; 94002; 94003; 94640; 94760; 96365; 96366; 96375; 99285; G0378; J0770; J1170; J1200; J1815; J1956; J2405; J2543; J2765; J2916; J3010; J7030; J7040; J7050; J7620; J8597; P9021; Q0163

== ENCOUNTER 2019-02-20 14:36 | Inpatient (IN) | payer OTHER, MEDICAID ==
[~2019-02-20] VITALS: Ht 167.6 cm; Wt 95.7 kg
[~2019-02-20 14:36] MED LIST changes: -DOCU-144 PO; +FERR325T22 PO; -FOLI0.8T2 PO; -IPRA0.2S6 INH; +IPRA3AMP9 INH; -LEVA15HF5 INH; -OXYC-130 PO
--- NOTE | 2019-02-20 14:36 | NUR ---
Placed in room 01 . Placed on cardiac sonographer, blood pressure machine and pulse oximeter. To gown for exam. Side rails up.
[2019-02-20 14:41] VITALS: BP_SYST 131
[2019-02-20] MEDS ORDERED: NACL 0.9% 1,000 ML IV ONE (14:43)
[2019-02-20] MEDS ORDERED: NS 1000 ML IV.SOLN IV ONE (14:45)
--- NOTE | 2019-02-20 14:45 | NUR ---
RECIEVED PATIENT REPORT. PATIENT IS AAOX4. PATIENT HAS TRACH WITH MECHANICAL VENT. NO ACUTE SIGNS OF RESP DISTRESS, NO SOB. BREATHING EVEN AND UNLABORED. PATIENT HAS SAMUEL CATHETER FROM HOME. PATIENT STATED "I HAD A FEVER AT HOME AND I HAVENT HAD A FEVER FOR A WHILE". ALL NEEDS MET AT THIS TIME. CONTINUE TO MONITOR.
--- NOTE | 2019-02-20 14:50 | NUR ---
PT WITH SHILEY SIZE 6XLT TRACH CONNECTED TO ROSAS VENTILATOR VIA HOME SETTING: AC 14,600,30%. MD SORTO AWARE.
[2019-02-20] MEDS ORDERED: VITD2000 PO (15:05)
[2019-02-20] MEDS ORDERED: VIT1TABL44 PO (15:05)
[2019-02-20] MEDS ORDERED: ONDANSETRON HCL 4 MG/2 ML VIAL IVP ONE (15:15)
[2019-02-20] MEDS ORDERED: fentaNYL CITRATE/PF 100 MCG/2 ML AMP IVP ONE (15:15)
--- NOTE | 2019-02-20 15:30 | NUR ---
Patient arrived with pizarro in place, changed due to standard of practice prior to admission.# 16 FR Pizarro catheter with use of sterile technique. Immediate return of 20 cc YELLOW urine noted. Bedside drainage bag placed below level of bladder. Urine sample collected and sent to lab. Pt tolerated procedure WELL.
[2019-02-20 15:55] LABS: BASOPHILS # (AUTO) 0.1 K/uL (0.0-0.2); BASOPHILS % (AUTO) 0.4 % (0.0-2.0); EOSINOPHILS # (AUTO) 0.7 K/uL (0.0-0.4); EOSINOPHILS % (AUTO) 4.6 % (0.0-4.0); HEMATOCRIT 29.6 % (36-48); HEMOGLOBIN 9.5 g/dL (12.0-16.0); LYMPHOCYTES # (AUTO) 2.7 K/uL (1.0-5.5); LYMPHOCYTES % (AUTO) 18.7 % (20.5-51.5); MEAN CORPUSCULAR HEMOGLOBIN 28 pg (27-31); MEAN CORPUSCULAR HGB CONC 32 % (32-36); MEAN CORPUSCULAR VOLUME 89 fL (79.0-98.0); MONOCYTES # (AUTO) 1.1 K/uL (0.0-1.0); MONOCYTES % (AUTO) 7.4 % (1.7-9.3); NEUTROPHILS % (AUTO) 68.9 % (40.0-70.0); PLATELET COUNT (AUTO) 275 K/uL (130-430); RED BLOOD CELL COUNT(AUTO) 3.33 MIL/uL (4.2-6.2); RED CELL DISTRIBUTION WIDTH 16.8 % (9.0-15.0); WHITE BLOOD COUNT (AUTO) 14.6 K/uL (4.8-10.8)
[2019-02-20 16:02] LABS: CALCIUM 9.1 mg/dL (8.4-11.0); CREATININE 2.8 mg/dL (0.55-1.30); POTASSIUM 4.4 mmol/L (3.5-5.1)
[2019-02-20 16:04] LABS: INR 1.7 (0.8-1.2); PROTHROMBIN TIME 16.9 SECS (9.5-12.5)
[2019-02-20 16:08] LABS: ALBUMIN 2.9 g/dL (3.4-4.8); TOTAL BILIRUBIN 0.4 mg/dL (0.0-1.0)
--- NOTE | 2019-02-20 16:20 | NUR ---
[address] SCAN VIA VENTILATOR WITH RN ANAT AND PHYSICS TECHNICAL OFFICER [place]. 1610 BACK TO ER BED1. TRACH SECURED. PROVIDED TRACH SX. NO RESPIRATORY DISTRESS NOTED AT THIS TIME.
--- NOTE | 2019-02-20 17:10 | NUR ---
Patient resting in bed comfortable. no signs of distress. denies pain at this time.
--- NOTE | 2019-02-20 18:00 | NUR ---
Patient will be admitted to care of Dr. Hanna. Admitted to Tele unit. Will go to room 118A. Belongings list completed. Summary report printed. Report will be given at bedside.
--- NOTE | 2019-02-20 18:08 | NUR ---
Admission Note Received patient from ER with diagnosis of HEALTHCARE ASSOCIATED PNEUMONIA WIT PLEURAL EFFUSION. Initial Plan of Care discussed-patient verbalized understanding. Family at bedside. Oriented to room, call light, pain management and safety.
--- NOTE | 2019-02-20 18:35 | NUR ---
INITIAL NOTES: REPORT GIVEN BY ER NURSE RESEE.PATIENT PLACED IN ROOM 118-A,ADMITTED WITH CHRONIC TRACH VENT DEPENDENT.FIO2=30%,GOOD SATURATION. PLACED ON CONTACT ISOLATION FOR HISTORY OF ESBL IN URINE,MDRO/TELESALES ADVISOR IN SPUTUM.ROUTINE VITAL SIGNS TAKEN. ON TELEMETRY,PACED ON DEMAND.SAMUEL IN SITU. CONDITION GUARDED.
[2019-02-20 18:40] VITALS: BP_SYST 127
[2019-02-20 18:44] LABS: BILIRUBIN,URINE NEGATIVE (NEGATIVE); CLARITY/URINE CLEAR (CLEAR); COLOR,URINE YELLOW (YELLOW); GLUCOSE,URINE NEGATIVE (NEGATIVE); KETONES,URINE NEGATIVE (NEGATIVE); LEUKOCYTE ESTERASE ,URINE 2+ (NEGATIVE); NITRITE, URINE NEGATIVE (NEGATIVE); PROTEIN URINE NEGATIVE (NEGATIVE); UROBILINOGEN,URINE 0.2 (0.2-1.0)
[2019-02-20 18:45] LABS: BLOOD, URINE TRACE (NEGATIVE)
[2019-02-20] MEDS ORDERED: MINERAL OIL 30 ML UDC PO SCH (18:45)
[2019-02-20] MEDS ORDERED: DIPHENHYDRAMINE HCL 25 MG CAPSULE PO PRN (18:45)
[2019-02-20] MEDS ORDERED: DEXTROSE 50% JECT 50 ML DISP.SYRIN IVP PRN (18:45)
[2019-02-20 18:50] LABS: BACTERIA,URINE FEW /HPF (None Seen); WBC,URINE 50-80 /HPF (0-3)
--- NOTE | 2019-02-20 18:50 | NUR ---
MRSA NARES/PROTOCOL: MRSA NARES SAMPLE DONE AND SENT TO LAB BY ER NURSE ELLER.
[2019-02-20] MEDS ORDERED: HYDROmorphone 1 MG INJ. 1 MG/ML AMPUL IVP PRN (19:15)
[2019-02-20] MEDS ORDERED: ACETAMINOPHEN 325 MG TABLET PO PRN (19:15)
[2019-02-20] MEDS ORDERED: WARFARIN SODIUM 2.5 MG TABLET PO SCH ×2 (19:15→20:00)
[2019-02-20] MEDS ORDERED: PIPERACILLIN/TAZO 2.25G/DEX-IS 50 ML IV SCH (19:30)
--- NOTE | 2019-02-20 19:30 | NUR ---
end of shift: Report given to night nurse Keith. Patient in stable condition.
[2019-02-20] MEDS: IPRATROPIUM/ALBUTEROL SULFATE 3 ML AMPUL.NEB (DUONEB) INH SCH ×2 (19:49→23:56)
[2019-02-20 19:50] VITALS: BP_SYST 127
[2019-02-20 20:00] VITALS: BP_SYST 117
[2019-02-20] MEDS ORDERED: PANTOPRAZOLE SODIUM 40 MG/VIAL (PROTONIX) IVP ONE (20:00)
--- NOTE | 2019-02-20 20:00 | NUR ---
INITIAL NOTES: PT IS AWAKE , ALERT AND ORIENTED , NOT IN ANY ACUTE DISTRESS;ON TRACH WITH VENT SUPPORT AC 14, TV 600 , FIO2 30% , PEEP 0 . PT IS ON THIS SETTING AT HOME AND SHE IS TOLERATING IT WELL AT THIS TIME , WITH A SAT OF 100% ; VITALS ARE STABLE ;ASSESSMENT DONE ; R LEG WITH HEEL LIFT BOOT IN PLACE , PT IS UNABLE TO MOVE THAT LEG . PACEMAKER TO THE LEFT CHEST ; SAMUEL IN PLACE DRAINING YELLOW COLOR URINE TO GRAVITY , NOTICED MILD EDEMA TO THE R LEG , SACRUM NOTED WITH SCAR , NO OPEN WOUND NOTED ; TELE MONITOR IS ON ; BED IN LOW AND LOCK POSITION , CALL CORNELIUS IN REACH; ENCOURAGED PT TO CALL FOR ASSIST . WILL CONTINUE TO MONITOR PT
[2019-02-20] MEDS ORDERED: PIPERACILLIN/TAZOBACTAM 2.25 GM VIAL IV ONE (20:06)
[2019-02-20] MEDS: HYDROmorphone 1 MG INJ. 1 MG/ML AMPUL IVP PRN (20:13)
--- NOTE | 2019-02-20 20:15 | NUR ---
PAIN: PT C/O SEVERE PAIN TO HER AN LEGS AND ARMS , MEDICATED HER WITH DILAUDID PER ORDER. ALSO PT STATED SHE IS NAUSEATED ; WILL PROVIDED REGLAN PER ORDER .
[2019-02-20] MEDS: LACTULOSE 20 GM/30 ML UDC PO SCH (20:17)
[2019-02-20] MEDS: SIMETHICONE 80 MG TAB.CHEW PO SCH (20:19)
[2019-02-20] MEDS: DOXYCYCLINE HYCLATE 100 MG CAPSULE PO SCH (20:19)
[2019-02-20] MEDS: CILOSTAZOL 50 MG TABLET (PLETAL) PO SCH (20:19)
[2019-02-20] MEDS: METOCLOPRAMIDE HCL 10 MG TABLET PO SCH (20:19)
[2019-02-20] MEDS: ATORVASTATIN 10 MG TABLET PO SCH (20:20)
--- NOTE | 2019-02-20 20:42 | NUR ---
CONSULTATION PAGED/CALLED Reason for Consultation: PNA WITH PLEURAL EFFUSION Person Who was Notified: SHILO Consulting Physician: DR. GORMAN Human Resources Compliance Manager Specialty: ID Ordering Physician: DR. ARAYA
--- NOTE | 2019-02-20 20:45 | NUR ---
MEDICATION: DUE MEDS GIVEN PER ORDER , PT REFUSED LACTULOSE STATED SHE HAD BM TODAY AND SHE NEEDS TO TAKE REST TONIGHT . PT RECEIVED DILAUDID EARLIER SO WILL GIVE PERCOCET LATER . PT IS COMFORTABLE ; ABLE TO SWALLOW MEDS , NO S/S OF ANY ASPIRATION NOTED ; WILL CONTINUE TO MONITOR PT .
--- NOTE | 2019-02-20 20:46 | NUR ---
CONSULTATION PAGED/CALLED Reason for Consultation: PNA WITH PLEURAL EFFUSION Person Who was Notified: SHILO Consulting Physician: DR. BECKWITH; COMMUNICATIONS SUPERINTENDENT - DR. MENSAH Endband Sizer Specialty: PULMONOLOGY Ordering Physician: DR. ARAYA Addendum: 02/20/19 at 2117 by Jesica Everett [facility] MADE AN ERROR DR. MENSAH DOES NOT COVER FOR DR. BECKWITH. SPOKE WITH MOLD DESIGNER, BRAN, AND SWITCHED CONSULTATION OVER TO DR. CHIANG (COVERING FOR DR. BECKWITH).
[2019-02-20] MEDS: 0.45% NS 500 ML IV SCH (20:47)
[2019-02-20] MEDS ORDERED: GABAPENTIN 300 MG CAPSULE PO SCH (21:00)
[2019-02-20] MEDS ORDERED: GABAPENTIN 400 MG CAPSULE PO SCH (21:00)
[2019-02-20] MEDS: OXYCODONE/ACETAMINOPHEN *10*mg/325 mg TABLET PO SCH (22:13)
--- NOTE | 2019-02-20 22:15 | NUR ---
MEDICATION: DUE PERCOCET GIVEN PER ORDER ; PT IS COMFORTABLE. WILL CONTINUE TO MONITOR .
--- NOTE | 2019-02-20 23:20 | NUR ---
DANDRE NOTES: PT IS COMFORTABLE , STILL HAS MILD PAIN BUT TOLERABLE PER PT , DUE ANTIBIOTIC IS INFUSING WELL . WILL CONTINUE TO MONITOR PT . Addendum: 02/22/19 at 0008 by Keith Gerber RN CORRECTION : WRONG DATE
--- NOTE | 2019-02-20 23:35 | NUR ---
RN ROUNDS: PT IS SLEEPING ON AND OFF , NOT IN ANY ACUTE DISTRESS; WILL CONTINUE TO MONITOR PT .
[2019-02-20 23:49] VITALS: BP_SYST 149
[2019-02-21] MEDS: PIPERACILLIN/TAZO 2.25G/DEX-IS 50 ML IV SCH ×5 (00:45→23:12)
--- NOTE | 2019-02-21 01:12 | NUR ---
RN ROUNDS: PT IS SLEEPING , RESPIRATION IS EVEN AND NON LABORED ; SAT 100% WITH FIO2 30% ; WILL CONTINUE TO MONITOR PT
[2019-02-21] MEDS: ONDANSETRON HCL 4 MG/2 ML VIAL IVP PRN ×2 (02:15→19:55)
[2019-02-21] MEDS: HYDROmorphone 1 MG INJ. 1 MG/ML AMPUL IVP PRN ×4 (02:16→21:14)
--- NOTE | 2019-02-21 03:23 | NUR ---
RN NOTES: PT IS SLEEPING , NOT IN ANY ACUTE DISTRESS; TOLERATING VENT SETTING WELL , SAT 100 %; NOT IN ANY ACUTE DISTRESS; WILL CONTINUE TO MONITOR PT
[2019-02-21] MEDS: IPRATROPIUM/ALBUTEROL SULFATE 3 ML AMPUL.NEB (DUONEB) INH SCH ×6 (04:06→23:16)
[2019-02-21] MEDS: 0.45% NS 500 ML IV SCH ×2 (04:15→11:44)
--- NOTE | 2019-02-21 05:00 | NUR ---
RN NOTES: PT IS SLEEPING , NOT IN ANY ACUTE DISTRESS; WILL CONTINUE TO MONITOR PT .
[2019-02-21] MEDS: LEVOTHYROXINE SODIUM 0.15 MG TABLET PO SCH (06:02)
--- NOTE | 2019-02-21 06:10 | NUR ---
MEDICATION: DUE MEDS GIVEN , PTS BS 110 , PT IS COMFORTABLE ; NOT IN ANY ACUTE DISTRESS; WILL CONTINUE TO MONITOR PT . PT IS TOLERATING VENT SETTING WELL . WILL CONTINUE TO MONITOR PT
[2019-02-21 06:26] LABS: BASOPHILS # (AUTO) 0.1 K/uL (0.0-0.2); BASOPHILS % (AUTO) 0.4 % (0.0-2.0); EOSINOPHILS # (AUTO) 0.5 K/uL (0.0-0.4); HEMATOCRIT 30.6 % (36-48); HEMOGLOBIN 9.7 g/dL (12.0-16.0); LYMPHOCYTES # (AUTO) 2.2 K/uL (1.0-5.5); LYMPHOCYTES % (AUTO) 16.3 % (20.5-51.5); MEAN CORPUSCULAR HEMOGLOBIN 28 pg (27-31); MEAN CORPUSCULAR HGB CONC 32 % (32-36); MEAN CORPUSCULAR VOLUME 87 fL (79.0-98.0); MONOCYTES # (AUTO) 1.3 K/uL (0.0-1.0); MONOCYTES % (AUTO) 9.3 % (1.7-9.3); NEUTROPHILS # (AUTO) 9.5 K/uL (1.8-7.7); PLATELET COUNT (AUTO) 262 K/uL (130-430); RED BLOOD CELL COUNT(AUTO) 3.51 MIL/uL (4.2-6.2); RED CELL DISTRIBUTION WIDTH 16.7 % (9.0-15.0); WHITE BLOOD COUNT (AUTO) 13.6 K/uL (4.8-10.8)
[2019-02-21 06:35] LABS: INR 1.7 (0.8-1.2); PROTHROMBIN TIME 17.4 SECS (9.5-12.5)
[2019-02-21 06:38] LABS: ANION GAP 10 (5-15); CALCIUM 9.3 mg/dL (8.4-11.0); CHLORIDE 102 mmol/L (98-107); CREATININE 2.79 mg/dL (0.55-1.30); GLUCOSE 114 mg/dL (70-99); POTASSIUM 4.3 mmol/L (3.5-5.1); SODIUM SERUM 136 mmol/L (136-145); UREA NITROGEN, BLOOD 22 mg/dL (8-21)
[2019-02-21 06:51] LABS: GFR AFRICAN AMERICAN 22 mL/min (>90)
[2019-02-21] MEDS: FERROUS GLUCONATE 300 MG TABLET PO SCH ×2 (06:51→17:21)
--- NOTE | 2019-02-21 06:59 | NUR ---
CLOSING NOTES: PT WAS C/O COLD , TEMP 97.6 F , SECURITY CALLED AND ADJUSTED THE ROOM TEMP , PROVIDED EXTRA WARM BLANKET ,ALL NEEDS MET ; NOT IN ANY ACUTE DISTRESS; WILL CONTINUE TO MONITOR AND WILL ENDORSE TO NEXT SHIFT NURSE . PT TOLERATED VENT SETTING WELL .
--- NOTE | 2019-02-21 07:45 | NUR ---
AM Rounds Patient resting in bed at this time, A/O x4. No SOB noted. Complaining of generalized pain. HOB kept elevated, O2 sat 98% on Vent. Lung sounds clear at this time. IV site patent, infusing at this time. F/C in place, draining yellow urine with sediments. Right heel lift boot in place. Patient turned and repositioned. On contact isolation precautions, maintained as ordered. On fall precautions, bed in lowest position, bed alarm on, 3 side rails up, call light within reach.
[2019-02-21] MEDS: LACTULOSE 20 GM/30 ML UDC PO SCH ×2 (08:27→21:49)
[2019-02-21] MEDS: LACTOBACILLUS RHAMNOSUS GG 1 CAP CAPSULE PO SCH ×2 (08:28→21:47)
[2019-02-21] MEDS: CHOLECALCIFEROL (VITAMIN D3) 2,000 UNIT TABLET PO SCH (08:28)
[2019-02-21] MEDS: MAGNESIUM OXIDE 400 MG TABLET PO SCH (08:28)
[2019-02-21] MEDS: NEPHROVITE, (FOLIC ACID/VITAMIN B COMP W-C 1 TAB) PO SCH (08:28)
[2019-02-21] MEDS: ALLOPURINOL 100 MG TABLET (ZYLOPRIM) PO SCH (08:28)
[2019-02-21] MEDS: SIMETHICONE 80 MG TAB.CHEW PO SCH ×2 (08:29→21:46)
[2019-02-21] MEDS: CILOSTAZOL 50 MG TABLET (PLETAL) PO SCH ×2 (08:29→21:48)
[2019-02-21] MEDS: METOCLOPRAMIDE HCL 10 MG TABLET PO SCH ×3 (08:29→21:46)
[2019-02-21 08:30] VITALS: BP_SYST 128
[2019-02-21] MEDS: DOXYCYCLINE HYCLATE 100 MG CAPSULE PO SCH (08:30)
--- NOTE | 2019-02-21 08:30 | NUR ---
AM/pain medications Patient complained of generalized pain, Dilaudid given as ordered. Explained Adverse side effects. Patient verbalized understanding. All AM medications given as ordered. Tolerating well, no cough noted. Patient in stable condition at this time.
[2019-02-21] MEDS: PANTOPRAZOLE SODIUM 40 MG/VIAL (PROTONIX) IVP SCH (08:31)
[2019-02-21] MEDS: OXYCODONE/ACETAMINOPHEN *10*mg/325 mg TABLET PO SCH ×4 (08:31→22:25)
--- NOTE | 2019-02-21 11:30 | NUR ---
Accu check/ Antibiotics. Patient resting in bed at this time. BS checked as ordered, no insulin coverage needed. Antibiotics given as ordered. No adverse side effects noted. Isolation, and fall precautions reinforced.
[2019-02-21 12:02] VITALS: BP_SYST 100
--- NOTE | 2019-02-21 13:08 | NUR ---
CONSULTATION PAGED/CALLED Reason for Consultation: NANDO Person Who was Notified: DANIEL Consulting Physician: DR. BARBER/DR. SOLARES TREATMENT MANAGER Director Of Enterprise Architecture Specialty: TAPE RECORDER MECHANIC Ordering Physician: DR. ARAYA
--- NOTE | 2019-02-21 13:30 | NUR ---
Rounds Patient resting in bed. NO SOB noted. Patient does not want to turn at this time, resting comfortably. On contact isolation, and fall precautions. Bed in lowest position, call light within reach. 3 side rails up. `
--- NOTE | 2019-02-21 14:45 | NUR ---
DILAUDID IV: C/O PAIN AT BILATERAL LOWER EXTREMITIES AND NECK .DUE IV PAIN MEDS GIVEN PER REQUEST.NO PROBLEM.
[2019-02-21] MEDS: 0.45% NS 1,000 ML IV SCH ×2 (14:58→22:53)
[2019-02-21] MEDS ORDERED: BISACODYL 10 MG/SUPPOSITORY RC ONE (15:00)
[2019-02-21 16:02] VITALS: BP_SYST 129
--- NOTE | 2019-02-21 16:18 | NUR ---
Form Tamper rounds Dr. Garcia visiting patient at bedside for NANDO consult. Ordered iron panel, CBC, CMP. Addendum: 02/21/19 at 1634 by Les Nuñez RN also ordered for renal ultrasound.
--- NOTE | 2019-02-21 17:33 | NUR ---
Accu check/PM meds Blood sugar 109, no insulin coverage needed. Garden Equipment Mechanic at bedside. All PM medications given as ordered. No adverse side effects noted.
--- NOTE | 2019-02-21 18:44 | NUR ---
paged I paged dr. June @ [phone] I spoke with Fabi rahat june called back @ [phone]
--- NOTE | 2019-02-21 18:51 | NUR ---
Renal ultrasound results Dr. Garcia called back and relayed results to rosemraie Spears. Recommended to call DR. Hanna to get Uro involved due to ultrasound results. Paged Dr. Hanna waiting for call back.
--- NOTE | 2019-02-21 18:51 | NUR ---
PAGED I PAGED DR. ARAYA @ [phone] I SPOKE WITH SWEETIE ARAYA CALLED BACK @ [phone]
--- NOTE | 2019-02-21 19:00 | NUR ---
Urology consult/ Closing note. Dr. Hanna called back, ordered Urology with Dr. Osito bean. Patient resting in bed, RT at bedside, provided suction as needed, tolerating well. No SOB noted. Contact Isolation, aspiration,and fall precautions reinforced. HOB kept elevated, bed in lowest position, call light within reach. Patient in stable condition at this time. All needs met.
[2019-02-21 20:00] VITALS: BP_SYST 126
--- NOTE | 2019-02-21 20:00 | NUR ---
INITIAL NOTES: PT IS AWAKE , ALERT AND ORIENTED , NOT IN ANY ACUTE DISTRESS;ON TRACH WITH VENT SUPPORT AC 14, TV 600 , FIO2 30% , PEEP 0 , SHE IS TOLERATING IT WELL AT THIS TIME , WITH A SAT OF 99% ; VITALS ARE STABLE ;ASSESSMENT DONE ; R LEG WITH HEEL LIFT BOOT IN PLACE HAS EDEMA , PT IS UNABLE TO MOVE THAT LEG . PACEMAKER TO THE LEFT CHEST ; SAMUEL IN PLACE DRAINING YELLOW COLOR URINE TO GRAVITY , SACRUM NOTED WITH SCAR , NO OPEN WOUND NOTED THEIR , ALSO NOTICED 2 SMALL BLISTERS AT THE LEFT GROIN , ONE IS OPEN ; TELE MONITOR IS ON ; BED IN LOW AND LOCK POSITION , CALL CORNELIUS IN REACH;SIDE RAILS ARE UP X3 ;SANTOS ON ; ENCOURAGED PT TO CALL FOR ASSIST . WILL CONTINUE TO MONITOR PT Addendum: 02/22/19 at 0614 by Keith Gerber RN pt uses her own diapers , educated pt the consequences , pt still requesting to use
--- NOTE | 2019-02-21 20:30 | NUR ---
COLISTIN REFUSED: PER RT PT REFUSED COLISTIN , TRY TO EXPAINED TO THE PT THE NEED OF IT , PT STATED" I AM ALLERGIC TO IT , IT CLOG ME UP " . WILL NOTIFY DAY SHIFT RN TO INFORM
[2019-02-21] MEDS: COLISTIMETHATE SODIUM 150 MG VIAL INH SCH (21:00)
--- NOTE | 2019-02-21 21:45 | NUR ---
MEDICATION: DUE MEDS GIVEN PER ORDER , PT RECEIVED DILAUDID EARLIER SO WILL GIVE PERCOCET LATER . PT IS COMFORTABLE ; ABLE TO SWALLOW MEDS , NO S/S OF ANY ASPIRATION NOTED ; WILL CONTINUE TO MONITOR PT .DAUGHTER AT BEDSIDE .
[2019-02-21] MEDS: ATORVASTATIN 10 MG TABLET PO SCH (21:49)
--- NOTE | 2019-02-21 22:40 | NUR ---
RN NOTES; PTS DAUGHTER AT BEDSIDE , STARTED COMPLAINING THAT PT IS GETTING TOO MUCH OF MEDICATION , BEFORE GIVING EVERY MEDICATION RN EXPLAINED TO THE PT , PT IS ALERT AND ORIENTED , NOW SHE IS COMPLAINING THAT PT RECEIVING DILAUDID AND PERCOCET , AT HOME SHE IS ONLY ON PERCOCET EVERY 6 HRS ; EXPLAINED TO HER THAT PT RECEIVES PAIN MEDICATION DEPENDS UPON THE INTENSITY OF PAIN , IF SHE IS COMPLAINING OF SEVERE PAIN ONLY SHE GETS DILAUDID 1 MG , ALSO EXPLAINED TO HER THAT PT RECEIVED DILAUDID AT 2114 TODAY AND SHE RECEIVED HER PERCOCET AT 2224 , PT WAS STILL COMPLAINING OF PAIN AFTER DILAUDID , BEFORE GIVING PERCOCET RN REASSESSED HER AND SHE SAID SHE IS STILL IN MODERATE PAIN , SO SHE RECEIVED PERCOCET ,AND ITS HER SCHEDULED MEDICATION ,DAUGHTER STATED "MY MOM IS SICK , YOU GUYS DCD HER HOME BEFORE SHE GET COMPLETELY CURED "AFTER EXPLAINING TO HER ABOUT HER MEDICATION SCHEDULE , DAUGHTER SAID " I WANT TO RESPECT MY MOMS DECISION , SHE ALREADY TOLD ME NOT TO INTERFERED WITH HER DECISIONS , SO LET HER DECIDE WHAT SHE WANTS TO TAKE , I AM NOT GOING TO SAY NOT TO GIVE ANY MEDICATION , ITS HER DECISION '. DAUGHTER APOLOGIZED TO THE RN THAT SHE RAISED HER VOICE AND TALKED TO RN . Addendum: 02/21/19 at 2335 by Keith Gerber RN Christiano OSHEA NOTIFIED ABOUT IT
--- NOTE | 2019-02-21 23:20 | NUR ---
RN NOTES: PT IS COMFORTABLE , STILL HAS MILD PAIN BUT TOLERABLE PER PT , DUE ANTIBIOTIC IS INFUSING WELL . WILL CONTINUE TO MONITOR PT .
--- NOTE | 2019-02-21 23:22 | NUR ---
CONSULT CONSULT CALLED FOR DR. SAMANTHA MATHEWS I SPOKE WITH SHILO HARDIN REQUESTING CONSULT: DR. ARAYA [employer] ADJUSTER PHONE NUMBER: [phone]
[2019-02-21 23:34] VITALS: BP_SYST 153
--- NOTE | 2019-02-22 00:05 | NUR ---
RN NOTES: PT IS SLEEPING , COMFORTABLE , SAT 99% ; EASILY AROUSABLE TO THE NAME CALLED .WILL CONTINUE TO MONITOR PT
--- NOTE | 2019-02-22 02:39 | NUR ---
RN NOTES: PT IS SLEEPING ,NOT IN ANY ACUTE DISTRESS;TOLERATING VENT WELL ; NOT IN ANY ACUTE DISTRESS; WILL CONTINUE TO MONITOR.
[2019-02-22] MEDS: IPRATROPIUM/ALBUTEROL SULFATE 3 ML AMPUL.NEB (DUONEB) INH SCH ×7 (03:00→23:46)
--- NOTE | 2019-02-22 04:28 | NUR ---
RN NOTES: PT IS SLEEPING ,NOT IN ANY ACUTE DISTRESS;TOLERATING VENT SETTINGS WELL ; NOT IN ANY ACUTE DISTRESS; WILL CONTINUE TO MONITOR.
[2019-02-22] MEDS: ONDANSETRON HCL 4 MG/2 ML VIAL IVP PRN ×3 (06:01→20:39)
[2019-02-22] MEDS: HYDROmorphone 1 MG INJ. 1 MG/ML AMPUL IVP PRN ×3 (06:02→20:39)
[2019-02-22] MEDS: PIPERACILLIN/TAZO 2.25G/DEX-IS 50 ML IV SCH ×4 (06:05→23:21)
[2019-02-22] MEDS: LEVOTHYROXINE SODIUM 0.15 MG TABLET PO SCH (06:05)
--- NOTE | 2019-02-22 06:10 | NUR ---
MEDICATION: PT C/O SEVERE PAIN TO HER THROAT AFTER SUCTIONING AND ALSO C/O NAUSEA ,PT REQUESTING FOR DILAUDID AND ZOFRAN , MEDICATED PT WITH BOTH PER ORDER .BS 112 , NO INSULIN COVERAGE NEEDED . WILL CONTINUE TO MONITOR PT
[2019-02-22 06:11] LABS: INR 1.9 (0.8-1.2); PROTHROMBIN TIME 19.2 SECS (9.5-12.5)
[2019-02-22 06:24] LABS: BASOPHILS % (AUTO) 0.2 % (0.0-2.0); EOSINOPHILS # (AUTO) 0.6 K/uL (0.0-0.4); EOSINOPHILS % (AUTO) 4.1 % (0.0-4.0); HEMATOCRIT 25.6 % (36-48); HEMOGLOBIN 8.3 g/dL (12.0-16.0); LYMPHOCYTES % (AUTO) 14.5 % (20.5-51.5); MEAN CORPUSCULAR HEMOGLOBIN 28 pg (27-31); MEAN CORPUSCULAR HGB CONC 33 % (32-36); MEAN CORPUSCULAR VOLUME 87 fL (79.0-98.0); MONOCYTES # (AUTO) 1.5 K/uL (0.0-1.0); MONOCYTES % (AUTO) 10.8 % (1.7-9.3); NEUTROPHILS # (AUTO) 9.6 K/uL (1.8-7.7); NEUTROPHILS % (AUTO) 70.4 % (40.0-70.0); PLATELET COUNT (AUTO) 245 K/uL (130-430); RED BLOOD CELL COUNT(AUTO) 2.96 MIL/uL (4.2-6.2); RED CELL DISTRIBUTION WIDTH 16.6 % (9.0-15.0); WHITE BLOOD COUNT (AUTO) 13.7 K/uL (4.8-10.8)
[2019-02-22 06:25] LABS: CALCIUM 8.6 mg/dL (8.4-11.0); CREATININE 2.85 mg/dL (0.55-1.30); POTASSIUM 4.1 mmol/L (3.5-5.1)
[2019-02-22] MEDS: FERROUS GLUCONATE 300 MG TABLET PO SCH ×2 (06:52→17:07)
--- NOTE | 2019-02-22 06:56 | NUR ---
CLOSING NOTES: PT IS SLEEPING COMFORTABLE , TOLERATING HER VENT SETTING WELL . ALL NEEDS MET , PT NOT IN ANY ACUTE DISTRESS; WILL CONTINUE TO MONITOR AND WILL ENDORSE TO NEXT SHIFT NURSE .
--- NOTE | 2019-02-22 07:00 | NUR ---
Nutrition Update Fabricio Scale 14 noted. Pt admitted for Healthcare Associated Pneumonia w/ Pleural Effusion Diet: CCHO diet BMI: 32.9 kg/m2 RD to follow per nutrition care standards.
[2019-02-22 07:01] LABS: TOTAL IRON BIND. CAPACITY 115 ug/dL (250-450)
--- NOTE | 2019-02-22 08:00 | NUR ---
AM Rounds Patient resting in bed at this time, A/O x4. No SOB noted.HOB kept elevated, O2 sat 99% on Vent. IV site patent, infusing at this time. F/C in place, draining yellow urine. Noted with bilateral lower extremity edema, Right heel lift boot in place. Patient turned and repositioned. On contact isolation precautions, maintained as ordered. Educated patient on isolation precautions, verbalized understanding. On Aspiration precautions, HOB kept elevated. On fall precautions, bed in lowest position, bed alarm on, 3 side rails up, call light within reach.
[2019-02-22] MEDS: METOCLOPRAMIDE HCL 10 MG TABLET PO SCH ×3 (08:19→22:56)
[2019-02-22] MEDS: ALLOPURINOL 100 MG TABLET (ZYLOPRIM) PO SCH (08:19)
[2019-02-22] MEDS: MAGNESIUM OXIDE 400 MG TABLET PO SCH (08:21)
[2019-02-22] MEDS: OXYCODONE/ACETAMINOPHEN *10*mg/325 mg TABLET PO SCH ×4 (08:21→22:59)
[2019-02-22] MEDS: CILOSTAZOL 50 MG TABLET (PLETAL) PO SCH ×2 (08:22→20:52)
[2019-02-22] MEDS: PANTOPRAZOLE SODIUM 40 MG/VIAL (PROTONIX) IVP SCH (08:22)
[2019-02-22] MEDS: SIMETHICONE 80 MG TAB.CHEW PO SCH ×2 (08:22→20:52)
[2019-02-22] MEDS: NEPHROVITE, (FOLIC ACID/VITAMIN B COMP W-C 1 TAB) PO SCH (08:22)
[2019-02-22] MEDS: CHOLECALCIFEROL (VITAMIN D3) 2,000 UNIT TABLET PO SCH (08:22)
[2019-02-22] MEDS: LACTULOSE 20 GM/30 ML UDC PO SCH ×2 (08:22→20:51)
[2019-02-22] MEDS: LACTOBACILLUS RHAMNOSUS GG 1 CAP CAPSULE PO SCH ×2 (08:22→20:52)
[2019-02-22 08:30] VITALS: BP_SYST 138
--- NOTE | 2019-02-22 08:30 | NUR ---
AM medications Patient complained of generalized pain, scheduled Percocet given as ordered, tolerating well. Explained Adverse side effects. Patient verbalized understanding. All AM medications given as ordered, tolerating well, no nausea, no vomiting, no cough noted. Patient turned and repositioned. On contact, aspiration, and fall precautions. Educated patient controls project engineer light system, patient verbalized understanding. Bed kept in lowest position, bed alarm on, 3 side rails up, call light within reach.
[2019-02-22] MEDS: COLISTIMETHATE SODIUM 150 MG VIAL INH SCH (09:00)
--- NOTE | 2019-02-22 10:00 | NUR ---
RN rounds Patient resting bed at this time, NO SOB. On contact isolation, aspiration, and fall precautions. Bed kept in lowest position, call light within reach, 3 side rails up, bed alarm on. Will continue to monitor.
--- NOTE | 2019-02-22 11:59 | NUR ---
Accu check/ Rn rounds Blood sugar checked, no coverage needed. Administered Zosyn as ordered, I.V patent, and infusing. No complaints of pain. Educated on adverse effects, verbalized understanding. Contact isolation, aspiration, and fall precautions reinforced. Bed in lowest position, bed alarm in place, call light within reach.
[2019-02-22 12:29] VITALS: BP_SYST 132
--- NOTE | 2019-02-22 12:30 | NUR ---
DR. Hanna rounds Informed about vent order, stated to call Dr. Dempsey if needed. Per Dr. Hanna, Dr. bean stated no new orders, keep pizarro catheter in place.
[2019-02-22] MEDS: AZITHROMYCIN 500 MG in NS 250 ML IV SCH (12:37)
--- NOTE | 2019-02-22 12:45 | NUR ---
Rounds/medications. Patient resting bed at this time. Complained of nausea, Zofran given as ordered. No adverse side effects at this time. IV antibiotics given as ordered. IV patent and infusing.
--- NOTE | 2019-02-22 13:51 | NUR ---
Dietitian Recommendations *Recommend continuing [facility] diet per MD orders. *If by next RD visit, PO intake <75%, consider adding ONS Glucerna. *Continue Nephrovite daily. Please see Nutritional Assessment for details. CUSTODIAL, RD
[2019-02-22] MEDS: 0.45% NS 1,000 ML IV SCH (14:30)
--- NOTE | 2019-02-22 14:40 | NUR ---
Medications/ Rounds Patient resting in bed, complaining of pain. Patient refused scheduled Percocet, PRN Dilaudid given as ordered. IV site patent and infusing. No adverse effects noted. Patient turned and reposition. On contact isolation, fall, and aspiration precautions. HOB kept elevated, bed in lowest position, bed alarm on, call light within reach.
[2019-02-22 16:03] VITALS: BP_SYST 136
--- NOTE | 2019-02-22 17:10 | NUR ---
Accu check/Medications Patient resting in bed, no complaints of pain, no SOB. Blood sugar checked, no insulin coverage needed. All medications given as ordered. IV patent and infusing, no adverse side effects noted. Throat culture collected. All needs met at this time.
--- NOTE | 2019-02-22 17:40 | NUR ---
Throat Culture collected and sent to lab.
--- NOTE | 2019-02-22 18:20 | NUR ---
Closing note Patient resting in bed, no complaints of pain, no SOB. Patient turned and repositioned, tolerating well. IV site patent, and infusing. On Contact Isolation, aspiration,and fall precautions reinforced. HOB kept elevated, bed in lowest position, call light within reach, 3 side rails up. Patient in stable condition at this time. All needs met.
--- NOTE | 2019-02-22 19:15 | NUR ---
Bedside report was obtained from day shift nurse. Pt was received lying in bed fully awake, alert and oriented x4. No acute distress noted at this time. Speech is clear. No c/o pain or discomfort. Pt is on Ventilator via Tracheostomy with vent settings of AC 14, TV 600 and FIO2 30%. IVF of 1/2 NS is infusing well in RAMAKRISHNA at 80ml/hr without any signs of infiltration. Skin is warm and dry to touch. No signs or symptoms of hypoglycemia or hyperglycemia noted. Rivero cath to gravity drainage is draining clear yellowish urine. VSS. Pt is afebrile. Call light is with pt and bed alarm is on. Will continue to monitor pt.
[2019-02-22 20:00] VITALS: BP_SYST 124
--- NOTE | 2019-02-22 20:39 | NUR ---
Pt c/o generalized body aches and nausea. No emesis noted. Dilaudid 1mg IV and Zofran 4mg IV were given per pt's request.
--- NOTE | 2019-02-22 20:49 | NUR ---
Accucheck 123 and no Insulin coverage needed. Skin remains warm and dry to touch. Pt declined HS snacks at this time. Fall and safety precautions are in place.
[2019-02-22] MEDS: ATORVASTATIN 10 MG TABLET PO SCH (20:51)
[2019-02-22] MEDS: GABAPENTIN 300 MG CAPSULE PO SCH (20:51)
[2019-02-22 21:59] VITALS: BP_SYST 126
--- NOTE | 2019-02-22 22:59 | NUR ---
Scheduled 2100 Percocet and Reglan given at this time per pt's request. Fall and safety precautions are in place.
--- NOTE | 2019-02-23 01:00 | NUR ---
Pt is sleeping without any distress noted. Pt is tolerating vent settings well. IVF is infusing well in RAMAKRISHNA. Call light is with pt and bed alarm is on.
[2019-02-23] MEDS: IPRATROPIUM/ALBUTEROL SULFATE 3 ML AMPUL.NEB (DUONEB) INH SCH ×5 (02:47→23:13)
[2019-02-23] MEDS: ONDANSETRON HCL 4 MG/2 ML VIAL IVP PRN ×3 (02:54→19:42)
[2019-02-23] MEDS: HYDROmorphone 1 MG INJ. 1 MG/ML AMPUL IVP PRN ×3 (02:55→19:42)
--- NOTE | 2019-02-23 02:55 | NUR ---
Pt c/o generalized body aches and nausea. No emesis noted. Dilaudid 1mg IV and Zofran 4mg IV were given per pt's request.
--- NOTE | 2019-02-23 05:00 | NUR ---
Pt is resting quietly in bed and tolerating vent settings well. IVF is infusing well in RAMAKRISHNA. Fall and safety precautions are in place.
[2019-02-23] MEDS: 0.45% NS 1,000 ML IV SCH ×2 (05:05→16:58)
[2019-02-23] MEDS: PIPERACILLIN/TAZO 2.25G/DEX-IS 50 ML IV SCH ×2 (05:13→11:06)
[2019-02-23] MEDS: LEVOTHYROXINE SODIUM 0.15 MG TABLET PO SCH (06:32)
[2019-02-23] MEDS: FERROUS GLUCONATE 300 MG TABLET PO SCH ×2 (06:32→16:52)
--- NOTE | 2019-02-23 06:41 | NUR ---
Pt is awake and resting comfortably in bed. Pt is tolerating vent settings well. All pt's needs were attended to. No fall or injury noted this shift. Accucheck 105 this AM and no Insulin coverage needed. IVF is infusing well in RAMAKRISHNA. Call light is with pt and bed alarm is on. Will endorse to day shift nurse.
[2019-02-23 06:49] LABS: BASOPHILS # (AUTO) 0.1 K/uL (0.0-0.2); BASOPHILS % (AUTO) 0.6 % (0.0-2.0); EOSINOPHILS # (AUTO) 0.5 K/uL (0.0-0.4); EOSINOPHILS % (AUTO) 3.3 % (0.0-4.0); HEMATOCRIT 23.8 % (36-48); HEMOGLOBIN 7.8 g/dL (12.0-16.0); LYMPHOCYTES # (AUTO) 1.8 K/uL (1.0-5.5); LYMPHOCYTES % (AUTO) 12.9 % (20.5-51.5); MEAN CORPUSCULAR HEMOGLOBIN 28 pg (27-31); MEAN CORPUSCULAR HGB CONC 33 % (32-36); MEAN CORPUSCULAR VOLUME 86 fL (79.0-98.0); MONOCYTES # (AUTO) 1.5 K/uL (0.0-1.0); MONOCYTES % (AUTO) 10.6 % (1.7-9.3); NEUTROPHILS % (AUTO) 72.6 % (40.0-70.0); PLATELET COUNT (AUTO) 240 K/uL (130-430); RED BLOOD CELL COUNT(AUTO) 2.75 MIL/uL (4.2-6.2); RED CELL DISTRIBUTION WIDTH 16.6 % (9.0-15.0); WHITE BLOOD COUNT (AUTO) 13.8 K/uL (4.8-10.8)
[2019-02-23 07:10] LABS: INR 2.2 (0.8-1.2); PROTHROMBIN TIME 21.9 SECS (9.5-12.5)
[2019-02-23 07:23] LABS: ALBUMIN 2.4 g/dL (3.4-4.8); CALCIUM 8.5 mg/dL (8.4-11.0); CREATININE 2.94 mg/dL (0.55-1.30); TOTAL BILIRUBIN 0.4 mg/dL (0.0-1.0)
[2019-02-23 07:29] VITALS: BP_SYST 166
--- NOTE | 2019-02-23 07:44 | NUR ---
Opening notes, Received pt in bed, pt is aaox4, c/o 8-910 pain on her neck and back. informed pt that pain med is not due until 0800 am. iv fluids infusing well. iv access has no s/s of swelling or infiltration. 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 pt appears to tolerate present settings. safety precaution in place. bed in low position. bed alarm on. call light in reach. pt encouraged to call for assist and pain meds and any concerns. will cont to monitor.
[2019-02-23] MEDS: MAGNESIUM OXIDE 400 MG TABLET PO SCH (08:02)
[2019-02-23] MEDS: CHOLECALCIFEROL (VITAMIN D3) 2,000 UNIT TABLET PO SCH (08:02)
[2019-02-23] MEDS: NEPHROVITE, (FOLIC ACID/VITAMIN B COMP W-C 1 TAB) PO SCH (08:02)
[2019-02-23] MEDS: SIMETHICONE 80 MG TAB.CHEW PO SCH ×2 (08:03→21:51)
[2019-02-23] MEDS: LACTOBACILLUS RHAMNOSUS GG 1 CAP CAPSULE PO SCH ×2 (08:03→21:51)
[2019-02-23] MEDS: CILOSTAZOL 50 MG TABLET (PLETAL) PO SCH ×2 (08:03→21:51)
[2019-02-23] MEDS: ALLOPURINOL 100 MG TABLET (ZYLOPRIM) PO SCH (08:03)
[2019-02-23] MEDS: METOCLOPRAMIDE HCL 10 MG TABLET PO SCH ×3 (08:03→21:51)
[2019-02-23] MEDS: PANTOPRAZOLE SODIUM 40 MG/VIAL (PROTONIX) IVP SCH (08:04)
[2019-02-23] MEDS: OXYCODONE/ACETAMINOPHEN *10*mg/325 mg TABLET PO SCH ×4 (08:04→21:53)
[2019-02-23] MEDS: LACTULOSE 20 GM/30 ML UDC PO SCH ×2 (08:04→21:00)
[2019-02-23] MEDS: COLISTIMETHATE SODIUM 150 MG VIAL INH SCH ×2 (08:14→21:00)
--- NOTE | 2019-02-23 08:56 | NUR ---
pt given pain med for 05/12.
--- NOTE | 2019-02-23 08:57 | NUR ---
dr sharif here , seen and spoke with pt.
[2019-02-23 12:08] VITALS: BP_SYST 128
[2019-02-23] MEDS: AZITHROMYCIN 500 MG in NS 250 ML IV SCH (12:35)
[2019-02-23 14:48] LABS: TOTAL IRON BIND. CAPACITY 102 ug/dL (250-450)
--- NOTE | 2019-02-23 15:16 | NUR ---
pt receiving prbc this time, transfusion started at 1500 hr and at slow rate of 60 ml/hr, pt appears stable, no s/so of adverse rxn. no fever. vitals wnl. rate increased to 90cc/hr. will cont to monitor.
[2019-02-23 16:05] VITALS: BP_SYST 117
--- NOTE | 2019-02-23 16:35 | NUR ---
paged dr olsen for critical lab results. called in late due to unable to see the results relayed to this rn. had to go to lab and get print out of the result .
--- NOTE | 2019-02-23 17:29 | NUR ---
INFORMED DR GORMAN THAT PT Addendum: 02/23/19 at 1839 by Matthew Monreal RN ..THAT PT HAS ALLERGY TO CEPHALEXIN AND PHARMACIST WANTS TO VERIFY IF HE WANTS TO ORDER THE AVYCAZ. SAID OKAY TO GIVE, PT HAS ALLERGIES TO A LOT OF MEDICATIONS. SAID TO WATCH PATIENT DURING INFUSION AND GIVE BENADRYL IF NEEDED FOR REACTION.
[2019-02-23] MEDS ORDERED: COMMUNICATION ORDER XX ONE (17:30)
[2019-02-23 17:56] VITALS: BP_SYST 117
--- NOTE | 2019-02-23 18:37 | NUR ---
TRANSFUSION OF 1 UNIT PRBC COMPLETED WITH NO ADVERSE RXN. NO C/O OF SOB, NO ITCHING. WILL ENDORSE TO NIGHT RN.
--- NOTE | 2019-02-23 19:42 | NUR ---
Dilaudid 1mg IV and Zofran 4mg IV were given per pt's request for c/o abdominal/bilateral leg pain and nausea. No emesis noted.
[2019-02-23] MEDS: CEFTAZIDIME/AVIBACTAM 0.94 GM in NS 100 ML IV SCH (19:49)
[2019-02-23 20:00] VITALS: BP_SYST 135
--- NOTE | 2019-02-23 21:48 | NUR ---
Pt is resting quietly in bed. Accucheck 106 and no Insulin coverage needed. Skin remains warm and dry to touch. Pt ate 1 cup of no added sugar pudding for HS snack. Fall and safety precautions are in place.
[2019-02-23] MEDS: ATORVASTATIN 10 MG TABLET PO SCH (21:51)
[2019-02-23] MEDS: GABAPENTIN 300 MG CAPSULE PO SCH (21:51)
--- NOTE | 2019-02-23 23:17 | NUR ---
PT REFUSED COLISTIN TX. SAY'S MAKES HER MORE CONGESTED. RN MADE AWARE.
--- NOTE | 2019-02-24 | NUR ---
Pt is resting comfortably in bed. Fall and safety precautions are in place.
[2019-02-24 00:16] VITALS: BP_SYST 166
[2019-02-24 00:30] VITALS: BP_SYST 132
[2019-02-24] MEDS: HYDROmorphone 1 MG INJ. 1 MG/ML AMPUL IVP PRN ×4 (02:02→23:02)
--- NOTE | 2019-02-24 02:02 | NUR ---
Pt c/o headache and nausea. No emesis noted. Dilaudid 1mg IV and Zofran 4mg IV were given per pt's request. Fall and safety precautions are in place.
[2019-02-24] MEDS: ONDANSETRON HCL 4 MG/2 ML VIAL IVP PRN (02:03)
[2019-02-24] MEDS: 0.45% NS 1,000 ML IV SCH ×2 (02:04→23:05)
[2019-02-24] MEDS: IPRATROPIUM/ALBUTEROL SULFATE 3 ML AMPUL.NEB (DUONEB) INH SCH ×6 (03:00→23:45)
--- NOTE | 2019-02-24 04:00 | NUR ---
Pt is resting quietly in bed and tolerating vent settings well. IVF is infusing well in RAMAKRISHNA. Fall and safety precautions are in place.
[2019-02-24] MEDS: DIPHENHYDRAMINE INJ 50 MG/ML VIAL IVP PRN ×3 (06:07→21:44)
--- NOTE | 2019-02-24 06:07 | NUR ---
Benadryl 25mg given IV per pt's request for itching.
[2019-02-24] MEDS: FERROUS GLUCONATE 300 MG TABLET PO SCH ×2 (06:14→17:31)
[2019-02-24] MEDS: LEVOTHYROXINE SODIUM 0.15 MG TABLET PO SCH (06:14)
[2019-02-24 06:26] LABS: BASOPHILS % (AUTO) 0.3 % (0.0-2.0); EOSINOPHILS # (AUTO) 0.5 K/uL (0.0-0.4); EOSINOPHILS % (AUTO) 3.6 % (0.0-4.0); HEMATOCRIT 28.6 % (36-48); HEMOGLOBIN 9.2 g/dL (12.0-16.0); LYMPHOCYTES # (AUTO) 2.1 K/uL (1.0-5.5); LYMPHOCYTES % (AUTO) 16.8 % (20.5-51.5); MEAN CORPUSCULAR HEMOGLOBIN 28 pg (27-31); MEAN CORPUSCULAR HGB CONC 32 % (32-36); MEAN CORPUSCULAR VOLUME 87 fL (79.0-98.0); MONOCYTES # (AUTO) 1.3 K/uL (0.0-1.0); MONOCYTES % (AUTO) 10.2 % (1.7-9.3); NEUTROPHILS # (AUTO) 8.7 K/uL (1.8-7.7); NEUTROPHILS % (AUTO) 69.1 % (40.0-70.0); PLATELET COUNT (AUTO) 270 K/uL (130-430); RED BLOOD CELL COUNT(AUTO) 3.28 MIL/uL (4.2-6.2); RED CELL DISTRIBUTION WIDTH 16.3 % (9.0-15.0); WHITE BLOOD COUNT (AUTO) 12.5 K/uL (4.8-10.8)
--- NOTE | 2019-02-24 06:41 | NUR ---
Pt is awake and resting comfortably in bed and tolerating vent settings well. All pt's needs were attended to. No fall or injury noted this shift. Accucheck 79 this AM and no Insulin coverage needed. IVF is infusing well in RAMAKRISHNA. Call light is with pt and bed alarm is on. Will endorse to day shift nurse.
[2019-02-24 06:56] LABS: PROTHROMBIN TIME 19.8 SECS (9.5-12.5)
[2019-02-24 06:58] LABS: CALCIUM 8.9 mg/dL (8.4-11.0); CREATININE 2.84 mg/dL (0.55-1.30); POTASSIUM 4.3 mmol/L (3.5-5.1)
[2019-02-24] MEDS: CEFTAZIDIME/AVIBACTAM 0.94 GM in NS 100 ML IV SCH ×2 (07:16→17:31)
--- NOTE | 2019-02-24 07:30 | NUR ---
AM ROUNDS: PATIENT SLEEPING DURING ROUNDS. BEDSIDE REPORT GIVEN BY NIGHT NURSE PRIYANK. WITH TRACH VENT,FIO2=30%.NO DISTRESS. RIGHT UPPER ARM IVF AT 80CC/H.SAMUEL IN SITU. CALL LIGHT WITH IN REACH. BED LOCKED AT LOWEST POSITION.BED ALARM ON.CONDITION GUARDED.
[2019-02-24] MEDS: LACTULOSE 20 GM/30 ML UDC PO SCH ×2 (09:00→20:05)
--- NOTE | 2019-02-24 10:09 | NUR ---
DILAUDID IV: C/O GENERALIZED PAIN DUE IV DILAUDID GIVEN PER REQUEST. NO ADVERSE REACTIONS NOTED.
[2019-02-24] MEDS: PANTOPRAZOLE SODIUM 40 MG/VIAL (PROTONIX) IVP SCH (10:10)
[2019-02-24] MEDS: MAGNESIUM OXIDE 400 MG TABLET PO SCH (10:14)
[2019-02-24] MEDS: SIMETHICONE 80 MG TAB.CHEW PO SCH ×2 (10:14→20:06)
[2019-02-24] MEDS: ALLOPURINOL 100 MG TABLET (ZYLOPRIM) PO SCH (10:15)
[2019-02-24] MEDS: CHOLECALCIFEROL (VITAMIN D3) 2,000 UNIT TABLET PO SCH (10:15)
[2019-02-24] MEDS: METOCLOPRAMIDE HCL 10 MG TABLET PO SCH ×3 (10:15→20:06)
[2019-02-24] MEDS: NEPHROVITE, (FOLIC ACID/VITAMIN B COMP W-C 1 TAB) PO SCH (10:15)
[2019-02-24] MEDS: CILOSTAZOL 50 MG TABLET (PLETAL) PO SCH ×2 (10:15→20:06)
[2019-02-24] MEDS: OXYCODONE/ACETAMINOPHEN *10*mg/325 mg TABLET PO SCH ×3 (10:16→20:07)
[2019-02-24] MEDS: LACTOBACILLUS RHAMNOSUS GG 1 CAP CAPSULE PO SCH ×2 (10:17→20:06)
[2019-02-24 10:20] VITALS: BP_SYST 128
[2019-02-24 11:18] VITALS: BP_SYST 129
[2019-02-24] MEDS: AZITHROMYCIN 500 MG in NS 250 ML IV SCH (11:19)
--- NOTE | 2019-02-24 11:22 | NUR ---
ACCU CHECK: BLOOD SUGAR TAKEN, NO INSULIN NEEDED PER SLIDING SCALE.
[2019-02-24] MEDS ORDERED: EPOETIN ALFA 4,000 UNITS/ML VIAL SUBCUT ONE (11:30)
[2019-02-24] MEDS: SOD FERRIC GLUC COMPLEX/SUC 125 MG in NS 100 ML IV SCH (13:39)
--- NOTE | 2019-02-24 13:39 | NUR ---
PROCRIT/FERRLECIT IV: DUE IV FERRLECIT GIVEN ORDERED. PROCRIT 4000 UNITS SUBQ GIVEN ORDERED.
[2019-02-24 14:47] VITALS: BP_SYST 117
--- NOTE | 2019-02-24 15:10 | NUR ---
BREATHING TREATMENT/SUCTION: TRACHEAL SUCTIONING RENDERED BY RT ,OBTAINED MODERATE [place] COLOR OF SECRETIONS AND BREATHING TREATMENT RENDERED BY RT WELL.
--- NOTE | 2019-02-24 17:00 | NUR ---
Accu check: Blood sugar taken,no insulin needed per sliding scale.
[2019-02-24] MEDS: WARFARIN SODIUM 2 MG TABLET PO SCH (17:31)
--- NOTE | 2019-02-24 18:36 | NUR ---
CLOSING NOTES: WITH FAMILY AT THE BEDSIDE. WITH SAME VENT SETTING,WELL TOLERATED. CALL LIGHT WITH IN REACH. BED LOCKED AT LOWEST POSITION. BED ALARM ON. STABLE.
--- NOTE | 2019-02-24 19:35 | NUR ---
INITIAL NOTES RECEIVED HANDOFF REPORT FROM OFFGOING NURSE AT THE BEDSIDE. PATIENT CURRENTLY RESTING COMFORTABLY IN BED, AWAKE AND ALERT. FAMILY IS AT THE BEDSIDE. NO SOB, NO ACUTE DISTRESS, NO SIGNS OF PAIN OR FACIAL GRIMACING NOTED. TOLERATING TRACH TO VENT SETTINGS. BED IS LOCKED, IN THE LOWEST POSITION, 2X SIDE RAILS UP, BED ALARM IS ON. CALL LIGHT IS WITHIN REACH. ENCOURAGED PATIENT TO CALL FOR ASSISTANCE. WILL CONTINUE WITH PLAN OF CARE.
[2019-02-24 20:00] VITALS: BP_SYST 113
[2019-02-24] MEDS: ATORVASTATIN 10 MG TABLET PO SCH (20:06)
[2019-02-24] MEDS: GABAPENTIN 300 MG CAPSULE PO SCH (20:06)
[2019-02-24] MEDS: COLISTIMETHATE SODIUM 150 MG VIAL INH SCH (21:00)
--- NOTE | 2019-02-24 22:05 | NUR ---
PATIENT RESTING COMFORTABLY IN BED, SLEEPING. NO SOB, NO ACUTE DISTRESS, NO SIGNS OF PAIN OR FACIAL GRIMACING NOTED. BREATHING EVEN AND UNLABORED WITH VISIBLE CHEST RISE AND FALL NOTED. TOLERATING TRACH TO VENT SETTINGS. BED IS LOCKED, IN THE LOWEST POSITION, 2X SIDE RAILS UP, BED ALARM IS ON. CALL LIGHT IS WITHIN REACH.
--- NOTE | 2019-02-24 23:55 | NUR ---
PATIENT RESTING COMFORTABLY IN BED, EYES CLOSED. EASILY AROUSABLE TO TOUCH. NO SOB, NO ACUTE DISTRESS, NO COMPLAINTS OF PAIN AT THIS TIME. TOLERATING TRACH TO VENT SETTINGS. IVF 0.45% NS INFUSING AT 50ML/HR PER MD ORDER, SEE EMAR. BED IS LOCKED, IN THE LOWEST POSITION, 2X SIDE RAILS UP, BED ALARM IS ON. CALL LIGHT IS WITHIN REACH. ENCOURAGED PATIENT TO CALL FOR ASSISTANCE.
--- NOTE | 2019-02-25 01:00 | NUR ---
RT NOTIFIED REGARDING MISSED DOSE OF COLISTIN. JESSI-RT AWARE AND STATED THE PATIENT HAS REFUSED EVERY DOSE DURING THIS HOSPITAL STAY. WILL NOTIFY
--- NOTE | 2019-02-25 02:30 | NUR ---
PATIENT RESTING COMFORTABLY IN BED. EASILY AROUSABLE BY SOUND. NO SOB, NO ACUTE DISTRESS, NO COMPLAINTS OF PAIN. STABLE. CALL LIGHT WITHIN REACH. ENCOURAGED PATIENT TO CALL FOR ASSISTANCE.
[2019-02-25] MEDS: IPRATROPIUM/ALBUTEROL SULFATE 3 ML AMPUL.NEB (DUONEB) INH SCH ×6 (03:36→23:29)
[2019-02-25] MEDS: CEFTAZIDIME/AVIBACTAM 0.94 GM in NS 100 ML IV SCH ×2 (04:56→17:24)
[2019-02-25] MEDS: DIPHENHYDRAMINE INJ 50 MG/ML VIAL IVP PRN ×3 (04:56→22:30)
--- NOTE | 2019-02-25 05:10 | NUR ---
PATIENT RESTING COMFORTABLY IN BED, AWAKE AND ALERT. NO SOB, NO ACUTE DISTRESS, NO COMPLAINTS OF PAIN. COMPLAINS OF ITCHINESS, MEDICATED PRN, SEE EMAR. RT AT THE BEDSIDE TO PROVIDE CARE. TOLERATING TRACH TO VENT SETTINGS. BED IS LOCKED, IN THE LOWEST POSITION, 2X SIDE RAILS UP, BED ALARM IS ON. CALL LIGHT IS WITHIN REACH. ENCOURAGED PATIENT TO CALL FOR ASSISTANCE.
[2019-02-25 05:30] VITALS: BP_SYST 122
[2019-02-25] MEDS: FERROUS GLUCONATE 300 MG TABLET PO SCH ×2 (06:08→17:23)
[2019-02-25] MEDS: LEVOTHYROXINE SODIUM 0.15 MG TABLET PO SCH (06:08)
[2019-02-25] MEDS: HYDROmorphone 1 MG INJ. 1 MG/ML AMPUL IVP PRN ×3 (06:09→20:34)
--- NOTE | 2019-02-25 06:25 | NUR ---
CLOSING NOTES PATIENT RESTING COMFORTABLY IN BED, AWAKE AND ALERT. NO SOB, NO ACUTE DISTRESS. COMPLAINTS OF PAIN, AND MEDICATED WITH DILAUDID PRN PER MD ORDER, SEE EMAR FOR DETAILS. TOLERATING TRACH TO VENT SETTINGS, AC, 14 BPM, TV 600, FIO 30%, PEEP 0. SAMUEL CATHETER INTACT, WITH GOOD URINE OUTPUT DRAINING CLEAR YELLOW URINE. IV SITE TO RIGHT UPPER ARM #18G INTACT, DRESSING CLEAN AND INTACT, CURRENTLY INFUSING 0.45% NS @ 50ML/HR. BED IS LOCKED, IN THE LOWEST POSITION, 3X SIDE RAILS UP, BED ALARM IS ON. CALL LIGHT IS WITHIN REACH. FALL AND SAFETY PRECAUTIONS MAINTAINED. ALL NEEDS HAVE BEEN MET DURING THIS SHIFT. WILL ENDORSE CARE TO ONCOMING DAYSHIFT NURSE.
[2019-02-25 06:32] LABS: BASOPHILS % (AUTO) 0.2 % (0.0-2.0); EOSINOPHILS # (AUTO) 0.4 K/uL (0.0-0.4); EOSINOPHILS % (AUTO) 3.2 % (0.0-4.0); HEMATOCRIT 28.7 % (36-48); HEMOGLOBIN 9.2 g/dL (12.0-16.0); LYMPHOCYTES # (AUTO) 1.7 K/uL (1.0-5.5); LYMPHOCYTES % (AUTO) 12.6 % (20.5-51.5); MEAN CORPUSCULAR HEMOGLOBIN 28 pg (27-31); MEAN CORPUSCULAR HGB CONC 32 % (32-36); MEAN CORPUSCULAR VOLUME 88 fL (79.0-98.0); MONOCYTES # (AUTO) 1.5 K/uL (0.0-1.0); MONOCYTES % (AUTO) 10.9 % (1.7-9.3); NEUTROPHILS # (AUTO) 9.9 K/uL (1.8-7.7); NEUTROPHILS % (AUTO) 73.1 % (40.0-70.0); PLATELET COUNT (AUTO) 281 K/uL (130-430); RED BLOOD CELL COUNT(AUTO) 3.25 MIL/uL (4.2-6.2); RED CELL DISTRIBUTION WIDTH 16.8 % (9.0-15.0); WHITE BLOOD COUNT (AUTO) 13.6 K/uL (4.8-10.8)
[2019-02-25 06:49] LABS: INR 2.1 (0.8-1.2); PROTHROMBIN TIME 20.9 SECS (9.5-12.5)
--- NOTE | 2019-02-25 07:31 | NUR ---
AM ROUNDS: RECEIVED REPORT FROM NIGHT NURSE PHONG.PATIENT SLEEPING DURING ROUNDS.WITH SAME VENT SETTINGS,TOLERATED WELL. CALL LIGHT WITHIN REACH. BED LOCKED AT LOWEST POSITION. ON CONTACT ISOLATION PRECAUTION RENDERED.
[2019-02-25 07:49] LABS: POTASSIUM 4.3 mmol/L (3.5-5.1)
[2019-02-25 07:50] LABS: ALBUMIN 2.5 g/dL (3.4-4.8); CALCIUM 8.7 mg/dL (8.4-11.0); CREATININE 2.67 mg/dL (0.55-1.30); TOTAL BILIRUBIN 0.4 mg/dL (0.0-1.0)
[2019-02-25] MEDS: LACTULOSE 20 GM/30 ML UDC PO SCH ×2 (09:00→20:40)
[2019-02-25] MEDS: COLISTIMETHATE SODIUM 150 MG VIAL INH SCH ×2 (09:00→21:00)
[2019-02-25] MEDS: CHOLECALCIFEROL (VITAMIN D3) 2,000 UNIT TABLET PO SCH (09:36)
[2019-02-25] MEDS: PANTOPRAZOLE SODIUM 40 MG/VIAL (PROTONIX) IVP SCH (09:36)
[2019-02-25] MEDS: ALLOPURINOL 100 MG TABLET (ZYLOPRIM) PO SCH (09:36)
[2019-02-25] MEDS: METOCLOPRAMIDE HCL 10 MG TABLET PO SCH ×3 (09:36→20:32)
[2019-02-25] MEDS: NEPHROVITE, (FOLIC ACID/VITAMIN B COMP W-C 1 TAB) PO SCH (09:36)
[2019-02-25] MEDS: LACTOBACILLUS RHAMNOSUS GG 1 CAP CAPSULE PO SCH ×2 (09:36→20:32)
[2019-02-25] MEDS: OXYCODONE/ACETAMINOPHEN *10*mg/325 mg TABLET PO SCH ×3 (09:37→22:30)
[2019-02-25] MEDS: CILOSTAZOL 50 MG TABLET (PLETAL) PO SCH ×2 (09:37→20:32)
[2019-02-25] MEDS: MAGNESIUM OXIDE 400 MG TABLET PO SCH (09:38)
[2019-02-25 09:45] VITALS: BP_SYST 146
[2019-02-25] MEDS: SIMETHICONE 80 MG TAB.CHEW PO SCH ×2 (11:32→20:32)
[2019-02-25] MEDS: AZITHROMYCIN 500 MG in NS 250 ML IV SCH (11:32)
[2019-02-25] MEDS: SOD FERRIC GLUC COMPLEX/SUC 125 MG in NS 100 ML IV SCH (11:32)
--- NOTE | 2019-02-25 11:42 | NUR ---
Accu Check: Blood sugar taken,no insulin needed per sliding scale.
[2019-02-25 12:37] VITALS: BP_SYST 149
--- NOTE | 2019-02-25 12:55 | NUR ---
Iv Pain Meds: C/o lower leg pain and due iv Dilaudid given per request. No problem.
[2019-02-25] MEDS: ONDANSETRON HCL 4 MG/2 ML VIAL IVP PRN (13:05)
--- NOTE | 2019-02-25 13:08 | NUR ---
zofran: iv zofran given per patient's request for nausea/vomiting. no problem.
[2019-02-25 16:32] VITALS: BP_SYST 140
[2019-02-25] MEDS: WARFARIN SODIUM 2 MG TABLET PO SCH (17:29)
--- NOTE | 2019-02-25 17:34 | NUR ---
Accu Check Blood sugar taken,no insulin needed per sliding scale.
--- NOTE | 2019-02-25 18:48 | NUR ---
END OF SHIFT: PATIENT RESTING. WITH SAME VENT SETTING,TOLERATED WELL. CALL LIGHT WITH IN REACH. BED LOCKED AT LOWEST POSITION. BED ALARM ON. CONDITION GUARDED.
--- NOTE | 2019-02-25 19:27 | NUR ---
INITIAL NOTES RECEIVED HANDOFF REPORT FROM OFFGOING NURSE AT THE BEDSIDE. PATIENT IS RESTING COMFORTABLY IN BED, EYES CLOSED. NO SOB, NO ACUTE DISTRESS, NO SIGNS OF PAIN OR FACIAL GRIMACING AT THIS TIME. BED IS LOCKED, IN THE LOWEST POSITION, 2X SIDE RAILS UP, BED ALARM IS ON. CALL LIGHT IS WITHIN REACH. WILL CONTINUE WITH PLAN OF CARE.
[2019-02-25 20:00] VITALS: BP_SYST 113
[2019-02-25] MEDS: GABAPENTIN 300 MG CAPSULE PO SCH (20:32)
[2019-02-25] MEDS: ATORVASTATIN 10 MG TABLET PO SCH (20:32)
--- NOTE | 2019-02-25 20:34 | NUR ---
PATIENT REFUSES PERCOCET TABLET AT THIS TIME, STATING THAT SHE WOULD LIKE THE DILAUDID IVP FIRST BECAUSE HER PAIN IS SEVERE, AND PERCOCET LATER. DILAUDID IVP GIVEN PRN PER MD ORDER, SEE EMAR FOR DETAILS. ALSO ASSISTED PATIENT WITH PASSIVE RANGE OF MOTIONS TO THE RIGHT LEG, SINCE THE PATIENT IS COMPLAINING OF PAIN AND STIFFNESS. PATIENT VERBALIZES SOME RELIEF OF PAIN. WILL CONTINUE TO MONITOR THE PATIENT FOR PAIN.
--- NOTE | 2019-02-25 21:00 | NUR ---
PATIENT REFUSED DOSE OF COLISTIN INH. STATED THAT THE MEDICATION MIRANDA, AND SHE DOES NOT LIKE THE FEELING. EXPLAINED RISKS AND BENEFITS. PATIENT STILL REFUSED.
[2019-02-25] MEDS: 0.45% NS 1,000 ML IV SCH (22:32)
--- NOTE | 2019-02-25 22:54 | NUR ---
PATIENT CURRENTLY RESTING COMFORTABLY IN BED, EYES CLOSED. NO SOB, NO ACUTE DISTRESS, NO SIGNS OF PAIN OR FACIAL GRIMACING NOTED. BREATHING EVEN AND UNLABORED WITH VISIBLE CHEST RISE AND FALL NOTED. TOLERATING TRACH TO VENT SETTINGS. IVF INFUSING AT THE ORDERED RATE, SEE EMAR. BED IS LOCKED, IN THE LOWEST POSITION, 2X SIDE RAILS UP, BED ALARM IS ON. CALL LIGHT IS WITHIN REACH.
--- NOTE | 2019-02-25 23:10 | NUR ---
PATIENT RESTING COMFORTABLY IN BED. EYES CLOSED. BREATHING EVEN AND UNLABORED, VISIBLE CHEST RISE AND FALL NOTED. TOLERATING TRACH TO VENT SETTINGS. NO SOB, NO ACUTE DISTRESS, NO SIGNS OF PAIN OR FACIAL GRIMACING. IV SITE INTACT, DRESSING CLEAN AND DRY. IVF INFUSING AT ORDERED RATE, SEE EMAR. BED IS LOCKED, IN THE LOWEST POSITION, 2X SIDE RAILS UP, BED ALARM IS ON. CALL LIGHT WITHIN REACH.
[2019-02-26] VITALS (8 sets, daily range): BP systolic 126–141
--- NOTE | 2019-02-26 00:50 | NUR ---
PATIENT'S DAUGHTER CALLED THE FACILITY, STATING THAT SHE WANTS TO SPEAK TO THE PATIENT, AND THAT THE PATIENT IS NOT ANSWERING HER PHONE. BLANKA-RN INFORMED HER THAT THE PATIENT IS CURRENTLY SLEEPING; HOWEVER, DAUGHTER STILL STATED THAT SHE WANTS TO SPEAK TO THE PATIENT. BLANKA-RN WOKE THE PATIENT UP TO TALK ON THE PHONE. AFTER THE PHONE CONVERSATION, PATIENT STATED THAT SHE IS IN SEVERE PAIN. INFORMED PATIENT THAT PAIN MEDICATION IS NOT YET DUE. PATIENT VERBALIZED UNDERSTANDING, STATED THAT SHE WILL WAIT FOR THE NEXT DOSE TO BE DUE AND DOES NOT WANT TO CALL THE DOCTOR FOR ANY MORE PAIN MEDICATION. PATIENT VERBALIZED THAT IF ANYONE WANTS TO SPEAK TO HER WHILE SHE IS SLEEPING, TO NOT WAKE HER UP, BECAUSE "NOW I AM AWAKE, AND I AM IN PAIN. WHEN I AM SLEEPING, THE PAIN IS FINE." WILL ENSURE THAT ALL STAFF IS MADE AWARE. PROVIDED ROM TO RIGHT LEG FOR RELIEF OF PAIN. CALL LIGHT WITHIN REACH. ENCOURAGED PATIENT TO CALL FOR ASSISTANCE. WILL CONTINUE TO MONITOR PAIN.
--- NOTE | 2019-02-26 03:26 | NUR ---
PATIENT RESTING COMFORTABLY IN BED. EYES CLOSED. BREATHING EVEN AND UNLABORED WITH VISIBLE CHEST RISE AND FALL NOTED. BED IS LOCKED, IN THE LOWEST POSITION, 2X SIDE RAILS UP, BED ALARM IS ON. CALL LIGHT IS WITHIN REACH.
[2019-02-26] MEDS: IPRATROPIUM/ALBUTEROL SULFATE 3 ML AMPUL.NEB (DUONEB) INH SCH ×6 (03:50→23:00)
[2019-02-26] MEDS: DIPHENHYDRAMINE INJ 50 MG/ML VIAL IVP PRN ×3 (04:51→20:29)
[2019-02-26] MEDS: HYDROmorphone 1 MG INJ. 1 MG/ML AMPUL IVP PRN ×3 (04:52→20:28)
[2019-02-26] MEDS: CEFTAZIDIME/AVIBACTAM 0.94 GM in NS 100 ML IV SCH ×2 (04:55→18:07)
--- NOTE | 2019-02-26 04:55 | NUR ---
PATIENT COMPLAINED OF PAIN AND ITCHINESS. PROVIDED PATIENT WITH DILAUDID PRN PER MD ORDER AND BENADRYL PRN PER MD ORDER, SEE EMAR FOR DETAILS. WILL CONTINUE TO MONITOR.
[2019-02-26] MEDS: LEVOTHYROXINE SODIUM 0.15 MG TABLET PO SCH (06:24)
[2019-02-26] MEDS: FERROUS GLUCONATE 300 MG TABLET PO SCH ×2 (06:24→17:32)
--- NOTE | 2019-02-26 06:40 | NUR ---
CLOSING NOTES PATIENT RESTING COMFORTABLY IN BED, AWAKE AND ALERT. NO SOB, NO ACUTE DISTRESS, NO COMPLAINTS OF PAIN. TURNED PATIENT FOR COMFORT PER PATIENT REQUEST. TOLERATING TRACH TO VENT SETTINGS, AC, 14 BPM, TV 600, FIO 30%, PEEP 0. SAMUEL CATHETER INTACT, WITH GOOD URINE OUTPUT DRAINING CLEAR YELLOW URINE. IV SITE TO RIGHT UPPER ARM #18G INTACT, DRESSING CLEAN AND INTACT, CURRENTLY INFUSING 0.45% NS @ 50ML/HR. BED IS LOCKED, IN THE LOWEST POSITION, 3X SIDE RAILS UP, BED ALARM IS ON. CALL LIGHT IS WITHIN REACH. FALL AND SAFETY PRECAUTIONS MAINTAINED. ALL NEEDS HAVE BEEN MET DURING THIS SHIFT. WILL ENDORSE CARE TO ONCOMING DAYSHIFT NURSE.
--- NOTE | 2019-02-26 06:45 | NUR ---
LAB CALLED AND NOTIFIED NURSING STAFF THAT THEY WERE UNABLE TO OBTAIN ANY BLOOD FOR TESTING DUE TO THE PATIENT BEING A HARD STICK. LAB STATED THAT THEY WILL TRY AGAIN IN 30 MINUTES TO 1 HOUR.
--- NOTE | 2019-02-26 08:00 | NUR ---
AM NOTES IN BED, AWAKE. TOLERATING VENT SETTINGS. REPOSITIONED FOR COMFORT. NO ACUTE DISTRESS NOTED. SAFETY PRECAUTION OBSERVED. CALL LIGHT IN REACH. WILL MONITOR.
[2019-02-26 08:08] LABS: BASOPHILS # (AUTO) 0.1 K/uL (0.0-0.2); BASOPHILS % (AUTO) 0.5 % (0.0-2.0); EOSINOPHILS # (AUTO) 0.4 K/uL (0.0-0.4); HEMATOCRIT 28.1 % (36-48); HEMOGLOBIN 8.9 g/dL (12.0-16.0); LYMPHOCYTES # (AUTO) 2.3 K/uL (1.0-5.5); LYMPHOCYTES % (AUTO) 17.2 % (20.5-51.5); MEAN CORPUSCULAR HEMOGLOBIN 28 pg (27-31); MEAN CORPUSCULAR HGB CONC 32 % (32-36); MEAN CORPUSCULAR VOLUME 89 fL (79.0-98.0); MONOCYTES # (AUTO) 1.4 K/uL (0.0-1.0); MONOCYTES % (AUTO) 10.3 % (1.7-9.3); NEUTROPHILS # (AUTO) 9.2 K/uL (1.8-7.7); PLATELET COUNT (AUTO) 278 K/uL (130-430); RED BLOOD CELL COUNT(AUTO) 3.18 MIL/uL (4.2-6.2); RED CELL DISTRIBUTION WIDTH 16.7 % (9.0-15.0); WHITE BLOOD COUNT (AUTO) 13.3 K/uL (4.8-10.8)
[2019-02-26 08:16] LABS: CALCIUM 8.7 mg/dL (8.4-11.0); CREATININE 2.81 mg/dL (0.55-1.30); POTASSIUM 4.2 mmol/L (3.5-5.1)
[2019-02-26 08:17] LABS: INR 2.3 (0.8-1.2)
[2019-02-26 08:27] LABS: PROTHROMBIN TIME 22.4 SECS (9.5-12.5)
[2019-02-26] MEDS: ALLOPURINOL 100 MG TABLET (ZYLOPRIM) PO SCH (08:37)
[2019-02-26] MEDS: NEPHROVITE, (FOLIC ACID/VITAMIN B COMP W-C 1 TAB) PO SCH (08:37)
[2019-02-26] MEDS: LACTOBACILLUS RHAMNOSUS GG 1 CAP CAPSULE PO SCH ×2 (08:38→20:30)
[2019-02-26] MEDS: CHOLECALCIFEROL (VITAMIN D3) 2,000 UNIT TABLET PO SCH (08:38)
[2019-02-26] MEDS: SIMETHICONE 80 MG TAB.CHEW PO SCH ×2 (08:38→20:29)
[2019-02-26] MEDS: MAGNESIUM OXIDE 400 MG TABLET PO SCH (08:38)
[2019-02-26] MEDS: METOCLOPRAMIDE HCL 10 MG TABLET PO SCH ×3 (08:38→20:31)
[2019-02-26] MEDS: OXYCODONE/ACETAMINOPHEN *10*mg/325 mg TABLET PO SCH ×3 (08:39→21:56)
[2019-02-26] MEDS: PANTOPRAZOLE SODIUM 40 MG/VIAL (PROTONIX) IVP SCH (08:40)
[2019-02-26] MEDS: CILOSTAZOL 50 MG TABLET (PLETAL) PO SCH ×2 (08:40→20:30)
[2019-02-26] MEDS: LACTULOSE 20 GM/30 ML UDC PO SCH ×2 (08:40→20:32)
[2019-02-26] MEDS: COLISTIMETHATE SODIUM 150 MG VIAL INH SCH ×2 (09:00→20:32)
[2019-02-26] MEDS: AZITHROMYCIN 500 MG in NS 250 ML IV SCH (11:49)
[2019-02-26] MEDS: INSULIN REGULAR, HUMAN 100 UNITS/ML, 10 ML VIAL (novoLIN R) SUBCUT PRN (11:52)
[2019-02-26] MEDS: ONDANSETRON HCL 4 MG/2 ML VIAL IVP PRN ×2 (11:58→20:29)
--- NOTE | 2019-02-26 12:20 | NUR ---
notes- Turn and repositioned, complain of pain on her right knee. medicated as ordered. blood sugar is 151, refused insulin at this time.
[2019-02-26] MEDS: SOD FERRIC GLUC COMPLEX/SUC 125 MG in NS 100 ML IV SCH (13:36)
[2019-02-26] MEDS ORDERED: FUROSEMIDE 20 MG/2 ML VIAL IVP ONE (14:30)
[2019-02-26] MEDS: 0.45% NS 1,000 ML IV SCH (14:41)
--- NOTE | 2019-02-26 15:18 | NUR ---
Nutrition F/U Admitting Diagnosis Healthcare associated Pneumonia w/ Pleural Effusion Reviewed Pertinent Medical/Surgical Hx Medical Record Patient Medical History Comment: Updated MD notes 02/26: CRF S/P trach, UTI, B/L hydronephrosis, Acute/chronic renal failure, DM, anemia S/P PRBC transfusion, edema Subjective Information Pt seen resting in bed on vent at time of visit and seemed very tired. RN present in room stated that pts eating has been okay. Pt is obese and current diet order remains appropriate. Nutrition education is not provided at this time. Current Diet Order/Nutrition Support [facility] diet x 5 days Patient/Significant Other Able To Verbalize Education Provided Not Indicated Pertinent Medications NaCl IV, protonix IV, culturelle, nephrovite, VIT D, mag oxide, iron Pertinent Labs Na 133L, BG 136H, CRE 2.81H, Alb 2.5L, H/H 8.9L/28.1 L Height (Feet) 5 feet Height (Inches) 6.00 inches Weight (Pounds) 204 pounds Weight (Calculated Kilograms) 92.713776 kilograms Patient Weight 92.533 kg Body Mass Index 32.92 kg/m2 %IBW 157 [place]/Adjusted Body Weight 130 lb, 59 kg; Adj IBW Obesity: 149 lb, 68 kg; Paraplegia 120 lb, 55 kg Recent Weight Change No - per EMR Weight Status Obese Last BM Feb 23, 2019 Food Allergies Yes - refer to [employer] Usual Diet At Home Regular diet per EMR Skin Integrity Comment: Fabricio scale: 17; Per RN notes, L groin w/ blister, Posterior Sacrum w/ scar; non-pitting edema of RLE. Current % PO Good (75-100%) Estimated Energy Expenditure (kcals/day) 9119-4531 kcal/day (30-35 kcal/kg Adj IBW Obesity for sepsis) Estimated Protein Required (g/day) 54-102 gm/day (.8-1.5 gm/kg Adj IBW Obesity for sepsis/CKD) Estimated Fluid Required (l/day) per MD (CKD) Problem/Etiology/Signs/Symptoms Increased nutritional needs r/t metabolic demands AEB estimated calorie and protein for sepsis. Expected Outcomes/Goals Monitor appetite and PO intake w/ goal of pt meeting at least 95% of estimated nutritional needs, labs trending WNL, normal GI function, skin integrity/wt maintenance. Dietitian Recommendations *Recommend continuing [facility] diet per MD orders. *Continue Nephrovite daily. Follow Up Low Risk: F/U in 7 days Signed: 02/26/19 at 1518 by Raquel WOOD <Co-Signature Required> Co-Signed: 02/26/19 at [address]
--- NOTE | 2019-02-26 16:00 | NUR ---
Notes In bed, watching tv. repositioned for comfort. no distress noted.
--- NOTE | 2019-02-26 16:03 | NUR ---
Dietitian Recommendations *Recommend continuing CCHO diet per MD orders. *Continue Nephrovite daily. LP, RD Please refer to Nutrition F/U for details.
[2019-02-26] MEDS: EPOETIN ALFA 4,000 UNITS/ML VIAL SUBCUT SCH (17:32)
--- NOTE | 2019-02-26 18:50 | NUR ---
Notes- in bed, just done eating. family at bedside. IV antibiotics infusing well. Patient trying to have bowel movement at this time. enc to call if she is done. all needs meet. needs attended. will endorse.
--- NOTE | 2019-02-26 20:00 | NUR ---
Opening Notes The patient is awake and alert. The patient is oriented. Family member is at the bedside. The patient denies any acute distress. The patient has right upper arm #18 that is patent, clean, and dry. The patient has urinary catheter draining to gravity. The patient is receiving breathing treatment. Patient on vent, tolerating well. Oral care given. Fall precautions and safety measures are in place. Bed lowered, side rails up, and head of the bed elevated. Call light is within reach. Needs addressed.
[2019-02-26] MEDS: GABAPENTIN 300 MG CAPSULE PO SCH (20:30)
[2019-02-26] MEDS: ATORVASTATIN 10 MG TABLET PO SCH (20:31)
--- NOTE | 2019-02-26 22:00 | NUR ---
Nursing Notes The patient is awake and alert. The patient remains oriented. The family member is still at the bedside. The patient is on vent and tolerating. The patient denies acute distress. Patient has been repositioned. Oral care offered. IV is patent, clean, and dry. Urinary catheter is draining to gravity. Head of the bed is elevated. Side rails are up and bed is lowered. Call light is within reach. Needs addressed.
--- NOTE | 2019-02-27 | NUR ---
Nursing Notes The patient is sleeping and the family member has now left the bedside. The patient is on vent and tolerating. The patient does not show signs of being in acute distress. The patient was repositioned and adjusted in bed. The patient's pizarro catheter is draining properly to gravity. IV site remains patent, clean, and dry. The patient is in bed with the side rails up and the bed lowered. The head of the bed is elevated. Call light is within reach.
[2019-02-27 00:23] VITALS: BP_SYST 141
--- NOTE | 2019-02-27 02:00 | NUR ---
Nursing Notes The patient is sleeping in bed. The patient does not display signs of acute distress. The patient is on the vent and is tolerating well. The patient is tolerated the vent. IV access remains intact as it's patent, clean, and dry. Urinary catheter is still in place and draining to gravity. The head of the bed is elevated, side rails are up, and the bed is lowered. Call light is within reach.
[2019-02-27] MEDS: ONDANSETRON HCL 4 MG/2 ML VIAL IVP PRN ×2 (02:31→08:54)
[2019-02-27] MEDS: DIPHENHYDRAMINE INJ 50 MG/ML VIAL IVP PRN ×2 (02:31→08:54)
[2019-02-27] MEDS: HYDROmorphone 1 MG INJ. 1 MG/ML AMPUL IVP PRN ×3 (02:32→21:05)
[2019-02-27] MEDS: 0.45% NS 1,000 ML IV SCH (02:33)
[2019-02-27] MEDS: IPRATROPIUM/ALBUTEROL SULFATE 3 ML AMPUL.NEB (DUONEB) INH SCH ×5 (03:34→23:38)
--- NOTE | 2019-02-27 04:05 | NUR ---
Nursing Notes The patient is sleeping in bed. The patient woke up for a few minutes during the breathing treatment but returned to sleep. Water was given to the patient. The patient does not display any signs of acute distress. The patient is tolerating the vent. IV access remains intact as it's patent. Urinary catheter is still in place and draining to gravity. The head of the bed is elevated, side rails are up, and the bed is lowered. Safety measures in place. Call light is within reach. Will continue to monitor.
[2019-02-27 05:24] LABS: BASOPHILS # (AUTO) 0.1 K/uL (0.0-0.2); BASOPHILS % (AUTO) 0.6 % (0.0-2.0); EOSINOPHILS # (AUTO) 0.6 K/uL (0.0-0.4); EOSINOPHILS % (AUTO) 4.1 % (0.0-4.0); HEMATOCRIT 25.8 % (36-48); HEMOGLOBIN 8.4 g/dL (12.0-16.0); LYMPHOCYTES # (AUTO) 2.7 K/uL (1.0-5.5); LYMPHOCYTES % (AUTO) 18.9 % (20.5-51.5); MEAN CORPUSCULAR HEMOGLOBIN 29 pg (27-31); MEAN CORPUSCULAR HGB CONC 32 % (32-36); MEAN CORPUSCULAR VOLUME 88 fL (79.0-98.0); MONOCYTES # (AUTO) 1.2 K/uL (0.0-1.0); MONOCYTES % (AUTO) 8.7 % (1.7-9.3); NEUTROPHILS # (AUTO) 9.7 K/uL (1.8-7.7); NEUTROPHILS % (AUTO) 67.7 % (40.0-70.0); PLATELET COUNT (AUTO) 311 K/uL (130-430); RED BLOOD CELL COUNT(AUTO) 2.92 MIL/uL (4.2-6.2); RED CELL DISTRIBUTION WIDTH 16.5 % (9.0-15.0); WHITE BLOOD COUNT (AUTO) 14.3 K/uL (4.8-10.8)
[2019-02-27 05:43] LABS: CALCIUM 8.5 mg/dL (8.4-11.0); CREATININE 2.67 mg/dL (0.55-1.30); INR 2.2 (0.8-1.2); POTASSIUM 4.1 mmol/L (3.5-5.1); PROTHROMBIN TIME 21.8 SECS (9.5-12.5)
[2019-02-27] MEDS: LEVOTHYROXINE SODIUM 0.15 MG TABLET PO SCH (06:05)
[2019-02-27] MEDS: FERROUS GLUCONATE 300 MG TABLET PO SCH ×2 (06:05→17:18)
[2019-02-27] MEDS: CEFTAZIDIME/AVIBACTAM 0.94 GM in NS 100 ML IV SCH ×2 (06:06→17:18)
--- NOTE | 2019-02-27 06:35 | NUR ---
Closing Notes The patient is sleeping in bed. Breathing is even and unlabored. The patient does not appear to be in acute distress. The patient is voiding well and the pizarro catheter is draining to gravity. The patient's IV is patent, clean, and dry. The patient was repositioned. Safety measures and fall precautions were enacted. Side rails were up and the bed was lowered. The HOB is up. Call light is within reach.
--- NOTE | 2019-02-27 07:05 | NUR ---
Opening Note patient resting in bed, eyes closed, breathing unlabored and symmetrical, no signs of distress, HOB elevated, on mechanical ventilator, safety precautions in place, call light and bedside table left within reach, will continue to monitor patient
[2019-02-27] MEDS ORDERED: IRON SUCROSE COMPLEX 100 MG in NS 100 ML IV ONE (07:45)
[2019-02-27] MEDS: LACTOBACILLUS RHAMNOSUS GG 1 CAP CAPSULE PO SCH ×2 (08:52→22:22)
[2019-02-27] MEDS: SIMETHICONE 80 MG TAB.CHEW PO SCH ×2 (08:52→22:15)
[2019-02-27] MEDS: MAGNESIUM OXIDE 400 MG TABLET PO SCH (08:52)
[2019-02-27] MEDS: CHOLECALCIFEROL (VITAMIN D3) 2,000 UNIT TABLET PO SCH (08:52)
[2019-02-27] MEDS: ALLOPURINOL 100 MG TABLET (ZYLOPRIM) PO SCH (08:52)
[2019-02-27] MEDS: METOCLOPRAMIDE HCL 10 MG TABLET PO SCH ×3 (08:53→21:02)
[2019-02-27] MEDS: NEPHROVITE, (FOLIC ACID/VITAMIN B COMP W-C 1 TAB) PO SCH (08:53)
[2019-02-27] MEDS: PANTOPRAZOLE SODIUM 40 MG/VIAL (PROTONIX) IVP SCH (08:54)
[2019-02-27] MEDS: COLISTIMETHATE SODIUM 150 MG VIAL INH SCH (08:55)
[2019-02-27] MEDS: LACTULOSE 20 GM/30 ML UDC PO SCH ×2 (08:55→21:00)
[2019-02-27] MEDS: OXYCODONE/ACETAMINOPHEN *10*mg/325 mg TABLET PO SCH ×3 (08:56→22:17)
[2019-02-27 09:00] VITALS: BP_SYST 152
[2019-02-27] MEDS: CILOSTAZOL 50 MG TABLET (PLETAL) PO SCH ×2 (09:16→22:15)
--- NOTE | 2019-02-27 09:26 | NUR ---
Medication Administration educated patient regarding meds, verbalized understanding, refused lactulose and colistin, educated her on risks of not receiving meds, verbalized understanding, provided suctioning, she is positioned with pillow support, no other needs at this time, educated patient regarding use of call light for assistance, verbalized understanding, call light and bedside table left within reach, safety, isolation and aspiration precautions in place, will continue to monitor
[2019-02-27 11:24] VITALS: BP_SYST 142
--- NOTE | 2019-02-27 12:28 | NUR ---
Case mgt: I rec'd dc planning orders for home w/Home Health on 03/01/19-IV antibiotics as per ID--I s/w pt at bedside to explain that I had rec'd the dc planning order for home health IV abx for 03/01/19 so I was initiating those orders to [facility]. I explained that the case management rn would review the dc planning orders and confirm with Dr. Hanna and Dr. Gilliam on Friday03/01/19 re: which antibiotics pt would require. I also told pt I would call her daughter Danyell if pt ok with that, which she said yes. I called Danyell at [phone] Hanna's dc planning order, so I was going to fax paperwork to [facility]--Per Danyell, pt went home too soon and too sick last time and no antibiotics at all (upon review of MD progress notes 02/18/19, Dr. Gilliam indicated to dc antibiotics) and she was very upset about that. I explained that the MDs will evaluate her daily to determine if pt is stable for discharge home, and that she or pt have the right to appeal the discharge with Medicare if they feel pt is discharging home too soon. Danyell had questions about pt's cultures, which I explained that the MDs would need to explain that information to her or the pt. I also updated nurse Elena that Danyell would like a call from the MDs.Elena will check with Dr. Gilliam (he is rounding) re: IV abx and IV access--pt has rt upper arm peripheral line and is extremely difficult IV placement. Will fax orders/packet to [facility] at #[phone]--#[phone]--FLOR AMOS
--- NOTE | 2019-02-27 12:50 | NUR ---
Spoke with Dr. King informed of potential plans for DC home on Friday, stated watching trends of infection, stated will place antibiotic orders in progress note, also stated that patient may have to go home with peripheral IV and not PICC line Addendum: 02/27/19 at 1345 by Elena Adkins RN Also informed Dr. King patient has been refusing Colistin, verbalized understanding, stated will remove medication
--- NOTE | 2019-02-27 14:00 | NUR ---
Case mgt: I rec'd call from Anastasiia at [facility]--she confirmed receipt of home health orders for possible discharge Friday03/01/19. I made her aware that ID Dr. Gilliam just rounded and wrote in EMR IV abx is Avibactam currently with anticipated de-escalation to IV Rocephin x 7 days after discharge. I will fax Anastasiia the current ID note.Anastasiia aware pt's daughter's preference on last admit was [facility] for IV abx. FLOR AMOS
--- NOTE | 2019-02-27 14:10 | NUR ---
Percocet given as scheduled, educated her regarding med, verbalized understanding, tolerated well, no other needs at this time, educated patient regarding use of call light for assistance, verbalized understanding, call light and bedside table left within reach, will continue to monitor
[2019-02-27 16:20] VITALS: BP_SYST 101
--- NOTE | 2019-02-27 16:40 | NUR ---
DAUGHTER TRYING TO CALL THE PATIENT AERONAUTICAL DESIGN ENGINEER RECEIVED A PHONE CALL FROM THE DAUGHTER OF MRS. HERNADEZ WANTED TO SPEAK TO THE PATIENT. PHONE CALL WAS TRANSFERRED TO PATIENT'S ROOM AND PATIENT DID NOT ANSWER THE PHONE BECAUSE PATIENT WAS ASLEEP. NOTIFIED DAUGHTER THAT PATIENT WAS ASLEEP, DAUGHTER GOT MAD AND SAID THAT WE ARE DOOPING THE PATIENT, SHE WANTED THE PATIENT TO BE WAKE UP. WE WOKE UP MRS. HERNADEZ AND TOLD HER THAT DAUGHTER WAS VERY UPSET AND WANTED TO TALK TO HER. MRS. HERNADEZ TRIED TO CONTACT THE DAUGHTER BUT PHONE WAS BUSY BECAUSE THE DAUGHTER IS ALSO TRYING TO CONTACT THE PATIENT ON THE PHONE.
--- NOTE | 2019-02-27 17:23 | NUR ---
Blood Sugar Assessed no insulin coverage needed per sliding scale, educated patient regarding meds, verbalized understanding, IV site remains patent, educated patient on use of call light for assistance, verbalized understanding, call light and bedside table left within reach, will continue to monitor
--- NOTE | 2019-02-27 18:56 | NUR ---
Closing Note patient resting in bed, eyes closed, breathing unlabored and symmetrical, safety, isolation and aspiration precautions in place, call light and bedside table left within reach, will endorse to night stocker nurse
--- NOTE | 2019-02-27 19:20 | NUR ---
OPENING NOTE Received report from operations supervisor 2nd shift nurse DANDRE Landin. Patient is sleeping, she is on ventilator with settings as ordered. Bed is locked to lowest position, bed alarm on, call light w/in reach.
[2019-02-27 20:00] VITALS: BP_SYST 145
--- NOTE | 2019-02-27 21:15 | NUR ---
C/O PAIN Patient reporting severe pain to bilateral extremities and administered prn medication, dilaudid, as ordered for severe pain. Fingerstick glucose is 111 mg/dL, no coverage due.
[2019-02-27] MEDS: ATORVASTATIN 10 MG TABLET PO SCH (22:15)
[2019-02-27] MEDS: GABAPENTIN 300 MG CAPSULE PO SCH (22:15)
--- NOTE | 2019-02-27 22:32 | NUR ---
NOTES Administered due medications, educated on indication-side effects and she verbalized understanding. Patient reports pain has decreased to 5/10, and she also received scheduled percocet. She was positioned for comfort and provided with an extra blanket. Will monitor.
--- NOTE | 2019-02-28 00:43 | NUR ---
NOTES Patient is resting in comfortable position. Non labored breathing, ventilator settings are as ordered. T.V is off and lights are low. Will monitor.
[2019-02-28 01:08] VITALS: BP_SYST 101
--- NOTE | 2019-02-28 02:00 | NUR ---
NOTES Patient is on ventilator w/ settings as ordered, no sign of distress. She is resting w/ eyes closed and is arousable.
[2019-02-28] MEDS: IPRATROPIUM/ALBUTEROL SULFATE 3 ML AMPUL.NEB (DUONEB) INH SCH ×6 (03:00→23:00)
[2019-02-28] MEDS: ONDANSETRON HCL 4 MG/2 ML VIAL IVP PRN (03:09)
[2019-02-28] MEDS: HYDROmorphone 1 MG INJ. 1 MG/ML AMPUL IVP PRN (03:15)
--- NOTE | 2019-02-28 03:20 | NUR ---
NOTES Patient requested pain medication for severe pain and it was administered as ordered. IVF fluids emtpy and hung new bag and also replaced IV tubing.
[2019-02-28] MEDS: 0.45% NS 1,000 ML IV SCH ×2 (03:28→05:13)
[2019-02-28 03:30] VITALS: BP_SYST 150
--- NOTE | 2019-02-28 04:05 | NUR ---
NOTES Patient is resting w/eyes closed, she refused reposition. Presently pain has decreased to 3/8 and she is comfortable. Ventilator has settings as ordered. Call light is near. Addendum: 02/28/19 at 0426 by Mae Ocampo RN This is a correction to sentence above... Presently pain has decreased to "3/10" prior to medication it was 8/10.
[2019-02-28] MEDS: CEFTAZIDIME/AVIBACTAM 0.94 GM in NS 100 ML IV SCH (05:11)
[2019-02-28] MEDS: LEVOTHYROXINE SODIUM 0.15 MG TABLET PO SCH (06:20)
[2019-02-28] MEDS: FERROUS GLUCONATE 300 MG TABLET PO SCH ×2 (06:20→17:42)
[2019-02-28 06:24] LABS: BASOPHILS # (AUTO) 0.1 K/uL (0.0-0.2); BASOPHILS % (AUTO) 0.4 % (0.0-2.0); CALCIUM 8.8 mg/dL (8.4-11.0); CREATININE 2.54 mg/dL (0.55-1.30); EOSINOPHILS # (AUTO) 0.5 K/uL (0.0-0.4); EOSINOPHILS % (AUTO) 3.1 % (0.0-4.0); HEMATOCRIT 27.4 % (36-48); HEMOGLOBIN 8.9 g/dL (12.0-16.0); LYMPHOCYTES # (AUTO) 2.5 K/uL (1.0-5.5); LYMPHOCYTES % (AUTO) 16.9 % (20.5-51.5); MEAN CORPUSCULAR HEMOGLOBIN 29 pg (27-31); MEAN CORPUSCULAR HGB CONC 33 % (32-36); MEAN CORPUSCULAR VOLUME 88 fL (79.0-98.0); MONOCYTES # (AUTO) 1.2 K/uL (0.0-1.0); MONOCYTES % (AUTO) 8.1 % (1.7-9.3); NEUTROPHILS # (AUTO) 10.5 K/uL (1.8-7.7); NEUTROPHILS % (AUTO) 71.5 % (40.0-70.0); PLATELET COUNT (AUTO) 312 K/uL (130-430); POTASSIUM 4.2 mmol/L (3.5-5.1); RED BLOOD CELL COUNT(AUTO) 3.11 MIL/uL (4.2-6.2); WHITE BLOOD COUNT (AUTO) 14.7 K/uL (4.8-10.8)
[2019-02-28 06:29] LABS: INR 1.9 (0.8-1.2); PROTHROMBIN TIME 18.7 SECS (9.5-12.5)
--- NOTE | 2019-02-28 06:42 | NUR ---
CLOSING NOTE Morning fingerstic BS was 76 mg/dL and she was given apple juice to drink with due medications. IVF infusing as ordered. She is comfortable and has no further needs. Will endorse care to day shift nurse.
--- NOTE | 2019-02-28 07:10 | NUR ---
Opening Note patient resting in bed, eyes closed, breathing unlabored and symmetrical, HOB elevated, no signs of distress, safety, isolation, and aspiration precautions remain in place, will continue to monitor
[2019-02-28 08:05] VITALS: BP_SYST 120
[2019-02-28] MEDS: CHOLECALCIFEROL (VITAMIN D3) 2,000 UNIT TABLET PO SCH (08:59)
[2019-02-28] MEDS: METOCLOPRAMIDE HCL 10 MG TABLET PO SCH ×3 (08:59→21:00)
[2019-02-28] MEDS: MAGNESIUM OXIDE 400 MG TABLET PO SCH (09:00)
[2019-02-28] MEDS: LACTULOSE 20 GM/30 ML UDC PO SCH ×2 (09:00→21:00)
[2019-02-28] MEDS: OXYCODONE/ACETAMINOPHEN *10*mg/325 mg TABLET PO SCH ×3 (09:00→21:00)
[2019-02-28] MEDS: NEPHROVITE, (FOLIC ACID/VITAMIN B COMP W-C 1 TAB) PO SCH (09:01)
[2019-02-28] MEDS: SIMETHICONE 80 MG TAB.CHEW PO SCH ×2 (09:01→22:54)
[2019-02-28] MEDS: ALLOPURINOL 100 MG TABLET (ZYLOPRIM) PO SCH (09:01)
[2019-02-28] MEDS: CILOSTAZOL 50 MG TABLET (PLETAL) PO SCH ×2 (09:01→22:54)
[2019-02-28] MEDS: LACTOBACILLUS RHAMNOSUS GG 1 CAP CAPSULE PO SCH ×2 (09:02→22:55)
[2019-02-28] MEDS: PANTOPRAZOLE SODIUM 40 MG/VIAL (PROTONIX) IVP SCH (09:02)
[2019-02-28] MEDS ORDERED: FUROSEMIDE 20 MG/2 ML VIAL IVP ONE (09:15)
--- NOTE | 2019-02-28 09:22 | NUR ---
Medication Administration educated patient regarding meds, verbalized understanding, tolerated well, no other needs at this time, educated patient on use of call light for assistance, verbalized understanding, call light and bedside table left within reach, will continue to monitor
[2019-02-28] MEDS ORDERED: FUROSEMIDE 20 MG TABLET PO ONE (10:15)
--- NOTE | 2019-02-28 11:16 | NUR ---
Blood Sugar Assessed patient refused insulin coverage at this time, just ate, educated her on not receiving insulin, verbalized understanding, educated her on lasix, verbalized understanding, no other needs at this time, educated patient on use of call light for assistance. verbalized understanding, call light and bedside table left within reach, will continue to monitor
[2019-02-28 12:02] VITALS: BP_SYST 122
--- NOTE | 2019-02-28 13:30 | NUR ---
Cash AMOS attempted IV was unsuccessful 3x, patient tolerated well, will attempt later
--- NOTE | 2019-02-28 15:40 | NUR ---
Lashell AMOS attempted IV access was unsuccessful 2x, patient tolerated well, will attempt later
[2019-02-28 16:02] VITALS: BP_SYST 147
[2019-02-28] MEDS: WARFARIN SODIUM 2 MG TABLET PO SCH (17:41)
--- NOTE | 2019-02-28 17:53 | NUR ---
Blood Sugar Assessed no insulin needed per sliding scale, educated her regarding meds, verbalized understanding, stated she is feeling weak, she was assisted to meal tray, safety, aspiration and isolation precautions in place, will continue to monitor
--- NOTE | 2019-02-28 18:44 | NUR ---
Closing Note Spoke to Dr. Hanna, stated tried multiple times for peripheral IV line and were unsuccessful, placed order for midline, informed patient and stated she would consent, patient resting in bed at this time, no complaints of pain, safety, isolation and aspiration precautions in place, will endorse to caustic cresylate shift superintendent nurse
[2019-02-28 20:00] VITALS: BP_SYST 138
--- NOTE | 2019-02-28 20:05 | NUR ---
OPENING NOTE Received patient resting w/ eyes closed, she is on ventilator with settings as ordered. She is arousable and states has no needs at this time. VSS; B/P 138/65. No IV access at this time. Bed is locked to lowest position, bed alarm on, call light w/in reach.
[2019-02-28] MEDS: GABAPENTIN 300 MG CAPSULE PO SCH (21:00)
--- NOTE | 2019-02-28 22:20 | NUR ---
Notes Daughter at bedside to see daughter. She had questions and concerns about IV site, no access and I let her know that midline nurse is planned to do procedure on Friday. Patient refused some medications. Safety precautions in place and call light w/in reach.
[2019-02-28] MEDS: ATORVASTATIN 10 MG TABLET PO SCH (22:55)
--- NOTE | 2019-03-01 00:40 | NUR ---
Notes Patient is sleeping, she was momentarily woken up and encouraged to drink fluids and she declined. She refused to reposition. Ventilator settings are as ordered. Will monitor.
[2019-03-01] MEDS: IPRATROPIUM/ALBUTEROL SULFATE 3 ML AMPUL.NEB (DUONEB) INH SCH ×6 (02:05→23:02)
--- NOTE | 2019-03-01 02:21 | NUR ---
NOTES Patient is sleeping, she was arousable. She refused reposition and had no further needs. Non labored breathing on ventilator. Safety preacuations in place and call light w/in reach. Will monitor.
[2019-03-01] MEDS: 0.45% NS 1,000 ML IV SCH ×2 (02:41→11:49)
--- NOTE | 2019-03-01 04:30 | NUR ---
NOTES Patient had BM, she was cleaned and repositioned for comfort. Ventilator settings as ordered. No further needs.
[2019-03-01] MEDS: FERROUS GLUCONATE 300 MG TABLET PO SCH ×2 (06:24→17:46)
[2019-03-01] MEDS: LEVOTHYROXINE SODIUM 0.15 MG TABLET PO SCH (06:25)
--- NOTE | 2019-03-01 06:30 | NUR ---
Closing Note Due medications were given and fingerstick glucose was done with result of 100 mg/dL. Ventilator settings as ordered. Will endorse care to day shift nurse.
--- NOTE | 2019-03-01 07:50 | NUR ---
AM Rounds Patient resting in bed at this time, A/O x4. No SOB noted. Lung sounds clear. HOB kept elevated, O2 sat 100% on Vent. No IV access at this time. PICC line to be placed at 1000. F/C in place, draining yellow, Clear urine. Noted with bilateral lower extremity edema, Right heel lift boot in place. Patient turned and repositioned. On contact isolation precautions for MDRO, CORDWOOD CUTTER of sputum, maintained as ordered. Educated patient on isolation precautions, verbalized understanding. On Aspiration precautions, HOB kept elevated. On fall precautions, bed in lowest position, bed alarm on, 3 side rails up, call light within reach.
[2019-03-01 08:00] VITALS: BP_SYST 136
[2019-03-01 08:55] LABS: BASOPHILS # (AUTO) 0.1 K/uL (0.0-0.2); BASOPHILS % (AUTO) 0.6 % (0.0-2.0); EOSINOPHILS # (AUTO) 0.4 K/uL (0.0-0.4); EOSINOPHILS % (AUTO) 2.1 % (0.0-4.0); HEMATOCRIT 29.3 % (36-48); HEMOGLOBIN 9.5 g/dL (12.0-16.0); LYMPHOCYTES # (AUTO) 2.6 K/uL (1.0-5.5); LYMPHOCYTES % (AUTO) 13.4 % (20.5-51.5); MEAN CORPUSCULAR HEMOGLOBIN 29 pg (27-31); MEAN CORPUSCULAR HGB CONC 32 % (32-36); MEAN CORPUSCULAR VOLUME 88 fL (79.0-98.0); MONOCYTES # (AUTO) 1.6 K/uL (0.0-1.0); MONOCYTES % (AUTO) 8.3 % (1.7-9.3); NEUTROPHILS # (AUTO) 14.8 K/uL (1.8-7.7); PLATELET COUNT (AUTO) 385 K/uL (130-430); RED BLOOD CELL COUNT(AUTO) 3.32 MIL/uL (4.2-6.2); RED CELL DISTRIBUTION WIDTH 16.6 % (9.0-15.0); WHITE BLOOD COUNT (AUTO) 19.6 K/uL (4.8-10.8)
[2019-03-01] MEDS: CILOSTAZOL 50 MG TABLET (PLETAL) PO SCH ×2 (08:59→20:41)
[2019-03-01] MEDS: METOCLOPRAMIDE HCL 10 MG TABLET PO SCH ×3 (08:59→20:41)
[2019-03-01] MEDS: LACTOBACILLUS RHAMNOSUS GG 1 CAP CAPSULE PO SCH ×2 (08:59→20:40)
[2019-03-01] MEDS: NEPHROVITE, (FOLIC ACID/VITAMIN B COMP W-C 1 TAB) PO SCH (09:00)
[2019-03-01] MEDS: PANTOPRAZOLE SODIUM 40 MG/VIAL (PROTONIX) IVP SCH (09:00)
[2019-03-01] MEDS: ALLOPURINOL 100 MG TABLET (ZYLOPRIM) PO SCH (09:00)
[2019-03-01] MEDS: MAGNESIUM OXIDE 400 MG TABLET PO SCH (09:00)
[2019-03-01] MEDS: CHOLECALCIFEROL (VITAMIN D3) 2,000 UNIT TABLET PO SCH (09:00)
[2019-03-01] MEDS: SIMETHICONE 80 MG TAB.CHEW PO SCH ×2 (09:00→20:51)
[2019-03-01] MEDS: LACTULOSE 20 GM/30 ML UDC PO SCH ×2 (09:00→20:41)
[2019-03-01] MEDS: OXYCODONE/ACETAMINOPHEN *10*mg/325 mg TABLET PO SCH ×3 (09:01→20:40)
[2019-03-01 09:14] LABS: CALCIUM 9.3 mg/dL (8.4-11.0); CREATININE 2.28 mg/dL (0.55-1.30); POTASSIUM 4.6 mmol/L (3.5-5.1)
[2019-03-01 09:16] LABS: INR 1.8 (0.8-1.2); PROTHROMBIN TIME 17.8 SECS (9.5-12.5)
[2019-03-01 11:08] LABS: NEUTROPHILS % (AUTO) 75.6 % (40.0-70.0)
[2019-03-01] MEDS ORDERED: PANTOPRAZOLE SODIUM 40 MG/VIAL (PROTONIX) IVP ONE (11:30)
[2019-03-01] MEDS: ONDANSETRON HCL 4 MG/2 ML VIAL IVP PRN ×2 (11:41→17:57)
[2019-03-01] MEDS: HYDROmorphone 1 MG INJ. 1 MG/ML AMPUL IVP PRN ×2 (11:41→17:57)
--- NOTE | 2019-03-01 11:54 | NUR ---
Midline Midline inserted on left upper arm with 2 ports, biopatch in place, slight bleeding noted on dressing. Catheters patent. resumed IV fluids of 1/2 NS @50ml/hr. Avycaz given.
[2019-03-01] MEDS ORDERED: CEFTAZIDIME/AVIBACTAM 0.94 GM in NS 100 ML IV SCH (12:00)
[2019-03-01 12:17] VITALS: BP_SYST 144
--- NOTE | 2019-03-01 15:08 | NUR ---
Rounds Patient resting in bed, no complaints of pain at this time. Medication given as ordered. Patient turned and repositioned, resting comfortably. Fall precautions in place, bed in lowest position, bed alarm on, call light within reach.
[2019-03-01 16:34] VITALS: BP_SYST 136
--- NOTE | 2019-03-01 16:34 | NUR ---
Discharge Planning: NVP arranged CCT transportation with [facility] ) WILL CALL for pending discharge tomorrow 03/02/2019.
[2019-03-01] MEDS: EPOETIN ALFA 4,000 UNITS/ML VIAL SUBCUT SCH (17:47)
[2019-03-01] MEDS: WARFARIN SODIUM 2 MG TABLET PO SCH (17:47)
[2019-03-01] MEDS ORDERED: FLUCONAZOLE 200 mg/ NS 100 ML IV ONE (18:15)
--- NOTE | 2019-03-01 18:27 | NUR ---
Closing note Patient resting in bed, daughter at bedside, PRN pain medication given, responding well, no complaints of pain, no SOB. Patient turned and repositioned, tolerating well. Midline catheters patent, and IV fluids infusing as ordered. On Contact Isolation, aspiration,and fall precautions reinforced. HOB kept elevated, bed in lowest position, call light within reach, 3 side rails up. Patient in stable condition at this time. All needs met.
--- NOTE | 2019-03-01 19:20 | NUR ---
initial notes: pt is being clean by daughter. stable. no complain of pain. tolerate breathing to mech. vent. pt has pizarro catheter draining to clear urine by gravity. pt has new midline to her left upper arm- ivf infusing well.- dressing has blood drainage on it. needs attended at this time. call light in reach. maintained on contact isolation. will monitor.
[2019-03-01 20:03] VITALS: BP_SYST 152
[2019-03-01] MEDS: GABAPENTIN 300 MG CAPSULE PO SCH (20:39)
[2019-03-01] MEDS: ATORVASTATIN 10 MG TABLET PO SCH (20:41)
[2019-03-01] MEDS: metroNIDAZOLE 500 mg/NS 100 ML IV SCH (21:03)
--- NOTE | 2019-03-01 22:00 | NUR ---
notes: pt is watching tv. comfortable. no pain. needs attended. aramis light in reach. low bed position. will monitor.
[2019-03-02] VITALS: BP_SYST 128
--- NOTE | 2019-03-02 00:19 | NUR ---
notes: pt had bm. assist guest experience captain analyn to clean pt.reposition. pt complain of headaches. vital sign are with in normal limit. prn tylenol given. needs attended. recall light in reach. side rails up. low bed position. kept on contact isolation. will monitor.
--- NOTE | 2019-03-02 01:55 | NUR ---
notes: pt is sleeping, no sign of pain. no distress. ivf infusing well. needs attended. call light in reach. will follow-up.
[2019-03-02] MEDS: IPRATROPIUM/ALBUTEROL SULFATE 3 ML AMPUL.NEB (DUONEB) INH SCH ×6 (03:00→23:39)
--- NOTE | 2019-03-02 04:00 | NUR ---
notes: sleeping,comfortable. no pain. no distress. ivf infusing well. needs attended. call light in reach. maintained on isolation. will follow-up.
--- NOTE | 2019-03-02 06:00 | NUR ---
notes: sleeping, no sing of distress. no pain. stable. ivf infusing well. safety on. needs attended. call light in reach. low bed position. will follow-up.
[2019-03-02] MEDS: FERROUS GLUCONATE 300 MG TABLET PO SCH ×2 (06:46→16:51)
[2019-03-02] MEDS: LEVOTHYROXINE SODIUM 0.15 MG TABLET PO SCH (06:46)
[2019-03-02] MEDS: ONDANSETRON HCL 4 MG/2 ML VIAL IVP PRN ×3 (06:47→21:38)
[2019-03-02 06:49] LABS: BASOPHILS # (AUTO) 0.1 K/uL (0.0-0.2); BASOPHILS % (AUTO) 0.4 % (0.0-2.0); EOSINOPHILS # (AUTO) 0.6 K/uL (0.0-0.4); EOSINOPHILS % (AUTO) 3.5 % (0.0-4.0); HEMATOCRIT 26.8 % (36-48); HEMOGLOBIN 8.7 g/dL (12.0-16.0); LYMPHOCYTES # (AUTO) 2.3 K/uL (1.0-5.5); LYMPHOCYTES % (AUTO) 13.6 % (20.5-51.5); MEAN CORPUSCULAR HEMOGLOBIN 29 pg (27-31); MEAN CORPUSCULAR HGB CONC 33 % (32-36); MEAN CORPUSCULAR VOLUME 89 fL (79.0-98.0); MONOCYTES # (AUTO) 1.7 K/uL (0.0-1.0); MONOCYTES % (AUTO) 9.9 % (1.7-9.3); NEUTROPHILS # (AUTO) 12.3 K/uL (1.8-7.7); NEUTROPHILS % (AUTO) 72.6 % (40.0-70.0); PLATELET COUNT (AUTO) 334 K/uL (130-430); RED BLOOD CELL COUNT(AUTO) 3.03 MIL/uL (4.2-6.2); RED CELL DISTRIBUTION WIDTH 16.7 % (9.0-15.0)
[2019-03-02] MEDS: HYDROmorphone 1 MG INJ. 1 MG/ML AMPUL IVP PRN ×3 (06:50→18:31)
[2019-03-02 07:02] LABS: INR 1.9 (0.8-1.2); PROTHROMBIN TIME 18.6 SECS (9.5-12.5)
[2019-03-02 07:07] LABS: CREATININE 2.05 mg/dL (0.55-1.30); POTASSIUM 3.9 mmol/L (3.5-5.1)
--- NOTE | 2019-03-02 07:21 | NUR ---
CLOSING: AWAKE, ALERT. NO SIGN OF PAIN. NO DISTRESS. IVF INFUSING WELL. SAMUEL DRAINING BY GRAVITY. NEEDS ATTENDED THE WHOLE SHIFT. CALL LIGHT IN REACH. SIDE RAILS UP. LOW BED POSITION. MAINTAINED ON ISO. REPORT GIVEN TO AM RN.
--- NOTE | 2019-03-02 07:45 | NUR ---
AM Rounds Patient resting in bed at this time, aaox4, verbal. No s/s of distress or sob noted. HOB kept elevated, O2 sat 100% on Ventilator at prescribed settings. pt has a midline on right upper arm, patent, dressing clean and dry. F/C in place, draining yellow, Clear urine. Noted with bilateral lower extremity edema, Right heel lift boot in place. On contact isolation precautions for MDRO, AGRICULTURAL SPECIALIST of sputum, maintained as ordered. Educated patient on isolation precautions, verbalized understanding. Fall and aspiration precautions in place. Bed in lowest position, call light within reach. Will continue to monitor pt for any changes.
[2019-03-02] MEDS ORDERED: HYDROmorphone 1 MG INJ. 1 MG/ML AMPUL IVP PRN (08:15)
[2019-03-02] MEDS: metroNIDAZOLE 500 mg/NS 100 ML IV SCH ×2 (08:30→23:05)
[2019-03-02] MEDS: MAGNESIUM OXIDE 400 MG TABLET PO SCH (08:31)
[2019-03-02] MEDS: LACTOBACILLUS RHAMNOSUS GG 1 CAP CAPSULE PO SCH ×2 (08:31→21:06)
[2019-03-02] MEDS: CHOLECALCIFEROL (VITAMIN D3) 2,000 UNIT TABLET PO SCH (08:31)
[2019-03-02] MEDS: ALLOPURINOL 100 MG TABLET (ZYLOPRIM) PO SCH (08:31)
[2019-03-02] MEDS: SIMETHICONE 80 MG TAB.CHEW PO SCH ×2 (08:32→21:08)
[2019-03-02] MEDS: METOCLOPRAMIDE HCL 10 MG TABLET PO SCH ×3 (08:32→21:08)
[2019-03-02] MEDS: NEPHROVITE, (FOLIC ACID/VITAMIN B COMP W-C 1 TAB) PO SCH (08:32)
[2019-03-02] MEDS: PANTOPRAZOLE SODIUM 40 MG/VIAL (PROTONIX) IVP SCH (08:32)
[2019-03-02] MEDS: CILOSTAZOL 50 MG TABLET (PLETAL) PO SCH ×2 (08:32→21:06)
[2019-03-02] MEDS: LACTULOSE 20 GM/30 ML UDC PO SCH ×2 (08:32→21:00)
[2019-03-02] MEDS: OXYCODONE/ACETAMINOPHEN *10*mg/325 mg TABLET PO SCH ×3 (08:33→21:08)
[2019-03-02 08:42] VITALS: BP_SYST 133
[2019-03-02] MEDS: 0.45% NACL 1,000 ML IV SCH (08:59)
--- NOTE | 2019-03-02 10:41 | NUR ---
ROUNDS PT IN BED, NO S/S OF DISTRESS OR SOB NOTED, PT HAS NO C/O PAIN AT THIS TIME, PT IN STABLE CONDITION, PT RESTING COMFORTABLY, WILL CONTINUE TO MONITOR PT FOR ANY CHANGES.
--- NOTE | 2019-03-02 10:43 | NUR ---
Discharge Planning: DCP spoke to Jerry at [facility] ([phone]) updated pt may not DC today.
[2019-03-02] MEDS: INSULIN REGULAR, HUMAN 100 UNITS/ML, 10 ML VIAL (novoLIN R) SUBCUT PRN ×2 (11:27→16:51)
[2019-03-02 12:38] VITALS: BP_SYST 140
--- NOTE | 2019-03-02 13:05 | NUR ---
MEDICATION REASSESSMENT PT NO LONGER FEELS NAUSEAS, NO VOMITING NOTED, WILL CONTINUE TO MONITOR PT FOR ANY CHANGES.
--- NOTE | 2019-03-02 16:15 | NUR ---
DC Planning: discharge is pending today dt continue elevated WBC
[2019-03-02 17:08] VITALS: BP_SYST 132
[2019-03-02] MEDS: WARFARIN SODIUM 2 MG TABLET PO SCH (18:31)
--- NOTE | 2019-03-02 18:50 | NUR ---
CLOSING NOTE Pt in bed at this time talking to daughter at bedside, aaox4, verbal. No s/s of distress or sob noted. HOB kept elevated, O2 sat 100% on Ventilator at prescribed settings. pt has a midline on right upper arm, patent, dressing clean and dry. F/C in place, draining yellow, Clear urine. Right heel lift boot in place, pt on air mattress. On contact isolation precautions for MDRO, RETINAL ANGIOGRAPHER of sputum, maintained as ordered. Fall and aspiration precautions in place. Bed in lowest position, call light within reach. Will endorse care of pt to incoming nurse, needs met throughout shift.
[2019-03-02 20:00] VITALS: BP_SYST 117
--- NOTE | 2019-03-02 20:00 | NUR ---
Opening notes Pt AAOx4, no acute distress noted. VSS, afebrile. Mech Vent dependent. HOB maintained elevated. IVF infusing as ordered L. arm midline dressing c/d/i. Rivero cath to gravity with clear, yellow urine securement in place. R. heel boot on. Pt on low air loss mattress. Call light within reach. Pt states she feels "lethargic" pt was given Glucerna according to pt's daughter at bedside. Will continue to monitor.
[2019-03-02] MEDS: ATORVASTATIN 10 MG TABLET PO SCH (21:06)
[2019-03-02] MEDS: GABAPENTIN 300 MG CAPSULE PO SCH (21:08)
--- NOTE | 2019-03-02 21:38 | NUR ---
Zofran Pt c/o nausea, Zofran administered as needed. HOB maintained elevated. Call light within reach. To monitor.
[2019-03-03] MEDS: HYDROmorphone 1 MG INJ. 1 MG/ML AMPUL IVP PRN ×4 (00:02→18:52)
--- NOTE | 2019-03-03 00:02 | NUR ---
Pain Pt c/o generalized pain. Medicated with Dilaudid 1mg IVP as needed. Pt requesting Zofran, but informed pt it is not time yet. Pt verb understanding. Call light within reach. To monitor.
--- NOTE | 2019-03-03 02:35 | NUR ---
Rounds Pt asleep. No s/s distress noted. No change in mech vent settings. To monitor.
[2019-03-03] MEDS: IPRATROPIUM/ALBUTEROL SULFATE 3 ML AMPUL.NEB (DUONEB) INH SCH ×6 (03:00→23:00)
[2019-03-03] MEDS: DIPHENHYDRAMINE INJ 50 MG/ML VIAL IVP PRN ×3 (03:53→22:22)
[2019-03-03 04:53] VITALS: BP_SYST 132
--- NOTE | 2019-03-03 05:30 | NUR ---
Rounds Pt asleep. No s/s distress noted. HOB maintained elevated. No change in Vent machine settings. Rivero cath to gravity. Call light within reach. To monitor.
--- NOTE | 2019-03-03 06:50 | NUR ---
Closing notes/Pain mgmt Pt asleep, easily arousable. No s/s distress noted. [facility]. Pt c/o 8/10 pain, medicated with Dilaudid as needed. BS checked 98 this am. Encouraged pt to eat her meals, pt verb understanding. Call light within reach. Safety measures in place. To endorse to AM nurse.
[2019-03-03] MEDS: LEVOTHYROXINE SODIUM 0.15 MG TABLET PO SCH (06:51)
[2019-03-03] MEDS: FERROUS GLUCONATE 300 MG TABLET PO SCH ×2 (06:51→17:05)
[2019-03-03] MEDS: 0.45% NACL 1,000 ML IV SCH (06:57)
[2019-03-03 07:15] LABS: INR 1.8 (0.8-1.2); PROTHROMBIN TIME 17.8 SECS (9.5-12.5)
--- NOTE | 2019-03-03 07:30 | NUR ---
Initial note: Patient is sleeping , after pain medication given, She is on Trach with Ventilator AC-14, TV 600, FiO2 30%, breathing coordinates with the machine. On 0.45 % NS IVF at 50 ml/hr infusing well via left upper arm midline, Rivero catheter is in placed with clear yellow urine. Air mattress is on and a heel lift boot on right side. Will recheck when she is wake up.
[2019-03-03] MEDS: LACTULOSE 20 GM/30 ML UDC PO SCH ×2 (09:00→21:00)
[2019-03-03] MEDS: metroNIDAZOLE 500 mg/NS 100 ML IV SCH ×2 (09:10→22:02)
[2019-03-03] MEDS: CILOSTAZOL 50 MG TABLET (PLETAL) PO SCH ×2 (09:11→21:59)
[2019-03-03] MEDS: METOCLOPRAMIDE HCL 10 MG TABLET PO SCH ×3 (09:12→21:58)
[2019-03-03] MEDS: PANTOPRAZOLE SODIUM 40 MG/VIAL (PROTONIX) IVP SCH (09:14)
[2019-03-03] MEDS: CHOLECALCIFEROL (VITAMIN D3) 2,000 UNIT TABLET PO SCH (09:14)
[2019-03-03] MEDS: SIMETHICONE 80 MG TAB.CHEW PO SCH ×2 (09:15→21:59)
[2019-03-03] MEDS: LACTOBACILLUS RHAMNOSUS GG 1 CAP CAPSULE PO SCH ×2 (09:16→21:58)
[2019-03-03] MEDS: OXYCODONE/ACETAMINOPHEN *10*mg/325 mg TABLET PO SCH ×3 (09:19→22:01)
[2019-03-03] MEDS: ALLOPURINOL 100 MG TABLET (ZYLOPRIM) PO SCH (09:19)
[2019-03-03] MEDS: MAGNESIUM OXIDE 400 MG TABLET PO SCH (09:20)
[2019-03-03] MEDS: NEPHROVITE, (FOLIC ACID/VITAMIN B COMP W-C 1 TAB) PO SCH (09:20)
--- NOTE | 2019-03-03 09:45 | NUR ---
Adolfomo round: Dr. Dempsey makes round and has new orders , including CT abdomen and pelvis.
--- NOTE | 2019-03-03 11:05 | NUR ---
RN round: Patient is resting on bed with eye closed, no sign of distress.
[2019-03-03 12:34] VITALS: BP_SYST 117
--- NOTE | 2019-03-03 13:33 | NUR ---
PM care: Patient is alert, oriented, has a BM incontinent with loose greenish stool moderate amount. Give her a partial sponge bath and skin care, then reposition. Patient is tolerating well.
--- NOTE | 2019-03-03 14:35 | NUR ---
Patient refused CAT Scan abdomen and pelvis. Dr. Dempsey makes aware.
--- NOTE | 2019-03-03 14:55 | NUR ---
resting: Patient is sleeping comfortable on bed, no sign of distress.
--- NOTE | 2019-03-03 14:56 | NUR ---
CALLED PAGED DR BECKWITH SPOKE WITH AUGUSTUS
--- NOTE | 2019-03-03 15:35 | NUR ---
Midline Dressing changed: Left upper arm mid line is with old blood >50 % of the dressing. Change a new dressing with aseptic technic. Patient tolerating well.
[2019-03-03 16:19] VITALS: BP_SYST 117
[2019-03-03] MEDS: EPOETIN ALFA 4,000 UNITS/ML VIAL SUBCUT SCH (17:05)
[2019-03-03] MEDS: WARFARIN SODIUM 2 MG TABLET PO SCH (17:06)
[2019-03-03] MEDS: ONDANSETRON HCL 4 MG/2 ML VIAL IVP PRN (17:06)
--- NOTE | 2019-03-03 17:39 | NUR ---
Nausea: Patient states feeling nauseous about to eat the food that her daughter brought in. Zofran 4 mg IVP given as ordered. Will continue monitor.
--- NOTE | 2019-03-03 18:37 | NUR ---
Closing note: Patient is stable, still having abdominal pain, but controlled by pain medication, on Ventilator with same setting , tolerating well, no sign of distress, on 0.45% NS IVF at 50 ml/hr , infusing well via left arm Midline. Rivero catheter is draining well with clear yellow urine.
--- NOTE | 2019-03-03 19:38 | NUR ---
OPENING NOTE Received patient awake, AOx4 in no sign of distress on ventilator with settings as ordered. Midline to Lt arm. Patient is talking with daughter. Bed is locked to lowest position, bed alarm on and call light w/in reach.
[2019-03-03 20:00] VITALS: BP_SYST 122
--- NOTE | 2019-03-03 20:40 | NUR ---
NOTES Due antibiotic given, and patient tolerating. Daughter is visiting at bedside and questions were answered. Ventilator settings as ordered. No sign of distress.
[2019-03-03] MEDS: GABAPENTIN 300 MG CAPSULE PO SCH (21:00)
[2019-03-03] MEDS: ATORVASTATIN 10 MG TABLET PO SCH (21:58)
[2019-03-04 00:39] VITALS: BP_SYST 124
[2019-03-04] MEDS: 0.45% NACL 1,000 ML IV SCH (00:58)
[2019-03-04] MEDS: ONDANSETRON HCL 4 MG/2 ML VIAL IVP PRN ×3 (00:58→17:52)
[2019-03-04] MEDS: HYDROmorphone 1 MG INJ. 1 MG/ML AMPUL IVP PRN ×4 (00:59→17:53)
[2019-03-04] MEDS: BENZOCAINE/MENTHOL 1 EACH LOZENGE MM PRN ×2 (01:04→09:59)
--- NOTE | 2019-03-04 01:27 | NUR ---
PAIN MED Patient requested pain medication for severe pain, dilaudid 1mg for severe pain was given as ordered. She also requested zofran for nausea and said her throat felt very sore/painful, d/t cough. Zofran was also given as ordered and and Cepacol sore throat lozenge was given. I ensured she was awake and would not fall asleep with lozenge. I also changed IVF bag with new bag of 0.45 NS. I ensured that she had finished the lozenge before I left and she said her throat felt better and she removed the unfinished lozenge from her mouth. Will monitor.
[2019-03-04] MEDS: IPRATROPIUM/ALBUTEROL SULFATE 3 ML AMPUL.NEB (DUONEB) INH SCH ×5 (03:00→23:47)
[2019-03-04 06:35] LABS: BASOPHILS # (AUTO) 0.1 K/uL (0.0-0.2); BASOPHILS % (AUTO) 0.4 % (0.0-2.0); EOSINOPHILS # (AUTO) 0.5 K/uL (0.0-0.4); EOSINOPHILS % (AUTO) 2.5 % (0.0-4.0); HEMATOCRIT 29.1 % (36-48); HEMOGLOBIN 9.4 g/dL (12.0-16.0); LYMPHOCYTES % (AUTO) 14.7 % (20.5-51.5); MEAN CORPUSCULAR HEMOGLOBIN 29 pg (27-31); MEAN CORPUSCULAR HGB CONC 32 % (32-36); MEAN CORPUSCULAR VOLUME 89 fL (79.0-98.0); MONOCYTES # (AUTO) 1.9 K/uL (0.0-1.0); NEUTROPHILS # (AUTO) 15.2 K/uL (1.8-7.7); PLATELET COUNT (AUTO) 376 K/uL (130-430); RED BLOOD CELL COUNT(AUTO) 3.27 MIL/uL (4.2-6.2); RED CELL DISTRIBUTION WIDTH 17.1 % (9.0-15.0); WHITE BLOOD COUNT (AUTO) 20.7 K/uL (4.8-10.8)
[2019-03-04 06:47] LABS: INR 1.8 (0.8-1.2)
[2019-03-04] MEDS: FERROUS GLUCONATE 300 MG TABLET PO SCH ×2 (06:53→17:20)
[2019-03-04] MEDS: LEVOTHYROXINE SODIUM 0.15 MG TABLET PO SCH (06:53)
[2019-03-04 06:54] LABS: CREATININE 2.15 mg/dL (0.55-1.30); POTASSIUM 4.4 mmol/L (3.5-5.1)
--- NOTE | 2019-03-04 06:55 | NUR ---
CLOSING NOTE Patient was given due medications and also pain medication. She reported severe pain and prn pain medications given as ordered. Ventilator setting as ordered. Safety precautions in place. Will endorse care to day shift nurse.
--- NOTE | 2019-03-04 07:30 | NUR ---
OPENING NOTE: RECEIVED REPORT FROM NIGHT NURSE. PATIENT IS RESTING COMFORTABLY IN BED. NO S/S OF DISTRESS OR SOB. PATIENT IS ALERT AND ORIENTED, ABLE TO EXPRESS NEEDS, AND ASK FOR ASSISTANCE. PATIENT IS ON MECHANICAL VENTILATOR. MIDLINE IV IS PATENT AND INFUSING. DRESSING CDI. SAMUEL CATHETER DRAINING TO GRAVITY. PATIENT IN CONTACT ISOLATION. CALL LIGHT IN REACH, BED IN LOWEST POSITION, AND WILL CONTINUE TO MONITOR.
--- NOTE | 2019-03-04 07:54 | NUR ---
NOTES Due medications given. Patient was repositioned for comfort, IVF infusing as ordered, no further needs. Addendum: 03/04/19 at 0756 by Mae Ocampo RN wrong time. Late entry due to patient care. this was done at 2199
[2019-03-04] MEDS: LACTULOSE 20 GM/30 ML UDC PO SCH ×3 (09:00→21:00)
[2019-03-04 09:56] VITALS: BP_SYST 154
[2019-03-04] MEDS: NEPHROVITE, (FOLIC ACID/VITAMIN B COMP W-C 1 TAB) PO SCH (09:59)
[2019-03-04] MEDS: MAGNESIUM OXIDE 400 MG TABLET PO SCH (10:00)
[2019-03-04] MEDS: CILOSTAZOL 50 MG TABLET (PLETAL) PO SCH ×2 (10:00→21:37)
[2019-03-04] MEDS: METOCLOPRAMIDE HCL 10 MG TABLET PO SCH ×3 (10:00→21:00)
[2019-03-04] MEDS: SIMETHICONE 80 MG TAB.CHEW PO SCH ×2 (10:01→21:37)
[2019-03-04] MEDS: CHOLECALCIFEROL (VITAMIN D3) 2,000 UNIT TABLET PO SCH (10:01)
[2019-03-04] MEDS: OXYCODONE/ACETAMINOPHEN *10*mg/325 mg TABLET PO SCH ×3 (10:01→21:39)
[2019-03-04] MEDS: LACTOBACILLUS RHAMNOSUS GG 1 CAP CAPSULE PO SCH ×2 (10:01→21:37)
[2019-03-04] MEDS: ALLOPURINOL 100 MG TABLET (ZYLOPRIM) PO SCH (10:02)
[2019-03-04] MEDS: metroNIDAZOLE 500 mg/NS 100 ML IV SCH ×2 (10:02→21:40)
[2019-03-04] MEDS: PANTOPRAZOLE SODIUM 40 MG/VIAL (PROTONIX) IVP SCH (10:02)
[2019-03-04 10:18] LABS: NEUTROPHILS % (AUTO) 73.4 % (40.0-70.0)
--- NOTE | 2019-03-04 11:30 | NUR ---
PAIN MEDICATION PATIENT GIVEN PRN MEDICATION FOR PAIN 06/12. PATIENT EDUCATED ON MEDICATION SIDE EFFECTS. PATIENT INSTRUCTED ON USING CALL LIGHT TO CALL FOR NURSE FOR ASSISTANCE WITH ANYTHING. PATIENT VERBALIZED UNDERSTANDING. CALL LIGHT IN REACH, BED IN LOWEST POSITION ,AND WILL CONTINUE TO MONITOR.
[2019-03-04 12:35] VITALS: BP_SYST 120
--- NOTE | 2019-03-04 13:50 | NUR ---
HYGIENE CARE PATIENT CLEANED UP AFTER BM. PATIENT REPOSITIONED. NO OTHER NEEDS AT THIS TIME. CALL LIGHT IN REACH, BED IN LOWEST POSITION, AND WILL CONTINUE TO MONITOR.
--- NOTE | 2019-03-04 13:50 | NUR ---
DC Planning: Unable to dc pt home dt elevated WBC =20.7 today.
--- NOTE | 2019-03-04 15:59 | NUR ---
ROUNDS PT CHECKED . . NOT IN ACUTE DISTRESS. CONTINUE ON VENT SAME SETTING.CALL LIGHT WITHIN REACH. KEPT COMFORTABLE. NEEDS ATTENDED. WILL CONTINUE TO MONITOR
[2019-03-04 16:38] VITALS: BP_SYST 139
[2019-03-04 17:40] VITALS: BP_SYST 139
[2019-03-04] MEDS: WARFARIN SODIUM 2 MG TABLET PO SCH (18:15)
--- NOTE | 2019-03-04 19:25 | NUR ---
CLOSING NOTE: PATIENT IS RESTING COMFORTABLY IN BED. NO S/S OF DISTRESS OR SOB. PATIENT IS AWAKE AND ALERT, ABLE TO EXPRESS NEEDS AND ASK FOR ASSISTANCE. ALL NEEDS MET DURING SHIFT. CALL LIGHT IN REACH, BED IN LOWEST POSITION, AND WILL GIVE REPORT TO NIGHT NURSE.
--- NOTE | 2019-03-04 19:30 | NUR ---
OPENING NOTE Late entry due to patient care. Received patient awake, AOx4 in no sign of distress on ventilator with settings as ordered. IVF infusing at 50 ml/hr via Left upper arm midline. Patient is talking with daughter. Bed is locked to lowest position, bed alarm on and call light w/in reach.
[2019-03-04 20:00] VITALS: BP_SYST 131
--- NOTE | 2019-03-04 20:30 | NUR ---
NOTES Late entry due to patient care. Patient is eating meal brought by daughter. Due antibiotic was administered and patient tolerating. Call light is near.
[2019-03-04] MEDS: GABAPENTIN 300 MG CAPSULE PO SCH (21:37)
[2019-03-04] MEDS: ATORVASTATIN 10 MG TABLET PO SCH (21:39)
--- NOTE | 2019-03-04 21:45 | NUR ---
NOTES Due medications given. Patient had a BM, she was cleaned and provided with new bed linen with assistance of nurse dietary assistant and daugter. She was give a CHG bath and positioned for comfort. Ventilator settings as ordered.
--- NOTE | 2019-03-04 22:17 | NUR ---
NOTES -RT at bedside Rt providing trach care.
[2019-03-05] MEDS: 0.45% NACL 1,000 ML IV SCH ×3 (00:04→23:20)
[2019-03-05] MEDS: ONDANSETRON HCL 4 MG/2 ML VIAL IVP PRN ×2 (00:16→20:36)
[2019-03-05] MEDS: HYDROmorphone 1 MG INJ. 1 MG/ML AMPUL IVP PRN ×3 (00:16→20:44)
[2019-03-05 00:30] VITALS: BP_SYST 124
--- NOTE | 2019-03-05 01:10 | NUR ---
C/O PAIN Patient called to request pain medication for severe pain and reported nausea. She was given dilaudid as ordered for severe pain and zofran for nausea as ordered. Safety measures in place.
--- NOTE | 2019-03-05 02:12 | NUR ---
NOTES Patient had a BM, which was the second of the night, it was loose and a sample was collected and will be sent to lab. She was repositioned for comfort. She requested RT to assess her trach, which she reports feels tight. Presently RT at bedside to assist. Will monitor. Addendum: 03/05/19 at 0550 by Mae Ocampo RN BM was not sent to lab, it was discarded in biohazard container. Upon review with charge nurse and per supplemental test requisition, it was determined that stool sample is not to be sent if patient is on stool laxative.
[2019-03-05] MEDS: IPRATROPIUM/ALBUTEROL SULFATE 3 ML AMPUL.NEB (DUONEB) INH SCH ×6 (02:21→23:36)
[2019-03-05] MEDS: DIPHENHYDRAMINE INJ 50 MG/ML VIAL IVP PRN ×2 (02:40→17:12)
--- NOTE | 2019-03-05 02:45 | NUR ---
NOTES PATIENT REQUESTED BENADRYL AND IT WAS GIVEN, BY COVERING NURSE-DANDRE MOSCOSO.
--- NOTE | 2019-03-05 04:05 | NUR ---
NOTES Patient resting in comfortable position, no sign of distress. Ventilator settings as ordered. Will monitor.
[2019-03-05] MEDS: FERROUS GLUCONATE 300 MG TABLET PO SCH ×2 (06:41→17:12)
[2019-03-05] MEDS: LEVOTHYROXINE SODIUM 0.15 MG TABLET PO SCH (06:41)
--- NOTE | 2019-03-05 06:50 | NUR ---
closing notes Patient was given due medications. She c/o severe pain and was given medication for severe pain as ordered. Ventilator settings as ordered. Needs met throughout shift, will endorse to day shift nurse.
[2019-03-05 08:00] VITALS: BP_SYST 156
--- NOTE | 2019-03-05 08:00 | NUR ---
NOTE Pt drowsy and sleepy, easily arousable when light stimuli applied at this time. No SOB/resp distress or chest pain/discomfort noted at this time. Tele unit attached and intact at this time. IV - midline i left upper arm intact and patent infusing IVF's well at this time. Rivero catheter intact and draining well. Pt aware her breakfast on bedside table, states she will eat her breakfast in a little while. No needs noted. Call light within reach.
[2019-03-05 08:04] LABS: CALCIUM 8.9 mg/dL (8.4-11.0); CREATININE 1.97 mg/dL (0.55-1.30)
[2019-03-05] MEDS: LACTULOSE 20 GM/30 ML UDC PO SCH ×2 (09:00→21:00)
[2019-03-05] MEDS: OXYCODONE/ACETAMINOPHEN *10*mg/325 mg TABLET PO SCH ×3 (09:00→23:14)
--- NOTE | 2019-03-05 09:35 | NUR ---
ATTENDING MD DR KHAN, DROP WORKER FOR DR ARAYA WAS CALLED, RE: TO INFORM HIM THAT BLOOD FROM THE PERIPHERAL LINE HEMOLIZES EASILY AND TO ASK PERMISSION TO GET FROM THE MIDLINE INSTEAD. SPOKE TO FUENTES.
[2019-03-05] MEDS: CILOSTAZOL 50 MG TABLET (PLETAL) PO SCH ×2 (10:32→20:40)
[2019-03-05] MEDS: metroNIDAZOLE 500 mg/NS 100 ML IV SCH ×2 (10:32→23:16)
[2019-03-05] MEDS: PANTOPRAZOLE SODIUM 40 MG/VIAL (PROTONIX) IVP SCH (10:32)
[2019-03-05] MEDS: SIMETHICONE 80 MG TAB.CHEW PO SCH ×2 (10:32→20:40)
[2019-03-05] MEDS: ALLOPURINOL 100 MG TABLET (ZYLOPRIM) PO SCH (10:32)
[2019-03-05] MEDS: LACTOBACILLUS RHAMNOSUS GG 1 CAP CAPSULE PO SCH ×2 (10:33→23:13)
[2019-03-05] MEDS: METOCLOPRAMIDE HCL 10 MG TABLET PO SCH ×3 (10:33→20:42)
[2019-03-05] MEDS: CHOLECALCIFEROL (VITAMIN D3) 2,000 UNIT TABLET PO SCH (10:33)
[2019-03-05] MEDS: MAGNESIUM OXIDE 400 MG TABLET PO SCH (10:33)
[2019-03-05] MEDS: NEPHROVITE, (FOLIC ACID/VITAMIN B COMP W-C 1 TAB) PO SCH (10:33)
--- NOTE | 2019-03-05 11:00 | NUR ---
Note Dr Newton did call back and notified that 2 clinical lab scientist and RT tried to draw blood for labs, all unsuccessful at this time. Midline can not be used to draw blood. Pt went back to sleep at this time. Did try and eat her breakfast (banana and Ensure drink). Pt denies any needs at this time. Call light within reach. Mechanical trach intact and oxygenating pt well all shift. Pt receiving her breathing treatments as scheduled/needed all shift. Call light within reach.
[2019-03-05 12:38] VITALS: BP_SYST 123
--- NOTE | 2019-03-05 15:00 | NUR ---
Note Dr Newton called again to notify him that there was no blood drawn today for labs due to the difficulty of getting any blood for labs this shift. Pt is resting in bed at this time. No needs noted at this time. Call light within reach.
[2019-03-05] MEDS ORDERED: OXYCODONE/ACETAMINOPHEN *10*mg/325 mg TABLET ONE (15:53)
--- NOTE | 2019-03-05 15:53 | NUR ---
Nutrition F/U RD reviewed pt's current EMR including diet Hx, physician's notes, nursing notes, pertinent labs/meds, care trends, and care activity. [facility]: [facility] w/ Glucerna TID (ONS provides an additional 660 kcal/day and 30 gm protein/day). Pt seen sleeping earlier today at time of RD visit. Per RN, pt has been eating well. Recent PO intake records indicate a shift to poor/fair PO intakes since last nutrition visit 02/26/19. Pt was placed on ONS Glucerna TID -- supplement is appropriate. Pt is at moderate nutritional risk. RD to F/U within 3-5 days.
--- NOTE | 2019-03-05 16:10 | NUR ---
Note Pt sat up in bed and finished her lunch - RT gave treatments and care as scheduled at this time. Call light within reach. Dr King was on the floor at this time.
[2019-03-05 16:12] LABS: HEMATOCRIT 28.9 % (36-48); HEMOGLOBIN 9.4 g/dL (12.0-16.0); MEAN CORPUSCULAR HEMOGLOBIN 29 pg (27-31); MEAN CORPUSCULAR HGB CONC 33 % (32-36); MEAN CORPUSCULAR VOLUME 88 fL (79.0-98.0); PLATELET COUNT (AUTO) 362 K/uL (130-430); RED BLOOD CELL COUNT(AUTO) 3.27 MIL/uL (4.2-6.2); RED CELL DISTRIBUTION WIDTH 17.5 % (9.0-15.0); WHITE BLOOD COUNT (AUTO) 23.3 K/uL (4.8-10.8)
[2019-03-05 16:22] LABS: INR 1.9 (0.8-1.2); PROTHROMBIN TIME 18.5 SECS (9.5-12.5)
[2019-03-05 16:40] LABS: BAND % (MANUAL) 2 % (0-6); BASOPHILS % (MANUAL) 0 % (0-2); EOSINOPHILS % (MANUAL) 2 % (0-7); LYMPHOCYTES % (MANUAL) 9 % (20-46); METAMYELOCYTES % 1 % (0-0); MONOCYTES % (MANUAL) 7 % (0-11)
[2019-03-05 16:41] VITALS: BP_SYST 119
[2019-03-05] MEDS: EPOETIN ALFA 4,000 UNITS/ML VIAL SUBCUT SCH (17:13)
[2019-03-05] MEDS: WARFARIN SODIUM 2 MG TABLET PO SCH (17:15)
--- NOTE | 2019-03-05 18:40 | NUR ---
Note Pt was given medications as scheduled and care all shift. IV - midline in left upper arm intact and patent infusing IVF's. No SOB/resp distress or pain/discomfort noted at this time. Pt was checked on q1' and PRN all shift for needs and care. Mechanical trach ventilating pt well all shift. Pain tolerable at this time. Pt was drowsy for most of am till around 1530. Pt did eat all her 3 meals as given to her during the day. No needs noted. Call light within reach.
[2019-03-05 19:21] VITALS: BP_SYST 116
--- NOTE | 2019-03-05 19:25 | NUR ---
initial notes: pt is awake, alert. oriented x 4. stable. no complain of pain. tolerate breathing to mech. vent. pt has pizarro catheter draining to clear urine by gravity. pt has new midline to her left upper arm- ivf infusing well.- dressing dry and intact. needs attended at this time. call light in reach. maintained on contact isolation. will monitor.
[2019-03-05] MEDS: GABAPENTIN 300 MG CAPSULE PO SCH (20:40)
[2019-03-05] MEDS: ATORVASTATIN 10 MG TABLET PO SCH (20:42)
--- NOTE | 2019-03-05 22:00 | NUR ---
awake, alert. no pain. stable. watching tv and on her cellphone. needs attended. will monitor.
--- NOTE | 2019-03-05 23:40 | NUR ---
pt is still awake, alert. watching on her cellphone. stable. blood sugar -139, no coverage. ivf infusing well. change all lines of ivf. needs attended. call light in reach. reposition. will monitor.
--- NOTE | 2019-03-06 | NUR ---
assisted pt to bathroom. unsteady gait observe. back to bed. needs attended. call light in reach. bed alarm on. will monitor. Addendum: 03/06/19 at 0215 by Martir Csatelan RN disregard. wrong entry.
[2019-03-06 02:32] VITALS: BP_SYST 139
[2019-03-06] MEDS: ONDANSETRON HCL 4 MG/2 ML VIAL IVP PRN (06:00)
[2019-03-06] MEDS: HYDROmorphone 1 MG INJ. 1 MG/ML AMPUL IVP PRN ×3 (06:01→18:07)
[2019-03-06 06:30] LABS: INR 2.2 (0.8-1.2); PROTHROMBIN TIME 21.8 SECS (9.5-12.5)
--- NOTE | 2019-03-06 06:30 | NUR ---
notes: pt is awake, alert. no pain after 30 mins. of pain medication. blood sugar 117. ivf infusing well. needs attended. call lightin reach. will monitor.
[2019-03-06] MEDS: FERROUS GLUCONATE 300 MG TABLET PO SCH ×2 (06:39→17:21)
[2019-03-06] MEDS: LEVOTHYROXINE SODIUM 0.15 MG TABLET PO SCH (06:39)
--- NOTE | 2019-03-06 07:15 | NUR ---
closing: pt is resting. no pain, stable. not distress. tolerating mechanical vent. ivf infusing well to left mid line. needs attended the whole shift. call lightin reach. side rails up. low bed p[ositon. bed side report given to am rn.
--- NOTE | 2019-03-06 07:20 | NUR ---
received patient report at the bedside with Martir Spears. patient still asleep. vitals signs stable still on mechanical ventilator with setting of ac 14, tv 600, fio2 30% no peep. breathing even and unlabored. hoarse voice noted. lungs with diminished at the bases. abdomen soft and non distended. bed in low position. call lights within reach. still on contact isolation.
[2019-03-06 08:00] VITALS: BP_SYST 125
[2019-03-06] MEDS: IPRATROPIUM/ALBUTEROL SULFATE 3 ML AMPUL.NEB (DUONEB) INH SCH ×5 (08:02→23:25)
--- NOTE | 2019-03-06 08:12 | NUR ---
refusing to have breathing treatment, but explained well. patient agree to have respiratory treatment.
--- NOTE | 2019-03-06 09:00 | NUR ---
due medication given. made comfortable.
[2019-03-06] MEDS: metroNIDAZOLE 500 mg/NS 100 ML IV SCH (09:26)
[2019-03-06] MEDS: PANTOPRAZOLE SODIUM 40 MG/VIAL (PROTONIX) IVP SCH (09:27)
[2019-03-06] MEDS: SIMETHICONE 80 MG TAB.CHEW PO SCH ×2 (09:28→20:44)
[2019-03-06] MEDS: LACTOBACILLUS RHAMNOSUS GG 1 CAP CAPSULE PO SCH ×2 (09:29→20:45)
[2019-03-06] MEDS: NEPHROVITE, (FOLIC ACID/VITAMIN B COMP W-C 1 TAB) PO SCH (09:30)
[2019-03-06] MEDS: OXYCODONE/ACETAMINOPHEN *10*mg/325 mg TABLET PO SCH ×3 (09:30→20:47)
--- NOTE | 2019-03-06 09:30 | NUR ---
warm blanket requested. verbalized feels cold. afebrile latest temp 98
[2019-03-06] MEDS: ALLOPURINOL 100 MG TABLET (ZYLOPRIM) PO SCH (09:31)
[2019-03-06] MEDS: METOCLOPRAMIDE HCL 10 MG TABLET PO SCH ×3 (09:31→20:45)
[2019-03-06] MEDS: MAGNESIUM OXIDE 400 MG TABLET PO SCH (09:31)
[2019-03-06] MEDS: CHOLECALCIFEROL (VITAMIN D3) 2,000 UNIT TABLET PO SCH (09:32)
[2019-03-06] MEDS: CILOSTAZOL 50 MG TABLET (PLETAL) PO SCH ×2 (09:32→20:45)
[2019-03-06] MEDS: LACTULOSE 20 GM/30 ML UDC PO SCH ×2 (09:33→21:00)
--- NOTE | 2019-03-06 10:00 | NUR ---
hourly rounding. watching tv.
--- NOTE | 2019-03-06 11:25 | NUR ---
turn to sides. assists on adls.
--- NOTE | 2019-03-06 11:30 | NUR ---
complained of leg and back pain.
--- NOTE | 2019-03-06 11:35 | NUR ---
latest bs 151mg/dl. no coverage given.
--- NOTE | 2019-03-06 11:40 | NUR ---
dilaudid 1 mg iv given flush with normal saline on the picc line.
[2019-03-06 12:02] VITALS: BP_SYST 126
--- NOTE | 2019-03-06 12:12 | NUR ---
has heel protector on the rt leg/feet. has pizarro catheter in placed and draining radhika clear urine.
--- NOTE | 2019-03-06 14:00 | NUR ---
repositioned to sides. removed all blankets. wants only one blanket to cover.
[2019-03-06] MEDS: DIPHENHYDRAMINE INJ 50 MG/ML VIAL IVP PRN (16:00)
--- NOTE | 2019-03-06 16:00 | NUR ---
benadryl 25 mg iv given due generalized itchiness. made comfortable. turn to sides.
[2019-03-06 17:05] VITALS: BP_SYST 147
[2019-03-06] MEDS: PIPERACILLIN/TAZO 2.25G/DEX-IS 50 ML IV SCH ×2 (17:27→23:41)
[2019-03-06] MEDS: WARFARIN SODIUM 2 MG TABLET PO SCH (17:34)
--- NOTE | 2019-03-06 18:00 | NUR ---
latest bs 136mg/dl. no coverage given
--- NOTE | 2019-03-06 18:07 | NUR ---
dilaudid 1 mg iv given.
--- NOTE | 2019-03-06 19:15 | NUR ---
endorsed to incoming nurse Martir AMOS
--- NOTE | 2019-03-06 19:20 | NUR ---
initial notes: pt is awake, alert. oriented x 4.talking to her visitor-friend at bedside. stable. no complain of pain. tolerate breathing to mech. vent. pt has pizarro catheter draining to clear urine by gravity. pt has midline to her left upper arm- ivf infusing well.- dressing dry and intact. on SANTOS. needs attended at this time.side rails up. call light in reach. maintained on contact isolation. will monitor.
[2019-03-06 20:15] VITALS: BP_SYST 124
[2019-03-06] MEDS: GABAPENTIN 300 MG CAPSULE PO SCH (20:44)
[2019-03-06] MEDS: ATORVASTATIN 10 MG TABLET PO SCH (20:45)
[2019-03-06] MEDS: INSULIN REGULAR, HUMAN 100 UNITS/ML, 10 ML VIAL (novoLIN R) SUBCUT PRN (21:02)
[2019-03-06] MEDS: 0.45% NACL 1,000 ML IV SCH (22:09)
--- NOTE | 2019-03-06 22:10 | NUR ---
NOTES: resting, no pain. not distress. current ivf is empty change to new bag. infusing well. needs attended, call light in reach. will follow-up
--- NOTE | 2019-03-07 | NUR ---
sleeping,comfortable. no sing of pain. not distress. stable. safety on. bed alarm on. call light in reach. will monitor.
[2019-03-07 00:41] VITALS: BP_SYST 121
[2019-03-07] MEDS: BENZOCAINE/MENTHOL 1 EACH LOZENGE MM PRN (01:17)
[2019-03-07] MEDS: ONDANSETRON HCL 4 MG/2 ML VIAL IVP PRN ×3 (01:19→20:05)
[2019-03-07] MEDS: HYDROmorphone 1 MG INJ. 1 MG/ML AMPUL IVP PRN ×3 (01:22→20:08)
--- NOTE | 2019-03-07 01:41 | NUR ---
notes: pt is awake, alert. no pain. not distress. current ivf is empty. change to new iv bag. no sign of infiltration. needs attended. call light in reach. bed alarm on. will monitor. Addendum: 03/07/19 at 0143 by Martir Castelan RN disregard wrong entry.
--- NOTE | 2019-03-07 01:44 | NUR ---
pt is now sleeping comfortably. no sign of pain. not distress. stable. needs attended. aramis light in reach. will monitor.
[2019-03-07] MEDS: IPRATROPIUM/ALBUTEROL SULFATE 3 ML AMPUL.NEB (DUONEB) INH SCH ×6 (03:00→23:13)
--- NOTE | 2019-03-07 04:00 | NUR ---
notes:sleeping, no pain. not distress. stable. side rails up. call light in reach. safety on. will monitor.
[2019-03-07] MEDS: PIPERACILLIN/TAZO 2.25G/DEX-IS 50 ML IV SCH ×3 (05:55→17:37)
[2019-03-07] MEDS: LEVOTHYROXINE SODIUM 0.15 MG TABLET PO SCH (06:25)
[2019-03-07] MEDS: FERROUS GLUCONATE 300 MG TABLET PO SCH ×2 (06:25→17:36)
--- NOTE | 2019-03-07 06:30 | NUR ---
notes: sleeping comfortable, no pain. ivf infusing well. pizarro catheter is intact and draining well. stable. needs attended. call light in reach. will monitor.
--- NOTE | 2019-03-07 07:15 | NUR ---
received report at the bedside. patient resting both eyes closed. still on mechanical ventilator ac 14,tv 600, fi02 30% no peep. still has midline picc left upper arm. with iv fluids infusing on well. breathing even and unlabored. still trach to vent. bed in low position. call lights within reach. continue to monitor status of the patients.
--- NOTE | 2019-03-07 07:20 | NUR ---
closing: pt is resting. wakes up when called by name. no pain, stable. not distress. tolerating mechanical vent. ivf infusing well to left mid line. needs attended the whole shift. call light in reach. side rails up. low bed position. bed side report given to am rn.
[2019-03-07] MEDS: PANTOPRAZOLE SODIUM 40 MG/VIAL (PROTONIX) IVP SCH (08:38)
[2019-03-07] MEDS: LACTULOSE 20 GM/30 ML UDC PO SCH (08:39)
[2019-03-07] MEDS: ALLOPURINOL 100 MG TABLET (ZYLOPRIM) PO SCH (08:41)
[2019-03-07] MEDS: CILOSTAZOL 50 MG TABLET (PLETAL) PO SCH ×2 (08:41→22:05)
[2019-03-07] MEDS: NEPHROVITE, (FOLIC ACID/VITAMIN B COMP W-C 1 TAB) PO SCH (08:42)
[2019-03-07] MEDS: SIMETHICONE 80 MG TAB.CHEW PO SCH ×2 (08:42→22:05)
[2019-03-07] MEDS: CHOLECALCIFEROL (VITAMIN D3) 2,000 UNIT TABLET PO SCH (08:43)
[2019-03-07] MEDS: OXYCODONE/ACETAMINOPHEN *10*mg/325 mg TABLET PO SCH ×3 (08:43→22:06)
[2019-03-07] MEDS: MAGNESIUM OXIDE 400 MG TABLET PO SCH (08:44)
[2019-03-07] MEDS: METOCLOPRAMIDE HCL 10 MG TABLET PO SCH ×3 (08:44→22:05)
[2019-03-07] MEDS: LACTOBACILLUS RHAMNOSUS GG 1 CAP CAPSULE PO SCH ×2 (08:44→22:05)
[2019-03-07 08:51] VITALS: BP_SYST 131
--- NOTE | 2019-03-07 09:00 | NUR ---
percocet tablet given as ordered.
--- NOTE | 2019-03-07 09:30 | NUR ---
medication given as ordered. refused lactulose po
--- NOTE | 2019-03-07 10:25 | NUR ---
dr belle made rounds.
--- NOTE | 2019-03-07 12:00 | NUR ---
zozyn iv given
[2019-03-07 12:25] VITALS: BP_SYST 129; BP_SYST 142
[2019-03-07] MEDS: INSULIN REGULAR, HUMAN 100 UNITS/ML, 10 ML VIAL (novoLIN R) SUBCUT PRN ×2 (12:31→22:17)
--- NOTE | 2019-03-07 14:35 | NUR ---
applied a nd d cream and lanolin cream to sacral area. redness noted rt inguinal area.
--- NOTE | 2019-03-07 14:35 | NUR ---
provided clean up had bowel movement x1 loose stool at this time.
--- NOTE | 2019-03-07 15:30 | NUR ---
refused the schedule percocet tablet and reglan for now. she said later. daughter is aware.
--- NOTE | 2019-03-07 16:08 | NUR ---
dr ramsey came and see the patent. finally patient took the percocet and reglan po
[2019-03-07 16:10] VITALS: BP_SYST 123
--- NOTE | 2019-03-07 17:45 | NUR ---
latest bs 145mg/dl. no coverage given. very sleepy no pain noted.
--- NOTE | 2019-03-07 17:49 | NUR ---
refusing coumadin at this time. explain the importance of the medication. said no.
--- NOTE | 2019-03-07 18:32 | NUR ---
PATIENT IS SO SLEEPY. NO PAIN NOR ACUTE DISTRESS NOTED.
--- NOTE | 2019-03-07 19:10 | NUR ---
initial notes: pt is awake, alert. oriented x 4.watching tv. stable. no complain of pain. tolerate breathing to mech. vent. pt has pizarro catheter draining to clear urine by gravity. pt has midline to her left upper arm- ivf infusing well.- dressing dry and intact. on SANTOS. pt is clean and dry. needs attended at this time.side rails up. call light in reach. maintained on contact isolation. will monitor.
--- NOTE | 2019-03-07 19:15 | NUR ---
endorsed to incoming nurse Santino crockett
[2019-03-07 19:56] VITALS: BP_SYST 121
[2019-03-07] MEDS: WARFARIN SODIUM 2 MG TABLET PO SCH (20:11)
--- NOTE | 2019-03-07 20:33 | NUR ---
spoke to dr. ramsey- told that pt wants antidiarrheal medication loperamide and dc lactulose. md order loperamide 2mg po q4hr/prn for diarrhea and discontinue lactulose.
--- NOTE | 2019-03-07 22:00 | NUR ---
still awake, watching tv. pm medication given. tolerate well. stable. safety. will continue to monitor.
[2019-03-07] MEDS: GABAPENTIN 300 MG CAPSULE PO SCH (22:05)
[2019-03-07] MEDS: LOPERAMIDE HCL 2 MG CAPSULE PO PRN (22:05)
[2019-03-07] MEDS: ATORVASTATIN 10 MG TABLET PO SCH (22:05)
[2019-03-07] MEDS: 0.45% NACL 1,000 ML IV SCH (22:24)
--- NOTE | 2019-03-08 | NUR ---
sleeping, holding her cellphone. no pain. stable. maintained contact isolation. safety on. call light with her. will continue to monitor.
[2019-03-08] MEDS: PIPERACILLIN/TAZO 2.25G/DEX-IS 50 ML IV SCH ×4 (00:04→17:32)
--- NOTE | 2019-03-08 01:49 | NUR ---
pt complain of right shoulder pain after being clean. pt ask for pain medication and imodium. stable vitals sign. needs attended. call light in reach.safety on. will monitor.
[2019-03-08 01:52] VITALS: BP_SYST 125
[2019-03-08] MEDS: LOPERAMIDE HCL 2 MG CAPSULE PO PRN (02:06)
[2019-03-08] MEDS: HYDROmorphone 1 MG INJ. 1 MG/ML AMPUL IVP PRN ×3 (02:07→20:26)
[2019-03-08] MEDS: IPRATROPIUM/ALBUTEROL SULFATE 3 ML AMPUL.NEB (DUONEB) INH SCH ×5 (03:00→23:20)
--- NOTE | 2019-03-08 04:11 | NUR ---
sleeping comfortably. no sign of pain. not distress. stable. needs attended. aramis light in reach. will monitor.
--- NOTE | 2019-03-08 06:03 | NUR ---
sleeping. no pain, no distress, stable. am iv antibiotic given. will monitor.
[2019-03-08] MEDS: FERROUS GLUCONATE 300 MG TABLET PO SCH ×2 (06:40→17:31)
[2019-03-08] MEDS: LEVOTHYROXINE SODIUM 0.15 MG TABLET PO SCH (06:40)
--- NOTE | 2019-03-08 07:00 | NUR ---
closing: pt is resting. complain of pain. explain that her pain medication is due at 8am pt is willing to wait. stable. needs attended. the whole shift. call light in reach. contact isolation. will give bedside report to am rn.
[2019-03-08 07:40] LABS: BASOPHILS # (AUTO) 0.1 K/uL (0.0-0.2); BASOPHILS % (AUTO) 0.3 % (0.0-2.0); EOSINOPHILS # (AUTO) 0.5 K/uL (0.0-0.4); EOSINOPHILS % (AUTO) 2.5 % (0.0-4.0); HEMATOCRIT 25.4 % (36-48); HEMOGLOBIN 8.2 g/dL (12.0-16.0); LYMPHOCYTES # (AUTO) 2.4 K/uL (1.0-5.5); LYMPHOCYTES % (AUTO) 12.4 % (20.5-51.5); MEAN CORPUSCULAR HEMOGLOBIN 28 pg (27-31); MEAN CORPUSCULAR HGB CONC 32 % (32-36); MEAN CORPUSCULAR VOLUME 88 fL (79.0-98.0); NEUTROPHILS # (AUTO) 14.6 K/uL (1.8-7.7); PLATELET COUNT (AUTO) 364 K/uL (130-430); RED BLOOD CELL COUNT(AUTO) 2.91 MIL/uL (4.2-6.2); WHITE BLOOD COUNT (AUTO) 19.5 K/uL (4.8-10.8)
[2019-03-08 07:49] LABS: INR 2.2 (0.8-1.2); PROTHROMBIN TIME 21.9 SECS (9.5-12.5)
--- NOTE | 2019-03-08 07:53 | NUR ---
Opening Note Report received from Martir CHENG shift nurse. Isolation and aspiration precautions are in place. Patient is currently sleeping, however, is arousable. Trach is to vent with the following settings: AC 14, TV 600, Fio2 30%, peep 0. Midline is on the LUE running 1/2NS@50. Rivero cath is to gravity draining clear, yellow urine. Will continue to monitor.
[2019-03-08 07:54] LABS: CALCIUM 7.8 mg/dL (8.4-11.0); CREATININE 2.07 mg/dL (0.55-1.30); POTASSIUM 4.4 mmol/L (3.5-5.1)
[2019-03-08 08:06] VITALS: BP_SYST 110
[2019-03-08 08:06] LABS: TOTAL BILIRUBIN 0.3 mg/dL (0.0-1.0)
[2019-03-08] MEDS: SIMETHICONE 80 MG TAB.CHEW PO SCH ×2 (09:00→22:18)
[2019-03-08] MEDS: MAGNESIUM OXIDE 400 MG TABLET PO SCH (09:00)
[2019-03-08] MEDS: OXYCODONE/ACETAMINOPHEN *10*mg/325 mg TABLET PO SCH ×3 (09:00→22:19)
[2019-03-08] MEDS: NEPHROVITE, (FOLIC ACID/VITAMIN B COMP W-C 1 TAB) PO SCH (09:00)
[2019-03-08] MEDS: CILOSTAZOL 50 MG TABLET (PLETAL) PO SCH ×2 (09:00→22:18)
[2019-03-08] MEDS: CHOLECALCIFEROL (VITAMIN D3) 2,000 UNIT TABLET PO SCH (09:00)
[2019-03-08] MEDS: ALLOPURINOL 100 MG TABLET (ZYLOPRIM) PO SCH (09:00)
[2019-03-08] MEDS: LACTOBACILLUS RHAMNOSUS GG 1 CAP CAPSULE PO SCH ×2 (09:00→22:18)
[2019-03-08] MEDS: METOCLOPRAMIDE HCL 10 MG TABLET PO SCH ×3 (09:00→22:20)
[2019-03-08] MEDS: PANTOPRAZOLE SODIUM 40 MG/VIAL (PROTONIX) IVP SCH (09:17)
[2019-03-08 10:01] LABS: NEUTROPHILS % (AUTO) 74.8 % (40.0-70.0)
--- NOTE | 2019-03-08 10:12 | NUR ---
Rounds Patient is currently sleeping in bed.
--- NOTE | 2019-03-08 12:15 | NUR ---
Pain med Patient woke up and is requesting Dilaudid IVP. Advised the patient that she has been very drowsy and should try Percocet instead. Patient still insisted in having the Dilaudid. Will closely monitor.
[2019-03-08] MEDS: ONDANSETRON HCL 4 MG/2 ML VIAL IVP PRN ×2 (12:18→20:21)
[2019-03-08 12:31] VITALS: BP_SYST 141
--- NOTE | 2019-03-08 13:50 | NUR ---
RN Note Patient is requesting to have Benadryl IVP. Will administer and reassess.
[2019-03-08] MEDS: DIPHENHYDRAMINE INJ 50 MG/ML VIAL IVP PRN ×2 (14:02→20:16)
--- NOTE | 2019-03-08 14:43 | NUR ---
DC PLANNING Dr Hanna discussed dc plan w pt & myself @ bedside. Elevated WBC no dc home today. Discussed [facility] vs [facility] w pt. Pt refuses [facility], states agreeable w [facility]. Asked pt if I should call dtr, pt is calling dtr herself does not want me to call her. Dr Hanna states is ordering [facility] eval for Pulmonary Rehab. Informed arin Hernandes business planner.
--- NOTE | 2019-03-08 15:02 | NUR ---
Discharge Planning: DCP faxed referral to [facility] (f [phone] p [phone]) DCP to follow up.
[2019-03-08 16:37] VITALS: BP_SYST 147
--- NOTE | 2019-03-08 16:47 | NUR ---
Rounds Patient is currently sleeping in bed.
[2019-03-08] MEDS: EPOETIN ALFA 4,000 UNITS/ML VIAL SUBCUT SCH (17:32)
[2019-03-08] MEDS: WARFARIN SODIUM 2 MG TABLET PO SCH (17:33)
[2019-03-08] MEDS: 0.45% NACL 1,000 ML IV SCH (18:10)
--- NOTE | 2019-03-08 18:17 | NUR ---
Closing Note Changed LUE midline dressing per patient's request. Sterile technique used. VS have remained stable throughout the shift. Isolation and aspiration precautions remain in place. 1/2NS is running at 50. Rivero cath is to gravity draining clear yellow urine. Currently waiting for a bed at [facility]. Will endorse care to the oncoming nurse.
--- NOTE | 2019-03-08 20:15 | NUR ---
INITIAL NOTES: PATIENT IN BED AWAKE ORIENTED X3, ON VENTILATOR VIA TRACHE WITH SETTINGS OF AC 14,TV 450 O PEEP FIO2 30%,SATURATION 100# WITH BREATHING TREATMENT ON GOING NOW.VITAL SIGNS STABLE. SAMUEL IN PLACE WITH CLOUDY YELLOW URINE. HAVING HIP AND BACK PAIN. WILL GIVE PAIN MEDS SOON. LOWER EXTREMITIES IMPAIRED WITH 2+ EDEMA.OBESE.IVF INFUSING AT 50ML/HR.VIA LEFT UPPER MID LINE PICC.CALL LIGHT WITHIN REACH. BED IN LOW POSITION. DENIES CHEST PAIN NOR SOB. EATING COOKIES FOR SNACKS. WILL MONITOR CLOSELY. VERBALIZING HER DIARRHEA LAST NIGHT.
--- NOTE | 2019-03-08 20:16 | NUR ---
PAIN: MEDICATED WITH DILAUDID FOR PAIN/BENADRYL IV FOR POSSIBLE ALLERGY AND ZOFRAN TO PREVENT NAUSEA/VOMITING.
--- NOTE | 2019-03-08 21:30 | NUR ---
HYGIENE: REFUSE BATH THIS TIME. DENIES LOOSE STOOL.
[2019-03-08] MEDS: GABAPENTIN 300 MG CAPSULE PO SCH (22:19)
[2019-03-08] MEDS: ATORVASTATIN 10 MG TABLET PO SCH (22:20)
--- NOTE | 2019-03-08 22:20 | NUR ---
MEDS ADMIN: DISCUSSED ALL DUE PO MEDS ,AGREED TO TAKE THEM ALL.TOOK MEDS WITH PROBLEM. REFUSE TO TURN,
[2019-03-09 00:16] VITALS: BP_SYST 132
[2019-03-09] MEDS: PIPERACILLIN/TAZO 2.25G/DEX-IS 50 ML IV SCH ×3 (00:19→11:01)
--- NOTE | 2019-03-09 00:20 | NUR ---
ROUNDS: SLEEPING THIS TIME. ON SAME VENT SETTINGS.
--- NOTE | 2019-03-09 02:00 | NUR ---
BOWEL MOVEMENT: HAS LARGE LOOSE BLACKISH STOOL. SKYLER CARE DONE, OWN SKIN PROTECTIVE CREAM APPLIED TO PERINEAL /GROIN AND COCCYX.
[2019-03-09] MEDS: DIPHENHYDRAMINE INJ 50 MG/ML VIAL IVP PRN ×3 (02:13→14:14)
[2019-03-09] MEDS: ONDANSETRON HCL 4 MG/2 ML VIAL IVP PRN ×3 (02:15→15:50)
[2019-03-09] MEDS: HYDROmorphone 1 MG INJ. 1 MG/ML AMPUL IVP PRN ×2 (02:28→13:00)
--- NOTE | 2019-03-09 02:28 | NUR ---
PAIN: COMPLAIN OF HIP AND BACK PAIN. DILAUDID 1MG IV GIVEN WITH ZOFRAN IV AND BENADRYL IV. NO LEAKAGE OF MID PICC AFTER AFTER REINFORCING TRANSPARENT DRESSING.
[2019-03-09] MEDS: LOPERAMIDE HCL 2 MG CAPSULE PO PRN (02:31)
[2019-03-09] MEDS: IPRATROPIUM/ALBUTEROL SULFATE 3 ML AMPUL.NEB (DUONEB) INH SCH ×4 (03:00→23:00)
--- NOTE | 2019-03-09 04:00 | NUR ---
ROUNDS: PATIENT CONTINUE TO SLEEP. CALL LIGHT WITHIN REACH, ON SAME VENT SETTINGS.
--- NOTE | 2019-03-09 05:30 | NUR ---
SLEEPING SOUNDLY. SAMUEL WITH CLOUDY COLOR URINE.
--- NOTE | 2019-03-09 06:50 | NUR ---
CLOSING: BLOOD SUGAR 175MG/DL. NO COVERAGE. IVF AT 50ML/HR. NO ACUTE CARDIOPULMONARY DISTRESS . ALL NEEDS WERE ATTENDED.SLEPT AT LONG INTERVALS.
[2019-03-09] MEDS: LEVOTHYROXINE SODIUM 0.15 MG TABLET PO SCH (07:01)
[2019-03-09] MEDS: FERROUS GLUCONATE 300 MG TABLET PO SCH ×2 (07:01→17:48)
--- NOTE | 2019-03-09 08:00 | NUR ---
Opening Note Report received from [facility] shift nurse. Isolation and aspiration precautions are in place. Trach is to vent with the following settings: AC 14, TV 600, FiO2 30%, Peep 0. Rivero cath is draining cloudy, yellow urine. LUE midline is in place running 1/2NS@50. Will continue to monitor
[2019-03-09 08:19] VITALS: BP_SYST 97
[2019-03-09] MEDS: ALLOPURINOL 100 MG TABLET (ZYLOPRIM) PO SCH (08:44)
[2019-03-09] MEDS: CHOLECALCIFEROL (VITAMIN D3) 2,000 UNIT TABLET PO SCH (08:44)
[2019-03-09] MEDS: LACTOBACILLUS RHAMNOSUS GG 1 CAP CAPSULE PO SCH ×2 (08:44→20:27)
[2019-03-09] MEDS: MAGNESIUM OXIDE 400 MG TABLET PO SCH (08:44)
[2019-03-09] MEDS: CILOSTAZOL 50 MG TABLET (PLETAL) PO SCH ×2 (08:44→20:27)
[2019-03-09] MEDS: SIMETHICONE 80 MG TAB.CHEW PO SCH ×2 (08:44→20:27)
[2019-03-09] MEDS: NEPHROVITE, (FOLIC ACID/VITAMIN B COMP W-C 1 TAB) PO SCH (08:44)
[2019-03-09] MEDS: METOCLOPRAMIDE HCL 10 MG TABLET PO SCH ×3 (08:45→20:27)
[2019-03-09] MEDS: PANTOPRAZOLE SODIUM 40 MG/VIAL (PROTONIX) IVP SCH (08:45)
[2019-03-09] MEDS: OXYCODONE/ACETAMINOPHEN *10*mg/325 mg TABLET PO SCH ×3 (08:57→20:28)
--- NOTE | 2019-03-09 10:02 | NUR ---
Rounds Patient is currently resting in bed. Current O2 sat is 100%. Call light is within reach.
--- NOTE | 2019-03-09 11:10 | NUR ---
Discharge Planning: DCP faxed PT and Face sheet to [facility] (f [phone] p [phone]); DCP to follow up
--- NOTE | 2019-03-09 12:26 | NUR ---
Rounds Daughter is at the bedside. patient is awake and alert.
[2019-03-09 12:59] VITALS: BP_SYST 121
[2019-03-09 14:03] VITALS: BP_SYST 132
--- NOTE | 2019-03-09 14:26 | NUR ---
Rounds Medicated with Benadryl 25mg per patient's request. Will reassess.
--- NOTE | 2019-03-09 14:28 | NUR ---
RN Note Rep form [facility] is currently doing a beside eval.
--- NOTE | 2019-03-09 16:20 | NUR ---
RN Note Patient is refusing to have labs drawn. She he requesting a different rehab/pre vocational counselor.
[2019-03-09 16:26] VITALS: BP_SYST 124
--- NOTE | 2019-03-09 17:05 | NUR ---
RN Note A different fiberglass insulation installer attempted to draw labs. Patient continues to refuse.
[2019-03-09] MEDS: WARFARIN SODIUM 2 MG TABLET PO SCH (17:49)
--- NOTE | 2019-03-09 18:01 | NUR ---
called Called Dr. King for clarification on new antibiotic order.
--- NOTE | 2019-03-09 18:29 | NUR ---
Closing Note Patient is resting in bed. Isolation and aspiration precautions remain in place. Trach is vent with the following settings: AC 14, TV 600, FiO2 30%, Peep 0. LUE midline is in place running 1/2NS@50. Rivero cath is draining cloudy yellow urine. Patient continue to deny lab draws. Currently waiting for Dr. King to call back for clarification of new antibiotic order. Will endorse care to the oncoming nurse.
[2019-03-09] MEDS: 0.45% NACL 1,000 ML IV SCH (18:50)
--- NOTE | 2019-03-09 19:20 | NUR ---
OPENING NOTES Pt is resting in bed with both eyes closed. With visible chest rise and fall with unlabored breathing noted. Pt on IVF with 0.45NS at 50 ml/hr and infusing well on left upper arm PICC. Pt on mech vent with settings: AC: 14. TV: 600, FiO2: 30%, PEEP: 0. Pt with pizarro catheter with yellow urine noted in the bag and hanged below bladder level. No signs of acute distress or SOB noted. Safety precautions in place with 3 side rails up, bed alarm on, locked and in lowest position. Call light with pt. Will continue to monitor.
--- NOTE | 2019-03-09 19:52 | NUR ---
Pagelizz Gilliam s/w Negar
--- NOTE | 2019-03-09 19:55 | NUR ---
SPOKE TO DR. GORMAN Spoke to Dr. Gorman regarding his order Fortaz since pt is allergic to Cephalexin. Dr. Gorman said it's okay to give and if allergic reaction occurs, to give Benadryl 25mg IVP to pt. Will call pharmacy.
--- NOTE | 2019-03-09 20:10 | NUR ---
SPOKE TO [facility] Spoke to remote pharmacy [facility] regarding pt's ordered medication of Fortaz, informed her that MD okayed to give the medication.
[2019-03-09 20:20] VITALS: BP_SYST 110
[2019-03-09] MEDS: GABAPENTIN 300 MG CAPSULE PO SCH (20:27)
[2019-03-09] MEDS: ATORVASTATIN 10 MG TABLET PO SCH (20:27)
[2019-03-09] MEDS ORDERED: CEFTAZIDIME 1 GM VIAL ONE (20:30)
[2019-03-09] MEDS: CEFTAZIDIME 2 GM in D5W 100 ML IV SCH (20:31)
[2019-03-09] MEDS: INSULIN REGULAR, HUMAN 100 UNITS/ML, 10 ML VIAL (novoLIN R) SUBCUT PRN (20:43)
[2019-03-09 21:32] LABS: BASOPHILS # (AUTO) 0.1 K/uL (0.0-0.2); BASOPHILS % (AUTO) 0.4 % (0.0-2.0); EOSINOPHILS # (AUTO) 0.4 K/uL (0.0-0.4); EOSINOPHILS % (AUTO) 2.3 % (0.0-4.0); HEMATOCRIT 25.2 % (36-48); HEMOGLOBIN 8.3 g/dL (12.0-16.0); LYMPHOCYTES # (AUTO) 2.7 K/uL (1.0-5.5); LYMPHOCYTES % (AUTO) 14.1 % (20.5-51.5); MEAN CORPUSCULAR HEMOGLOBIN 29 pg (27-31); MEAN CORPUSCULAR HGB CONC 33 % (32-36); MEAN CORPUSCULAR VOLUME 89 fL (79.0-98.0); MONOCYTES # (AUTO) 1.4 K/uL (0.0-1.0); MONOCYTES % (AUTO) 7.6 % (1.7-9.3); NEUTROPHILS # (AUTO) 14.3 K/uL (1.8-7.7); NEUTROPHILS % (AUTO) 75.6 % (40.0-70.0); PLATELET COUNT (AUTO) 386 K/uL (130-430); RED BLOOD CELL COUNT(AUTO) 2.85 MIL/uL (4.2-6.2); RED CELL DISTRIBUTION WIDTH 16.9 % (9.0-15.0)
[2019-03-09 21:40] LABS: CALCIUM 8.2 mg/dL (8.4-11.0); CREATININE 2.14 mg/dL (0.55-1.30); POTASSIUM 4.1 mmol/L (3.5-5.1)
[2019-03-09 21:44] LABS: INR 2.4 (0.8-1.2); PROTHROMBIN TIME 23.9 SECS (9.5-12.5)
--- NOTE | 2019-03-09 23:30 | NUR ---
ROUNDS Pt is awake, alert and lying in bed while watching tv. No complains of pain or discomfort at this time. No signs of acute distress or SOB noted. IVF patent and infusing well. Encouraged to use call light when needed. Safety precautions in place and call light with pt. Will continue to monitor.
[2019-03-10] VITALS (8 sets, daily range): BP systolic 120–137
[2019-03-10] MEDS: LOPERAMIDE HCL 2 MG CAPSULE PO PRN ×2 (01:03→17:12)
[2019-03-10] MEDS: ONDANSETRON HCL 4 MG/2 ML VIAL IVP PRN ×3 (01:05→15:15)
[2019-03-10] MEDS: HYDROmorphone 1 MG INJ. 1 MG/ML AMPUL IVP PRN ×4 (01:06→21:48)
--- NOTE | 2019-03-10 01:06 | NUR ---
DILAUDED 1MG GIVEN Assisted SYSTEMS ARCHITECT Noira with incontinence care, pt had a soft bowel movement. And turned pt comfortably. Pt complained of pain on both legs with a scale of 8/10. Dilauded 1mg IVP given as ordered. Encouraged deep breathing exercises. Educated on side effects like drowsiness. No signs of acute distress noted. Safety precautions in place and call light with pt. Will continue to monitor.
--- NOTE | 2019-03-10 02:59 | NUR ---
RESTING Pt is resting in bed with both eyes closed. With visible chest rise and fall with unlabored breathing noted. No signs of acute distress or SOB noted. IVF patent and infusing well. Safety precautions in place and call light with pt. Will continue to monitor.
[2019-03-10] MEDS: IPRATROPIUM/ALBUTEROL SULFATE 3 ML AMPUL.NEB (DUONEB) INH SCH ×6 (03:00→23:00)
[2019-03-10] MEDS: DIPHENHYDRAMINE INJ 50 MG/ML VIAL IVP PRN ×3 (03:31→19:58)
--- NOTE | 2019-03-10 03:31 | NUR ---
BENADRYL 25MG GIVEN Pt complained of itching all over her body. Benadryl 25mg IVP given as ordered. Educated on side effects like drowsiness. No signs of acute distress or SOB noted. No rashes seen on the skin. Safety precautions in place and call light with pt. Will continue to monitor.
[2019-03-10] MEDS: FERROUS GLUCONATE 300 MG TABLET PO SCH ×2 (06:28→17:11)
[2019-03-10] MEDS: INSULIN REGULAR, HUMAN 100 UNITS/ML, 10 ML VIAL (novoLIN R) SUBCUT PRN (06:28)
[2019-03-10] MEDS: LEVOTHYROXINE SODIUM 0.15 MG TABLET PO SCH (06:28)
--- NOTE | 2019-03-10 06:32 | NUR ---
CLOSING NOTES Pt is resting in bed with both eyes closed. With visible chest rise and fall with unlabored breathing noted. No changes on mech vent settings. IVF patent and infusing well. Maintained urine bag hanged below bladder level. No complains of pain or discomfort at this time. No signs of acute distress or SOB noted. All needs attended throughout the shift. Safety precautions maintained with 3 side rails up, bed alarm on, locked and in lowest position. Call light with pt. Will continue to monitor.
[2019-03-10 06:42] LABS: BASOPHILS # (AUTO) 0.1 K/uL (0.0-0.2); BASOPHILS % (AUTO) 0.3 % (0.0-2.0); EOSINOPHILS # (AUTO) 0.5 K/uL (0.0-0.4); HEMATOCRIT 24.8 % (36-48); HEMOGLOBIN 8.1 g/dL (12.0-16.0); LYMPHOCYTES % (AUTO) 17.7 % (20.5-51.5); MEAN CORPUSCULAR HEMOGLOBIN 29 pg (27-31); MEAN CORPUSCULAR HGB CONC 33 % (32-36); MEAN CORPUSCULAR VOLUME 89 fL (79.0-98.0); MONOCYTES # (AUTO) 1.3 K/uL (0.0-1.0); MONOCYTES % (AUTO) 7.6 % (1.7-9.3); NEUTROPHILS # (AUTO) 12.1 K/uL (1.8-7.7); NEUTROPHILS % (AUTO) 71.4 % (40.0-70.0); PLATELET COUNT (AUTO) 365 K/uL (130-430); RED BLOOD CELL COUNT(AUTO) 2.81 MIL/uL (4.2-6.2); RED CELL DISTRIBUTION WIDTH 17.3 % (9.0-15.0); WHITE BLOOD COUNT (AUTO) 16.9 K/uL (4.8-10.8)
--- NOTE | 2019-03-10 07:30 | NUR ---
AM Rounds Patient resting in bed at this time, A/O x4. No SOB noted. Lung sounds clear. HOB kept elevated, O2 sat 100% on Vent. PICC line on left upper arm, in place, and infusing. F/C in place, draining yellow urine with sediments. Noted with right lower extremity edema, Right heel lift boot in place. Patient supine refusing to be turned and repositioned. Educated patient on risks and benefits, patient still refuses. On contact isolation precautions for MDRO, LABORER STEEL HANDLING of sputum, maintained as ordered. Educated patient on isolation precautions, verbalized understanding. On Aspiration precautions, HOB kept elevated. On fall precautions, bed in lowest position, bed alarm on, 3 side rails up, call light within reach.
--- NOTE | 2019-03-10 08:00 | NUR ---
Diaper Patient wearing home brought diaper upon assessment. Patient educated about the importance of being a diaper free facility and how diapers contribute to skin breakdown. Patient refusing to remove diaper. Patient stated "I always wear this diaper, I want to keep it on."
[2019-03-10] MEDS: CILOSTAZOL 50 MG TABLET (PLETAL) PO SCH ×2 (08:01→19:58)
[2019-03-10] MEDS: LACTOBACILLUS RHAMNOSUS GG 1 CAP CAPSULE PO SCH ×2 (08:02→19:59)
[2019-03-10] MEDS: MAGNESIUM OXIDE 400 MG TABLET PO SCH (08:02)
[2019-03-10] MEDS: NEPHROVITE, (FOLIC ACID/VITAMIN B COMP W-C 1 TAB) PO SCH (08:02)
[2019-03-10] MEDS: SIMETHICONE 80 MG TAB.CHEW PO SCH ×2 (08:02→19:59)
[2019-03-10] MEDS: CHOLECALCIFEROL (VITAMIN D3) 2,000 UNIT TABLET PO SCH (08:02)
[2019-03-10] MEDS: ALLOPURINOL 100 MG TABLET (ZYLOPRIM) PO SCH (08:03)
[2019-03-10] MEDS: METOCLOPRAMIDE HCL 10 MG TABLET PO SCH ×3 (08:03→19:58)
[2019-03-10] MEDS: PANTOPRAZOLE SODIUM 40 MG/VIAL (PROTONIX) IVP SCH (08:04)
[2019-03-10] MEDS: OXYCODONE/ACETAMINOPHEN *10*mg/325 mg TABLET PO SCH ×3 (08:04→19:59)
--- NOTE | 2019-03-10 10:27 | NUR ---
Pt Note Patient refusing therapy at this time, educated patient the benefits of therapy; nursing made aware.
--- NOTE | 2019-03-10 12:00 | NUR ---
BS check/Rounds Patient resting in bed at this time. BS checked, no coverage needed. On IV fluids as ordered, tolerating well. No nausea/ no vomiting noted.
--- NOTE | 2019-03-10 15:00 | NUR ---
Skin assessment Patient skin assessed, patient has scar tissue that is slightly open. Patient refused moisture barrier cream. Patient refusing to turn multiple times when offered. Patient educated on importance of turning, patient continues to refuse. Refer to 0800 note regarding diaper.
--- NOTE | 2019-03-10 15:00 | NUR ---
Nutrition F/U RD reviewed pt's current EMR record including diet Hx, physician's notes, nursing notes, pertinent labs/meds, care trends, and care activity. Current Diet Order: CCHO, Glucerna TID x7 days Pt seen resting in bed, c/o headache. Pt stated that she hasn't been eating too much d/t lack of appetite. Pt stated she hasn't been drinking Glucerna ONS d/t dislike. Pt was interested in PM and HS snacks -- 1/2 tuna sandwich and 1/2 turkey sandwiches, respectively. RD notified [facility] staff and input into [employer]. Per MD orders, plans for D/C to [facility] when bed is available. Bedscale wt taken: 215 lb (03/10/19) -- note -4 lb wt gain since 03/04/19 -- likely r/t bedding/linens. Current % PO 53% average x12 meals Estimated Energy Expenditure (kcals/day) 9007-0039 kcal/day (30-35 kcal/kg Adj IBW Obesity for sepsis) Estimated Protein Required (g/day) 54-102 gm/day (.8-1.5 gm/kg Adj IBW Obesity for sepsis/CKD) Estimated Fluid Required (l/day) per MD (CKD) Problem/Etiology/Signs/Symptoms Increased nutritional needs r/t metabolic demands AEB estimated calorie and protein for sepsis. *ongoing Expected Outcomes/Goals Monitor appetite and PO intake w/ goal of pt meeting at least 75% of estimated nutritional needs, labs trending WNL, normal GI function, skin integrity/wt maintenance. Dietitian Recommendations * Recommend [facility] diet * D/C Glucerna TID * Recommend snacks BID Follow Up Mod Risk: F/U in 3-5 days Addendum: 03/10/19 at [address] CORRECTION: Bedscale wt taken: 215 lb (03/10/19) -- note +4 lb wt gain since 03/04/19 -- likely r/t bedding/linens.
--- NOTE | 2019-03-10 15:07 | NUR ---
Dietitian Recommendations * Recommend [facility] diet * D/C Glucerna TID * Recommend snacks BID LP, RD Please refer to Nutrition F/U for details.
[2019-03-10] MEDS: 0.45% NACL 1,000 ML IV SCH (15:16)
--- NOTE | 2019-03-10 16:06 | NUR ---
Turning/repositioning Patient refusing to be turned, educated on the importance of turning and repositioning to prevent skin breakdown, patient still refuses to turn.
--- NOTE | 2019-03-10 16:21 | NUR ---
Case mgt: Trach/vent dependent pt-- [facility] put pt on [facility] waiting list-no bed available yet-f/u for dc planning for possible dc home with home health --WBC trending down today at 16.9--nurse Wesley was going to f/u with Dr. Gilliam to verify if pt will continue IV Zosyn in addition to IV Fortaz. FLOR AMOS
[2019-03-10] MEDS: EPOETIN ALFA 4,000 UNITS/ML VIAL SUBCUT SCH (17:11)
[2019-03-10] MEDS: WARFARIN SODIUM 2 MG TABLET PO SCH (17:11)
[2019-03-10] MEDS ORDERED: WARFARIN SODIUM 1 MG TABLET PO SCH (18:00)
--- NOTE | 2019-03-10 18:44 | NUR ---
Closing note Patient resting in bed at this time, daughter at bedside,No SOB noted. HOB kept elevated, O2 sat 100% on Vent.On contact isolation, Aspiration precautions, and fall precautions reinforced, HOB kept elevated, bed in lowest position, bed alarm on, 3 side rails up, call light within reach.
--- NOTE | 2019-03-10 19:45 | NUR ---
Initial Note Received patient awake, alert and oriented. No SOB noted. Trach to vent, vent settings checked. Complain of generalized pain and headache, will medicate. IVF infusing on midline catheter, dressing CDI. F/C intact and draining well. Refused to be turn at this time Heels off bed. Elevated BLE on pillows. Care and monitoring will be provided per protocol. Call light within reach. Bed alarm on and at lowest position at all times. Needs attended. Kept warm and comfortable.
[2019-03-10] MEDS: ATORVASTATIN 10 MG TABLET PO SCH (19:59)
[2019-03-10] MEDS: GABAPENTIN 300 MG CAPSULE PO SCH (19:59)
[2019-03-10] MEDS: CEFTAZIDIME 2 GM in D5W 100 ML IV SCH (20:00)
--- NOTE | 2019-03-10 20:00 | NUR ---
Pain med Due meds given along with pain and itching medication per patient's request, tolerated well. Refused to be turn, she said that she's comfortable right now. Last blood sugar was 169, no coverage given. Patient seems sad because of her increasing WBC, made her aware of the latest WBC compared yesterday. Emotional support provided. Contact and skin precautions observed.
--- NOTE | 2019-03-10 21:48 | NUR ---
Pain med Pain medication given per patient's request. Refused to be turned at this time. Heels off bed. Kept warm.
--- NOTE | 2019-03-10 22:30 | NUR ---
RN Note Patient is sleeping at this time. No SOB or grimacing noted.
--- NOTE | 2019-03-11 | NUR ---
RN Note Patient arousable. VS taken and stable. Refused to turn at this time per MONEY MANAGER. Vent settings checked. No SOB noted. Will continue to monitor.
[2019-03-11] MEDS: DIPHENHYDRAMINE INJ 50 MG/ML VIAL IVP PRN ×2 (01:58→08:59)
--- NOTE | 2019-03-11 02:00 | NUR ---
RN Note PAtient awake and alert. Medicated for itchiness per patient's request. Had a smear dark soft BM. Incontinence and pizarro care done. Applied patient's cream. Applied vaseline to both of her heels. Right leg foam placed to protect the heel. Refused to be turned on her side, prefers supine position for now. Refused pillow under her left leg, patient able to move her leg. Needs attended. Kept her clean, dry and comfortable. Coughs occasionally. Called RT for a HHN per patient's request. Will continue to monitor.
[2019-03-11] MEDS: IPRATROPIUM/ALBUTEROL SULFATE 3 ML AMPUL.NEB (DUONEB) INH SCH ×4 (02:20→16:15)
--- NOTE | 2019-03-11 04:00 | NUR ---
RN Note Sleeping comfortably in bed. Refused to be turned, Right heel off bed and able to move her left leg. Vent setting checked. NO SOB noted. Needs attended.
[2019-03-11] MEDS: FERROUS GLUCONATE 300 MG TABLET PO SCH ×2 (06:16→17:15)
[2019-03-11] MEDS: LEVOTHYROXINE SODIUM 0.15 MG TABLET PO SCH (06:16)
[2019-03-11] MEDS: HYDROmorphone 1 MG INJ. 1 MG/ML AMPUL IVP PRN ×2 (06:27→12:59)
[2019-03-11 06:33] LABS: BASOPHILS # (AUTO) 0.1 K/uL (0.0-0.2); BASOPHILS % (AUTO) 0.5 % (0.0-2.0); EOSINOPHILS # (AUTO) 0.5 K/uL (0.0-0.4); EOSINOPHILS % (AUTO) 3.3 % (0.0-4.0); HEMATOCRIT 24.9 % (36-48); LYMPHOCYTES # (AUTO) 2.7 K/uL (1.0-5.5); LYMPHOCYTES % (AUTO) 18.3 % (20.5-51.5); MEAN CORPUSCULAR HEMOGLOBIN 29 pg (27-31); MEAN CORPUSCULAR HGB CONC 32 % (32-36); MEAN CORPUSCULAR VOLUME 90 fL (79.0-98.0); MONOCYTES % (AUTO) 6.7 % (1.7-9.3); NEUTROPHILS # (AUTO) 10.4 K/uL (1.8-7.7); NEUTROPHILS % (AUTO) 71.2 % (40.0-70.0); PLATELET COUNT (AUTO) 376 K/uL (130-430); RED BLOOD CELL COUNT(AUTO) 2.78 MIL/uL (4.2-6.2); WHITE BLOOD COUNT (AUTO) 14.6 K/uL (4.8-10.8)
[2019-03-11 06:40] LABS: INR 2.3 (0.8-1.2); PROTHROMBIN TIME 23.1 SECS (9.5-12.5)
[2019-03-11 06:43] LABS: CREATININE 1.99 mg/dL (0.55-1.30); POTASSIUM 4.5 mmol/L (3.5-5.1)
--- NOTE | 2019-03-11 06:45 | NUR ---
End Note Afebrile. VS stable. Medicated for pain twice throughout the night. No complain of SOB or n/v. Vent settings checked. Suctioned only once, not congested. Tolerated diet and PO meds. IVF infusing. Right leg foam immobilizer and heel protector. Able to move her left leg. Refused pillow under the left leg. Refused turning several times last night. Skin and incontinence care done. F/C intact, draining well and emptied frequently. Latest blood sugar was 155, no coverage given. AM labs today. Care and monitoring provided per protocol. Call light within reach. Bed alarm on and at lowest position at all times. Repositioned to the right. Needs attended. Kept warm and comfortable. Bleeding, fall, skin and contact precautions observed.
[2019-03-11 06:54] LABS: ALBUMIN 1.9 g/dL (3.4-4.8); TOTAL BILIRUBIN 0.1 mg/dL (0.0-1.0)
--- NOTE | 2019-03-11 08:00 | NUR ---
am rounds: Patient is asleep. vent dependent with TV 600, AC 14, Fio2 30% via trach shiley #7. IV fluids of 1/2 NS at 50 cc/hr via left upper mid line. On contact isolation for MDRO/SPEECH PATHOLOGIST sputum. On low air loss mattress for low delphine score .
[2019-03-11 08:30] VITALS: BP_SYST 136
[2019-03-11] MEDS: PANTOPRAZOLE SODIUM 40 MG/VIAL (PROTONIX) IVP SCH (08:58)
[2019-03-11] MEDS: MAGNESIUM OXIDE 400 MG TABLET PO SCH (08:59)
[2019-03-11] MEDS: CHOLECALCIFEROL (VITAMIN D3) 2,000 UNIT TABLET PO SCH (08:59)
[2019-03-11] MEDS: ALLOPURINOL 100 MG TABLET (ZYLOPRIM) PO SCH (08:59)
[2019-03-11] MEDS: SIMETHICONE 80 MG TAB.CHEW PO SCH (08:59)
[2019-03-11] MEDS: CILOSTAZOL 50 MG TABLET (PLETAL) PO SCH (08:59)
[2019-03-11] MEDS: METOCLOPRAMIDE HCL 10 MG TABLET PO SCH ×2 (09:00→14:32)
[2019-03-11] MEDS: NEPHROVITE, (FOLIC ACID/VITAMIN B COMP W-C 1 TAB) PO SCH (09:00)
[2019-03-11] MEDS: LACTOBACILLUS RHAMNOSUS GG 1 CAP CAPSULE PO SCH (09:00)
--- NOTE | 2019-03-11 09:00 | NUR ---
Turn and reposition: Refused to be turned, patient wants to wait for physical therapy .
[2019-03-11] MEDS: OXYCODONE/ACETAMINOPHEN *10*mg/325 mg TABLET PO SCH ×2 (09:01→14:32)
--- NOTE | 2019-03-11 10:00 | NUR ---
Wound care Patient noted with reopened scar tissue 1cmX1.2cm, 100% pink, no odor, no drainage. Patient refusing recommended treatment of Z guard with thera honey and foam dressing. Patient states it will not work and she does not want to keep it covered. Patient stated she wants her home brought lanolin cream mixed with Vaseline and covered with diaper. Educated patient on the importance of proper treatment, and dressing, patient continues to refuse. Patient agreed to thera honey to be applied only with her mixture of lanolin/ Vaseline, but use her diaper to cover dressing. Patient refusing to be turned onto her left side, educated patient on the importance of turning, patient agreed. Patient turned and repositioned.
--- NOTE | 2019-03-11 10:10 | NUR ---
WOUND EVALUATION: Late note for 1010 secondary to patient care. Wound Consult received from Dr. Hanna. Thank you, Dr. Hanna, for the consult. Patient received in a [place] Bed with an IsoFlex CYNDI mattress, awake, alert, and oriented. Patient is able to turn in bed with assist. Fabricio Score is a 13. 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 Recent Labs: WBC 14.6, RBC 2.78, hemoglobin 8.0, hematocrit 24.9, BUN 19, creatinine 1.99, GFR 32, glucose 163, calcium 8.0, AST 75, serum total protein 6.3, albumin 1.9. PTT 23.1, INR 2.3. Microbiology: Blood culture results 2 negative. Urine culture results negative. MRSA screen results negative. Endotracheal sputum culture results positive for F[place]on Alcalifaciens 12 (PERFECT BINDER OPERATOR), and [place] Stuartii (PERFECT BINDER OPERATOR, MDRO). Nose/Culture results negative. Tracheal aspirate sputum culture results positive for pseudomonas aeruginosa (MDRO, PERFECT BINDER OPERATOR). Intrinsic factors that delay wound healing: Diabetes mellitus type 2, Chronic respiratory failure, peripheral arterial disease, diabetic nephropathy, restrictive lung disease, pulmonary fibrosis, paralysis of diaphragm, moderate protein malnutrition, and diabetic neuropathy. Extrinsic factors that delay wound healing: Decreased mobility. Wound Assessment: 1. Left Sacral area: Re-opened scar tissue. Site has 100% pink tissue. No odor, no drainage. Matt-site and surrounding tissue has scar tissue. Measures 1.0 cm x 1.2 cm, superficial depth. Non intact area is in the shape of a backwards "L" with no more than 0.1 cm width at any area. This is an area where dark-colored skin flaked off, and scar tissue is present. Strongly recommend: Cleanse site with normal saline. Apply Calmoseptine cream to matt-site. Cover with foam dressing. Perform site care daily, and as needed for dressing soiling or dislodgement. Patient prefers: Cleanse site with normal saline. Apply her preferred cream (a mixture of petrolatum jelly and Lantolin) instead of the barrier cream to the site. Apply Therahoney Gel to the site. Cover area with diaper. Perform site care daily, and as needed for soiling. Also strongly recommend: Encourage and assist patient with repositioning side to side only every 2 hours with pillow support, and off-load pressure areas with pillows for pressure re-distribution. Offload, elevate and float bilateral heels with pillows. Perform skin care and monitor skin integrity Q shift. Use Calmoseptine cream (if allowed by patient) on buttocks and other moisture susceptible areas QID and as needed for soiling. Maintain patient on a low air-loss mattress. Supplemental: Treatment planned included cleansing re-opened scar tissue with normal saline, application of barrier cream to matt of open area (Z-Guard and Calmoseptine offered), application of Therahoney Gel to re-opened scar tissue, and application of a foam dressing to absorb any exudate and facilitate moist healing). Patient called her daughter, and then said that we needed to use the diaper (not a foam dressing), and to use her preferred cream (a mixture of petrolatum jelly and Lantolin) instead of the barrier cream around the open area). Explained to the patient why the treatment plan was important. She said she understood, but still refused treatment plan for the re-opened scar tissue. She said to do it her way, because she's tried everything else and all the other dressings, including foam dressings, and that it (re-opened scar tissue) just needed to dry out. Patient has a history of non-compliance and refusal of turning. Patient initially refused to lie on her right side post treatment, but then agreed. Patient also said it took her daughter a year to close a previous wound doing it their way.
--- NOTE | 2019-03-11 10:54 | NUR ---
DC PLANNING Received call from Lynne @ [facility], ph [phone] fax [phone], have bed for pt after 1800. Pt going to room 1235B, #for report [phone]. arin Hernnades tools programmer, faxed updated pt requested. Per Greta ambulance transfer set up for 1800 pickling tank operator. Informed pt @ bedside [facility], states to call dtr. Called & spoke w dtr Danyell, ph [phone], & informed, agreeable w dc to [facility] today for pickling tank operator @ 1800. Updated pt's nurse, she is calling to inform Dr Hanna & get order for today.
[2019-03-11] MEDS ORDERED: SOD FERRIC GLUC COMPLEX/SUC 125 MG in NS 100 ML IV SCH (11:15)
--- NOTE | 2019-03-11 11:29 | NUR ---
Discharge Planning: [facility] updated packet with radiology CD's. [facility] arranged transportation with [facility] ([phone]) 6:00pm P/U to [facility] (f [phone] p [phone]) RM [id number] number to report [phone]. Patient packt taken to nurse station. Patient nurse made aware. Addendum: 03/11/19 at 1137 by Greta RUIZ Ambulance was arranged [facility]
[2019-03-11] MEDS: 0.45% NACL 1,000 ML IV SCH (11:50)
[2019-03-11] MEDS ORDERED: MENTHOL/ZINC OXIDE 113 GM OINT. TP PRN (12:15)
[2019-03-11 12:27] VITALS: BP_SYST 136
[2019-03-11 12:37] VITALS: BP_SYST 140
[2019-03-11] MEDS: ONDANSETRON HCL 4 MG/2 ML VIAL IVP PRN (12:59)
--- NOTE | 2019-03-11 14:59 | NUR ---
MIDLINE DRESSING: Dressing is soiled, patient states its leaking. Repositioned catheter then flushed with normal saline, no leakage noted. Cleansed site with packet provided chlorhexidine swab, insertion site has no redness, biopatch applied and secured with tegaderm. IV fluids resumed.
--- NOTE | 2019-03-11 17:20 | NUR ---
BS check BS result 153, no coverage needed. Patient resting in bed at this time. No complaints of pain.
[2019-03-11 17:23] VITALS: BP_SYST 140
[2019-03-11] MEDS ORDERED: WARFARIN SODIUM 1 MG TABLET PO SCH (18:00)
--- NOTE | 2019-03-11 18:37 | NUR ---
Discharge: Discharged to [facility] with [facility]. Left upper arm midline to [facility]. All belongings sent with ambulance. Report was given to Mellisa ([facility])
[2019-03-12] MEDS ORDERED: EPOETIN ALFA 4,000 UNITS/ML VIAL SUBCUT SCH (09:00)
== END 2019-03-11 18:27 | DRG 870 ==
LOC: SED 14:36 → STU 17:01
PROVIDERS: ADMIT Internal Medicine; ATTEND Internal Medicine
PROC: 5A1955Z Respiratory Ventilation, Greater than 96 Consecutive Hours (ICD-10-PCS; principal; 2019-02-20)
PROC: 30233N1 Transfusion of Nonautologous Red Blood Cells into Peripheral Vein, Percutaneous Approach (ICD-10-PCS; 2019-02-23)
PROC: 05HY33Z Insertion of Infusion Device into Upper Vein, Percutaneous Approach (ICD-10-PCS; 2019-02-28)
PROC: B54NZZA Ultrasonography of Left Upper Extremity Veins, Guidance (ICD-10-PCS; 2019-02-28)
DX: A41.9 Sepsis, unspecified organism (principal); J15.1 Pneumonia due to Pseudomonas; N17.0 Acute kidney failure with tubular necrosis; J96.20 Acute and chronic respiratory failure, unspecified whether with hypoxia or hypercapnia; Z99.11 Dependence on respirator [ventilator] status; E44.0 Moderate protein-calorie malnutrition; N13.6 Pyonephrosis; G82.20 Paraplegia, unspecified; J44.0 Chronic obstructive pulmonary disease with (acute) lower respiratory infection; D63.8 Anemia in other chronic diseases classified elsewhere; F41.9 Anxiety disorder, unspecified; E03.9 Hypothyroidism, unspecified; E11.22 Type 2 diabetes mellitus with diabetic chronic kidney disease; E11.40 Type 2 diabetes mellitus with diabetic neuropathy, unspecified; E11.51 Type 2 diabetes mellitus with diabetic peripheral angiopathy without gangrene; J84.10 Pulmonary fibrosis, unspecified; J98.6 Disorders of diaphragm; F32.9 Major depressive disorder, single episode, unspecified; M16.11 Unilateral primary osteoarthritis, right hip; N18.9 Chronic kidney disease, unspecified; N31.9 Neuromuscular dysfunction of bladder, unspecified; R53.82 Chronic fatigue, unspecified; Y95 Nosocomial condition; K59.00 Constipation, unspecified; B96.20 Unspecified Escherichia coli [E. coli] as the cause of diseases classified elsewhere; E66.9 Obesity, unspecified; Z16.24 Resistance to multiple antibiotics; Z86.711 Personal history of pulmonary embolism; Z86.718 Personal history of other venous thrombosis and embolism; Z93.0 Tracheostomy status; Z87.891 Personal history of nicotine dependence; Z90.710 Acquired absence of both cervix and uterus; Z68.34 Body mass index [BMI] 34.0-34.9, adult; Z88.2 Allergy status to sulfonamides; Z88.8 Allergy status to other drugs, medicaments and biological substances; Z91.041 Radiographic dye allergy status; Z88.1 Allergy status to other antibiotic agents; Z79.82 Long term (current) use of aspirin; Z79.899 Other long term (current) drug therapy; I69.364 Other paralytic syndrome following cerebral infarction affecting left non-dominant side
CPT/HCPCS: 36415; 71045; 76770; 80048; 80053; 81000-TC; 82550-TC; 82607; 82962; 83540-TC; 83550-TC; 83605; 83690-TC; 84484; 85007; 85025; 85027; 85610-TC; 85730-TC; 86738; 86886; 86900; 86901; 86920; 87040-TC; 87070-TC; 87081; 87086; 87186-TC; 87205-TC; 93005; 94002; 94003; 94640; 94760; 96374; 96375; 97110-GP; 97530-GP; 99285; C1751; C9113; G0378; J0456; J0696; J0713; J0770; J0885; J1170; J1200; J1450; J1756; J1815; J1940; J1956; J2405; J2543; J2916; J3010; J3490; J7030; J7050; J7060; J7120; J7620; J8597; P9021